=== PATIENT | male | born 1945 | race Caucasian/White ===

== ENCOUNTER → 2020-06-04 08:16 | Outpatient (BNVA) | payer MEDICARE, SELFPAY | PROVIDERS: PCP Internal Medicine; Visit Provider Internal Medicine | DX: I48.0 Paroxysmal atrial fibrillation (principal); Z51.81 Encounter for therapeutic drug level monitoring; Z79.01 Long term (current) use of anticoagulants | CPT/HCPCS: 85610; 99211 ==

== ENCOUNTER 2020-08-02 08:40 | Outpatient (REF) | payer MEDICARE, SELFPAY ==
[2020-08-02 10:17] LABS: MANUAL DIFF FLAG NO
[2020-08-02 10:35] LABS: Basophils Absolute Auto 0.1 X10*3/uL (0.0-0.2); Basophils Percent Auto 0.9 % (0-2); Eosinophils Absolute Auto 0.1 X10*3/uL (0.0-0.4); Eosinophils Percent Auto 1.4 % (0-4); Hematocrit 43.2 % (42-52); Hemoglobin 14.3 g/dl (14.0-18.0); Imm Gran Abs Auto 0.05 X10*3/uL (0.00-0.03); Imm Gran Pct Auto 0.5 % (0.0-0.4); Lymphocytes Absolute Auto 0.8 X10*3/uL (1.2-4.9); Lymphocytes Percent Auto 7.5 % (20-40); Mean Corpuscular HGB Conc 33.1 g/dl (31.0-36.0); Mean Corpuscular Hemoglobin 32.1 pg (27.0-33.0); Mean Corpuscular Volume 97.1 fL (80-98); Mean Platelet Volume 10.3 fL (9.4-12.4); Monocytes Absolute Auto 0.8 X10*3/uL (0.1-1.2); Monocytes Percent Auto 7.6 % (2-11); Neutrophils Absolute Auto 8.2 X10*3/uL (2.0-8.3); Neutrophils Percent Auto 82.1 % (45-73); Platelet Count 230 X10*3/uL (160-400); Red Blood Count 4.45 X10*6/uL (4.60-5.80); Red Cell Distribution Width 13.6 % (11.0-16.0)
[2020-08-02 10:36] LABS: Glucose Urine UA NEG (NEG); Leukocyte Esterase Urine NEG (NEG); Nitrite Urine NEG (NEG); Specific Gravity - Urine 1.025 (1.005-1.025); Urine Blood 1+ (NEG); Urine Ketones NEG (NEG); Urine Protein NEG (NEG-TRACE)
[2020-08-02 10:40] LABS: Appearance Urine CLEAR; Color Urine YELLOW
[2020-08-02 10:48] LABS: Hyaline Casts Urine 30-49 /LPF; RBC Urine 0-2 /HPF (0); Squamous Epithelial Cell Urine TRACE /LPF; WBC Urine 0 /HPF (0-4)
[2020-08-02 10:49] LABS: B Type Natriuretic Peptide 78 pg/mL (<100)
[2020-08-02 11:00] LABS: Alanine Aminotransferase 11 U/L (0-40); Albumin Level 4.2 g/dL (3.5-5.0); Alkaline Phosphatase 73 U/L (39-117); Anion Gap 10 (12-20); Aspartate Amino Transferase 10 U/L (5-37); Blood Urea Nitrogen 16 mg/dL (9-16); Carbon Dioxide 31 mmol/L (22-29); Chloride 102 mmol/L (96-108); Cholesterol 140 mg/dL; Estimated Glomerular Filt Rate > 60; Glucose Fasting 130 mg/dL (60-99); HDL Cholesterol 33 mg/dL; LDL Cholesterol Calculated 57 mg/dl; Potassium 4.1 mmol/l (3.3-5.1); Sodium 139 mmol/L (135-145); Total Protein 6.3 g/dL (6.5-8.0); Triglycerides 251 mg/dL
[2020-08-02 11:05] LABS: TSH reflex Free T4 4.25 mIU/mL (0.32-4.0); Vitamin D 25-OH Total 41.7 ng/mL (>30)
[2020-08-02 11:28] LABS: Digoxin < 0.3 ng/mL (0.8-2.0)
[2020-08-02 11:45] LABS: Free T4 (Free Thyroxine) 0.96 ng/dL (0.71-1.85)
== END 2020-08-02 08:41 | disposition home or self-care (01) ==
LOC: HO.LAB 08:40
PROVIDERS: Absent Provider Internal Medicine; PCP Internal Medicine; Visit Provider Internal Medicine
DX: I48.0 Paroxysmal atrial fibrillation (principal); E78.00 Pure hypercholesterolemia, unspecified; I25.10 Atherosclerotic heart disease of native coronary artery without angina pectoris; I11.0 Hypertensive heart disease with heart failure; I50.30 Unspecified diastolic (congestive) heart failure; C82.90 Follicular lymphoma, unspecified, unspecified site; E55.9 Vitamin D deficiency, unspecified; I48.20 Chronic atrial fibrillation, unspecified; E66.3 Overweight
CPT/HCPCS: 36415; 80053; 80061; 80162; 81001; 82306; 83880; 84439; 84443; 85025

== ENCOUNTER → 2020-09-03 08:48 | Outpatient (BNVA) | payer MEDICARE, SELFPAY | PROVIDERS: PCP Internal Medicine; Visit Provider Internal Medicine | DX: I50.32 Chronic diastolic (congestive) heart failure (principal); I25.10 Atherosclerotic heart disease of native coronary artery without angina pectoris; I48.0 Paroxysmal atrial fibrillation; J06.9 Acute upper respiratory infection, unspecified | CPT/HCPCS: 93005; 99212 ==

== ENCOUNTER 2020-09-03 09:49 | Outpatient (REF) | payer MEDICARE, SELFPAY | END 2020-09-03 09:50 | disposition home or self-care (01) | LOC: HO.LAB 09:49 | PROVIDERS: PCP Internal Medicine; Visit Provider Internal Medicine | DX: Z20.822 Contact with and (suspected) exposure to COVID-19 (principal) | CPT/HCPCS: 36415; C9803; U0003; U0005 ==

== ENCOUNTER 2020-10-30 09:14 | Outpatient (REF) | payer MEDICARE, SELFPAY ==
[2020-10-30 10:17] LABS: MANUAL DIFF FLAG NO
[2020-10-30 10:28] LABS: Basophils Absolute Auto 0.1 X10*3/uL (0.0-0.2); Eosinophils Absolute Auto 0.2 X10*3/uL (0.0-0.4); Eosinophils Percent Auto 2.1 % (0-4); Hematocrit 44.9 % (42-52); Hemoglobin 14.9 g/dl (14.0-18.0); Imm Gran Abs Auto 0.05 X10*3/uL (0.00-0.03); Imm Gran Pct Auto 0.5 % (0.0-0.4); Lymphocytes Percent Auto 10.6 % (20-40); Mean Corpuscular HGB Conc 33.2 g/dl (31.0-36.0); Mean Corpuscular Hemoglobin 32.2 pg (27.0-33.0); Mean Platelet Volume 10.1 fL (9.4-12.4); Monocytes Absolute Auto 0.8 X10*3/uL (0.1-1.2); Monocytes Percent Auto 8.4 % (2-11); Neutrophils Absolute Auto 7.4 X10*3/uL (2.0-8.3); Neutrophils Percent Auto 77.4 % (45-73); Platelet Count 232 X10*3/uL (160-400); Red Blood Count 4.63 X10*6/uL (4.60-5.80); Red Cell Distribution Width 13.9 % (11.0-16.0); White Blood Count 9.6 X10*3/uL (4.8-10.8)
[2020-10-30 10:50] LABS: Alanine Aminotransferase 13 U/L (0-40); Albumin Level 4.3 g/dL (3.5-5.0); Alkaline Phosphatase 78 U/L (39-117); Anion Gap 12 (12-20); Aspartate Amino Transferase 13 U/L (5-37); Bilirubin Total 1.1 mg/dL (0.0-1.0); Blood Urea Nitrogen 16 mg/dL (9-16); Carbon Dioxide 31 mmol/L (22-29); Chloride 100 mmol/L (96-108); Cholesterol 167 mg/dL; Estimated Glomerular Filt Rate > 60; Glucose Fasting 156 mg/dL (60-99); HDL Cholesterol 34 mg/dL; LDL Cholesterol Calculated 58 mg/dl; Potassium 4.7 mmol/L (3.3-5.1); Sodium 138 mmol/L (135-145); Total Protein 6.7 g/dL (6.5-8.0); Triglycerides 375 mg/dL
[2020-10-30 10:56] LABS: B Type Natriuretic Peptide 54 pg/mL (<100); Glucose Urine UA NEG (NEG); Leukocyte Esterase Urine NEG (NEG); Nitrite Urine NEG (NEG); PH 5.5 (5.0-8.0); Specific Gravity - Urine >= 1.030 (1.005-1.025); Urine Blood 1+ (NEG); Urine Ketones NEG (NEG); Urine Protein NEG (NEG-TRACE)
[2020-10-30 11:05] LABS: Appearance Urine CLEAR; Color Urine YELLOW
[2020-10-30 11:11] LABS: TSH reflex Free T4 3.74 uIU/mL (0.32-4.0); Vitamin D 25-OH Total 40.7 ng/mL (>30)
[2020-10-30 11:52] LABS: Mucus Urine 2+ /LPF; Squamous Epithelial Cell Urine 1+ /LPF; WBC Urine 0 /HPF (0-4)
== END 2020-10-30 09:15 | disposition home or self-care (01) ==
LOC: HO.LAB 09:14
PROVIDERS: PCP Internal Medicine; Visit Provider Internal Medicine
DX: I11.0 Hypertensive heart disease with heart failure (principal); I50.30 Unspecified diastolic (congestive) heart failure; E55.9 Vitamin D deficiency, unspecified; E78.00 Pure hypercholesterolemia, unspecified; E66.3 Overweight; I48.20 Chronic atrial fibrillation, unspecified; I73.9 Peripheral vascular disease, unspecified; I25.10 Atherosclerotic heart disease of native coronary artery without angina pectoris; F17.200 Nicotine dependence, unspecified, uncomplicated; C82.90 Follicular lymphoma, unspecified, unspecified site
CPT/HCPCS: 36415; 80053; 80061; 81001; 81003; 82306; 83880; 84443; 85025

== ENCOUNTER → 2020-11-06 09:17 | Outpatient (BNVA) | payer MEDICARE, SELFPAY | PROVIDERS: PCP Internal Medicine; Visit Provider Internal Medicine | DX: I48.0 Paroxysmal atrial fibrillation (principal); Z51.81 Encounter for therapeutic drug level monitoring; Z79.01 Long term (current) use of anticoagulants | CPT/HCPCS: 85610; 99211 ==

== ENCOUNTER 2020-11-24 22:44 | Emergency (ER) | payer MEDICARE, SELFPAY ==
[2020-11-24 22:46] VITALS: BP 165/55; PULSE 87; RESP 18; TEMP 36.6; O2SAT 95; BMI 25.2
--- NOTE | 2020-11-24 23:48 | ED_ITS ---
HPI - Wound/Laceration General Chief Complaint: Wound/Laceration Stated Complaint: dental bleeding Time Seen by Provider: 11/24/20 23:28 Source: patient Mode of arrival: ambulatory Limitations: no limitations History of Present Illness HPI narrative: Patient is a 75-year-old male with a past medical history of paroxysmal AFib on Coumadin, CHF, quadruple bypass in 2003, abdominal aortic aneurysm without rupture, DVTs of the lower extremities, COPD and CAD who presents with mouth laceration after eating chips, patient states the bleeding would not stop so he came to the emergency room. Denies pain or trouble sw allowing. Patient states he does not know what his last INR was but it was a couple of weeks ago Related Data Home Medications Medication Instructions Recorded Confirmed finasteride 1 tab PO DAILY 05/07/20 11/06/20 budesonide-formoterol [Symbicort] 2 puff PO BID 07/02/20 11/06/20 cholecalciferol (vitamin D3) 25 mcg PO DAILY 07/02/20 11/06/20 [Vitamin D3] clopidogrel 75 mg tablet 75 mg PO DAILY 09/03/20 11/06/20 digoxin 125 mcg (0.125 mg) tablet 125 mcg PO DAILY 09/03/20 11/06/20 lisinopril 2.5 mg tablet 2.5 mg PO DAILY 09/03/20 11/06/20 ondansetron HCl 8 mg tablet 8 mg PO Q8H PRN 09/03/20 11/06/20 Previous Rx's Medication Instructions Recorded warfarin 5 mg tablet See Rx Instructions PO DAILY 90 08/21/20 Days #150 tab allopurinol 100 mg PO DAILY #90 tab 09/27/20 furosemide 40 mg tablet 40 mg PO DAILY #90 cap 10/07/20 metoprolol tartrate 50 mg tablet 50 mg PO BID #180 cap 11/05/20 simvastatin 80 mg tablet 80 mg PO BEDTIME 90 Days #90 tab 11/06/20 Allergies Allergy/AdvReac Type Severity Reaction Status Date / Time No Known Allergies Allergy Verified 11/06/20 12:46 [No Known Allergies*] Review of Systems Review of Systems: Yes all other systems are reviewed and are negative PMFSH Past Medical History Medical History Abdominal aortic aneurysm without rupture Benign essential hypertension Chronic atrial fibrillation COPD (chronic obstructive pulmonary disease) Coronary artery disease Elevated PSA Heart failure with preserved ejection fraction High cholesterol History of blood clots History of deep vein thrombosis (DVT) of lower extremity Impaired fasting glucose Insomnia Overweight (BMI 25.0-29.9) PAF (paroxysmal atrial fibrillation) Peripheral arterial disease Pneumonia Pure hypercholesterolemia Smoker Vitamin D deficiency Surgical History History of quadruple bypass Family History Family History Father Cancer Mother Cardiovascular disease Social History Social History Alcohol intake: current Alcohol intake frequency: holidays/special occasions only Alcohol type: beer Smoking Status: Current every day smoker Tobacco Type: Cigarette Advance Directives: No Advance Directives Information Provided: No Physical Exam Vital Signs: Vital Signs: Last Vital Signs Temp 97.9 F 11/24/20 22:46 Pulse 87 11/24/20 22:46 Resp 18 11/24/20 22:46 BP 165/55 H 11/24/20 22:46 Pulse Ox 95 11/24/20 22:46 Body Mass Index 25.2 Const: General: cooperative, healthy appearing, comfortable and no acute distress Nutritional Appearance: obese Orientation/consciousness: patient oriented x3 HENMT: Head: Yes normal to inspection, Yes No palpable skull fracture present, Yes normocephalic and Yes atraumatic General nose exam: Normal external nose present Face and sinus: Yes normal facial exam Mouth: mouth trauma (laceration on upper palate and tongue, bleeding has stopped) Neuro: General: patient oriented x3 Extrem: Other: tick noted on right lower extremity, not imbedded Course Course Course Narrative: Patient is a 75-year-old male with a past medical history of paroxysmal AFib on Coumadin, CHF, quadruple bypass in 2003, abdominal aortic aneurysm without rupture, DVTs of the lower extremities, COPD and CAD who presents with mouth laceration after eating chips, patient states the bleeding would not stop so he came to the emergency room. VSS sans elevated BP 165/55, physical exam revealed bleeding has stopped. Will have patient sit for a little while to ensure does not restart. While doing exam, I noticed a tick on his right ankle, removed it, was not imbedded. yet. Patient states that he was in his yard a few hours ago and likely picked it up then. Will get PT INR as patient states it has been few weeks since he had a level drawn Reevaluation(s) Reevaluation #1: Patient's INR is 3.3, will discharge with follow up with PCP. Time: 00:49 MDM - Wound/Laceration Medical Records Attestation: I reviewed the patient's medical records. Lab Data Attestation: I reviewed the patient's lab results. Labs: Lab Results 11/25/20 Range/Units 00:16 PT 39.2 H (10.8-13.0) SEC INR 3.3 H (0.9-1.1) APTT 48.7 H (24.1-38.0) SEC Discharge Plan Discharge Clinical Impression: Bleeding on Coumadin Patient Disposition: Home, Self-Care Instructions: Warfarin (By mouth) Additional Instructions: Your bleeding has stopped, if it starts up again, please try to apply pressure to the area. If that does not work, please return to the emergency department Prescriptions: No Action warfarin 5 mg tablet See Rx Instructions mg PO DAILY 90 Days Qty: 150 RF: 1 furosemide 40 mg tablet 40 mg PO DAILY Qty: 90 RF: 3 metoprolol tartrate 50 mg tablet 50 mg PO BID Qty: 180 RF: 3 finasteride 5 mg tablet 1 tab PO DAILY RF: 0 budesonide-formoterol [Symbicort] 160-4.5 mcg/actuation HFA aerosol inhaler 2 puff PO BID RF: 0 cholecalciferol (vitamin D3) [Vitamin D3] 25 mcg (1,000 unit) Capsule 25 mcg PO DAILY RF: 0 clopidogrel 75 mg tablet 75 mg PO DAILY RF: 0 digoxin 125 mcg (0.125 mg) tablet 125 mcg PO DAILY RF: 0 lisinopril 2.5 mg tablet 2.5 mg PO DAILY RF: 0 allopurinol 100 mg tablet 100 mg PO DAILY Qty: 90 RF: 4 simvastatin 80 mg tablet 80 mg PO BEDTIME 90 Days Qty: 90 RF: 1 ondansetron HCl 8 mg tablet 8 mg PO Q8H PRN (Reason: nausea/vomiting) RF: 0
[2020-11-25 00:26] LABS: INTERNATIONAL NORM RATIO 3.3 (0.9-1.1); Prothrombin Time 39.2 SEC (10.8-13.0)
[2020-11-25 00:30] LABS: Partial Thromboplastin Time 48.7 SEC (24.1-38.0)
--- NOTE | 2020-11-25 00:47 | PC.NURSE ---
pt has not experienced any bleeding from his gums while present in the er. pt points to the upper left side when asked where the bleeding was. pt does not have teeth or dentures in place.
== END 2020-11-25 01:23 | disposition home or self-care (01) ==
PROVIDERS: Physician Assistant; Emergency Provider Internal Medicine; PCP Internal Medicine
DX: I48.91 Unspecified atrial fibrillation (principal); Z79.01 Long term (current) use of anticoagulants; Z79.899 Other long term (current) drug therapy; Z86.718 Personal history of other venous thrombosis and embolism
CPT/HCPCS: 36415; 85610; 85730; 99283

== ENCOUNTER 2021-01-14 08:19 | Outpatient (REF) | payer MEDICARE, SELFPAY ==
--- NOTE | ~2021-01-14 | CT_ITS ---
EXAMINATION: CT ABDOMEN AND PELVIS WITH CONTRAST CLINICAL INFORMATION: Followup lymphoma post-treatment. COMPARISON: Previous CT of the abdomen and pelvis most recent March 2020 TECHNIQUE: Multidetector volumetric images were obtained from the superior aspect of the liver through the pubic symphysis following administration 85 mL of Omnipaque 350 intravenous contrast. Sagittal and coronal reformatted images were obtained on the technologist's workstation. Oral contrast: Yes. This CT examination was performed using dose optimization techniques as appropriate, variously including the following: *Automated exposure control *Adjustment of mA and/or kV according to patient size (this includes techniques or standardized protocols for targeted exams where dose is matched to indication/reason for exam; i.e. extremities or head) *Use of iterative reconstruction technique DLP: 292 mGy-cm FINDINGS: LIVER, GALLBLADDER, AND BILIARY TREE: The liver is low in attenuation suggestive of fatty infiltration. The liver is otherwise unremarkable. The gallbladder is unremarkable. There is no biliary duct dilatation. PANCREAS: Unremarkable. SPLEEN: Unremarkable. ADRENAL GLANDS: Unremarkable. KIDNEYS AND URETERS: There are right renal cysts. The kidneys are otherwise unremarkable. BLADDER: Unremarkable. GASTROINTESTINAL TRACT: There is diverticulosis of the colon. The small and large bowel is otherwise unremarkable. The appendix is unremarkable. The stomach is unremarkable. ABDOMINAL WALL: No significant hernia is appreciated. LYMPH NODES: There is infiltration of the fat surrounding the abdominal aorta and common iliac vessels and in both inguinal regions. This is similar to previous exam. There is an enhancing structure in the right inguinal region. It is uncertain whether this represents an enhancing lymph node or is related to a vessel. This measures 1.3 x 1.8 cm axial image 77 series 3. This is similar to previous exam. No discrete adenopathy is seen. VASCULAR: There is evidence of atherosclerotic disease. There is dilatation of the lower abdominal aorta measuring 2 x 3 cm in AP and transverse dimension. There is mild dilatation of the right common iliac artery measuring 1.5 cm. This is unchanged. PELVIC VISCERA: The prostate gland is enlarged and protrudes into the base of the bladder. There may be a right hydrocele. OSSEOUS STRUCTURES: There are degenerative changes of the spine. There is a lucent lesion of the right superior pubic ramus that is stable and may represent a small cyst or lipoma. CT/CT abdomen pelvis w con IMPRESSION: Stable infiltration of the fat in the retroperitoneum of the abdomen and pelvis and bilateral inguinal regions. Enhancing 1 x 1.8 cm lesion in the right inguinal region. It is uncertain whether this represents a lymph node or a vascular structure. This is stable from the previous exam and could be better assessed with ultrasound if clinically indicated. No other evidence of adenopathy. Diverticulosis of the colon. Enlarged prostate gland. Right renal cysts. Stable mild dilatation of the abdominal aorta.
--- NOTE | ~2021-01-14 | CT_ITS ---
EXAMINATION: CT CHEST WITH CONTRAST CLINICAL INFORMATION: Followup lymphoma. COMPARISON: Previous chest CT most recent July 2019 TECHNIQUE: Multidetector volumetric CT imaging of the chest was obtained after the administration of 50 mL of Omnipaque 350 intravenous contrast without immediate adverse reactions. Axial MIP volume rendering provided. Sagittal and coronal reformatted images were obtained. This CT examination was performed using dose optimization techniques as appropriate, variously including the following: *Automated exposure control *Adjustment of mA and/or kV according to patient size (this includes techniques or standardized protocols for targeted exams where dose is matched to indication/reason for exam; i.e. extremities or head) *Use of iterative reconstruction technique DLP: 130 mGy-cm FINDINGS: LUNGS: There is evidence of emphysema. There are small pulmonary nodules that are stable. The largest measures 4 mm in the right middle lobe axial image 310 series 7 and left lower lobe axial image 359 series 7. There is peripheral chronic scarring or subsegmental atelectasis at the right lung base in the right middle and right lower lobes and bronchial wall thickening. This is similar to July 2019 exam. MEDIASTINUM: The ascending thoracic aorta is upper normal in size measuring 4 x 4.2 cm. There is a small aneurysm of the lateral aortic arch that is unchanged. The heart does not appear enlarged. There is coronary artery calcification and post-CABG changes. There are no enlarged hilar or mediastinal lymph nodes. There is no pericardial effusion. PLEURA: There is a trace right pleural effusion and pleural thickening that is unchanged. There is no left pleural effusion or pleural thickening. AXILLA: No lymphadenopathy. OSSEOUS STRUCTURES: There is a median sternotomy. There are degenerative changes of the thoracic spine. CT/CT chest w con IMPRESSION: Stable peripheral or subpleural atelectasis or scarring in the right middle and right lower lobes, bronchial wall thickening and adjacent pleural thickening/tiny right pleural effusion. Stable small pulmonary nodules, largest measuring 4 mm. Post-CABG changes. Stable small aneurysm of the aortic arch.
[2021-01-14] MEDS: Barium Sulfate Oral (Mocha) 450 ML ORAL.SUSP 900 ML PO (10:48)
[2021-01-14] MEDS: iohexoL 350 MG/ML 100 ML INFUS..BTL 85 ML IV (10:49)
== END 2021-01-14 08:20 | disposition home or self-care (01) ==
LOC: HO.CT 08:19
PROVIDERS: Visit Provider Internal Medicine Medical Oncology
DX: C82.90 Follicular lymphoma, unspecified, unspecified site (principal)
CPT/HCPCS: 71260; 74177; Q9967

== ENCOUNTER → 2021-01-30 10:45 | Outpatient (BNVA) | payer MEDICARE, SELFPAY | PROVIDERS: PCP Internal Medicine; Visit Provider Internal Medicine | DX: I48.0 Paroxysmal atrial fibrillation (principal); Z51.81 Encounter for therapeutic drug level monitoring; Z79.01 Long term (current) use of anticoagulants | CPT/HCPCS: 85610; 99211 ==

== ENCOUNTER 2021-02-26 09:27 | Outpatient (REF) | payer MEDICARE, SELFPAY ==
[2021-02-26 10:09] LABS: MANUAL DIFF FLAG NO
[2021-02-26 10:17] LABS: Glucose Urine UA NEG (NEG); Leukocyte Esterase Urine NEG (NEG); Nitrite Urine NEG (NEG); PH 5.5 (5.0-8.0); Specific Gravity - Urine 1.025 (1.005-1.025); UACC Culture Trigger NO; Urine Blood TRACE (NEG); Urine Ketones NEG (NEG); Urine Protein NEG (NEG-TRACE)
[2021-02-26 10:19] LABS: Basophils Absolute Auto 0.1 X10*3/uL (0.0-0.2); Basophils Percent Auto 0.9 % (0-2); Eosinophils Absolute Auto 0.2 X10*3/uL (0.0-0.4); Eosinophils Percent Auto 1.5 % (0-4); Hematocrit 46.1 % (42-52); Hemoglobin 15.2 g/dl (14.0-18.0); Imm Gran Abs Auto 0.07 X10*3/uL (0.00-0.03); Imm Gran Pct Auto 0.7 % (0.0-0.4); Lymphocytes Absolute Auto 1.1 X10*3/uL (1.2-4.9); Lymphocytes Percent Auto 10.4 % (20-40); Mean Corpuscular Hemoglobin 32.1 pg (27.0-33.0); Mean Corpuscular Volume 97.3 fL (80-98); Mean Platelet Volume 10.1 fL (9.4-12.4); Monocytes Absolute Auto 0.7 X10*3/uL (0.1-1.2); Monocytes Percent Auto 7.1 % (2-11); Neutrophils Absolute Auto 8.1 X10*3/uL (2.0-8.3); Neutrophils Percent Auto 79.4 % (45-73); Platelet Count 245 X10*3/uL (160-400); Red Blood Count 4.74 X10*6/uL (4.60-5.80); Red Cell Distribution Width 14.3 % (11.0-16.0); White Blood Count 10.2 X10*3/uL (4.8-10.8)
[2021-02-26 10:25] LABS: Appearance Urine CLEAR; Color Urine YELLOW
[2021-02-26 10:57] LABS: RBC Urine 0-2 /HPF (0); WBC Urine 0-2 /HPF (0-4)
[2021-02-26 11:09] LABS: Alanine Aminotransferase 21 U/L (0-40); Albumin Level 4.4 g/dL (3.5-5.0); Alkaline Phosphatase 76 U/L (39-117); Anion Gap 17 (12-20); Aspartate Amino Transferase 16 U/L (5-37); Bilirubin Total 1.1 mg/dL (0.0-1.0); Blood Urea Nitrogen 20 mg/dL (9-16); Calcium 9.6 mg/dL (8.4-10.2); Carbon Dioxide 27 mmol/L (22-29); Chloride 100 mmol/L (96-108); Cholesterol 184 mg/dL; Estimated Glomerular Filt Rate > 60; Glucose Fasting 171 mg/dL (60-99); HDL Cholesterol 33 mg/dL; Potassium 4.8 mmol/L (3.3-5.1); Sodium 139 mmol/L (135-145); Total Protein 6.9 g/dL (6.5-8.0); Triglycerides 438 mg/dL
[2021-02-26 11:18] LABS: Estimated Average Glucose 151 mg/dL; Hemoglobin A1c % 6.9 %
[2021-02-26 11:34] LABS: TSH reflex Free T4 4.39 uIU/mL (0.32-4.0); Vitamin D 25-OH Total 41.9 ng/mL (>30)
== END 2021-02-26 09:28 | disposition home or self-care (01) ==
LOC: HO.LAB 09:27
PROVIDERS: PCP Internal Medicine; Visit Provider Internal Medicine
DX: I10 Essential (primary) hypertension (principal); I25.10 Atherosclerotic heart disease of native coronary artery without angina pectoris; C82.90 Follicular lymphoma, unspecified, unspecified site; E78.00 Pure hypercholesterolemia, unspecified; R73.01 Impaired fasting glucose; E66.3 Overweight; E55.9 Vitamin D deficiency, unspecified; F17.200 Nicotine dependence, unspecified, uncomplicated; I48.0 Paroxysmal atrial fibrillation; Z51.81 Encounter for therapeutic drug level monitoring; Z79.01 Long term (current) use of anticoagulants
CPT/HCPCS: 36415; 80053; 80061; 81001; 82306; 83036; 84439; 84443; 85025; 85610; 99211

== ENCOUNTER → 2021-03-11 09:39 | Outpatient (BNVA) | payer MEDICARE, SELFPAY | PROVIDERS: PCP Internal Medicine; Visit Provider Internal Medicine | DX: I48.0 Paroxysmal atrial fibrillation (principal); Z51.81 Encounter for therapeutic drug level monitoring; Z79.01 Long term (current) use of anticoagulants | CPT/HCPCS: 85610; 99211 ==

== ENCOUNTER 2021-03-19 11:06 | Outpatient (REF) | payer MEDICARE, SELFPAY ==
--- NOTE | ~2021-03-19 | US_ITS ---
EXAMINATION: ULTRASOUND EXTREMITY NONVASCULAR LIMITED CLINICAL INFORMATION: RIGHT INGUINAL LYMPHADENOPATHY. HISTORY OF FOLLICULAR LYMPHOMA. QUESTION ENHANCING RIGHT INGUINAL LYMPH NODE VERSUS VASCULAR STRUCTURE COMPARISON: Previous CT of the abdomen and pelvis 01/14/2021 TECHNIQUE: Grayscale and color imaging of the soft tissues of the right inguinal region. FINDINGS: There are small right inguinal lymph nodes seen. These appear fatty replaced with a prominent fatty hilum and thin cortex. These have normal hilar flow. No enlarged lymph nodes are seen. US/US extremity nonvascular anglin IMPRESSION: Small right inguinal lymph nodes. No enlarged lymph nodes seen. Depending on level of clinical concern, noninvasive vascular ultrasound of the right groin could be considered for further evaluation of the CT finding.
== END 2021-03-19 11:07 | disposition home or self-care (01) ==
LOC: HO.US 11:06
PROVIDERS: Visit Provider Internal Medicine Medical Oncology
DX: R59.0 Localized enlarged lymph nodes (principal); C82.90 Follicular lymphoma, unspecified, unspecified site; I48.0 Paroxysmal atrial fibrillation; Z51.81 Encounter for therapeutic drug level monitoring; Z79.01 Long term (current) use of anticoagulants
CPT/HCPCS: 76882; 85610; 99211

== ENCOUNTER → 2021-04-23 10:14 | Outpatient (BNVA) | payer MEDICARE, SELFPAY | PROVIDERS: PCP Internal Medicine; Visit Provider Internal Medicine | DX: I48.0 Paroxysmal atrial fibrillation (principal); Z51.81 Encounter for therapeutic drug level monitoring; Z79.01 Long term (current) use of anticoagulants | CPT/HCPCS: 85610; 99211 ==

== ENCOUNTER → 2021-05-21 10:00 | Outpatient (BNVA) | payer MEDICARE, SELFPAY | PROVIDERS: PCP Internal Medicine; Visit Provider Internal Medicine | DX: I48.0 Paroxysmal atrial fibrillation (principal); Z51.81 Encounter for therapeutic drug level monitoring; Z79.01 Long term (current) use of anticoagulants | CPT/HCPCS: 85610; 99211 ==

== ENCOUNTER 2021-06-26 08:45 | Outpatient (REF) | payer MEDICARE, OTHER, SELFPAY ==
--- NOTE | ~2021-06-26 | US_ITS ---
EXAMINATION: Noninvasive assessment of the arteries of both lower extremities to include a PVR exam limited (1-2 levels) and RUPA, bilateral. ? Ollie Wolf M.D. CLINICAL INFORMATION: Claudication COMPARISON: 03/05/2020 TECHNIQUE: The ankle/brachial indices of the distal posterior tibial and the dorsalis pedis arteries were obtained of the lower extremity arterial system bilaterally; along with pressures measurements at the ankle and duplex Doppler techniques of the bilateral lower extremities. The study was performed at rest. ? FINDINGS AT REST:? RIGHT LE. THE RIGHT ANKLE-BRACHIAL INDEX IS: 1.72 (higher of the DP/PT) >0.97-1.25 = normal - no significant arterial disease 0.75-0.96 = mild peripheral arterial disease 0.50-0.74 = moderate peripheral arterial disease <0.50 = severe peripheral arterial disease <0.30 = critical arterial disease 2. SEGMENTAL PRESSURES: Ankle: PT not obtained DP 201 3. DIRECT DUPLEX: There are monophasic waveforms throughout the right lower extremity arterial system. Irregular irregular rhythm. Atherosclerotic plaque throughout the right lower extremity arterial system. Color Doppler and spectral Doppler waveforms are noted from the common femoral artery through the posterior tibial artery. Decreased velocities in the distal SFA, popliteal artery and posterior tibial artery. LEFT LE. THE LEFT ANKLE-BRACHIAL INDEX IS: 1.74 (higher of the DP/PT) >0.97-1.25 = normal - no significant arterial disease 0.75-0.96 = mild peripheral arterial disease 0.50-0.74 = moderate peripheral arterial disease <0.50 = severe peripheral arterial disease <0.30 = critical arterial disease 2. SEGMENTAL PRESSURES: Ankle: PT 110 DP 204 3. DIRECT DUPLEX: Biphasic and monophasic flow throughout the left lower extremity arterial system. Atherosclerotic plaque throughout the left lower extremity arterial system. ? US/US arterial duplex LE BI IMPRESSION: Ankle-brachial indices are elevated likely due to noncompressible vessels. There is fairly extensive atherosclerotic plaque throughout the bilateral lower extremities. Monophasic/biphasic flow suggesting inflow disease.
--- NOTE | ~2021-06-26 | US_ITS ---
EXAMINATION: US RETROPERITONEAL LIMITED (AORTA) CLINICAL INFORMATION: Claudication. COMPARISON: CT abdomen and pelvis 01/14/2021 TECHNIQUE: Little-scale, color Doppler and spectral Doppler evaluation of the abdominal aorta. Technically challenging exam due to overlying bowel gas FINDINGS: There is atherosclerotic plaque throughout the abdominal aorta. The measurements of the aorta in maximum AP and transverse dimensions respectively are as follows: Proximal: 2.8 Mid: 1.6 cm. Distal: 2.3 cm. PSV: 58 cm/s. Elevated velocities in the external iliac arteries bilaterally measuring 313 cm/s on the right and 658 cm/s on the left. US/US abdominal aortic aneurysm IMPRESSION: Technically challenging exam due to overlying bowel gas. No evidence for abdominal aortic aneurysm. There is fairly extensive atherosclerotic disease in the aorta and iliac vessels. Velocity measurements are elevated in the external iliac artery suggesting stenosis..
--- NOTE | ~2021-06-26 | US_ITS ---
EXAMINATION: Noninvasive assessment of the arteries of both lower extremities to include a PVR exam limited (1-2 levels) and RUPA, bilateral. ? Ollie Wolf M.D. CLINICAL INFORMATION: Claudication COMPARISON: 03/05/2020 TECHNIQUE: The ankle/brachial indices of the distal posterior tibial and the dorsalis pedis arteries were obtained of the lower extremity arterial system bilaterally; along with pressures measurements at the ankle and duplex Doppler techniques of the bilateral lower extremities. The study was performed at rest. ? FINDINGS AT REST:? RIGHT LE. THE RIGHT ANKLE-BRACHIAL INDEX IS: 1.72 (higher of the DP/PT) >0.97-1.25 = normal - no significant arterial disease 0.75-0.96 = mild peripheral arterial disease 0.50-0.74 = moderate peripheral arterial disease <0.50 = severe peripheral arterial disease <0.30 = critical arterial disease 2. SEGMENTAL PRESSURES: Ankle: PT not obtained DP 201 3. DIRECT DUPLEX: There are monophasic waveforms throughout the right lower extremity arterial system. Irregular irregular rhythm. Atherosclerotic plaque throughout the right lower extremity arterial system. Color Doppler and spectral Doppler waveforms are noted from the common femoral artery through the posterior tibial artery. Decreased velocities in the distal SFA, popliteal artery and posterior tibial artery. LEFT LE. THE LEFT ANKLE-BRACHIAL INDEX IS: 1.74 (higher of the DP/PT) >0.97-1.25 = normal - no significant arterial disease 0.75-0.96 = mild peripheral arterial disease 0.50-0.74 = moderate peripheral arterial disease <0.50 = severe peripheral arterial disease <0.30 = critical arterial disease 2. SEGMENTAL PRESSURES: Ankle: PT 110 DP 204 3. DIRECT DUPLEX: Biphasic and monophasic flow throughout the left lower extremity arterial system. Atherosclerotic plaque throughout the left lower extremity arterial system. ? US/US RUPA complete IMPRESSION: Ankle-brachial indices are elevated likely due to noncompressible vessels. There is fairly extensive atherosclerotic plaque throughout the bilateral lower extremities. Monophasic/biphasic flow suggesting inflow disease.
== END 2021-06-26 08:46 | disposition home or self-care (01) ==
LOC: HO.US 08:45
PROVIDERS: Visit Provider Surgery Vascular Surgery
DX: I70.213 Atherosclerosis of native arteries of extremities with intermittent claudication, bilateral legs (principal); I71.4 Abdominal aortic aneurysm, without rupture
CPT/HCPCS: 76706; 93923; 93925

== ENCOUNTER 2021-07-01 09:11 | Outpatient (REF) | payer MEDICARE, OTHER, SELFPAY ==
[2021-07-01 10:21] LABS: MANUAL DIFF FLAG NO
[2021-07-01 10:33] LABS: Basophils Absolute Auto 0.1 X10*3/uL (0.0-0.2); Basophils Percent Auto 0.7 % (0-2); Eosinophils Absolute Auto 0.2 X10*3/uL (0.0-0.4); Eosinophils Percent Auto 1.9 % (0-4); Imm Gran Abs Auto 0.04 X10*3/uL (0.00-0.03); Imm Gran Pct Auto 0.4 % (0.0-0.4); Lymphocytes Absolute Auto 0.9 X10*3/uL (1.2-4.9); Lymphocytes Percent Auto 9.9 % (20-40); Mean Corpuscular HGB Conc 32.6 g/dl (31.0-36.0); Mean Corpuscular Hemoglobin 31.8 pg (27.0-33.0); Mean Corpuscular Volume 97.7 fL (80.0-98.0); Mean Platelet Volume 9.8 fL (9.4-12.4); Monocytes Absolute Auto 0.7 X10*3/uL (0.1-1.2); Neutrophils Absolute Auto 7.6 x10*3/uL (2.0-8.3); Neutrophils Percent Auto 80.1 % (45-73); Platelet Count 236 X10*3/uL (160-400); Red Cell Distribution Width 13.9 % (11.0-16.0); White Blood Count 9.5 X10*3/uL (4.8-10.8)
[2021-07-01 10:58] LABS: Estimated Average Glucose 134 mg/dL; Hemoglobin A1c % 6.3 %
[2021-07-01 11:02] LABS: Alanine Aminotransferase 12 U/L (0-40); Albumin Level 4.3 g/dL (3.5-5.0); Alkaline Phosphatase 66 U/L (39-117); Anion Gap 15 (12-20); Aspartate Amino Transferase 11 U/L (5-37); Bilirubin Total 0.9 mg/dL (0.0-1.0); Blood Urea Nitrogen 14 mg/dL (9-16); Carbon Dioxide 32 mmol/L (22-29); Chloride 99 mmol/L (96-108); Cholesterol 138 mg/dL; Estimated Glomerular Filt Rate 58; Glucose Fasting 127 mg/dL (60-99); HDL Cholesterol 35 mg/dL; LDL Cholesterol Calculated 53 mg/dl; Potassium 4.5 mmol/L (3.3-5.1); Sodium 141 mmol/L (135-145); Total Protein 6.5 g/dL (6.5-8.0); Triglycerides 253 mg/dL
[2021-07-01 11:23] LABS: TSH reflex Free T4 4.28 uIU/mL (0.32-4.0); Vitamin D 25-OH Total 60.3 ng/mL (>30)
[2021-07-01 12:03] LABS: Appearance Urine CLEAR; Color Urine YELLOW; Glucose Urine UA NEG (NEG); Leukocyte Esterase Urine NEG (NEG); Nitrite Urine NEG (NEG); PH 5.5 (5.0-8.0); Specific Gravity - Urine 1.025 (1.005-1.025); Urine Blood NEG (NEG); Urine Ketones NEG (NEG); Urine Protein NEG (NEG-TRACE)
[2021-07-01 12:18] LABS: Creatinine Urine 83.44 mg/dL; Microalbum/Creatinine Ratio Ur 14.3 ug/mg cr
[2021-07-01 13:24] LABS: Free T4 (Free Thyroxine) 1.02 ng/dL (0.71-1.85)
== END 2021-07-01 09:12 | disposition home or self-care (01) ==
LOC: HO.LAB 09:11
PROVIDERS: Absent Provider Internal Medicine; PCP Internal Medicine; Visit Provider Surgery Vascular Surgery
DX: I48.0 Paroxysmal atrial fibrillation (principal); Z51.81 Encounter for therapeutic drug level monitoring; Z79.01 Long term (current) use of anticoagulants; I73.9 Peripheral vascular disease, unspecified; E78.00 Pure hypercholesterolemia, unspecified; I10 Essential (primary) hypertension; E11.9 Type 2 diabetes mellitus without complications; E55.9 Vitamin D deficiency, unspecified
CPT/HCPCS: 36415; 80053; 80061; 81003; 82043; 82306; 83036; 84439; 84443; 85025; 85610; 99211; 99212

== ENCOUNTER 2021-08-26 10:10 | Outpatient (RCR) | payer MEDICARE, SELFPAY ==
[2020-05-07 08:38] VITALS: BP 108/50; PULSE 72; RESP 20; TEMP 36.8; O2SAT 96
[2020-05-07 08:45] VITALS: BMI 24.6
[2020-05-07 08:56] LABS: Hematocrit 44.1 % (42-52); Hemoglobin 14.3 g/dl (14.0-18.0); Mean Corpuscular HGB Conc 32.4 g/dl (31.0-36.0); Mean Corpuscular Hemoglobin 31.7 pg (27.0-33.0); Mean Corpuscular Volume 97.8 fL (80-98); Mean Platelet Volume 9.8 fL (9.4-12.4); Platelet Count 238 X10*3/uL (160-400); Red Blood Count 4.51 X10*6/uL (4.60-5.80); Red Cell Distribution Width 14.1 % (11.0-16.0); White Blood Count 10.9 X10*3/uL (4.8-10.8)
[2020-05-07 09:24] LABS: Alanine Aminotransferase 13 U/L (0-40); Albumin Level 4.2 g/dL (3.5-5.0); Alkaline Phosphatase 69 U/L (39-117); Anion Gap 13 (12-20); Aspartate Amino Transferase 13 U/L (5-37); Bilirubin Total 0.7 mg/dL (0.0-1.0); Blood Urea Nitrogen 21 mg/dL (9-16); Calcium 8.9 mg/dL (8.4-10.2); Carbon Dioxide 29 mmol/L (22-29); Chloride 99 mmol/L (96-108); Creatinine Clr Calc Pharmacy 51.5; Estimated Glomerular Filt Rate > 60; Glucose Random 111 mg/dL (60-115); Lactate Dehydrogenase 146 U/L (118-273); Potassium 3.9 mmol/l (3.3-5.1); Sodium 137 mmol/L (135-145); Total Protein 6.4 g/dL (6.5-8.0)
[2020-05-07] MEDS: Acetaminophen 325 MG TABLET 650 MG PO (09:40)
[2020-05-07] MEDS: ondansetron HCL/NS 16 MG/50 ML PIGGYBACK 200 MG IV (09:41)
[2020-05-07] MEDS: diphenhydrAMINE HCL 50 MG/ML VIAL 25 MG IVPUSH (09:58)
--- NOTE | 2020-05-07 16:39 | PC.NURSE ---
Pt tolerated treatment well. Labs wnl. To return for treatment in 8 weeks
[2020-06-28 16:19] VITALS: BMI 24.6
[2020-07-02 08:06] VITALS: BP 158/70; PULSE 68; RESP 20; TEMP 36.4; O2SAT 95; BMI 24.7
[2020-07-02 08:09] LABS: MANUAL DIFF FLAG NO
[2020-07-02 08:17] LABS: Basophils Absolute Auto 0.1 X10*3/uL (0.0-0.2); Basophils Percent Auto 1.1 % (0-2); Eosinophils Absolute Auto 0.2 X10*3/uL (0.0-0.4); Eosinophils Percent Auto 2.1 % (0-4); Hematocrit 43.9 % (42-52); Hemoglobin 14.8 g/dl (14.0-18.0); Imm Gran Abs Auto 0.06 X10*3/uL (0.00-0.03); Imm Gran Pct Auto 0.6 % (0.0-0.4); Lymphocytes Absolute Auto 1.2 X10*3/uL (1.2-4.9); Lymphocytes Percent Auto 12.2 % (20-40); Mean Corpuscular HGB Conc 33.7 g/dl (31.0-36.0); Mean Corpuscular Hemoglobin 32.7 pg (27.0-33.0); Mean Corpuscular Volume 97.1 fL (80-98); Mean Platelet Volume 10.1 fL (9.4-12.4); Monocytes Absolute Auto 0.9 X10*3/uL (0.1-1.2); Monocytes Percent Auto 9.1 % (2-11); Neutrophils Absolute Auto 7.4 X10*3/uL (2.0-8.3); Neutrophils Percent Auto 74.9 % (45-73); Platelet Count 245 X10*3/uL (160-400); Red Blood Count 4.52 X10*6/uL (4.60-5.80); White Blood Count 9.9 X10*3/uL (4.8-10.8)
[2020-07-02 08:27] LABS: INTERNATIONAL NORM RATIO 2.5 (0.9-1.1); Prothrombin Time 29.7 SEC (10.8-13.0)
[2020-07-02 08:52] LABS: Alanine Aminotransferase 17 U/L (0-40); Albumin Level 4.3 g/dL (3.5-5.0); Alkaline Phosphatase 70 U/L (39-117); Anion Gap 13 (12-20); Aspartate Amino Transferase 16 U/L (5-37); Bilirubin Total 0.8 mg/dL (0.0-1.0); Blood Urea Nitrogen 16 mg/dL (9-16); Carbon Dioxide 33 mmol/L (22-29); Chloride 98 mmol/L (96-108); Creatinine Clr Calc Pharmacy 45.9; Estimated Glomerular Filt Rate 59; Glucose Random 144 mg/dL (60-115); Potassium 4.4 mmol/l (3.3-5.1); Sodium 140 mmol/L (135-145); Total Protein 6.7 g/dL (6.5-8.0)
[2020-07-02] MEDS: ondansetron HCL/NS 16 MG/50 ML PIGGYBACK 200 MG IV (09:00)
[2020-07-02] MEDS: Acetaminophen 325 MG TABLET 650 MG PO (09:01)
[2020-07-02] MEDS: diphenhydrAMINE HCL 50 MG/ML VIAL 25 MG IVPUSH (09:17)
--- NOTE | 2020-07-02 12:36 | MHC.HEMONC ---
Pt here for last Rituxin (maint). He is doing well and has no c/o. Jose infusion well. [facility] called with INR from this morning.
[2020-08-02 08:57] LABS: MANUAL DIFF FLAG NO
[2020-08-02 09:02] VITALS: BP 124/57; PULSE 63; RESP 14; TEMP 36.4; O2SAT 96; BMI 25.0
--- NOTE | 2020-08-02 09:10 | PM.HEMONCPN ---
Medical Summary - Medical Summary Date of Service: 08/02/20 Chief complaint: Follow-up for follicular lymphoma. Medical Summary: DIAGNOSIS: 1. Follicular Lymphoma of the axilla. 2. Lung mass. 3. Hypercalcemia. CURRENT THERAPY: STARTED Bendamustine & Rituximab 08/02/18. Second cycle 08/30. Completed cycle 6th, On December 20. Recieved maintenance rituximab, cycle 3 on June 06. To be given every 8 weeks for 2 up to years, as tolerated. Received his 10 th cycle, July 02. Interval History Interval history: This is a pleasant 75 year-old gentleman, here for a follow-up visit. He has been doing quite well. He tells me he had a beautiful holiday season. He just gets tired sometimes. The reason is that he cannot sleep well at night. I advised him to try melatonin. Sometimes he does take a nap during the day. He denies headache no dizziness. Denies chest pain or trouble breathing. He has no abdominal pain nausea vomiting heartburn indigestion. His bowels are working without any gross blood in it. He enjoys a good appetite. He has been eating fruit cup cakes cookies and canned fruit. He has gained weight. He is in good spirits. Rest of the review of systems is unremarkable. Review of Systems - Constitutional Reports system reviewed and no additional complaints, except as documented, Denies increased appetite - Eyes Reports system reviewed and no additional complaints, except as documented, Denies itchy eyes - ENT Reports system reviewed and no additional complaints, except as documented - Cardiovascular Reports system reviewed and no additional complaints, except as documented, Denies chest pain at rest - Respiratory Reports no additional respiratory complaints, Denies change in phlegm color - Gastrointestinal Reports system reviewed and no additional complaints, except as documented, Denies abdominal pain, Denies change in bowel habits, Denies vomiting blood - Genitourinary Genitourinary: Reports no additional male genitourinary complaints, Denies genital lesions - Musculoskeletal Reports system reviewed and no additional complaints, except as documented, Denies loss of height - Integumentary/Breasts Skin/Breast: Reports no additional skin complaints, Denies itching - Neurologic Reports system reviewed and no additional complaints, except as documented - Psychiatric Reports system reviewed and no additional complaints, except as documented - Endocrine Reports no additional endocrine complaints, Denies increased urination - Hematologic/Lymphatic Reports system reviewed and no additional complaints, except as documented, Denies easy bleeding - Allergic/Immunologic Reports system reviewed and no additional complaints, except as documented [facility] Medical History: Medical History (Last Updated 05/07/20 @ 09:52 by Samanta Jimenes RN) COPD (chronic obstructive pulmonary disease) High cholesterol History of blood clots Pneumonia Functional capacity: uses cane/walker Patient : No Surgical History: Surgical History (Last Updated 05/07/20 @ 09:49 by Samanta Jimenes RN) History of quadruple bypass Smoking status: Current every day smoker Home Medications and Allergies Home Medications Medication Instructions Recorded Confirmed Type allopurinol 1 tab PO DAILY 05/07/20 05/07/20 History clopidogrel 1 tab PO DAILY 05/07/20 05/07/20 History digoxin 1 tab PO DAILY 05/07/20 05/07/20 History finasteride 1 tab PO DAILY 05/07/20 05/07/20 History lisinopril 1 tab PO DAILY 05/07/20 05/07/20 History warfarin 5 mg PO DAILY 05/07/20 08/02/20 History budesonide-formoterol [Symbicort] 2 puff PO BID 07/02/20 07/02/20 History cholecalciferol (vitamin D3) 25 mcg PO DAILY 07/02/20 07/02/20 History [Vitamin D3] Allergies Allergy/AdvReac Type Severity Reaction Status Date / Time No Known Allergies Allergy Verified 08/02/20 09:37 [No Known Allergies*] Exam Vital signs: Vital Signs Temp 97.6 F 08/02/20 09:02 Pulse 63 08/02/20 09:02 Resp 14 08/02/20 09:02 BP 124/57 L 08/02/20 09:02 Pulse Ox 96 08/02/20 09:02 Intake & Output 08/01/20 08/02/20 08/02/20 18:59 06:59 18:59 Other: Weight 68.1 kg Weight 68.1 kg Body Mass Index 25.0 - Constitutional Present: no acute distress - Routine HEENT Exam Head: Present: normal inspection Eye: Present: normal appearance ENT: Present: mucous membranes moist - Routine Neck Exam Present: full ROM - Routine Respiratory Exam Present: CTAB - Routine Cardiovascular Exam Cardiovascular: Present: RRR, S1, S2 - Routine Abdominal Exam Present: soft, nontender - Routine Extremities Exam Present: nontender - Routine Back/Spine/Pelvis Exam Back/Spine: Present: full ROM - Routine Skin Exam Present: intact - Routine Neurological Exam Present: alert, oriented X3 - Routine Psychiatric Exam Present: normal affect Data - Labs CBC & Chem 7: 08/02/20 08:56 08/02/20 08:56 Labs: 05/07/20 00:00 Acetaminophen [Tylenol] 650 mg PO ONCE Heparin Sodium,Porcine Flush 500 unit IVFLUSH ONCE diphenhydrAMINE HCL [Benadryl] 25 mg IVPUSH ONCE ondansetron HCL/NS [Zofran] 16 mg in 50 ml IV ONCE riTUXimab [Rituxan] 500 mg riTUXimab [Rituxan] 160 mg 0.9 % Sodium Chloride [Ns] 250 ml IV ONCE 05/07/20 08:38 Complete Blood Count no Diff Routine Comprehensive Met. Panel Routine LDH [Lactate Dehydrogenase] Routine 07/02/20 00:00 Acetaminophen [Tylenol] 650 mg PO ONCE Heparin Sodium,Porcine Flush 500 unit IVFLUSH ONCE diphenhydrAMINE HCL [Benadryl] 25 mg IVPUSH ONCE ondansetron HCL/NS [Zofran] 16 mg in 50 ml IV ONCE riTUXimab [Rituxan] 500 mg riTUXimab [Rituxan] 160 mg 0.9 % Sodium Chloride [Ns] 250 ml IV ONCE 07/02/20 08:07 Complete Blood Count Auto Diff Routine Comprehensive Met. Panel Routine 07/02/20 08:11 Prothrombin Time INR Routine Laboratory Last Values WBC 9.9 X10*3/uL (4.8-10.8) 07/02/20 08:07 RBC 4.52 X10*6/uL (4.60-5.80) L 07/02/20 08:07 Hgb 14.8 g/dl (14.0-18.0) 07/02/20 08:07 Hct 43.9 % (42-52) 07/02/20 08:07 MCV 97.1 fL (80-98) 07/02/20 08:07 MCH 32.7 pg (27.0-33.0) 07/02/20 08:07 MCHC 33.7 g/dl (31.0-36.0) 07/02/20 08:07 RDW 14.0 % (11.0-16.0) 07/02/20 08:07 Plt Count 245 X10*3/uL (160-400) 07/02/20 08:07 MPV 10.1 fL (9.4-12.4) 07/02/20 08:07 Immature Gran % (Auto) 0.6 % (0.0-0.4) H 07/02/20 08:07 Neut % (Auto) 74.9 % (45-73) H 07/02/20 08:07 Lymph % (Auto) 12.2 % (20-40) L 07/02/20 08:07 Bartholomew % (Auto) 9.1 % (2-11) 07/02/20 08:07 Eos % (Auto) 2.1 % (0-4) 07/02/20 08:07 Baso % (Auto) 1.1 % (0-2) 07/02/20 08:07 Lymph # (Auto) 1.2 X10*3/uL (1.2-4.9) 07/02/20 08:07 Bartholomew # (Auto) 0.9 X10*3/uL (0.1-1.2) 07/02/20 08:07 Eos # (Auto) 0.2 X10*3/uL (0.0-0.4) 07/02/20 08:07 Baso # (Auto) 0.1 X10*3/uL (0.0-0.2) 07/02/20 08:07 Abs Immat Gran (auto) 0.06 X10*3/uL (0.00-0.03) H 07/02/20 08:07 Absolute Neuts (auto) 7.4 X10*3/uL (2.0-8.3) 07/02/20 08:07 Absolute Nucleated RBC 0.000 X10*3/uL (0.0-0.012) 07/02/20 08:07 Nucleated RBC % (auto) 0.0 /100WBC (0.0-0.2) 07/02/20 08:07 PT 29.7 SEC (10.8-13.0) H 07/02/20 08:11 INR 2.5 (0.9-1.1) H 07/02/20 08:11 Sodium 140 mmol/L (135-145) 07/02/20 08:07 Potassium 4.4 mmol/l (3.3-5.1) 07/02/20 08:07 Chloride 98 mmol/L (96-108) 07/02/20 08:07 Carbon Dioxide 33 mmol/L (22-29) H 07/02/20 08:07 Anion Gap 13 (-20) 07/02/20 08:07 BUN 16 mg/dL (9-16) 07/02/20 08:07 Creatinine 1.19 mg/dL (0.5-1.4) 07/02/20 08:07 Estim Creat Clear Calc 45.9 07/02/20 08:07 Estimated GFR 59 07/02/20 08:07 Random Glucose 144 mg/dL (60-115) H 07/02/20 08:07 Calcium 10.0 mg/dL (8.4-10.2) D 07/02/20 08:07 Total Bilirubin 0.8 mg/dL (0.0-1.0) 07/02/20 08:07 AST 16 U/L (5-37) 07/02/20 08:07 ALT 17 U/L (0-40) 07/02/20 08:07 Alkaline Phosphatase 70 U/L (39-117) 07/02/20 08:07 Lactate Dehydrogenase 146 U/L (118-273) 05/07/20 08:38 Total Protein 6.7 g/dL (6.5-8.0) 07/02/20 08:07 Albumin 4.3 g/dL (3.5-5.0) 07/02/20 08:07 Progress Note: A/P (1) Follicular lymphoma Status: Acute Assessment and plan: 74-year-old man with a prior history of multiple issues: Including pleural effusion, acute congestive heart failure, acute respiratory failure and a lung mass. He was noted to have right axillary adenopathy. He had overall general malaise, poor appetite and weight loss. He had a right-sided Pleural effusion. Therapeutic and diagnostic thoracentesis was non-revealing. Biopsy of the axillary lymph node is positive for Follicular Lymphoma. He was seen by thoracic surgery, while in house and underwent a bronchoscopy. This was nonrevealing. On April 21 he had FNA of the right midlobe of the lung, which revealed: Lung, right middle lobe mass, fine needle aspiration: Adequate for interpretation. Negative for malignancy, numerous reactive respiratory epithelial cells are seen. He had a PET scan April 07 which revealed: 1. Right middle lobe peribronchovascular mass with mildly increased FDG uptake suspicious for abnormal lymphoid tissue or lymphoma given the presence of lymphadenopathy elsewhere within the chest, abdomen and pelvis. Differential possibility includes infectious etiology or pneumonia or primary lung carcinoma, notably adenocarcinoma . Multiple smaller subcentimeter nodules too small to be accurately characterize. 2. Significant lymphadenopathy noted in the mediastinum, axilla, retroperitoneum, iliac and inguinal changes as detailed. Lymphadenopathy appears matted and conglomerate notably within the pelvic region. These findings are most suspicious for lymphoma. 3. Poor visualization of the renal sinus fat may also be secondary to excessive lymphoid tissue. Assessment is limited without contrast. 4. Mildly increased FDG uptake right glenoid. Osseous metastases cannot be excluded. He had a bone marrow exam on April 20, 2018, which revealed: NORMOCELLULAR BONE MARROW (FOR AGE) WITH ACTIVE TRILINEAGE HEMATOPOIESIS, AND NUMEROUS PARATRABECULAR AND RARE INTERSTITIAL LYMPHOID AGGREGATES SEEN ON BONE MARROW BIOPSY. THE LYMPHOID AGGREGATES ARE COMPOSED OF SMALL LYMPHOCYTES WITH CONDENSED NUCLEAR CHROMATIN AND SMOOTH TO IRREGULAR NUCLEAR CONTOURS. THE FINDINGS ARE CONSISTENT WITH BONE MARROW INVOLVEMENT BY FOLLICULAR LYMPHOMA. CONCURRENT FLOW CYTOMETRY REPORT CONFIRMED IT. He was quite symptomatic, with a chylous pleural effusion and B. symptoms, his energy level was low. In April he was noted to have hypercalcemia. Likely to be a peraneoplastic presentation. He was given Zometa, on May 05. Since then, his calcium has been normal. I offered systemic therapy, with Bendamustine and Rituximab x6 cycles. He started the treatment on July. He has tolerated the 6 cycles very well. His breathing has been comfortable. He has not required a thoracentesis, after August 26 2017. That is a good sign. His calcium level is normal. CT chest from December 07 revealed: 1. Right pleural effusion decreased from prior exam 10/21/2018. Small right pulmonary nodules, largest under 5 mm stable. No left pulmonary nodules. 2. No hilar or mediastinal adenopathy. 3. Small saccular aneurysm inferolateral aortic arch under 1.[address] scan of the abdomen from December 07 revealed: 1. There is relatively stable retroperitoneal lymphadenopathy extending into the bilateral iliac regions, right greater the left. No new lymphadenopathy is seen. This is encouraging. I reviewed the CT scan with the radiologist. CT abdomen shows residual abnormality. This could be residual fibrosis. We discussed the option of proceeding with a PET scan however the SUVs was low around 3.5, on his previous PET scan. He has completed 6 cycles, of Rituxan/Bendamustine, in December. CT abdomen from July 25 revealed: Chest: Interval decrease in right pleural effusion. Interval increase in atelectasis/consolidation in the adjacent right middle and right lower lobes and increased bronchial wall thickening particularly in the right lower lobe. Differential would include infectious and neoplastic process. Areas of consolidation also appear peripheral and round atelectasis secondary to chronic pleural disease should also be considered. Emphysema. Stable small pulmonary nodules. Post-CABG changes. Stable small aneurysm or area ectasia of the lateral aortic arch and tortuous thoracic aorta. New asymmetric increasing left breast tissue. Correlation with clinical findings and mammogram or ultrasound recommended. No axillary lymphadenopathy. Abdomen and pelvis: Stable extensive low-attenuation retroperitoneal soft tissue in the abdomen and pelvis extending into both inguinal regions. Mild fullness of both renal collecting systems, left greater than right, unchanged. Right renal cysts. Diverticulosis. Small low-attenuation probably cystic area in the head/neck of the pancreas that in retrospect is stable from previous exams. Enlarged prostate gland. He is clinically stable. He has had 7 course of maintenance rituximab. l proceeded with a chest x-ray, November 20 which revealed: Changes of emphysema. Somewhat increased hazy opacification in the right mid and lower lung zone compared to last chest x-ray; possibility of acute inflammatory or infectious process superimposed on underlying chronic changes here cannot be excluded. Small right pleural effusion, probably slightly increased compared to last study. Question trace left pleural effusion. He is currently undergoing a cardiac workup by Dr. Piper. He is being hooked up to the Holter monitor today. Echocardiogram is on at 14:00. I proceeded with CT scan of chest and abdomen for restaging purposes, on 04/02/2020: Soft tissue in the retroperitoneum likely matted lymphadenopathy in the mid and distal segments, difficult to measure. Diffuse sigmoid and scattered rest of the colon diverticulosis without diverticulitis. Significant atherosclerotic changes and calcification of abdominal aorta. There is mid abdominal aortic aneurysm as described above. PLAN: He received his 10th course of rituximab, on 07/02. Will continue maintenance Rituximab treatment every 8 weeks times 12 doses. He has 2 more doses to go. I will monitor his labs including the calcium level. It is 10 today. If that goes up again he will receive Zometa. He will try melatonin for sleep. All his questions were answered to his satisfaction. Thank you, CC: Dr. Darrell Ellison. - Time Spent With Patient Total time spent is greater than 50% in coordination of care (as documented) at patient's floor/unit and/or counseling patient: 25 - 35 minutes
[2020-08-02 09:33] LABS: Basophils Absolute Auto 0.1 X10*3/uL (0.0-0.2); Basophils Percent Auto 0.9 % (0-2); Eosinophils Absolute Auto 0.2 X10*3/uL (0.0-0.4); Eosinophils Percent Auto 1.6 % (0-4); Hemoglobin 14.4 g/dl (14.0-18.0); Imm Gran Abs Auto 0.04 X10*3/uL (0.00-0.03); Imm Gran Pct Auto 0.4 % (0.0-0.4); Lymphocytes Absolute Auto 0.8 X10*3/uL (1.2-4.9); Lymphocytes Percent Auto 7.7 % (20-40); Mean Corpuscular HGB Conc 33.5 g/dl (31.0-36.0); Mean Corpuscular Hemoglobin 32.4 pg (27.0-33.0); Mean Corpuscular Volume 96.8 fL (80-98); Mean Platelet Volume 10.4 fL (9.4-12.4); Monocytes Absolute Auto 0.8 X10*3/uL (0.1-1.2); Monocytes Percent Auto 8.5 % (2-11); Neutrophils Absolute Auto 7.8 X10*3/uL (2.0-8.3); Neutrophils Percent Auto 80.9 % (45-73); Platelet Count 233 X10*3/uL (160-400); Red Blood Count 4.44 X10*6/uL (4.60-5.80); Red Cell Distribution Width 13.7 % (11.0-16.0); White Blood Count 9.7 X10*3/uL (4.8-10.8)
[2020-08-02 09:53] LABS: Alanine Aminotransferase 10 U/L (0-40); Albumin Level 4.1 g/dL (3.5-5.0); Alkaline Phosphatase 73 U/L (39-117); Anion Gap 13 (12-20); Aspartate Amino Transferase 11 U/L (5-37); Bilirubin Total 0.9 mg/dL (0.0-1.0); Blood Urea Nitrogen 16 mg/dL (9-16); Calcium 9.5 mg/dL (8.4-10.2); Carbon Dioxide 30 mmol/L (22-29); Chloride 101 mmol/L (96-108); Estimated Glomerular Filt Rate > 60; Glucose Random 141 mg/dL (60-115); Lactate Dehydrogenase 157 U/L (118-273); Potassium 4.2 mmol/l (3.3-5.1); Sodium 140 mmol/L (135-145); Total Protein 6.3 g/dL (6.5-8.0)
--- NOTE | 2020-08-02 10:31 | MHC.HEMONCMA ---
Patient came in for a follow up, states he is doing well besides not being able to sleep. Medications and allergies were reviewed and updated. His next treatment cycle is Aug 28, and then he will be scheduled for his last treatment. Appt given to patient.
--- NOTE | 2020-08-02 11:00 | MHC.HEMONCSW ---
PATIENT SEEN IN FOLLOW UP. ACCOMPANIED BY . REPORTS COPING FAIRLY WELL WITH EXCEPTION OF DIFFICULTY SLEEPING. MD AWARE OF THIS. PLAN IS TO CONTINUE CHEMOTHERAPY. DENIES STRESS OR COMPLAINTS AT THIS TIME. HE IS AWARE OF MY AVAILABILITY.
[2020-08-28 08:07] VITALS: BP 117/58; PULSE 73; RESP 20; TEMP 36.6; O2SAT 96; BMI 25.4
[2020-08-28 08:08] LABS: MANUAL DIFF FLAG NO
[2020-08-28 08:19] LABS: Basophils Absolute Auto 0.1 X10*3/uL (0.0-0.2); Basophils Percent Auto 0.9 % (0-2); Eosinophils Absolute Auto 0.2 X10*3/uL (0.0-0.4); Eosinophils Percent Auto 1.7 % (0-4); Hematocrit 42.9 % (42-52); Imm Gran Abs Auto 0.06 X10*3/uL (0.00-0.03); Imm Gran Pct Auto 0.5 % (0.0-0.4); Lymphocytes Absolute Auto 0.9 X10*3/uL (1.2-4.9); Lymphocytes Percent Auto 8.1 % (20-40); Mean Corpuscular HGB Conc 32.6 g/dl (31.0-36.0); Mean Corpuscular Volume 97.9 fL (80-98); Mean Platelet Volume 9.7 fL (9.4-12.4); Monocytes Absolute Auto 0.8 X10*3/uL (0.1-1.2); Monocytes Percent Auto 6.9 % (2-11); Neutrophils Percent Auto 81.9 % (45-73); Platelet Count 231 X10*3/uL (160-400); Red Blood Count 4.38 X10*6/uL (4.60-5.80); Red Cell Distribution Width 13.7 % (11.0-16.0); White Blood Count 10.9 X10*3/uL (4.8-10.8)
[2020-08-28 08:23] LABS: Prothrombin Time 48.6 SEC (10.8-13.0)
[2020-08-28 08:58] LABS: Alanine Aminotransferase 12 U/L (0-40); Albumin Level 4.3 g/dL (3.5-5.0); Alkaline Phosphatase 78 U/L (39-117); Anion Gap 15 (12-20); Aspartate Amino Transferase 12 U/L (5-37); Bilirubin Total 0.7 mg/dL (0.0-1.0); Blood Urea Nitrogen 18 mg/dL (9-16); Calcium 8.7 mg/dL (8.4-10.2); Carbon Dioxide 29 mmol/L (22-29); Chloride 102 mmol/L (96-108); Estimated Glomerular Filt Rate 55; Glucose Random 147 mg/dL (60-115); Lactate Dehydrogenase 177 U/L (118-273); Sodium 142 mmol/L (135-145); Total Protein 6.7 g/dL (6.5-8.0)
[2020-08-28] MEDS: diphenhydrAMINE HCL 50 MG/ML VIAL 25 MG IVPUSH (09:16)
[2020-08-28] MEDS: dexAMETHasone sod phosphate/NS 12 MG/50 ML PIGGYBACK 200 MG IV (10:37)
--- NOTE | 2020-08-28 11:23 | MHC.HEMONCSW ---
PATIENT IS HERE FOR TREATMENT DENIES STRESS OR COMPLAINTS AT THIS TIME.
--- NOTE | 2020-08-28 13:57 | MHC.HEMONC ---
CYCLE 11 RITUXAMAB well tolerated, no complaints at this time. VSS, no reaction noted.
[2020-10-23 07:54] VITALS: BP 149/63; PULSE 70; RESP 20; TEMP 36.4; O2SAT 96; BMI 25.8
[2020-10-23 07:56] LABS: MANUAL DIFF FLAG NO
[2020-10-23 08:02] LABS: Basophils Absolute Auto 0.1 X10*3/uL (0.0-0.2); Basophils Percent Auto 1.1 % (0-2); Eosinophils Absolute Auto 0.3 X10*3/uL (0.0-0.4); Eosinophils Percent Auto 2.7 % (0-4); Hematocrit 43.5 % (42-52); Imm Gran Abs Auto 0.06 X10*3/uL (0.00-0.03); Imm Gran Pct Auto 0.6 % (0.0-0.4); Lymphocytes Absolute Auto 1.1 X10*3/uL (1.2-4.9); Lymphocytes Percent Auto 11.4 % (20-40); Mean Corpuscular HGB Conc 32.2 g/dl (31.0-36.0); Mean Corpuscular Hemoglobin 31.5 pg (27.0-33.0); Mean Corpuscular Volume 97.8 fL (80-98); Mean Platelet Volume 9.7 fL (9.4-12.4); Monocytes Absolute Auto 0.8 X10*3/uL (0.1-1.2); Monocytes Percent Auto 7.9 % (2-11); Neutrophils Absolute Auto 7.2 X10*3/uL (2.0-8.3); Neutrophils Percent Auto 76.3 % (45-73); Platelet Count 203 X10*3/uL (160-400); Red Blood Count 4.45 X10*6/uL (4.60-5.80); Red Cell Distribution Width 13.9 % (11.0-16.0); White Blood Count 9.5 X10*3/uL (4.8-10.8)
[2020-10-23 08:31] LABS: Alanine Aminotransferase 13 U/L (0-40); Albumin Level 4.1 g/dL (3.5-5.0); Alkaline Phosphatase 70 U/L (39-117); Anion Gap 12 (12-20); Aspartate Amino Transferase 12 U/L (5-37); Bilirubin Total 0.7 mg/dL (0.0-1.0); Blood Urea Nitrogen 13 mg/dL (9-16); Calcium 9.2 mg/dL (8.4-10.2); Carbon Dioxide 32 mmol/L (22-29); Chloride 102 mmol/L (96-108); Creatinine Clr Calc Pharmacy 55.2; Estimated Glomerular Filt Rate > 60; Glucose Random 158 mg/dL (60-115); Potassium 3.9 mmol/L (3.3-5.1); Sodium 142 mmol/L (135-145); Total Protein 6.3 g/dL (6.5-8.0)
[2020-10-23] MEDS: Acetaminophen 325 MG TABLET 650 MG PO (08:55)
[2020-10-23] MEDS: Famotidine/PF 20 MG/2 ML VIAL IVPUSH (08:56)
[2020-10-23] MEDS: diphenhydrAMINE HCL 50 MG/ML VIAL 25 MG IVPUSH (09:03)
--- NOTE | 2020-10-23 13:00 | MHC.HEMONC ---
Pt doing well. No new c/o or medications. He does not know his medications so I asked him to bring a list at next encounter. Labs reviewed and WNL. This treatment completes 2 years maintenance Rituxin. He has f/u with Dr Blanchard early November.
--- NOTE | 2020-10-23 13:03 | MHC.HEMONC ---
Pt here for last infusion of Maint Rituxin. Labs reviewed and WNL. He has no new medications or c/o. I asked that he being in med list at next encounter as he does not know what he is taking. He will have f/u with Dr Blanchard in early November.
--- NOTE | 2020-10-23 13:46 | MHC.HEMONCSW ---
PATIENT IS ACCOMPANIED BY FOR HIS LAST TREATMENT. REPORTS COPING WELL, NO DISTRESS. EDUCATION AND SUPPORT PROVIDED. HE IS AWARE OF MY AVAILABILITY.
[2020-12-16 11:04] VITALS: BP 130/62; PULSE 98; RESP 18; TEMP 36.8; O2SAT 94; BMI 25.8
--- NOTE | 2020-12-16 11:27 | PM.HEMONCPN ---
Medical Summary - Medical Summary Date of Service: 12/16/20 Chief complaint: F/U for Lymphoma. Medical Summary: DIAGNOSIS: 1. Follicular Lymphoma of the axilla. 2. Lung mass. 3. Hypercalcemia. CURRENT THERAPY: STARTED Bendamustine & Rituximab 08/02/18. Second cycle 08/30. Completed cycle 6th, On December 20. Recieved maintenance rituximab, cycle 3 on June 06. To be given every 8 weeks for 2 up to years, as tolerated. Received his 10 th cycle, July 02. Interval History Interval history: This is a pleasant 75 year-old gentleman, here for a follow-up visit. He has been doing quite well. Lately, he has noticed bruising of his arms and legs. The other day he was cutting potatoes to make Khmer fries when he cut his finger. It bled so much she ended up in the emergency room. He is on Plavix and warfarin. He has not had his INR checked since October. He just gets tired sometimes. The reason is that he cannot sleep well at night. I advised him to try melatonin. Sometimes he does take a nap during the day. He denies headache no dizziness. Denies chest pain or trouble breathing. He has no abdominal pain nausea vomiting heartburn indigestion. His bowels are working without any gross blood in it. He enjoys a good appetite. He has been eating fruit cup cakes cookies and canned fruit. He has gained weight. He is in good spirits. Rest of the review of systems is unremarkable. Review of Systems - Constitutional Reports no additional constitutional complaints - Eyes Reports no additional eye complaints - ENT Reports no additional ear, nose, mouth, and throat complaints - Cardiovascular Reports no additional cardiovascular complaints - Respiratory Reports no additional respiratory complaints - Gastrointestinal Reports no additional gastrointestinal complaints - Genitourinary Genitourinary: Reports no additional male genitourinary complaints - Musculoskeletal Reports no additional musculoskeletal complaints - Integumentary/Breasts Skin/Breast: Reports no additional skin complaints - Neurologic Reports no additional neurologic complaints - Psychiatric Reports no additional psychiatric complaints - Endocrine Reports no additional endocrine complaints - Hematologic/Lymphatic Reports no additional hematologic/lymphatic complaints - Allergic/Immunologic Reports no additional allergic/immunologic complaints [facility] Medical History: Medical History (Last Reviewed 11/24/20 @ 23:49 by Latisha Pablo PA-C) Abdominal aortic aneurysm without rupture Benign essential hypertension Chronic atrial fibrillation COPD (chronic obstructive pulmonary disease) Coronary artery disease Elevated PSA Heart failure with preserved ejection fraction High cholesterol History of blood clots History of deep vein thrombosis (DVT) of lower extremity Impaired fasting glucose Insomnia Overweight (BMI 25.0-29.9) PAF (paroxysmal atrial fibrillation) Peripheral arterial disease Pneumonia Pure hypercholesterolemia Smoker Vitamin D deficiency Functional capacity: uses cane/walker Patient : No Family History: Family History (Last Reviewed 11/24/20 @ 23:49 by Latisha Pablo PA-C) Father Cancer Mother Cardiovascular disease Surgical History: Surgical History (Last Reviewed 11/24/20 @ 23:49 by Latisha Pablo PA-C) History of quadruple bypass Social History: Social History (Last Updated 12/16/20 @ 11:07 by Katerin Pryor RN) Alcohol History: Alcohol intake: current Alcohol History Details: Alcohol intake frequency: holiday/special occasion Alcohol type: beer Tobacco History: Patient Tobacco Use Status: Current everyday Tobacco Tobacco use type: Cigarette Cigarette Packs Per Day: 1.5 Years Smoked: 67 Oncology Screenings - ECOG Performance Status ECOG Performance Status: 0 Home Medications and Allergies Home Medications Medication Instructions Recorded Confirmed Type finasteride 1 tab PO DAILY 05/07/20 11/06/20 History budesonide-formoterol [Symbicort] 2 puff PO BID 07/02/20 11/06/20 History cholecalciferol (vitamin D3) 25 mcg PO DAILY 07/02/20 11/06/20 History [Vitamin D3] clopidogrel 75 mg tablet 75 mg PO DAILY 09/03/20 11/06/20 History lisinopril 2.5 mg tablet 2.5 mg PO DAILY 09/03/20 11/06/20 History Allergies Allergy/AdvReac Type Severity Reaction Status Date / Time No Known Allergies Allergy Verified 11/06/20 12:46 [No Known Allergies*] Exam Vital signs: Vital Signs Temp 98.3 F 12/16/20 11:04 Pulse 98 12/16/20 11:04 Resp 18 12/16/20 11:04 BP 130/62 12/16/20 11:04 Pulse Ox 94 12/16/20 11:04 Intake & Output 12/15/20 12/16/20 12/16/20 18:59 06:59 18:59 Other: Weight 70.4 kg Weight in Grams 63530 Weight 70.4 kg Body Mass Index 25.8 - Constitutional Present: no acute distress - Routine HEENT Exam Head: Present: normal inspection Eye: Present: normal appearance ENT: Present: mucous membranes moist - Routine Neck Exam Present: full ROM - Routine Respiratory Exam Present: CTAB - Routine Cardiovascular Exam Cardiovascular: Present: RRR, S1, S2 - Routine Abdominal Exam Present: soft, nontender - Routine Extremities Exam Present: nontender - Routine Back/Spine/Pelvis Exam Back/Spine: Present: full ROM - Routine Skin Exam Present: intact - Routine Neurological Exam Present: alert, oriented X3 - Routine Psychiatric Exam Present: normal affect Data - Labs CBC & Chem 7: 10/23/20 07:54 12/16/20 11:26 Labs: 05/07/20 00:00 Acetaminophen [Tylenol] 650 mg PO ONCE Heparin Sodium,Porcine Flush 500 unit IVFLUSH ONCE diphenhydrAMINE HCL [Benadryl] 25 mg IVPUSH ONCE ondansetron HCL/NS [Zofran] 16 mg in 50 ml IV ONCE riTUXimab [Rituxan] 500 mg riTUXimab [Rituxan] 160 mg 0.9 % Sodium Chloride [Ns] 250 ml IV ONCE 05/07/20 08:38 Complete Blood Count no Diff Routine Comprehensive Met. Panel Routine LDH [Lactate Dehydrogenase] Routine 07/02/20 00:00 Acetaminophen [Tylenol] 650 mg PO ONCE Heparin Sodium,Porcine Flush 500 unit IVFLUSH ONCE diphenhydrAMINE HCL [Benadryl] 25 mg IVPUSH ONCE ondansetron HCL/NS [Zofran] 16 mg in 50 ml IV ONCE riTUXimab [Rituxan] 500 mg riTUXimab [Rituxan] 160 mg 0.9 % Sodium Chloride [Ns] 250 ml IV ONCE 07/02/20 08:07 Complete Blood Count Auto Diff Routine Comprehensive Met. Panel Routine 07/02/20 08:11 Prothrombin Time INR Routine Laboratory Last Values WBC 9.9 X10*3/uL (4.8-10.8) 07/02/20 08:07 RBC 4.52 X10*6/uL (4.60-5.80) L 07/02/20 08:07 Hgb 14.8 g/dl (14.0-18.0) 07/02/20 08:07 Hct 43.9 % (42-52) 07/02/20 08:07 MCV 97.1 fL (80-98) 07/02/20 08:07 MCH 32.7 pg (27.0-33.0) 07/02/20 08:07 MCHC 33.7 g/dl (31.0-36.0) 07/02/20 08:07 RDW 14.0 % (11.0-16.0) 07/02/20 08:07 Plt Count 245 X10*3/uL (160-400) 07/02/20 08:07 MPV 10.1 fL (9.4-12.4) 07/02/20 08:07 Immature Gran % (Auto) 0.6 % (0.0-0.4) H 07/02/20 08:07 Neut % (Auto) 74.9 % (45-73) H 07/02/20 08:07 Lymph % (Auto) 12.2 % (20-40) L 07/02/20 08:07 [place] % (Auto) 9.1 % (2-11) 07/02/20 08:07 Eos % (Auto) 2.1 % (0-4) 07/02/20 08:07 Baso % (Auto) 1.1 % (0-2) 07/02/20 08:07 Lymph # (Auto) 1.2 X10*3/uL (1.2-4.9) 07/02/20 08:07 [place] # (Auto) 0.9 X10*3/uL (0.1-1.2) 07/02/20 08:07 Eos # (Auto) 0.2 X10*3/uL (0.0-0.4) 07/02/20 08:07 Baso # (Auto) 0.1 X10*3/uL (0.0-0.2) 07/02/20 08:07 Abs Immat Gran (auto) 0.06 X10*3/uL (0.00-0.03) H 07/02/20 08:07 Absolute Neuts (auto) 7.4 X10*3/uL (2.0-8.3) 07/02/20 08:07 Absolute Nucleated RBC 0.000 X10*3/uL (0.0-0.012) 07/02/20 08:07 Nucleated RBC % (auto) 0.0 /100WBC (0.0-0.2) 07/02/20 08:07 PT 29.7 SEC (10.8-13.0) H 07/02/20 08:11 INR 2.5 (0.9-1.1) H 07/02/20 08:11 Sodium 140 mmol/L (135-145) 07/02/20 08:07 Potassium 4.4 mmol/l (3.3-5.1) 07/02/20 08:07 Chloride 98 mmol/L (96-108) 07/02/20 08:07 Carbon Dioxide 33 mmol/L (22-29) H 07/02/20 08:07 Anion Gap 13 (-) 07/02/20 08:07 BUN 16 mg/dL (9-16) 07/02/20 08:07 Creatinine 1.19 mg/dL (0.5-1.4) 07/02/20 08:07 Estim Creat Clear Calc 45.9 07/02/20 08:07 Estimated GFR 59 07/02/20 08:07 Random Glucose 144 mg/dL (60-115) H 07/02/20 08:07 Calcium 10.0 mg/dL (8.4-10.2) D 07/02/20 08:07 Total Bilirubin 0.8 mg/dL (0.0-1.0) 07/02/20 08:07 AST 16 U/L (5-37) 07/02/20 08:07 ALT 17 U/L (0-40) 07/02/20 08:07 Alkaline Phosphatase 70 U/L (39-117) 07/02/20 08:07 Lactate Dehydrogenase 146 U/L (118-273) 05/07/20 08:38 Total Protein 6.7 g/dL (6.5-8.0) 07/02/20 08:07 Albumin 4.3 g/dL (3.5-5.0) 07/02/20 08:07 Progress Note: A/P (1) Follicular lymphoma Status: Acute Assessment and plan: 74-year-old man with a prior history of multiple issues: Including pleural effusion, acute congestive heart failure, acute respiratory failure and a lung mass. He was noted to have right axillary adenopathy. He had overall general malaise, poor appetite and weight loss. He had a right-sided Pleural effusion. Therapeutic and diagnostic thoracentesis was non-revealing. Biopsy of the axillary lymph node is positive for Follicular Lymphoma. He was seen by thoracic surgery, while in house and underwent a bronchoscopy. This was nonrevealing. On April 21 he had FNA of the right midlobe of the lung, which revealed: Lung, right middle lobe mass, fine needle aspiration: Adequate for interpretation. Negative for malignancy, numerous reactive respiratory epithelial cells are seen. He had a PET scan April 07 which revealed: 1. Right middle lobe peribronchovascular mass with mildly increased FDG uptake suspicious for abnormal lymphoid tissue or lymphoma given the presence of lymphadenopathy elsewhere within the chest, abdomen and pelvis. Differential possibility includes infectious etiology or pneumonia or primary lung carcinoma, notably adenocarcinoma . Multiple smaller subcentimeter nodules too small to be accurately characterize. 2. Significant lymphadenopathy noted in the mediastinum, axilla, retroperitoneum, iliac and inguinal changes as detailed. Lymphadenopathy appears matted and conglomerate notably within the pelvic region. These findings are most suspicious for lymphoma. 3. Poor visualization of the renal sinus fat may also be secondary to excessive lymphoid tissue. Assessment is limited without contrast. 4. Mildly increased FDG uptake right glenoid. Osseous metastases cannot be excluded. He had a bone marrow exam on April 20, 2018, which revealed: NORMOCELLULAR BONE MARROW (FOR AGE) WITH ACTIVE TRILINEAGE HEMATOPOIESIS, AND NUMEROUS PARATRABECULAR AND RARE INTERSTITIAL LYMPHOID AGGREGATES SEEN ON BONE MARROW BIOPSY. THE LYMPHOID AGGREGATES ARE COMPOSED OF SMALL LYMPHOCYTES WITH CONDENSED NUCLEAR CHROMATIN AND SMOOTH TO IRREGULAR NUCLEAR CONTOURS. THE FINDINGS ARE CONSISTENT WITH BONE MARROW INVOLVEMENT BY FOLLICULAR LYMPHOMA. CONCURRENT FLOW CYTOMETRY REPORT CONFIRMED IT. He was quite symptomatic, with a chylous pleural effusion and B. symptoms, his energy level was low. In April he was noted to have hypercalcemia. Likely to be a peraneoplastic presentation. He was given Zometa, on May 05. Since then, his calcium has been normal. I offered systemic therapy, with Bendamustine and Rituximab x6 cycles. He started the treatment on July. He has tolerated the 6 cycles very well. His breathing has been comfortable. He has not required a thoracentesis, after August 26 2017. That is a good sign. His calcium level is normal. CT chest from December 07 revealed: 1. Right pleural effusion decreased from prior exam 10/21/2018. Small right pulmonary nodules, largest under 5 mm stable. No left pulmonary nodules. 2. No hilar or mediastinal adenopathy. 3. Small saccular aneurysm inferolateral aortic arch under 1.[address] scan of the abdomen from December 07 revealed: 1. There is relatively stable retroperitoneal lymphadenopathy extending into the bilateral iliac regions, right greater the left. No new lymphadenopathy is seen. This is encouraging. I reviewed the CT scan with the radiologist. CT abdomen shows residual abnormality. This could be residual fibrosis. We discussed the option of proceeding with a PET scan however the SUVs was low around 3.5, on his previous PET scan. He has completed 6 cycles, of Rituxan/Bendamustine, in December. CT abdomen from July 25 revealed: Chest: Interval decrease in right pleural effusion. Interval increase in atelectasis/consolidation in the adjacent right middle and right lower lobes and increased bronchial wall thickening particularly in the right lower lobe. Differential would include infectious and neoplastic process. Areas of consolidation also appear peripheral and round atelectasis secondary to chronic pleural disease should also be considered. Emphysema. Stable small pulmonary nodules. Post-CABG changes. Stable small aneurysm or area ectasia of the lateral aortic arch and tortuous thoracic aorta. New asymmetric increasing left breast tissue. Correlation with clinical findings and mammogram or ultrasound recommended. No axillary lymphadenopathy. Abdomen and pelvis: Stable extensive low-attenuation retroperitoneal soft tissue in the abdomen and pelvis extending into both inguinal regions. Mild fullness of both renal collecting systems, left greater than right, unchanged. Right renal cysts. Diverticulosis. Small low-attenuation probably cystic area in the head/neck of the pancreas that in retrospect is stable from previous exams. Enlarged prostate gland. He is clinically stable. l proceeded with a chest x-ray, November 20 which revealed: Changes of emphysema. Somewhat increased hazy opacification in the right mid and lower lung zone compared to last chest x-ray; possibility of acute inflammatory or infectious process superimposed on underlying chronic changes here cannot be excluded. Small right pleural effusion, probably slightly increased compared to last study. Question trace left pleural effusion. He underwent a cardiac workup by Dr. Piper. He add a Holter monitor and Echocardiogram, for AFib. I proceeded with CT scan of chest and abdomen for restaging purposes, on 04/02/2020: Soft tissue in the retroperitoneum likely matted lymphadenopathy in the mid and distal segments, difficult to measure. Diffuse sigmoid and scattered rest of the colon diverticulosis without diverticulitis. Significant atherosclerotic changes and calcification of abdominal aorta. There is mid abdominal aortic aneurysm as described above. He completed his 12th course of rituximab, on 10/23/20. Database: Trey 9.5, ALb 4.2. LFTs: . LDH: 159. Recently he has had easy bruising and some bleeding. He is on Plavix and warfarin. He has not had his INR checked in a while. PLAN: I touched base with Dr. Piper. He said it is okay to discontinue the Plavix. He was [facility] for a quick INR check, to make sure it is not supratherapeutic. I will monitor his labs including the calcium level. Lately it has been normal at 8.7/9.8 range. If that goes up again he will receive Zometa. I will proceed with restaging, now that he is done with his treatment. Will arrange for a CT chest and abdomen. He will return in 3 months for a follow-up visit. All his questions were answered to his satisfaction. Thank you, CC: Dr. Darrell Ellison. Dr. Piper. - Time Spent With Patient Total time spent is greater than 50% in coordination of care (as documented) at patient's floor/unit and/or counseling patient: 25 - 35 minutes
[2020-12-16 11:37] LABS: MANUAL DIFF FLAG NO
[2020-12-16 11:48] LABS: Basophils Absolute Auto 0.1 X10*3/uL (0.0-0.2); Basophils Percent Auto 0.7 % (0-2); Eosinophils Absolute Auto 0.2 X10*3/uL (0.0-0.4); Eosinophils Percent Auto 1.6 % (0-4); Hematocrit 41.7 % (42-52); Imm Gran Abs Auto 0.07 X10*3/uL (0.00-0.03); Imm Gran Pct Auto 0.6 % (0.0-0.4); Lymphocytes Absolute Auto 0.8 X10*3/uL (1.2-4.9); Lymphocytes Percent Auto 7.2 % (20-40); Mean Corpuscular HGB Conc 33.6 g/dl (31.0-36.0); Mean Corpuscular Hemoglobin 32.2 pg (27.0-33.0); Mean Corpuscular Volume 95.9 fL (80-98); Mean Platelet Volume 10.3 fL (9.4-12.4); Monocytes Absolute Auto 0.7 X10*3/uL (0.1-1.2); Monocytes Percent Auto 6.1 % (2-11); Neutrophils Absolute Auto 9.5 X10*3/uL (2.0-8.3); Neutrophils Percent Auto 83.8 % (45-73); Platelet Count 218 X10*3/uL (160-400); Red Blood Count 4.35 X10*6/uL (4.60-5.80); Red Cell Distribution Width 14.1 % (11.0-16.0); White Blood Count 11.3 X10*3/uL (4.8-10.8)
--- NOTE | 2020-12-16 12:00 | MHC.HEMONC ---
pt here for f/u with Dr Blanchard. Labs drawn and will be reviewed. He will be booked for CTs. Orders given to Selena TIMMONS for entrance into [facility]. Dr Blanchard corresponded with Dr Colón and pt no longer needs to take Plavix. I will call him. He is to continue on Warfarin.
[2020-12-16 12:10] LABS: Alanine Aminotransferase 14 U/L (0-40); Albumin Level 4.2 g/dL (3.5-5.0); Alkaline Phosphatase 71 U/L (39-117); Anion Gap 13 (12-20); Aspartate Amino Transferase 13 U/L (5-37); Blood Urea Nitrogen 14 mg/dL (9-16); Calcium 9.5 mg/dL (8.4-10.2); Carbon Dioxide 28 mmol/L (22-29); Chloride 103 mmol/L (96-108); Creatinine Clr Calc Pharmacy 47.5; Estimated Glomerular Filt Rate > 60; Glucose Random 218 mg/dL (60-115); Lactate Dehydrogenase 159 U/L (118-273); Potassium 4.1 mmol/L (3.3-5.1); Sodium 140 mmol/L (135-145); Total Protein 6.6 g/dL (6.5-8.0)
--- NOTE | 2020-12-30 11:02 | HE.ONCSEC ---
Pt's called - CT scan appt.for 12/31/20 will be rescheduled, because pt. not feeling well.
[2021-02-14 11:56] VITALS: BP 125/57; PULSE 88; RESP 14; TEMP 36.2; O2SAT 95; BMI 25.7
--- NOTE | 2021-02-14 12:05 | P.PNHO_ITS ---
Medical Summary - Medical Summary Date of Service: 02/14/21 Chief complaint: Follow-up for: Follicular Lymphoma. Medical Summary: DIAGNOSIS: 1. Follicular Lymphoma of the axilla. 2. Lung mass. 3. Hypercalcemia. CURRENT THERAPY: STARTED Bendamustine & Rituximab 08/02/18. Second cycle 08/30. Completed cycle 6th, On December 20. Recieved maintenance rituximab, cycle 3 on June 06. To be given every 8 weeks for 2 up to years, as tolerated. Received his 10 th cycle, July 02. Interval History Interval history: This is a pleasant 75 year-old gentleman, here for a follow-up visit. He has been doing quite well. He is off the Plavix. Only on warfarin. He just gets tired at times. He cannot sleep well at night. Sometimes he does take a nap during the day. I advised him to try melatonin. He denies headache no dizziness. Denies chest pain or trouble breathing. He has no abdominal pain nausea vomiting heartburn indigestion. His bowels are working without any gross blood in it. He enjoys a good appetite. He has been eating desserts: fruit cup cakes, cookies and canned fruit. He has gained weight. He is in good spirits. Rest of the review of systems is unremarkable. Previous history: Lately, he has noticed bruising of his arms and legs. A few months ago, he was cutting potatoes to make [place] fries when he cut his finger. It bled so much she ended up in the emergency room. Subsequently the Plavix was stopped. Review of Systems - Constitutional Reports no additional constitutional complaints - Eyes Reports no additional eye complaints - ENT Reports no additional ear, nose, mouth, and throat complaints - Cardiovascular Reports no additional cardiovascular complaints - Respiratory Reports no additional respiratory complaints - Gastrointestinal Reports no additional gastrointestinal complaints - Genitourinary Genitourinary: Reports no additional male genitourinary complaints - Musculoskeletal Reports no additional musculoskeletal complaints - Integumentary/Breasts Skin/Breast: Reports no additional skin complaints - Neurologic Reports no additional neurologic complaints - Psychiatric Reports no additional psychiatric complaints - Endocrine Reports no additional endocrine complaints - Hematologic/Lymphatic Reports no additional hematologic/lymphatic complaints - Allergic/Immunologic Reports no additional allergic/immunologic complaints [facility] Medical History: Medical History (Last Reviewed 02/14/21 @ 12:00 by Selena Garcia) Abdominal aortic aneurysm without rupture Benign essential hypertension Chronic atrial fibrillation COPD (chronic obstructive pulmonary disease) Coronary artery disease Elevated PSA Heart failure with preserved ejection fraction High cholesterol History of blood clots History of deep vein thrombosis (DVT) of lower extremity Impaired fasting glucose Insomnia Overweight (BMI 25.0-29.9) PAF (paroxysmal atrial fibrillation) Peripheral arterial disease Pneumonia Pure hypercholesterolemia Smoker Vitamin D deficiency Functional capacity: uses cane/walker Patient : No Family History: Family History (Last Reviewed 02/14/21 @ 12:00 by Selena Garcia) Father Cancer Mother Cardiovascular disease Surgical History: Surgical History (Last Reviewed 02/14/21 @ 12:00 by Selena Garcia) History of quadruple bypass Social History: Social History (Last Reviewed 02/14/21 @ 12:00 by Selena Garcia) Alcohol History: Alcohol intake: current Alcohol History Details: Alcohol intake frequency: holiday/special occasion Alcohol type: beer Tobacco History: Patient Tobacco Use Status: Current everyday Tobacco Tobacco use type: Cigarette Cigarette Packs Per Day: 1.5 Years Smoked: 67 Substance Use History: Use of substances other than those prescribed or required for medical reasons : No Nutrition Assessment: Patient : No Oncology Screenings - ECOG Performance Status ECOG Performance Status: 1 Home Medications and Allergies Home Medications Medication Instructions Recorded Confirmed Type finasteride 5 mg tablet 1 tab PO DAILY 05/07/20 02/14/21 History budesonide-formoterol HFA 160 2 puff PO BID 07/02/20 02/14/21 History mcg-4.5 mcg/actuation aerosol inhaler (Symbicort) cholecalciferol (vitamin D3) 25 25 mcg PO DAILY 07/02/20 02/14/21 History mcg (1,000 unit) capsule (Vitamin D3) lisinopril 2.5 mg tablet 2.5 mg PO DAILY 09/03/20 02/14/21 History Allergies Allergy/AdvReac Type Severity Reaction Status Date / Time No Known Allergies Allergy Verified 11/06/20 12:46 [No Known Allergies*] Exam Vital signs: Vital Signs Temp 97.2 F 02/14/21 11:56 Pulse 88 02/14/21 11:56 Resp 14 02/14/21 11:56 BP 125/57 L 02/14/21 11:56 Pulse Ox 95 02/14/21 11:56 Intake & Output 02/13/21 02/14/21 02/14/21 18:59 06:59 18:59 Other: Weight 70.1 kg Weight in Grams 49477 Weight 70.1 kg Body Mass Index 25.7 - Constitutional Present: no acute distress - Routine HEENT Exam Head: Present: normal inspection Eye: Present: normal appearance ENT: Present: mucous membranes moist - Routine Neck Exam Present: full ROM - Routine Respiratory Exam Present: CTAB - Routine Cardiovascular Exam Cardiovascular: Present: RRR, S1, S2 - Routine Abdominal Exam Present: soft, nontender - Routine Extremities Exam Present: nontender - Routine Back/Spine/Pelvis Exam Back/Spine: Present: full ROM - Routine Skin Exam Present: intact - Routine Neurological Exam Present: alert, oriented X3 - Routine Psychiatric Exam Present: normal affect Data - Labs CBC & Chem 7: 02/14/21 12:35 02/14/21 12:35 Labs: 05/07/20 00:00 Acetaminophen [Tylenol] 650 mg PO ONCE Heparin Sodium,Porcine Flush 500 unit IVFLUSH ONCE diphenhydrAMINE HCL [Benadryl] 25 mg IVPUSH ONCE ondansetron HCL/NS [Zofran] 16 mg in 50 ml IV ONCE riTUXimab [Rituxan] 500 mg riTUXimab [Rituxan] 160 mg 0.9 % Sodium Chloride [Ns] 250 ml IV ONCE 05/07/20 08:38 Complete Blood Count no Diff Routine Comprehensive Met. Panel Routine LDH [Lactate Dehydrogenase] Routine 07/02/20 00:00 Acetaminophen [Tylenol] 650 mg PO ONCE Heparin Sodium,Porcine Flush 500 unit IVFLUSH ONCE diphenhydrAMINE HCL [Benadryl] 25 mg IVPUSH ONCE ondansetron HCL/NS [Zofran] 16 mg in 50 ml IV ONCE riTUXimab [Rituxan] 500 mg riTUXimab [Rituxan] 160 mg 0.9 % Sodium Chloride [Ns] 250 ml IV ONCE 07/02/20 08:07 Complete Blood Count Auto Diff Routine Comprehensive Met. Panel Routine 07/02/20 08:11 Prothrombin Time INR Routine Laboratory Last Values WBC 9.9 X10*3/uL (4.8-10.8) 07/02/20 08:07 RBC 4.52 X10*6/uL (4.60-5.80) L 07/02/20 08:07 Hgb 14.8 g/dl (14.0-18.0) 07/02/20 08:07 Hct 43.9 % (42-52) 07/02/20 08:07 MCV 97.1 fL (80-98) 07/02/20 08:07 MCH 32.7 pg (27.0-33.0) 07/02/20 08:07 MCHC 33.7 g/dl (31.0-36.0) 07/02/20 08:07 RDW 14.0 % (11.0-16.0) 07/02/20 08:07 Plt Count 245 X10*3/uL (160-400) 07/02/20 08:07 MPV 10.1 fL (9.4-12.4) 07/02/20 08:07 Immature Gran % (Auto) 0.6 % (0.0-0.4) H 07/02/20 08:07 Neut % (Auto) 74.9 % (45-73) H 07/02/20 08:07 Lymph % (Auto) 12.2 % (20-40) L 07/02/20 08:07 [place] % (Auto) 9.1 % (2-11) 07/02/20 08:07 Eos % (Auto) 2.1 % (0-4) 07/02/20 08:07 Baso % (Auto) 1.1 % (0-2) 07/02/20 08:07 Lymph # (Auto) 1.2 X10*3/uL (1.2-4.9) 07/02/20 08:07 [place] # (Auto) 0.9 X10*3/uL (0.1-1.2) 07/02/20 08:07 Eos # (Auto) 0.2 X10*3/uL (0.0-0.4) 07/02/20 08:07 Baso # (Auto) 0.1 X10*3/uL (0.0-0.2) 07/02/20 08:07 Abs Immat Gran (auto) 0.06 X10*3/uL (0.00-0.03) H 07/02/20 08:07 Absolute Neuts (auto) 7.4 X10*3/uL (2.0-8.3) 07/02/20 08:07 Absolute Nucleated RBC 0.000 X10*3/uL (0.0-0.012) 07/02/20 08:07 Nucleated RBC % (auto) 0.0 /100WBC (0.0-0.2) 07/02/20 08:07 PT 29.7 SEC (10.8-13.0) H 07/02/20 08:11 INR 2.5 (0.9-1.1) H 07/02/20 08:11 Sodium 140 mmol/L (135-145) 07/02/20 08:07 Potassium 4.4 mmol/l (3.3-5.1) 07/02/20 08:07 Chloride 98 mmol/L (96-108) 07/02/20 08:07 Carbon Dioxide 33 mmol/L (22-29) H 07/02/20 08:07 Anion Gap 13 (-20) 07/02/20 08:07 BUN 16 mg/dL (9-16) 07/02/20 08:07 Creatinine 1.19 mg/dL (0.5-1.4) 07/02/20 08:07 Estim Creat Clear Calc 45.9 07/02/20 08:07 Estimated GFR 59 07/02/20 08:07 Random Glucose 144 mg/dL (60-115) H 07/02/20 08:07 Calcium 10.0 mg/dL (8.4-10.2) D 07/02/20 08:07 Total Bilirubin 0.8 mg/dL (0.0-1.0) 07/02/20 08:07 AST 16 U/L (5-37) 07/02/20 08:07 ALT 17 U/L (0-40) 07/02/20 08:07 Alkaline Phosphatase 70 U/L (39-117) 07/02/20 08:07 Lactate Dehydrogenase 146 U/L (118-273) 05/07/20 08:38 Total Protein 6.7 g/dL (6.5-8.0) 07/02/20 08:07 Albumin 4.3 g/dL (3.5-5.0) 07/02/20 08:07 Progress Note: A/P (1) Follicular lymphoma Status: Acute Assessment and plan: 74-year-old man with a prior history of multiple issues: Including pleural effusion, acute congestive heart failure, acute respiratory failure and a lung mass. He was noted to have right axillary adenopathy. He had overall general malaise, poor appetite and weight loss. He had a right-sided Pleural effusion. Therapeutic and diagnostic thoracentesis was non-revealing. Biopsy of the axillary lymph node is positive for Follicular Lymphoma. He was seen by thoracic surgery, while in house and underwent a bronchoscopy. This was nonrevealing. On April 21 he had FNA of the right midlobe of the lung, which revealed: Lung, right middle lobe mass, fine needle aspiration: Adequate for interpretation. Negative for malignancy, numerous reactive respiratory epithelial cells are seen. He had a PET scan April 07 which revealed: 1. Right middle lobe peribronchovascular mass with mildly increased FDG uptake suspicious for abnormal lymphoid tissue or lymphoma given the presence of lymphadenopathy elsewhere within the chest, abdomen and pelvis. Differential possibility includes infectious etiology or pneumonia or primary lung carcinoma, notably adenocarcinoma . Multiple smaller subcentimeter nodules too small to be accurately characterize. 2. Significant lymphadenopathy noted in the mediastinum, axilla, retroperitoneum, iliac and inguinal changes as detailed. Lymphadenopathy appears matted and conglomerate notably within the pelvic region. These findings are most suspicious for lymphoma. 3. Poor visualization of the renal sinus fat may also be secondary to excessive lymphoid tissue. Assessment is limited without contrast. 4. Mildly increased FDG uptake right glenoid. Osseous metastases cannot be excluded. He had a bone marrow exam on April 20, 2018, which revealed: NORMOCELLULAR BONE MARROW (FOR AGE) WITH ACTIVE TRILINEAGE HEMATOPOIESIS, AND NUMEROUS PARATRABECULAR AND RARE INTERSTITIAL LYMPHOID AGGREGATES SEEN ON BONE MARROW BIOPSY. THE LYMPHOID AGGREGATES ARE COMPOSED OF SMALL LYMPHOCYTES WITH CONDENSED NUCLEAR CHROMATIN AND SMOOTH TO IRREGULAR NUCLEAR CONTOURS. THE FINDINGS ARE CONSISTENT WITH BONE MARROW INVOLVEMENT BY FOLLICULAR LYMPHOMA. CONCURRENT FLOW CYTOMETRY REPORT CONFIRMED IT. He was quite symptomatic, with a chylous pleural effusion and B. symptoms, his energy level was low. In April he was noted to have hypercalcemia. Likely to be a peraneoplastic presentation. He was given Zometa, on May 05. Since then, his calcium has been normal. I offered systemic therapy, with Bendamustine and Rituximab x6 cycles. He started the treatment on July. He has tolerated the 6 cycles very well. His breathing has been comfortable. He has not required a thoracentesis, after August 26 2017. That is a good sign. His calcium level is normal. CT chest from December 07 revealed: 1. Right pleural effusion decreased from prior exam 10/21/2018. Small right pulmonary nodules, largest under 5 mm stable. No left pulmonary nodules. 2. No hilar or mediastinal adenopathy. 3. Small saccular aneurysm inferolateral aortic arch under 1.[address] scan of the abdomen from December 07 revealed: 1. There is relatively stable retroperitoneal lymphadenopathy extending into the bilateral iliac regions, right greater the left. No new lymphadenopathy is seen. This is encouraging. I reviewed the CT scan with the radiologist. CT abdomen shows residual abnormality. This could be residual fibrosis. We discussed the option of proceeding with a PET scan however the SUVs was low around 3.5, on his previous PET scan. He has completed 6 cycles, of Rituxan/Bendamustine, in December. CT abdomen from July 25 revealed: Chest: Interval decrease in right pleural effusion. Interval increase in atelectasis/consolidation in the adjacent right middle and right lower lobes and increased bronchial wall thickening particularly in the right lower lobe. Differential would include infectious and neoplastic process. Areas of consolidation also appear peripheral and round atelectasis secondary to chronic pleural disease should also be considered. Emphysema. Stable small pulmonary nodules. Post-CABG changes. Stable small aneurysm or area ectasia of the lateral aortic arch and tortuous thoracic aorta. New asymmetric increasing left breast tissue. Correlation with clinical findings and mammogram or ultrasound recommended. No axillary lymphadenopathy. Abdomen and pelvis: Stable extensive low-attenuation retroperitoneal soft tissue in the abdomen and pelvis extending into both inguinal regions. Mild fullness of both renal collecting systems, left greater than right, unchanged. Right renal cysts. Diverticulosis. Small low-attenuation probably cystic area in the head/neck of the pancreas that in retrospect is stable from previous exams. Enlarged prostate gland. He is clinically stable. l proceeded with a chest x-ray, November 20 which revealed: Changes of emphysema. Somewhat increased hazy opacification in the right mid and lower lung zone compared to last chest x-ray; possibility of acute inflammatory or infectious process superimposed on underlying chronic changes here cannot be excluded. Small right pleural effusion, probably slightly increased compared to last study. Question trace left pleural effusion. He underwent a cardiac workup by Dr. Piper. He add a Holter monitor and Echocardiogram, for AFib. I proceeded with CT scan of chest and abdomen for restaging purposes, on 04/02/2020: Soft tissue in the retroperitoneum likely matted lymphadenopathy in the mid and distal segments, difficult to measure. Diffuse sigmoid and scattered rest of the colon diverticulosis without diverticulitis. Significant atherosclerotic changes and calcification of abdominal aorta. There is mid abdominal aortic aneurysm as described above. He completed his 12th course of rituximab, on 10/23/20. Database: Trey 9.5, ALb 4.2. LFTs: . LDH: 159. He is on warfarin. He is clinically doing well. LDH from today's 159. CT scan of the chest from 01/14: Stable peripheral or subpleural atelectasis or scarring in the right middle and right lower lobes, bronchial wall thickening and adjacent pleural thickening/tiny right pleural effusion. Stable small pulmonary nodules, largest measuring 4 mm. Post-CABG changes. Stable small aneurysm of the aortic arch. PLAN: He does smoke a pack a day. Will refer him for lung cancer screening. CT scan of the chest did reveal 4 mm nodule. I will monitor his labs including the calcium level. Lately it has been normal at 9.5/10.1, range. If that goes up again he will receive Zometa. I will proceed with restaging, will arrange for a CT chest and abdomen, in 6 months time. He will return in 6 months for a follow-up visit. All his questions were answered to his satisfaction. Thank you, CC: Dr. Darrell Ellison. Dr. Piper. Dr. Myers. - Time Spent With Patient Time Spent with Patient (in minutes): 25
[2021-02-14 12:37] LABS: MANUAL DIFF FLAG NO
[2021-02-14 12:47] LABS: Basophils Absolute Auto 0.1 X10*3/uL (0.0-0.2); Basophils Percent Auto 0.5 % (0-2); Eosinophils Absolute Auto 0.1 X10*3/uL (0.0-0.4); Hematocrit 41.9 % (42-52); Imm Gran Abs Auto 0.06 X10*3/uL (0.00-0.03); Imm Gran Pct Auto 0.5 % (0.0-0.4); Lymphocytes Percent Auto 7.4 % (20-40); Mean Corpuscular HGB Conc 33.4 g/dl (31.0-36.0); Mean Corpuscular Hemoglobin 32.2 pg (27.0-33.0); Mean Corpuscular Volume 96.3 fL (80-98); Monocytes Absolute Auto 0.9 X10*3/uL (0.1-1.2); Monocytes Percent Auto 7.3 % (2-11); Neutrophils Absolute Auto 10.8 X10*3/uL (2.0-8.3); Neutrophils Percent Auto 83.3 % (45-73); Platelet Count 232 X10*3/uL (160-400); Red Blood Count 4.35 X10*6/uL (4.60-5.80); Red Cell Distribution Width 14.2 % (11.0-16.0); White Blood Count 12.9 X10*3/uL (4.8-10.8)
[2021-02-14 13:18] LABS: Alanine Aminotransferase 18 U/L (0-40); Albumin Level 4.2 g/dL (3.5-5.0); Alkaline Phosphatase 69 U/L (39-117); Anion Gap 14 (12-20); Aspartate Amino Transferase 16 U/L (5-37); Bilirubin Total 0.6 mg/dL (0.0-1.0); Blood Urea Nitrogen 21 mg/dL (9-16); Calcium 10.1 mg/dL (8.4-10.2); Carbon Dioxide 31 mmol/L (22-29); Chloride 98 mmol/L (96-108); Creatinine Clr Calc Pharmacy 51.5; Estimated Glomerular Filt Rate > 60; Glucose Random 122 mg/dL (60-115); Lactate Dehydrogenase 159 U/L (118-273); Potassium 4.4 mmol/L (3.3-5.1); Sodium 139 mmol/L (135-145); Total Protein 6.6 g/dL (6.5-8.0)
--- NOTE | 2021-02-14 16:09 | MHC.HEMONCMA ---
Patient came in for a follow up today, states he is doing well. Clinical summary was reviewed and updated. Patient had labs and will return in 2 months for a follow up.
[2021-05-16 10:54] VITALS: BP 103/51; PULSE 64; RESP 16; TEMP 36.3; O2SAT 97; BMI 25.8
--- NOTE | 2021-05-16 11:15 | P.PNHO_ITS ---
Medical Summary - Medical Summary Date of Service: 05/16/21 Chief complaint: Follow-up for: Lymphoma. Medical Summary: DIAGNOSIS: 1. Follicular Lymphoma of the axilla. 2. Lung mass. 3. Hypercalcemia. CURRENT THERAPY: STARTED Bendamustine & Rituximab 08/02/18. Second cycle 08/30. Completed cycle 6th, On December 20. Recieved maintenance rituximab, cycle 3 on June 06. To be given every 8 weeks for 2 up to years, as tolerated. Received his 10 th cycle, July 02. Interval History Interval history: This is a pleasant 76 year-old gentleman, here for a follow-up visit. He tells me his legs ache. He knows that he has back circulation. He would like to see vascular expert. Other than that, he has been doing quite well. His energy level is good. He denies headache no dizziness. Denies chest pain or trouble breathing. He has no abdominal pain nausea vomiting heartburn indigestion. His bowels are working without any gross blood in it. He enjoys a good appetite. He has been eating desserts: fruit cup cakes, cookies and canned fruit. He has gained weight. He is in good spirits. Rest of the review of systems is unremarkable. Previous history: Lately, he has noticed bruising of his arms and legs. Aout a year ago, he was cutting potatoes to make Armenian fries when he cut his finger. It bled so much she ended up in the emergency room. Subsequently the Plavix was stopped. Review of Systems - Constitutional Reports system reviewed and no additional complaints, except as documented - Eyes Reports system reviewed and no additional complaints, except as documented - ENT Reports system reviewed and no additional complaints, except as documented - Cardiovascular Reports system reviewed and no additional complaints, except as documented - Respiratory Reports no additional respiratory complaints - Gastrointestinal Reports system reviewed and no additional complaints, except as documented - Genitourinary Genitourinary: Reports no additional male genitourinary complaints - Musculoskeletal Reports system reviewed and no additional complaints, except as documented - Integumentary/Breasts Skin/Breast: Reports no additional skin complaints - Neurologic Reports system reviewed and no additional complaints, except as documented - Psychiatric Reports system reviewed and no additional complaints, except as documented - Endocrine Reports no additional endocrine complaints - Hematologic/Lymphatic Reports system reviewed and no additional complaints, except as documented - Allergic/Immunologic Reports system reviewed and no additional complaints, except as documented [facility] Medical History: Medical History (Last Reviewed 05/16/21 @ 10:57 by Joseph Schulz) Abdominal aortic aneurysm without rupture Benign essential hypertension Chronic atrial fibrillation COPD (chronic obstructive pulmonary disease) Coronary artery disease Diabetes mellitus Elevated PSA Heart failure with preserved ejection fraction High cholesterol History of blood clots History of deep vein thrombosis (DVT) of lower extremity Insomnia Overweight (BMI 25.0-29.9) PAF (paroxysmal atrial fibrillation) Peripheral arterial disease Pneumonia Pure hypercholesterolemia Smoker Vitamin D deficiency Functional capacity: uses cane/walker Patient : No Family History: Family History (Last Reviewed 05/16/21 @ 10:57 by Joseph Schulz) Father Cancer Mother Cardiovascular disease Surgical History: Surgical History (Last Reviewed 05/16/21 @ 10:57 by Joseph Schulz) History of quadruple bypass Social History: Social History (Last Reviewed 05/16/21 @ 10:57 by Joseph Schulz) Living Situation History: Housing: Apartment Alcohol History: Alcohol intake: current Alcohol History Details: Alcohol intake frequency: holiday/special occasion Alcohol type: beer Tobacco History: Patient Tobacco Use Status: Current everyday Tobacco Tobacco use type: Cigarette Cigarette Packs Per Day: 1.5 Years Smoked: 67 Substance Use History: Use of substances other than those prescribed or required for medical reasons : No Nutrition Assessment: Patient : No Occupation Assessmet: service: No Current occupational status: retired Oncology Screenings - ECOG Performance Status ECOG Performance Status: 1 Home Medications and Allergies Home Medications Medication Instructions Recorded Confirmed Type budesonide-formoterol HFA 160 2 puff PO BID 07/02/20 05/16/21 History mcg-4.5 mcg/actuation aerosol inhaler (Symbicort) cholecalciferol (vitamin D3) 25 25 mcg PO DAILY 07/02/20 05/16/21 History mcg (1,000 unit) capsule (Vitamin D3) lisinopril 2.5 mg tablet 2.5 mg PO DAILY 09/03/20 05/16/21 History Allergies Allergy/AdvReac Type Severity Reaction Status Date / Time No Known Allergies Allergy Verified 04/23/21 10:15 [No Known Allergies*] Exam Vital signs: Vital Signs Temp 97.4 F 05/16/21 10:54 Pulse 64 05/16/21 10:54 Resp 16 05/16/21 10:54 BP 103/51 L 05/16/21 10:54 Pulse Ox 97 05/16/21 10:54 Intake & Output 05/15/21 05/16/21 05/16/21 18:59 06:59 18:59 Other: Weight 70.4 kg [place] Weight in Grams [id number] Weight 70.4 kg Body Mass Index 25.8 - Constitutional Present: no acute distress - Routine HEENT Exam Head: Present: normal inspection Eye: Present: normal appearance ENT: Present: mucous membranes moist - Routine Neck Exam Present: full ROM - Routine Respiratory Exam Present: CTAB - Routine Cardiovascular Exam Cardiovascular: Present: RRR, S1, S2 - Routine Abdominal Exam Present: soft, nontender - Routine Extremities Exam Present: nontender - Routine Back/Spine/Pelvis Exam Back/Spine: Present: full ROM - Routine Skin Exam Present: intact - Routine Neurological Exam Present: alert, oriented X3 - Routine Psychiatric Exam Present: normal affect Data - Labs CBC & Chem 7: 05/16/21 11:35 05/16/21 11:35 Labs: 05/07/20 00:00 Acetaminophen [Tylenol] 650 mg PO ONCE Heparin Sodium,Porcine Flush 500 unit IVFLUSH ONCE diphenhydrAMINE HCL [Benadryl] 25 mg IVPUSH ONCE ondansetron HCL/NS [Zofran] 16 mg in 50 ml IV ONCE riTUXimab [Rituxan] 500 mg riTUXimab [Rituxan] 160 mg 0.9 % Sodium Chloride [Ns] 250 ml IV ONCE 05/07/20 08:38 Complete Blood Count no Diff Routine Comprehensive Met. Panel Routine LDH [Lactate Dehydrogenase] Routine 07/02/20 00:00 Acetaminophen [Tylenol] 650 mg PO ONCE Heparin Sodium,Porcine Flush 500 unit IVFLUSH ONCE diphenhydrAMINE HCL [Benadryl] 25 mg IVPUSH ONCE ondansetron HCL/NS [Zofran] 16 mg in 50 ml IV ONCE riTUXimab [Rituxan] 500 mg riTUXimab [Rituxan] 160 mg 0.9 % Sodium Chloride [Ns] 250 ml IV ONCE 07/02/20 08:07 Complete Blood Count Auto Diff Routine Comprehensive Met. Panel Routine 07/02/20 08:11 Prothrombin Time INR Routine Laboratory Last Values WBC 9.9 X10*3/uL (4.8-10.8) 07/02/20 08:07 RBC 4.52 X10*6/uL (4.60-5.80) L 07/02/20 08:07 Hgb 14.8 g/dl (14.0-18.0) 07/02/20 08:07 Hct 43.9 % (42-52) 07/02/20 08:07 MCV 97.1 fL (80-98) 07/02/20 08:07 MCH 32.7 pg (27.0-33.0) 07/02/20 08:07 MCHC 33.7 g/dl (31.0-36.0) 07/02/20 08:07 RDW 14.0 % (11.0-16.0) 07/02/20 08:07 Plt Count 245 X10*3/uL (160-400) 07/02/20 08:07 MPV 10.1 fL (9.4-12.4) 07/02/20 08:07 Immature Gran % (Auto) 0.6 % (0.0-0.4) H 07/02/20 08:07 Neut % (Auto) 74.9 % (45-73) H 07/02/20 08:07 Lymph % (Auto) 12.2 % (20-40) L 07/02/20 08:07 [place] % (Auto) 9.1 % (2-11) 07/02/20 08:07 Eos % (Auto) 2.1 % (0-4) 07/02/20 08:07 Baso % (Auto) 1.1 % (0-2) 07/02/20 08:07 Lymph # (Auto) 1.2 X10*3/uL (1.2-4.9) 07/02/20 08:07 [place] # (Auto) 0.9 X10*3/uL (0.1-1.2) 07/02/20 08:07 Eos # (Auto) 0.2 X10*3/uL (0.0-0.4) 07/02/20 08:07 Baso # (Auto) 0.1 X10*3/uL (0.0-0.2) 07/02/20 08:07 Abs Immat Gran (auto) 0.06 X10*3/uL (0.00-0.03) H 07/02/20 08:07 Absolute Neuts (auto) 7.4 X10*3/uL (2.0-8.3) 07/02/20 08:07 Absolute Nucleated RBC 0.000 X10*3/uL (0.0-0.012) 07/02/20 08:07 Nucleated RBC % (auto) 0.0 /100WBC (0.0-0.2) 07/02/20 08:07 PT 29.7 SEC (10.8-13.0) H 07/02/20 08:11 INR 2.5 (0.9-1.1) H 07/02/20 08:11 Sodium 140 mmol/L (135-145) 07/02/20 08:07 Potassium 4.4 mmol/l (3.3-5.1) 07/02/20 08:07 Chloride 98 mmol/L (96-108) 07/02/20 08:07 Carbon Dioxide 33 mmol/L (22-29) H 07/02/20 08:07 Anion Gap 13 (-20) 07/02/20 08:07 BUN 16 mg/dL (9-16) 07/02/20 08:07 Creatinine 1.19 mg/dL (0.5-1.4) 07/02/20 08:07 Estim Creat Clear Calc 45.9 07/02/20 08:07 Estimated GFR 59 07/02/20 08:07 Random Glucose 144 mg/dL (60-115) H 07/02/20 08:07 Calcium 10.0 mg/dL (8.4-10.2) D 07/02/20 08:07 Total Bilirubin 0.8 mg/dL (0.0-1.0) 07/02/20 08:07 AST 16 U/L (5-37) 07/02/20 08:07 ALT 17 U/L (0-40) 07/02/20 08:07 Alkaline Phosphatase 70 U/L (39-117) 07/02/20 08:07 Lactate Dehydrogenase 146 U/L (118-273) 05/07/20 08:38 Total Protein 6.7 g/dL (6.5-8.0) 07/02/20 08:07 Albumin 4.3 g/dL (3.5-5.0) 07/02/20 08:07 Assessment and Plan Patient Active problem list reviewed?: Yes (1) Follicular lymphoma Status: Acute Assessment and plan: 74-year-old man with a prior history of multiple issues: Including pleural effusion, acute congestive heart failure, acute respiratory failure and a lung mass. He was noted to have right axillary adenopathy. He had overall general malaise, poor appetite and weight loss. He had a right-sided Pleural effusion. Therapeutic and diagnostic thoracentesis was non-revealing. Biopsy of the axillary lymph node is positive for Follicular Lymphoma. He was seen by thoracic surgery, while in house and underwent a bronchoscopy. This was nonrevealing. On April 21 he had FNA of the right midlobe of the lung, which revealed: Lung, right middle lobe mass, fine needle aspiration: Adequate for interpretation. Negative for malignancy, numerous reactive respiratory epithelial cells are seen. He had a PET scan April 07 which revealed: 1. Right middle lobe peribronchovascular mass with mildly increased FDG uptake suspicious for abnormal lymphoid tissue or lymphoma given the presence of lymphadenopathy elsewhere within the chest, abdomen and pelvis. Differential possibility includes infectious etiology or pneumonia or primary lung carcinoma, notably adenocarcinoma . Multiple smaller subcentimeter nodules too small to be accurately characterize. 2. Significant lymphadenopathy noted in the mediastinum, axilla, retroperitoneum, iliac and inguinal changes as detailed. Lymphadenopathy appears matted and conglomerate notably within the pelvic region. These findings are most suspicious for lymphoma. 3. Poor visualization of the renal sinus fat may also be secondary to excessive lymphoid tissue. Assessment is limited without contrast. 4. Mildly increased FDG uptake right glenoid. Osseous metastases cannot be excluded. He had a bone marrow exam on April 20, 2018, which revealed: NORMOCELLULAR BONE MARROW (FOR AGE) WITH ACTIVE TRILINEAGE HEMATOPOIESIS, AND NUMEROUS PARATRABECULAR AND RARE INTERSTITIAL LYMPHOID AGGREGATES SEEN ON BONE MARROW BIOPSY. THE LYMPHOID AGGREGATES ARE COMPOSED OF SMALL LYMPHOCYTES WITH CONDENSED NUCLEAR CHROMATIN AND SMOOTH TO IRREGULAR NUCLEAR CONTOURS. THE FINDINGS ARE CONSISTENT WITH BONE MARROW INVOLVEMENT BY FOLLICULAR LYMPHOMA. CONCURRENT FLOW CYTOMETRY REPORT CONFIRMED IT. He was quite symptomatic, with a chylous pleural effusion and B. symptoms, his energy level was low. In April he was noted to have hypercalcemia. Likely to be a peraneoplastic presentation. He was given Zometa, on May 05. Since then, his calcium has been normal. I offered systemic therapy, with Bendamustine and Rituximab x6 cycles. He started the treatment on July. He has tolerated the 6 cycles very well. His breathing has been comfortable. He has not required a thoracentesis, after August 26 2017. That is a good sign. His calcium level is normal. CT chest from December 07 revealed: 1. Right pleural effusion decreased from prior exam 10/21/2018. Small right pulmonary nodules, largest under 5 mm stable. No left pulmonary nodules. 2. No hilar or mediastinal adenopathy. 3. Small saccular aneurysm inferolateral aortic arch under 1.[address] scan of the abdomen from December 07 revealed: 1. There is relatively stable retroperitoneal lymphadenopathy extending into the bilateral iliac regions, right greater the left. No new lymphadenopathy is seen. This is encouraging. I reviewed the CT scan with the radiologist. CT abdomen shows residual abnormality. This could be residual fibrosis. We discussed the option of proceeding with a PET scan however the SUVs was low around 3.5, on his previous PET scan. He has completed 6 cycles, of Rituxan/Bendamustine, in December. CT abdomen from July 25 revealed: Chest: Interval decrease in right pleural effusion. Interval increase in atelectasis/consolidation in the adjacent right middle and right lower lobes and increased bronchial wall thickening particularly in the right lower lobe. Differential would include infectious and neoplastic process. Areas of consolidation also appear peripheral and round atelectasis secondary to chronic pleural disease should also be considered. Emphysema. Stable small pulmonary nodules. Post-CABG changes. Stable small aneurysm or area ectasia of the lateral aortic arch and tortuous thoracic aorta. New asymmetric increasing left breast tissue. Correlation with clinical findings and mammogram or ultrasound recommended. No axillary lymphadenopathy. Abdomen and pelvis: Stable extensive low-attenuation retroperitoneal soft tissue in the abdomen and pelvis extending into both inguinal regions. Mild fullness of both renal collecting systems, left greater than right, unchanged. Right renal cysts. Diverticulosis. Small low-attenuation probably cystic area in the head/neck of the pancreas that in retrospect is stable from previous exams. En larged prostate gland. He is clinically stable. l proceeded with a chest x-ray, November 20 which revealed: Changes of emphysema. Somewhat increased hazy opacification in the right mid and lower lung zone compared to last chest x-ray; possibility of acute inflammatory or infectious process superimposed on underlying chronic changes here cannot be excluded. Small right pleural effusion, probably slightly increased compared to last study. Question trace left pleural effusion. He underwent a cardiac workup by Dr. Piper. He add a Holter monitor and Echocardiogram, for AFib. I proceeded with CT scan of chest and abdomen for restaging purposes, on 04/02/2020: Soft tissue in the retroperitoneum likely matted lymphadenopathy in the mid and distal segments, difficult to measure. Diffuse sigmoid and scattered rest of the colon diverticulosis without diverticulitis. Significant atherosclerotic changes and calcification of abdominal aorta. There is mid abdominal aortic aneurysm as described above. He completed his 12th course of rituximab, on 10/23/20. Database: From 6 months ago: Trey 9.5, ALb 4.2. LFTs: . LDH: 159. CT scan of the chest from 01/14: Stable peripheral or subpleural atelectasis or scarring in the right middle and right lower lobes, bronchial wall thickening and adjacent pleural thickening/tiny right pleural effusion. Stable small pulmonary nodules, largest measuring 4 mm. Post-CABG changes. Stable small aneurysm of the aortic arch. He is clinically doing well. LDH from today is 135. Calcium: 10.3. PLAN: He is doing very well. I will monitor his labs including the calcium level. It is borderline elevated. If that goes up again he will receive Zometa. I will proceed with restaging, will arrange for a CT chest and abdomen, in 6 months time. He will return in 6 months for a follow-up visit. All his questions were answered to his satisfaction. Thank you, CC: Dr. Darrell Ellison. Dr. Piper. Dr. Myers. (2) Screening for lung cancer Status: Acute Assessment and plan: 76-year-old gentleman, with history of follicular lymphoma, status post treat ment. He does smoke a pack a day. He has leg pain. Symptoms suggestive of intermittent claudication. PLAN: CT scan of the chest did reveal 4 mm nodule. Will refer him for lung cancer screening. He will follow-up with Dr. Johnson for his vascular issues. Thank you, - Time Spent With Patient Time Spent with Patient (in minutes): 30
[2021-05-16 11:37] LABS: MANUAL DIFF FLAG NO
[2021-05-16 11:50] LABS: Basophils Absolute Auto 0.1 X10*3/uL (0.0-0.2); Basophils Percent Auto 1.1 % (0-2); Eosinophils Absolute Auto 0.2 X10*3/uL (0.0-0.4); Eosinophils Percent Auto 1.9 % (0-4); Hematocrit 41.8 % (42.0-52.0); Imm Gran Abs Auto 0.05 X10*3/uL (0.00-0.03); Imm Gran Pct Auto 0.5 % (0.0-0.4); Lymphocytes Percent Auto 10.5 % (20-40); Mean Corpuscular HGB Conc 33.5 g/dl (31.0-36.0); Mean Corpuscular Hemoglobin 32.6 pg (27.0-33.0); Mean Corpuscular Volume 97.2 fL (80.0-98.0); Mean Platelet Volume 9.9 fL (9.4-12.4); Monocytes Absolute Auto 0.8 X10*3/uL (0.1-1.2); Monocytes Percent Auto 8.2 % (2-11); Neutrophils Absolute Auto 7.4 x10*3/uL (2.0-8.3); Neutrophils Percent Auto 77.8 % (45-73); Platelet Count 216 X10*3/uL (160-400); Red Cell Distribution Width 13.6 % (11.0-16.0); White Blood Count 9.5 X10*3/uL (4.8-10.8)
--- NOTE | 2021-05-16 11:51 | MHC.HEMONCMA ---
Pt came in for onc follow up and states he is doing well. clinical summary was updated and labs were drawn. pt will be seen 11/10/21 for f/u visit
[2021-05-16 12:12] LABS: Alanine Aminotransferase 11 U/L (0-40); Albumin Level 4.4 g/dL (3.5-5.0); Alkaline Phosphatase 69 U/L (39-117); Anion Gap 9 (12-20); Aspartate Amino Transferase 12 U/L (5-37); Bilirubin Total 1.3 mg/dL (0.0-1.0); Blood Urea Nitrogen 16 mg/dL (9-16); Calcium 10.3 mg/dL (8.4-10.2); Carbon Dioxide 36 mmol/L (22-29); Chloride 100 mmol/L (96-108); Creatinine Clr Calc Pharmacy 44.8; Estimated Glomerular Filt Rate 59; Glucose Random 129 mg/dL (60-115); Potassium 4.4 mmol/L (3.3-5.1); Sodium 141 mmol/L (135-145); Total Protein 6.6 g/dL (6.5-8.0)
[2021-05-16 12:22] LABS: Lactate Dehydrogenase 135 U/L (118-273)
--- NOTE | 2021-08-14 09:29 | HE.ONCSEC ---
SPOKE W/ PATIENTS ON THE PHONE ,SHE INFORMED ME THAT HER WASN'T EATING ( HE DOES NOT HAVE ANY APPETITE AND SHE IS CONCERNED THAT HE IS IN REMISSION BECAUSE HE DID HAVE CANCER ) . INFORMED ABOUT PATIENTS WIFR CONCERN AND SHE TOLD ME TO BOOK HIM A FOLLOW UP SO PATIENT IS SCHEDULED FOR A FOLLOW UP 08/26/21 . PATIENT AND DOCTOR ARE AWARE.
[2021-08-26 10:16] LABS: MANUAL DIFF FLAG NO
[2021-08-26 10:23] VITALS: BP 102/79; PULSE 66; RESP 16; TEMP 36.5; O2SAT 95; BMI 24.3
[2021-08-26 10:23] LABS: Basophils Absolute Auto 0.1 X10*3/uL (0.0-0.2); Basophils Percent Auto 0.7 % (0-2); Eosinophils Absolute Auto 0.2 X10*3/uL (0.0-0.4); Eosinophils Percent Auto 1.9 % (0-4); Hemoglobin 12.8 g/dl (14.0-18.0); Imm Gran Abs Auto 0.07 X10*3/uL (0.00-0.03); Imm Gran Pct Auto 0.7 % (0.0-0.4); Lymphocytes Percent Auto 10.3 % (20-40); Mean Corpuscular Hemoglobin 30.8 pg (27.0-33.0); Mean Corpuscular Volume 96.4 fL (80.0-98.0); Mean Platelet Volume 9.8 fL (9.4-12.4); Monocytes Absolute Auto 0.9 X10*3/uL (0.1-1.2); Neutrophils Absolute Auto 7.8 x10*3/uL (2.0-8.3); Neutrophils Percent Auto 77.4 % (45-73); Platelet Count 275 X10*3/uL (160-400); Red Blood Count 4.15 X10*6/uL (4.60-5.80); Red Cell Distribution Width 14.7 % (11.0-16.0)
--- NOTE | 2021-08-26 10:28 | PM.HEMONCPN ---
Medical Summary - Medical Summary Date of Service: 08/26/21 Chief complaint: FOLLOW-UP FOR: FOLLICULAR LYMPHOMA. Medical Summary: DIAGNOSIS: 1. Follicular Lymphoma of the axilla. 2. Lung mass. 3. Hypercalcemia. CURRENT THERAPY: STARTED Bendamustine & Rituximab 08/02/18. Second cycle 08/30. Completed cycle 6th, On December 20. Recieved maintenance rituximab, cycle 3 on June 06. To be given every 8 weeks for 2 up to years, as tolerated. Received his 10 th cycle, July 02. Interval History Interval history: This is a pleasant 76 year-old gentleman, here for a follow-up visit. His tells me that lately he had been very tired. He stayed in bed. He was not eating for a while. He did not notice a fever. Two of his granddaughter's 21 & 25-year-old had COVID. They live with them. The patient himself tested negative. It appears that he is on the mend. He is back to eating again and his energy level has gone back. He is more active now. Other than that, he has been doing quite well. His energy level is good. He denies headache no dizziness. Denies chest pain or trouble breathing. He has no abdominal pain nausea vomiting heartburn indigestion. His bowels are working without any gross blood in it. He enjoys a good appetite. He has been eating desserts: fruit cup cakes, cookies and canned fruit. He has gained weight. He is in good spirits. Rest of the review of systems is unremarkable. Previous history: Lately, he has noticed bruising of his arms and legs. Aout a year ago, he was cutting potatoes to make [place] fries when he cut his finger. It bled so much she ended up in the emergency room. Subsequently the Plavix was stopped. He tells me his legs ache. He knows that he has back circulation. He is under the care of vascular expert. Review of Systems - Constitutional Reports no additional constitutional complaints - Eyes Reports no additional eye complaints - ENT Reports no additional ear, nose, mouth, and throat complaints - Cardiovascular Reports no additional cardiovascular complaints - Respiratory Reports no additional respiratory complaints - Gastrointestinal Reports no additional gastrointestinal complaints - Genitourinary Genitourinary: Reports no additional male genitourinary complaints - Musculoskeletal Reports no additional musculoskeletal complaints - Integumentary/Breasts Skin/Breast: Reports no additional skin complaints - Neurologic Reports no additional neurologic complaints - Psychiatric Reports no additional psychiatric complaints - Endocrine Reports no additional endocrine complaints - Hematologic/Lymphatic Reports no additional hematologic/lymphatic complaints - Allergic/Immunologic Reports no additional allergic/immunologic complaints ON LICENSE OF [facility] Medical History: Medical History (Last Reviewed 08/26/21 @ 10:25 by Lisa Schulz CMA) Abdominal aortic aneurysm without rupture Benign essential hypertension Chronic atrial fibrillation COPD (chronic obstructive pulmonary disease) Coronary artery disease Diabetes mellitus Elevated PSA Heart failure with preserved ejection fraction High cholesterol History of blood clots History of deep vein thrombosis (DVT) of lower extremity Insomnia Overweight (BMI 25.0-29.9) PAF (paroxysmal atrial fibrillation) Peripheral arterial disease Pneumonia Pure hypercholesterolemia Smoker Vitamin D deficiency Functional capacity: uses cane/walker Patient : No Family History: Family History (Last Reviewed 08/26/21 @ 10:25 by Lisa Schulz CMA) Father Cancer Mother Cardiovascular disease Surgical History: Surgical History (Last Reviewed 08/26/21 @ 10:25 by Lisa Schulz CMA) History of quadruple bypass Social History: Social History (Last Updated 08/26/21 @ 10:26 by Lisa Schulz CMA) Living Situation History: Household Members: Spouse Housing: Apartment Are you a primary spiritual care coordinator to a significant other at home: No Do you presently have visiting nurse or other home services: No Alcohol History Details: 1. How often do you have a drink containing alcohol?: a. Never Tobacco History: Patient Tobacco Use Status: Current everyday Tobacco Tobacco use type: Cigarette Cigarette Packs Per Day: 1.5 Years Smoked: 67 Substance Use History: Use of substances other than those prescribed or required for medical reasons: No Nutrition Assessment: Patient : No Occupation Assessmet: service: No Current occupational status: retired Oncology Screenings - ECOG Performance Status ECOG Performance Status: 1 Home Medications and Allergies Home Medications Medication Instructions Recorded Confirmed Type budesonide-formoterol HFA 160 2 puff PO BID 07/02/20 08/26/21 History mcg-4.5 mcg/actuation aerosol inhaler (Symbicort) cholecalciferol (vitamin D3) 25 25 mcg PO DAILY 07/02/20 08/26/21 History mcg (1,000 unit) capsule (Vitamin D3) metoprolol tartrate 50 mg tablet 50 mg PO BID 08/26/21 08/26/21 History (Lopressor) Allergies Allergy/AdvReac Type Severity Reaction Status Date / Time No Known Allergies Allergy Verified 08/26/21 10:26 [No Known Allergies*] Exam Vital signs: Vital Signs Temp 97.7 F 08/26/21 10:23 Pulse 66 08/26/21 10:23 Resp 16 08/26/21 10:23 BP 102/79 08/26/21 10:23 Pulse Ox 95 08/26/21 10:23 Intake & Output 08/25/21 08/26/21 08/26/21 18:59 06:59 18:59 Other: Weight 66.2 kg [place] Weight in Grams 44807 Weight 66.2 kg BMI result Body Mass Index 24.3 - Constitutional Present: no acute distress - Routine HEENT Exam Head: Present: normal inspection Eye: Present: normal appearance ENT: Present: mucous membranes moist - Routine Neck Exam Present: full ROM - Routine Respiratory Exam Present: CTAB - Routine Cardiovascular Exam Cardiovascular: Present: RRR, S1, S2 - Routine Abdominal Exam Present: soft, nontender - Routine Extremities Exam Present: nontender - Routine Back/Spine/Pelvis Exam Back/Spine: Present: full ROM - Routine Skin Exam Present: intact - Routine Neurological Exam Present: alert, oriented X3 - Routine Psychiatric Exam Present: normal affect Data - Labs CBC & Chem 7: 08/26/21 10:00 08/26/21 10:00 Assessment and Plan Patient Active problem list reviewed?: Yes (1) Follicular lymphoma Status: Acute Assessment and plan: 74-year-old man with a prior history of multiple issues: Including pleural effusion, acute congestive heart failure, acute respiratory failure and a lung mass. He was noted to have right axillary adenopathy. He had overall general malaise, poor appetite and weight loss. He had a right-sided Pleural effusion. Therapeutic and diagnostic thoracentesis was non-revealing. Biopsy of the axillary lymph node is positive for Follicular Lymphoma. He was seen by thoracic surgery, while in house and underwent a bronchoscopy. This was nonrevealing. On April 21 he had FNA of the right midlobe of the lung, which revealed: Lung, right middle lobe mass, fine needle aspiration: Adequate for interpretation. Negative for malignancy, numerous reactive respiratory epithelial cells are seen. He had a PET scan April 07 which revealed: 1. Right middle lobe peribronchovascular mass with mildly increased FDG uptake suspicious for abnormal lymphoid tissue or lymphoma given the presence of lymphadenopathy elsewhere within the chest, abdomen and pelvis. Differential possibility includes infectious etiology or pneumonia or primary lung carcinoma, notably adenocarcinoma . Multiple smaller subcentimeter nodules too small to be accurately characterize. 2. Significant lymphadenopathy noted in the mediastinum, axilla, retroperitoneum, iliac and inguinal changes as detailed. Lymphadenopathy appears matted and conglomerate notably within the pelvic region. These findings are most suspicious for lymphoma. 3. Poor visualization of the renal sinus fat may also be secondary to excessive lymphoid tissue. Assessment is limited without contrast. 4. Mildly increased FDG uptake right glenoid. Osseous metastases cannot be excluded. He had a bone marrow exam on April 20, 2018, which revealed: NORMOCELLULAR BONE MARROW (FOR AGE) WITH ACTIVE TRILINEAGE HEMATOPOIESIS, AND NUMEROUS PARATRABECULAR AND RARE INTERSTITIAL LYMPHOID AGGREGATES SEEN ON BONE MARROW BIOPSY. THE LYMPHOID AGGREGATES ARE COMPOSED OF SMALL LYMPHOCYTES WITH CONDENSED NUCLEAR CHROMATIN AND SMOOTH TO IRREGULAR NUCLEAR CONTOURS. THE FINDINGS ARE CONSISTENT WITH BONE MARROW INVOLVEMENT BY FOLLICULAR LYMPHOMA. CONCURRENT FLOW CYTOMETRY REPORT CONFIRMED IT. He was quite symptomatic, with a chylous pleural effusion and B. symptoms, his energy level was low. In April he was noted to have hypercalcemia. Likely to be a peraneoplastic presentation. He was given Zometa, on May 05. Since then, his calcium has been normal. I offered systemic therapy, with Bendamustine and Rituximab x6 cycles. He started the treatment on July. He has tolerated the 6 cycles very well. His breathing has been comfortable. He has not required a thoracentesis, after August 26 2017. That is a good sign. His calcium level is normal. CT chest from December 07 revealed: 1. Right pleural effusion decreased from prior exam 10/21/2018. Small right pulmonary nodules, largest under 5 mm stable. No left pulmonary nodules. 2. No hilar or mediastinal adenopathy. 3. Small saccular aneurysm inferolateral aortic arch under 1.[address] scan of the abdomen from December 07 revealed: 1. There is relatively stable retroperitoneal lymphadenopathy extending into the bilateral iliac regions, right greater the left. No new lymphadenopathy is seen. This is encouraging. I reviewed the CT scan with the radiologist. CT abdomen shows residual abnormality. This could be residual fibrosis. We discussed the option of proceeding with a PET scan however the SUVs was low around 3.5, on his previous PET scan. He has completed 6 cycles, of Rituxan/Bendamustine, in December. CT abdomen from July 25 revealed: Chest: Interval decrease in right pleural effusion. Interval increase in atelectasis/consolidation in the adjacent right middle and right lower lobes and increased bronchial wall thickening particularly in the right lower lobe. Differential would include infectious and neoplastic process. Areas of consolidation also appear peripheral and round atelectasis secondary to chronic pleural disease should also be considered. Emphysema. Stable small pulmonary nodules. Post-CABG changes. Stable small aneurysm or area ectasia of the lateral aortic arch and tortuous thoracic aorta. New asymmetric increasing left breast tissue. Correlation with clinical findings and mammogram or ultrasound recommended. No axillary lymphadenopathy. Abdomen and pelvis: Stable extensive low-attenuation retroperitoneal soft tissue in the abdomen and pelvis extending into both inguinal regions. Mild fullness of both renal collecting systems, left greater than right, unchanged. Right renal cysts. Diverticulosis. Small low-attenuation probably cystic area in the head/neck of the pancreas that in retrospect is stable from previous exams. Enlarged prostate gland. He is clinically stable. l proceeded with a chest x-ray, November 20 which revealed: Changes of emphysema. Somewhat increased hazy opacification in the right mid and lower lung zone compared to last chest x-ray; possibility of acute inflammatory or infectious process superimposed on underlying chronic changes here cannot be excluded. Small right pleural effusion, probably slightly increased compared to last study. Question trace left pleural effusion. He underwent a cardiac workup by Dr. Piper. He add a Holter monitor and Echocardiogram, for AFib. I proceeded with CT scan of chest and abdomen for restaging purposes, on 04/02/2020: Soft tissue in the retroperitoneum likely matted lymphadenopathy in the mid and distal segments, difficult to measure. Diffuse sigmoid and scattered rest of the colon diverticulosis without diverticulitis. Significant atherosclerotic changes and calcification of abdominal aorta. There is mid abdominal aortic aneurysm as described above. He completed his 12th course of rituximab, on 10/23/20. Database: From 10 months ago: Trey 9.5, ALb 4.2. LFTs: . LDH: 159. CT scan of the chest from 01/14/21: Stable peripheral or subpleural atelectasis or scarring in the right middle and right lower lobes, bronchial wall thickening and adjacent pleural thickening/tiny right pleural effusion. Stable small pulmonary nodules, largest measuring 4 mm. Post-CABG changes. Stable small aneurysm of the aortic arch. He had an episode where he lost his appetite and was fatigue but now he has recovered. He is clinically doing well. LDH from today is 196. Calcium: 9.5. PLAN: He is doing well. I will recheck his imaging. Last was over 6 months ago. I will monitor his labs including the calcium level. It is actually normal. If that goes up again he will receive Zometa. He will return in 6 months for a follow-up visit. All his questions were answered to his satisfaction. Thank you, CC: Dr. Darrell Ellison. Dr. Piper. Dr. Myers. (2) Screening for lung cancer Status: Acute Assessment and plan: 76-year-old gentleman, with history of follicular lymphoma, status post treatment. He does smoke a pack a day. He has leg pain. Symptoms suggestive of intermittent claudication. PLAN: CT scan of the chest did reveal 4 mm nodule. Will refer him for lung cancer screening. He will follow-up with Dr. Johnson for his vascular issues. Thank you, - Time Spent With Patient Time Spent with Patient (in minutes): 30
[2021-08-26 10:55] LABS: Alanine Aminotransferase 22 U/L (0-40); Alkaline Phosphatase 75 U/L (39-117); Anion Gap 16 (12-20); Aspartate Amino Transferase 17 U/L (5-37); Bilirubin Total 1.2 mg/dL (0.0-1.0); Blood Urea Nitrogen 16 mg/dL (9-16); Calcium 9.5 mg/dL (8.4-10.2); Carbon Dioxide 28 mmol/L (22-29); Chloride 102 mmol/L (96-108); Creatinine Clr Calc Pharmacy 55.4; Estimated Glomerular Filt Rate > 60; Glucose Random 116 mg/dL (60-115); Potassium 4.7 mmol/L (3.3-5.1); Sodium 141 mmol/L (135-145); Total Protein 6.5 g/dL (6.5-8.0)
[2021-08-26 11:05] LABS: Lactate Dehydrogenase 196 U/L (118-273)
--- NOTE | 2021-08-26 15:48 | MHC.HEMONCMA ---
Patient was in for follow up. Clinical summary reviewed and updated,VSS. Labs were drawn,hgb 12.8. Patient will follow up in few months.
== END 2022-06-24 | disposition home or self-care (01) ==
LOC: HO.ONC 10:10
PROVIDERS: PCP Internal Medicine; Visit Provider Internal Medicine Medical Oncology
DX: C82.94 Follicular lymphoma, unspecified, lymph nodes of axilla and upper limb (principal); R91.8 Other nonspecific abnormal finding of lung field; E83.52 Hypercalcemia; I48.20 Chronic atrial fibrillation, unspecified; F17.210 Nicotine dependence, cigarettes, uncomplicated; Z79.01 Long term (current) use of anticoagulants; Z92.21 Personal history of antineoplastic chemotherapy
CPT/HCPCS: 36415; 80053; 83615; 85025; 85027; 85610; 96375; 96413; 96415; 99211; 99214; J1100; J1200; J2405; J9312

== ENCOUNTER → 2021-09-15 08:40 | Outpatient (BNVA) | payer MEDICARE, OTHER, SELFPAY | PROVIDERS: PCP Internal Medicine; Visit Provider Internal Medicine | DX: I48.0 Paroxysmal atrial fibrillation (principal); Z51.81 Encounter for therapeutic drug level monitoring; Z79.01 Long term (current) use of anticoagulants | CPT/HCPCS: 85610; 99211 ==

== ENCOUNTER → 2021-10-13 08:37 | Outpatient (BNVA) | payer MEDICARE, OTHER, SELFPAY | PROVIDERS: PCP Internal Medicine; Visit Provider Internal Medicine | DX: I48.0 Paroxysmal atrial fibrillation (principal); Z51.81 Encounter for therapeutic drug level monitoring; Z79.01 Long term (current) use of anticoagulants | CPT/HCPCS: 85610; 99211 ==

== ENCOUNTER → 2021-11-12 08:19 | Outpatient (BNVA) | payer MEDICARE, OTHER, SELFPAY | PROVIDERS: PCP Internal Medicine; Referring Provider Internal Medicine; Visit Provider Internal Medicine | DX: I25.10 Atherosclerotic heart disease of native coronary artery without angina pectoris (principal); I50.32 Chronic diastolic (congestive) heart failure; I48.0 Paroxysmal atrial fibrillation; R07.2 Precordial pain; Z79.01 Long term (current) use of anticoagulants; Z79.899 Other long term (current) drug therapy | CPT/HCPCS: 93005; 99212 ==

== ENCOUNTER → 2021-11-13 11:01 | Outpatient (REF) | payer MEDICARE, OTHER, SELFPAY ==
--- NOTE | 2021-11-13 11:04 | CA_ITS ---
Transthoracic Echocardiogram Patient (Last, First, Middle): Christian Paula R Gender: Male Date of : 1945 Age: 76 Procedure Date: 11/13/2021 Procedure Type: Transthoracic Echocardiogram Location: OP Height: 165.1 cm Weight: 66.23 kg BSA: 1.73 m2 Heart Rate: bpm BP: 100 / 40 mmHg Certified Forklift Operator: KALEY Fine MD: Pancho Piper MD Fruit Or Nut Picker: Dilan Michael MD Symptoms: I25.10 - Atherosclerotic heart disease of [place] de[place]-ni' coronary... Study Quality: Technically Difficult ECG Rhythm: Undetermined Conclusions: - 1. Low normal LV systolic function with LVEF of 50-55% 2. Mild aortic regurgitation 3. Normal RV systolic pressure 4. No gross pericardial effusion Findings Left Ventricle Normal left ventricular cavity size. There is normal left ventricular wall thickness. The left ventricular systolic function is low normal. The visually estimated ejection fraction is between 50-55%. Regional wall motion abnormalities can not be excluded due to suboptimal endocardial definition. Diastolic function is indeterminate on the basis of available data. Right Ventricle Normal right ventricular cavity size. Atria The left atrium is normal in size. Interatrial shunt cannot be excluded. The right atrium was not well visualized. Aortic Valve The aortic valve was not well visualized. There is no aortic valve stenosis. There is mild aortic valve regurgitation. Mitral Valve There is mild anterior mitral leaflet thickening. There is trace mitral valve regurgitation. There is no mitral valve stenosis. Pulmonic Valve The pulmonic valve was not well visualized. Tricuspid Valve The tricuspid valve was not well visualized. There is trace tricuspid valve regurgitation. The right ventricular systolic pressure is normal. The right ventricular systolic pressure is 19 mmHg. Normal right atrial pressure. There is no evidence of pulmonary hypertension. Great Vessels All visible segments of the aorta are normal in size. The pulmonary artery was not well visualized. Venous The inferior vena cava is normal in size and collapses greater than 50% with inspiration. Pericardium/Pleural There is no evidence of pericardial effusion. Prior Study Comparison Changes noted compared to prior study dated: 03/14/2020. LV systolic function is reduced although in the low normal range Measurements 2D Linear Measurements IVSd: 0.95 0.6-0.9/0.6-1.0 cm LVIDd: 4.60 3.9-5.3/4.2-5.9 cm LVIDd Index: 2.66 2.4-3.2/2.2-3.1 cm/m2 LVIDs: 3.69 2.0-3.6 cm LVPWd: 1.03 0.7-1.1 cm LA Diam: 3.00 2.7-3.8/3.0-4.0 cm LAIDs Index: 1.73 1.5-2.3 cm/m2 LV Mass: 195.33 67-162/88-224 g LV Mass Index: 112.91 43-95/49-115 g/m2 LVOT Diam: 2.00 3.0+(-)1.3 cm 2D Systolic Function EF 4C: 56.50 >55% EF 2C: 48.00 >55% EF BiP: 54.70 >55% Aortic Valve AoV Pk Molina: 1.78 AoV Mn Molina: 0.97 AoV VTI: 0.24 AoV Pk Grad: 13.00 Aov Mn Grad: 5.00 CLARENCE Cont.VTI: 1.97 LVOT LVOT Pk Molina: 1.06 LVOT Mn Molina: 0.71 LVOT VTI: 0.15 LVOT Pk Grad: 4.00 LVOT Mn Grad: 2.00 LVOT Diam: 2.00 LVOT Area: 3.14 Right Ventricle TAPSE (mm): 18.20 TVS' Molina: 13.50 Tricuspid Valve TR Pk Molina: 2.00 TR Pk Grad: 16.00 RA Press: 3.00 RVSP: 19.00 Great Vessels Aorta Sinus of Valsalva: 3.40 2.0-3.[address] Ridge: 2.60 1.7-3.4 cm Ao Asc: 3.10 2.1-3.4 cm Updated in Other Vendor System with Status of Final Dilan Michael MD electronically signed on 11/14/2021 1:38:53 PM with status of Final
== END ==
LOC: HO.CARD 11:01
PROVIDERS: Visit Provider Internal Medicine
DX: R07.2 Precordial pain (principal); I25.10 Atherosclerotic heart disease of native coronary artery without angina pectoris; N40.1 Benign prostatic hyperplasia with lower urinary tract symptoms; R31.29 Other microscopic hematuria; F17.200 Nicotine dependence, unspecified, uncomplicated; Z71.6 Tobacco abuse counseling
CPT/HCPCS: 93306; 99212

== ENCOUNTER → 2021-11-24 08:29 | Outpatient (REF) | payer MEDICARE, OTHER, SELFPAY ==
--- NOTE | ~2021-11-24 | NM_ITS ---
Myocardial perfusion study Indication: Precordial chest pain to evaluate for myocardial ischemia Technique: The patient was brought in for a Lexiscan perfusion study on 12/05/2021. Patient performed low-level exercise and was injected 0.4 mg of Lexiscan intravenously. Within a minute of injection, 25 mCi of sestamibi was given intravenously. Images were obtained using the SPECT gamma camera interlaced with the gating device. Images were obtained in supine position. Resting perfusion study was performed on 11/24/2021. Patient was administered 25 mCi of sestamibi intravenously at rest. Images were then obtained in supine position. Images obtained with and without CT attenuation. Total DLP 78 mGy-cm. Images were processed with the software and compared side to side in short axis, horizontal long axis and vertical long axis views. Findings: The stress perfusion study showed non attenuated images show severely reduced to absent uptake in the apex, mildly reduced uptake in the septum, mildly reduced uptake in the anterior wall as well as mildly to moderately reduced uptake in the inferior wall of the LV myocardium. Remainder of the LV myocardium is normally perfused. Attenuation corrected images. The mildly to moderately reduced uptake in the inferior wall, absent uptake in the apex as well as mildly reduced uptake in the distal anterior wall of the LV myocardium. Remainder of the LV myocardium is normally perfused The gated study shows reduced LV systolic function with calculated LVEF of 44%. LV cavity is mildly dilated size. The gated study shows distal septal and apical reduced wall thickening and contraction of segments. Resting study shows improved uptake in the inferior wall, distal anterior septal wall suggestive of ischemia. No improved uptake in the apex suggesting myocardium infarction.. Gating at rest reveals apical wall motion abnormality with ejection fraction at 53%. The findings are consistent with inferior, septal and distal anterior ischemia with evidence of apical infarct. NM/NM cardiolite stress test Impression: 1. Myocardial perfusion imaging study shows multiple territory ischemia in the RCA and LAD territory 2. Gated LVEF is 44% with stress and 53% with rest 3. Transient ischemic dilatation is present EKG is nondiagnostic for ischemia
--- NOTE | 2021-11-24 08:36 | HM_ITS ---
* Total monitoring time 2 days and 21 hours. * Underlying rhythm is sinus 60% the time; atrial fibrillation 40% the time. * While in sinus, average rate 77/Min. * While in atrial fibrillation, fastest rate into the 120s to 130s. Some strips with rates in the 140s but could be atrial tachycardia versus flutter * Frequent premature supraventricular ectopy with a burden of 14% * Frequent ventricular ectopy; burden of 3%; 2 morphologies and 300 couplets; 14 episodes, longest 11 beats. * No patient events. MTDD
--- NOTE | 2021-11-24 08:36 | CA_ITS ---
Acquisition Time: 2021-12-05 10:51:18 Total Exercise Time: 00:02:00 Test Indications: CP Medications: SEE CHART Protocol: LEXISCAN Max HR: 108 BPM 75% of Pred: 143 BPM Max BP: 122/050 mmHG Max Work Load: 1.0 METS Pharmacological stress test with Lexiscan injection, while sitting and kicking his legs, with mild shortness of breath, no chest discomfort, with frequent PACs, short atrial tach runs, isolated PVCs, with normotensive response to injection, with nondiagnostic EKG for ischemia. Nuclear images pending. Test reviewed with Dr Denney. Referred By: Lavonne Blanchard Overread By: LUIS COMER
[2021-11-24 10:12] LABS: Digoxin < 0.3 ng/mL (0.8-2.0)
== END ==
LOC: HO.CARD 08:29
PROVIDERS: Referring Provider Internal Medicine Medical Oncology; Visit Provider Internal Medicine
DX: I48.0 Paroxysmal atrial fibrillation (principal); R07.2 Precordial pain
CPT/HCPCS: 36415; 78452; 80162; 93017; 93242; A9500; J0280; J2785

== ENCOUNTER → 2021-12-11 09:25 | Outpatient (BNVA) | payer MEDICARE, OTHER, SELFPAY | PROVIDERS: PCP Internal Medicine; Visit Provider Internal Medicine | DX: Z79.01 Long term (current) use of anticoagulants (principal); Z51.81 Encounter for therapeutic drug level monitoring; I25.10 Atherosclerotic heart disease of native coronary artery without angina pectoris; I50.32 Chronic diastolic (congestive) heart failure | CPT/HCPCS: 85610; 93005; 99211; 99212 ==

== ENCOUNTER 2021-12-15 09:34 | Outpatient (REF) | payer MEDICARE, OTHER, SELFPAY ==
[2021-12-15 10:17] LABS: Hematocrit 44.5 % (42.0-52.0); Mean Corpuscular HGB Conc 31.5 g/dl (31.0-36.0); Mean Corpuscular Hemoglobin 30.2 pg (27.0-33.0); Mean Corpuscular Volume 95.9 fL (80.0-98.0); Mean Platelet Volume 9.9 fL (9.4-12.4); Platelet Count 248 X10*3/uL (160-400); Red Blood Count 4.64 X10*6/uL (4.60-5.80); Red Cell Distribution Width 15.4 % (11.0-16.0); White Blood Count 9.7 X10*3/uL (4.8-10.8)
[2021-12-15 10:29] LABS: INTERNATIONAL NORM RATIO 4.4 (0.9-1.1); Prothrombin Time 51.8 SEC (9.9-13.0)
== END 2021-12-15 09:35 | disposition home or self-care (01) ==
LOC: HO.LAB 09:34
PROVIDERS: PCP Internal Medicine; Visit Provider Internal Medicine
DX: I48.0 Paroxysmal atrial fibrillation (principal); I25.10 Atherosclerotic heart disease of native coronary artery without angina pectoris; Z51.81 Encounter for therapeutic drug level monitoring; Z79.01 Long term (current) use of anticoagulants
CPT/HCPCS: 36415; 80048; 85027; 85610; 99212

== ENCOUNTER 2021-12-17 07:48 | Outpatient (REF) | payer MEDICARE, OTHER, SELFPAY ==
[2021-12-17 08:58] LABS: Anion Gap 12 (12-20); Blood Urea Nitrogen 14 mg/dL (9-16); Calcium 9.6 mg/dL (8.4-10.2); Carbon Dioxide 32 mmol/L (22-29); Chloride 102 mmol/L (96-108); Estimated Glomerular Filt Rate 57; Glucose Random 145 mg/dL (60-115); Potassium 4.8 mmol/L (3.3-5.1); Sodium 141 mmol/L (135-145)
== END 2021-12-17 07:49 | disposition home or self-care (01) ==
LOC: HO.LAB 07:48
PROVIDERS: PCP Internal Medicine; Visit Provider Internal Medicine
DX: I25.10 Atherosclerotic heart disease of native coronary artery without angina pectoris (principal)
CPT/HCPCS: 36415; 80048

== ENCOUNTER → 2021-12-23 13:07 | Outpatient (BNVA) | payer MEDICARE, OTHER, SELFPAY | PROVIDERS: PCP Internal Medicine; Visit Provider Internal Medicine | DX: I48.0 Paroxysmal atrial fibrillation (principal); Z51.81 Encounter for therapeutic drug level monitoring; Z79.01 Long term (current) use of anticoagulants | CPT/HCPCS: 85610; 99212 ==

== ENCOUNTER → 2021-12-25 10:43 | Outpatient (BNVA) | payer MEDICARE, OTHER, SELFPAY | PROVIDERS: PCP Internal Medicine; Referring Provider Internal Medicine; Visit Provider Internal Medicine | DX: I25.10 Atherosclerotic heart disease of native coronary artery without angina pectoris (principal); I50.32 Chronic diastolic (congestive) heart failure; I48.0 Paroxysmal atrial fibrillation; I95.9 Hypotension, unspecified | CPT/HCPCS: 99212 ==

== ENCOUNTER 2022-01-05 08:08 | Outpatient (REF) | payer MEDICARE, OTHER, SELFPAY ==
[2022-01-05 09:17] LABS: Prothrombin Time 138.8 SEC (9.9-13.0)
[2022-01-05 09:19] LABS: INTERNATIONAL NORM RATIO 11.6 (0.9-1.1)
== END 2022-01-05 08:09 | disposition home or self-care (01) ==
LOC: HO.LAB 08:08
PROVIDERS: Internal Medicine; PCP Internal Medicine; Visit Provider Internal Medicine
DX: I48.0 Paroxysmal atrial fibrillation (principal); Z51.81 Encounter for therapeutic drug level monitoring; Z79.01 Long term (current) use of anticoagulants
CPT/HCPCS: 36415; 85610; 99212

== ENCOUNTER 2022-01-05 14:49 | Inpatient (IN) | payer MEDICARE, OTHER, SELFPAY ==
--- NOTE | ~2022-01-05 | XR_ITS ---
EXAMINATION: XR CHEST CLINICAL INFORMATION: Shortness of breath and wheezing COMPARISON: CT chest 01/14/2021 and chest radiograph 11/21/2019 TECHNIQUE: Frontal view of the chest was obtained. FINDINGS: Again seen are hyperinflated emphysematous lungs. Scarring and pleural thickening present at the right lung base. No acute finding is seen. No acute infiltrates or lung masses are seen. Again noted are changes of median sternotomy. Heart size is normal. No evidence of CHF. XR/XR chest 1V IMPRESSION: No acute intrathoracic disease. Marked COPD with areas of scarring and pleural thickening at the right base, unchanged.
[2022-01-05 15:57] VITALS: BP 128/48; PULSE 114; RESP 18; TEMP 36.6; O2SAT 94; BMI 24.3
--- NOTE | 2022-01-05 17:38 | ECG_ITS ---
Test Reason : ABD LABS Blood Pressure : / mmHG Vent. Rate : 105 BPM Atrial Rate : 000 BPM P-R Int : 000 ms QRS Dur : 094 ms QT Int : 376 ms P-R-T Axes : 000 003 107 degrees QTc Int : 496 ms Sinus tachycardia with PACs Anterior infarct (cited on or before 27-APR-2004) Abnormal ECG When compared with ECG of 31-JAN-2019 23:03, T wave inversion now evident in Anterior leads Referred By: Brittany Poole Electronically Signed By:KELSY URBINA
--- NOTE | 2022-01-05 17:38 | ED_ITS ---
HPI - Recheck/Abnormal Lab/Rx General Chief Complaint: Recheck/Abnormal Lab/Rx Stated Complaint: high coumadin Source: patient Mode of arrival: ambulatory Limitations: no limitations History of Present Illness HPI narrative: 76-year-old male presents for elevated INR of 11.6. It was drawn this morning at [facility] and his primary care physician called him and asked him to report to the emergency department for evaluation. The at the time of presentation, patient is short of breath, has audible wheezing, and cough. States he has felt like this for several weeks. He did have a stent placement approximately 2 weeks ago at [facility]. he states to feel fatigued, and weak. He does not report chest pain or pressure, pain on inspiration, abdominal pain, abdominal distention, or fevers and chills. He does have a skin tear to the right arm that is not healing very well and has been bleeding for the past 2 days. MD complaint: abnormal lab Initial visit (ago): day(s) Returns today for: called because of abnormal lab/test Symptoms since prior visit: no new symptoms Context: called for abnormal lab result Associated symptoms: shortness of breath Related Data Home Medications Medication Instructions Recorded Confirmed cholecalciferol (vitamin D3) 25 25 mcg PO DAILY 07/02/20 01/05/22 mcg (1,000 unit) capsule (Vitamin D3) clopidogrel 75 mg tablet (Plavix) 75 mg PO DAILY 12/23/21 01/05/22 amiodarone 200 mg tablet 200 mg PO DAILY 12/25/21 01/05/22 allopurinol 100 mg tablet 100 mg PO BEDTIME 01/05/22 01/05/22 metformin 500 mg tablet,extended 500 mg PO BEDTIME 01/05/22 01/05/22 release 24 hr warfarin 5 mg tablet (Jantoven) 5 mg PO DAILY@1800 01/05/22 01/05/22 Previous Rx's Medication Instructions Recorded warfarin 5 mg tablet See Rx Instructions PO DAILY 90 05/28/21 days #150 tabs furosemide 40 mg tablet 40 mg PO DAILY #90 caps 10/06/21 finasteride 5 mg tablet 5 mg PO DAILY 90 days #90 tabs 10/28/21 budesonide-formoterol HFA 160 2 puff PO BID #10.2 grams 10/29/21 mcg-4.5 mcg/actuation aerosol inhaler (Symbicort) rosuvastatin 40 mg tablet (Crestor) 40 mg PO DAILY #90 tabs 11/12/21 Allergies Allergy/AdvReac Type Severity Reaction Status Date / Time No Known Allergies Allergy Verified 01/05/22 16:02 [No Known Allergies*] Review of Systems Review of Systems: Constitutional: No Fever, No Chills ENT/Mouth: No Ear Pain, No Hoarseness, No sore throat Eyes: No Eye Pain, No Swelling, No Redness, No Foreign Body Cardiovascular: No Chest Pain, positive SOB Respiratory: Positive Cough, No Dyspnea Gastrointestinal: No Nausea, No Vomiting, No Diarrhea, No abdominal Pain Genitourinary: No Dysuria, No Hematuria Musculoskeletal: No joint pain, No Myalgias, No Joint Swelling Skin: Positive right forearm skin tear, No Skin lacerations, No rash Neuro: No Weakness, No Numbness, No Paresthesias, No Loss of Consciousness, No Dizziness, No Headache Psych: No Anxiety/Panic, No Depression Heme/Lymph: no easy bruising, no Lymphadenopathy Endocrine: No Polyuria, No Polydipsia Yes all other systems are reviewed and are negative [facility] Past Medical History Attestation statement: The following information was validated with the patient. Source: old records reviewed Medical History High cholesterol History of blood clots Pneumonia Surgical History History of quadruple bypass Family History Family History Father Cancer Mother Cardiovascular disease Social History Social History Household Members: Spouse Housing: Apartment Are you a primary primary care coordinator to a significant other at home: No Do you presently have visiting nurse or other home services: No Alcohol intake: current Alcohol intake frequency: holidays/special occasions only Alcohol type: beer Patient Tobacco Use Status: Current everyday Tobacco user Tobacco use type: Cigarette Cigarette Packs Per Day: 1.5 Years Smoked: 67 Advance Directives: No Advance Directives Information Provided: No service: No Current occupational status: retired Physical Exam Vital Signs: Vital Signs: Last Vital Signs Temp 98 F 01/05/22 15:57 Pulse 108 H 01/05/22 19:58 Resp 18 01/05/22 19:58 BP 128/48 L 01/05/22 15:57 Pulse Ox 94 01/05/22 15:57 O2 Del Method 01/05/22 15:57 BMI result Body Mass Index 24.3 Appearance: Alert. Oriented X3. No acute distress. Eyes: Pupils equal, round and reactive to light. Bilateral conjunctivae h ematoma. EOMI. Sclera nonicteric. ENT: Pharynx normal. Moist mucous membranes. Neck: Normal inspection. Neck supple. No JVD. CVS: Tachycardic heart rate and rhythm. Apical pulse good pulses to extremities. Respiratory: Tachypneic. Expiratory lung wheezing, coarse lung sounds to the bases. Abdomen: Soft and nontender. Skin: No purpura, no purple toe syndrome. No bruising to the abdomen. Skin tear to the right forearm scant bleeding noted. Skin warm and dry. Normal skin color. Normal skin turgor. Extremities: No lower extremity edema. Gait well balanced well coordinated. Neuro: No motor deficit. No sensory deficit. Cranial nerves 2-12 intact. Course Course Course Narrative: 76-year-old male presents with supratherapeutic INR, 11.9. Was called in by his primary care physician to report to the emergency department for evaluation. He does take Coumadin 5 mg daily for AFib and is on Plavix for recent stent placement. He does report some abnormal bleeding to the right skin tear his forearm has been seeping small amounts of serosanguineous fluid for the past few days, which is abnormal for him. Does not report any hemoptysis, gross hematuria, purpura, bright red blood per rectum, bleeding when brushing his teeth, no bruising noted to his abdomen, does notice some broken blood vessels in bilateral eyes. Physical exam HEENT tympanic membranes are within normal limits, bilateral conjunctivae hematomas noted, moist mucous membranes, no ulcerations or bleeding gums, lungs coarse lung sounds throughout, tachypnea, O2 sat 94% on room air, abdomen is soft nontender, skin tear to the right forearm has scant amount of serosanguineous drainage. No petechiae, purple toe syndrome, bruising to the abdomen or pelvis. 18:49 chest x-ray is indicative of COPD with scarring and pleural thickening at the right base unchanged from prior exams on 11/21/2019. Labs are pending at this time. 19:[address] Murcia, plan is for Xopenex, ceftriaxone for suspected COPD exacerbation. X-ray does indicate COPD without suggestion of CHF exacerbation. At this time we will not be resuscitating fluids until we receive his BNP. EKG is AFib with RVR. At 100 beats per minute. 19:25 lactic 2.2, while patient is heart rate is 105, I am still waiting for BNP as he does have CHF with preserved ejection fraction. BNP 108. Troponin is 57.7 we will repeat at 21:00. Lactic 2.2, INR 12.3. Will give vitamin K 2.5 IV. 500 mL of normal saline at 200 mL/hr. Lactic acid most likely elevated secondary to respiration rate, albuterol, and metformin use. I do not feel that this patient is septic, 20:00 trace hematuria, platelets 379, low likelihood of internal bleeding. H&H is 12.6/38.0 similar to lab values in August of 2021. Discussion with hospitalist regarding plan to admit for COPD exacerbation, AFib RVR, supratherapeutic INR. Consultations Consultation #1: Ara Time: 20:45 MDM - Recheck/Abnormal Lab/Rx Differential Diagnosis Differential diagnosis: Likely warfarin-induced coagulopathy Medical Records Attestation: I reviewed the patient's medical records. Medical records narrative: Review of record from [facility] for procedure on 12/20/2021 Admitted for cardiac catheterization. Coronary anatomy 100% occluded proximal LAD, 100% occluded proximal RCA, 90% diffuse disease in the left circumflex artery, patent vein graft to OM small territory, patent FERNANDEZ to LAD, vessel is diffusely diseased distal to the touchdown. Patient vein graft to PDA with severe 90% stenosis in the distal body. Successful drug-eluting stenting of the distal body of the SVG to RCA with a 3.5 x 20 stent as described above. Patient was started on Plavix and aspirin, in conjunction with his home medications Coumadin 5 mg, lisinopril, Lasix, metoprolol, amiodarone, metformin. Lab Data Attestation: I reviewed the patient's lab results. Result diagrams: 01/05/22 18:44 01/05/22 18:44 Labs: Lab Results 01/05/22 01/05/22 01/05/22 Range/Units 18:44 18:44 18:44 WBC 9.6 (4.8-10.8) X10*3/uL RBC 4.12 L (4.60-5.80) X10*6/uL Hgb 12.6 L (14.0-18.0) g/dl Hct 38.0 L (42.0-52.0) % MCV 92.2 (80.0-98.0) fL MCH 30.6 (27.0-33.0) pg MCHC 33.2 (31.0-36.0) g/dl RDW 15.4 (11.0-16.0) % Plt Count 379 D (160-400) X10*3/uL MPV 9.2 L (9.4-12.4) fL Immature Gran % (Auto) 0.5 H (0.0-0.4) % Neut % (Auto) 81.5 H (45-73) % Lymph % (Auto) 8.2 L (20-40) % [place] % (Auto) 7.9 (2-11) % Eos % (Auto) 1.2 (0-4) % Baso % (Auto) 0.7 (0-2) % Lymph # (Auto) 0.8 L (1.2-4.9) X10*3/uL [place] # (Auto) 0.8 (0.1-1.2) X10*3/uL Eos # (Auto) 0.1 (0.0-0.4) X10*3/uL Baso # (Auto) 0.1 (0.0-0.2) X10*3/uL Abs Immat Gran (auto) 0.05 H (0.00-0.03) X10*3/uL Absolute Neuts (auto) 7.8 (2.0-8.3) x10*3/uL Absolute Nucleated RBC 0.000 (0.0-0.012) X10*3/uL Nucleated RBC % (auto) 0.0 (0.0-0.2) /100WBC PT 147.3 H (9.9-13.0) SEC INR 12.3 H* (0.9-1.1) APTT 78.4 H* (24.1-38.0) SEC Sodium 142 (135-145) mmol/L Potassium 3.8 D (3.3-5.1) mmol/L Chloride 100 (96-108) mmol/L Carbon Dioxide 29 (22-29) mmol/L Anion Gap 17 (12-20) BUN 17 H (9-16) mg/dL Creatinine 1.19 (0.5-1.4) mg/dL Estim Creat Clear Calc 45.2 Estimated GFR 59 Random Glucose 173 H (60-115) mg/dL Lactic Acid (0.5-2.0) mmol/L Lactic Acid F/U @ 2Hr (0.5-2.0) mmol/L Calcium 9.1 (8.4-10.2) mg/dL Magnesium 1.7 (1.6-2.6) mg/dL Total Bilirubin 0.5 (0.0-1.0) mg/dL Direct Bilirubin 0.2 (0.0-0.5) mg/dL AST 30 D (5-37) U/L ALT 31 (0-40) U/L Alkaline Phosphatase 83 (39-117) U/L Troponin I High Sens (<3.5-35.0) ng/L B-Natriuretic Peptide (<100) pg/mL Total Protein 5.9 L (6.5-8.0) g/dL Albumin 3.9 (3.5-5.0) g/dL Lipase 20 (8-78) U/L Urine Color Urine Appearance Urine pH (5.0-8.0) Ur Specific [place] (1.005-1.025) Urine Protein (NEG-TRACE) MG/DL Urine Glucose (UA) (NEG) MG/DL Urine Ketones (NEG) MG/DL Urine Blood (NEG) Urine Nitrite (NEG) Ur Leukocyte Esterase (NEG) Urine RBC (0) /HPF Urine WBC (0-4) /HPF Ur Squamous Epith Cells /LPF Urine Bacteria /LPF COVID-19 (HARRY) (Negative) COVID-19 Clin Com Influenza Type A (MISHA) (Negative) Influenza Type B (MISHA) (Negative) Influenza A & B Note 01/05/22 01/05/22 01/05/22 Range/Units 18:44 18:44 18:44 WBC (4.8-10.8) X10*3/uL RBC (4.60-5.80) X10*6/uL Hgb (14.0-18.0) g/dl Hct (42.0-52.0) % MCV (80.0-98.0) fL MCH (27.0-33.0) pg MCHC (31.0-36.0) g/dl RDW (11.0-16.0) % Plt Count (160-400) X10*3/uL MPV (9.4-12.4) fL Immature Gran % (Auto) (0.0-0.4) % Neut % (Auto) (45-73) % Lymph % (Auto) (20-40) % [place] % (Auto) (2-11) % Eos % (Auto) (0-4) % Baso % (Auto) (0-2) % Lymph # (Auto) (1.2-4.9) X10*3/uL [place] # (Auto) (0.1-1.2) X10*3/uL Eos # (Auto) (0.0-0.4) X10*3/uL Baso # (Auto) (0.0-0.2) X10*3/uL Abs Immat Gran (auto) (0.00-0.03) X10*3/uL Absolute Neuts (auto) (2.0-8.3) x10*3/uL Absolute Nucleated RBC (0.0-0.012) X10*3/uL Nucleated RBC % (auto) (0.0-0.2) /100WBC PT (9.9-13.0) SEC INR (0.9-1.1) APTT (24.1-38.0) SEC Sodium (135-145) mmol/L Potassium (3.3-5.1) mmol/L Chloride (96-108) mmol/L Carbon Dioxide (22-29) mmol/L Anion Gap (12-20) BUN (9-16) mg/dL Creatinine (0.5-1.4) mg/dL Estim Creat Clear Calc Estimated GFR Random Glucose (60-115) mg/dL Lactic Acid (0.5-2.0) mmol/L Lactic Acid F/U @ 2Hr (0.5-2.0) mmol/L Calcium (8.4-10.2) mg/dL Magnesium (1.6-2.6) mg/dL Total Bilirubin (0.0-1.0) mg/dL Direct Bilirubin (0.0-0.5) mg/dL AST (5-37) U/L ALT (0-40) U/L Alkaline Phosphatase (39-117) U/L Troponin I High Sens 57.7 H (<3.5-35.0) ng/L B-Natriuretic Peptide (<100) pg/mL Total Protein (6.5-8.0) g/dL Albumin (3.5-5.0) g/dL Lipase (8-78) U/L Urine Color Urine Appearance Urine pH (5.0-8.0) Ur Specific [place] (1.005-1.025) Urine Protein (NEG-TRACE) MG/DL Urine Glucose (UA) (NEG) MG/DL Urine Ketones (NEG) MG/DL Urine Blood (NEG) Urine Nitrite (NEG) Ur Leukocyte Esterase (NEG) Urine RBC (0) /HPF Urine WBC (0-4) /HPF Ur Squamous Epith Cells /LPF Urine Bacteria /LPF COVID-19 (HARRY) Negative (Negative) COVID-19 Clin Com See Note Influenza Type A (MISHA) Negative (Negative) Influenza Type B (MISHA) Negative (Negative) Influenza A & B Note See Note 01/05/22 01/05/22 01/05/22 Range/Units 18:44 18:44 19:08 WBC (4.8-10.8) X10*3/uL RBC (4.60-5.80) X10*6/uL Hgb (14.0-18.0) g/dl Hct (42.0-52.0) % MCV (80.0-98.0) fL MCH (27.0-33.0) pg MCHC (31.0-36.0) g/dl RDW (11.0-16.0) % Plt Count (160-400) X10*3/uL MPV (9.4-12.4) fL Immature Gran % (Auto) (0.0-0.4) % Neut % (Auto) (45-73) % Lymph % (Auto) (20-40) % [place] % (Auto) (2-11) % Eos % (Auto) (0-4) % Baso % (Auto) (0-2) % Lymph # (Auto) (1.2-4.9) X10*3/uL [place] # (Auto) (0.1-1.2) X10*3/uL Eos # (Auto) (0.0-0.4) X10*3/uL Baso # (Auto) (0.0-0.2) X10*3/uL Abs Immat Gran (auto) (0.00-0.03) X10*3/uL Absolute Neuts (auto) (2.0-8.3) x10*3/uL Absolute Nucleated RBC (0.0-0.012) X10*3/uL Nucleated RBC % (auto) (0.0-0.2) /100WBC PT (9.9-13.0) SEC INR (0.9-1.1) APTT (24.1-38.0) SEC Sodium (135-145) mmol/L Potassium (3.3-5.1) mmol/L Chloride (96-108) mmol/L Carbon Dioxide (22-29) mmol/L Anion Gap (12-20) BUN (9-16) mg/dL Creatinine (0.5-1.4) mg/dL Estim Creat Clear Calc Estimated GFR Random Glucose (60-115) mg/dL Lactic Acid 2.2 H* (0.5-2.0) mmol/L Lactic Acid F/U @ 2Hr (0.5-2.0) mmol/L Calcium (8.4-10.2) mg/dL Magnesium (1.6-2.6) mg/dL Total Bilirubin (0.0-1.0) mg/dL Direct Bilirubin (0.0-0.5) mg/dL AST (5-37) U/L ALT (0-40) U/L Alkaline Phosphatase (39-117) U/L Troponin I High Sens (<3.5-35.0) ng/L B-Natriuretic Peptide 180 H (<100) pg/mL Total Protein (6.5-8.0) g/dL Albumin (3.5-5.0) g/dL Lipase (8-78) U/L Urine Color YELLOW Urine Appearance CLEAR Urine pH 5.5 (5.0-8.0) Ur Specific [place] 1.025 (1.005-1.025) Urine Protein 1+ H (NEG-TRACE) MG/DL Urine Glucose (UA) NEG (NEG) MG/DL Urine Ketones 5 (NEG) MG/DL Urine Blood TRACE (NEG) Urine Nitrite NEG (NEG) Ur Leukocyte Esterase NEG (NEG) Urine RBC 0-2 (0) /HPF Urine WBC 1-4 (0-4) /HPF Ur Squamous Epith Cells TRACE /LPF Urine Bacteria NONE /LPF COVID-19 (HARRY) (Negative) COVID-19 Clin Com Influenza Type A (MISHA) (Negative) Influenza Type B (MISHA) (Negative) Influenza A & B Note 01/05/22 01/05/22 Range/Units 21:53 21:53 WBC (4.8-10.8) X10*3/uL RBC (4.60-5.80) X10*6/uL Hgb (14.0-18.0) g/dl Hct (42.0-52.0) % MCV (80.0-98.0) fL MCH (27.0-33.0) pg MCHC (31.0-36.0) g/dl RDW (11.0-16.0) % Plt Count (160-400) X10*3/uL MPV (9.4-12.4) fL Immature Gran % (Auto) (0.0-0.4) % Neut % (Auto) (45-73) % Lymph % (Auto) (20-40) % [place] % (Auto) (2-11) % Eos % (Auto) (0-4) % Baso % (Auto) (0-2) % Lymph # (Auto) (1.2-4.9) X10*3/uL [place] # (Auto) (0.1-1.2) X10*3/uL Eos # (Auto) (0.0-0.4) X10*3/uL Baso # (Auto) (0.0-0.2) X10*3/uL Abs Immat Gran (auto) (0.00-0.03) X10*3/uL Absolute Neuts (auto) (2.0-8.3) x10*3/uL Absolute Nucleated RBC (0.0-0.012) X10*3/uL Nucleated RBC % (auto) (0.0-0.2) /100WBC PT (9.9-13.0) SEC INR (0.9-1.1) APTT (24.1-38.0) SEC Sodium (135-145) mmol/L Potassium (3.3-5.1) mmol/L Chloride (96-108) mmol/L Carbon Dioxide (22-29) mmol/L Anion Gap (12-20) BUN (9-16) mg/dL Creatinine (0.5-1.4) mg/dL Estim Creat Clear Calc Estimated GFR Random Glucose (60-115) mg/dL Lactic Acid (0.5-2.0) mmol/L Lactic Acid F/U @ 2Hr 1.1 (0.5-2.0) mmol/L Calcium (8.4-10.2) mg/dL Magnesium (1.6-2.6) mg/dL Total Bilirubin (0.0-1.0) mg/dL Direct Bilirubin (0.0-0.5) mg/dL AST (5-37) U/L ALT (0-40) U/L Alkaline Phosphatase (39-117) U/L Troponin I High Sens 56.3 H (<3.5-35.0) ng/L B-Natriuretic Peptide (<100) pg/mL Total Protein (6.5-8.0) g/dL Albumin (3.5-5.0) g/dL Lipase (8-78) U/L Urine Color Urine Appearance Urine pH (5.0-8.0) Ur Specific [place] (1.005-1.025) Urine Protein (NEG-TRACE) MG/DL Urine Glucose (UA) (NEG) MG/DL Urine Ketones (NEG) MG/DL Urine Blood (NEG) Urine Nitrite (NEG) Ur Leukocyte Esterase (NEG) Urine RBC (0) /HPF Urine WBC (0-4) /HPF Ur Squamous Epith Cells /LPF Urine Bacteria /LPF COVID-19 (HARRY) (Negative) COVID-19 Clin Com Influenza Type A (MISHA) (Negative) Influenza Type B (MISHA) (Negative) Influenza A & B Note Imaging Data Chest x-ray: Attestation: I personally reviewed and interpreted this imaging study as follows: Radiologist's impression: EXAMINATION: XR CHEST CLINICAL INFORMATION: Shortness of breath and wheezing COMPARISON: CT chest 01/14/2021 and chest radiograph 11/21/2019 TECHNIQUE: Frontal view of the chest was obtained. FINDINGS: Again seen are hyperinflated emphysematous lungs. Scarring and pleural thickening present at the right lung base. No acute finding is seen. No acute infiltrates or lung masses are seen. Again noted are changes of median sternotomy. Heart size is normal. No evidence of CHF. XR/XR chest 1V IMPRESSION: No acute intrathoracic disease. Marked COPD with areas of scarring and pleural thickening at the right base, unchanged. ? ECG Data Attestation: I personally reviewed and interpreted this ECG as follows: ECG interpretation date: 01/05/22 ECG interpretation time: 18:42 Interpretation: Vent. rate 105 BPM AR interval * ms QRS duration 94 ms QT/QTc 376/496 ms P-R-T axes * 3 107 Atrial fibrillation with rapid ventricular response with premature ventricular or aberrantly conducted complexes Anterior infarct (cited on or before 27-APR-2004) Abnormal ECG When compared with ECG of 31-JAN-2019 23:03, Atrial fibrillation has replaced Sinus rhythm Questionable change in initial forces of Anteroseptal leads Nonspecific T wave abnormality no longer e vident in Inferior leads T wave inversion now evident in Anterior leads QT has lengthened Scores Heart Score History: -1- moderately suspicious ECG: -1- non specific repolarization disturbance Age: -2- > or = 65 Risk factory: -1- 1 or 2 risk factors Troponin: -1- >1 - <3x normal limit Score: 6 Risk: 16.6% Critical Care Time Critical Care Time Critical Care Time: Yes Total Critical Care Time: 45 Attestation: I have personally provided critical care time exclusive of time spent on separately billable procedures. Time includes review of laboratory data, radiology results, discussion with consultants, and monitoring for potential decompensation. Interventions were performed as documented. Discharge Plan Discharge Clinical Impression: Atrial fibrillation with RVR, Supratherapeutic INR, Acute exacerbation of chronic obstructive pulmonary disease Patient Disposition: Admitted As Inpatient
[2022-01-05 18:53] LABS: MANUAL DIFF FLAG NO
[2022-01-05 18:57] LABS: Basophils Absolute Auto 0.1 X10*3/uL (0.0-0.2); Basophils Percent Auto 0.7 % (0-2); Eosinophils Absolute Auto 0.1 X10*3/uL (0.0-0.4); Eosinophils Percent Auto 1.2 % (0-4); Hemoglobin 12.6 g/dl (14.0-18.0); Imm Gran Abs Auto 0.05 X10*3/uL (0.00-0.03); Imm Gran Pct Auto 0.5 % (0.0-0.4); Lymphocytes Absolute Auto 0.8 X10*3/uL (1.2-4.9); Lymphocytes Percent Auto 8.2 % (20-40); Mean Corpuscular HGB Conc 33.2 g/dl (31.0-36.0); Mean Corpuscular Hemoglobin 30.6 pg (27.0-33.0); Mean Corpuscular Volume 92.2 fL (80.0-98.0); Mean Platelet Volume 9.2 fL (9.4-12.4); Monocytes Absolute Auto 0.8 X10*3/uL (0.1-1.2); Monocytes Percent Auto 7.9 % (2-11); Neutrophils Absolute Auto 7.8 x10*3/uL (2.0-8.3); Neutrophils Percent Auto 81.5 % (45-73); Platelet Count 379 X10*3/uL (160-400); Red Blood Count 4.12 X10*6/uL (4.60-5.80); Red Cell Distribution Width 15.4 % (11.0-16.0); White Blood Count 9.6 X10*3/uL (4.8-10.8)
[2022-01-05 19:10] LABS: Prothrombin Time 147.3 SEC (9.9-13.0)
[2022-01-05 19:20] LABS: B Type Natriuretic Peptide 180 pg/mL (<100); Troponin-I High Sensitivity 57.7 ng/L (<3.5-35.0)
[2022-01-05 19:23] LABS: Appearance Urine CLEAR; Color Urine YELLOW; Glucose Urine UA NEG (NEG); Leukocyte Esterase Urine NEG (NEG); Nitrite Urine NEG (NEG); PH 5.5 (5.0-8.0); Specific Gravity - Urine 1.025 (1.005-1.025); UACC Culture Trigger NO; Urine Blood TRACE (NEG); Urine Ketones 5 MG/DL (NEG); Urine Protein 1+ MG/DL (NEG-TRACE)
[2022-01-05 19:26] LABS: Lactic Acid 2.2 mmol/L (0.5-2.0)
[2022-01-05 19:27] LABS: INTERNATIONAL NORM RATIO 12.3 (0.9-1.1); Partial Thromboplastin Time 78.4 SEC (24.1-38.0)
[2022-01-05 19:35] LABS: COVID-19 Test Negative (Negative); IDNOW Serial# 16C4AD1C; Influenza A Negative (Negative); Influenza B2 Negative (Negative)
--- NOTE | 2022-01-05 19:40 | PHA.MEDREC ---
Pharmacy Consult ? Medication Reconciliation Pharmacy has completed the medication reconciliation. Patients old warfarin dose is 5mg qd, last taken wednesday. after todays visit, new order is 5mg suwethfrsa. Thanks Darrel
[2022-01-05] MEDS: cefTRIAXone sodium 1 GM in 0.9 % Sodium Chloride 50 ML IV (19:49)
[2022-01-05] MEDS: 0.9 % Sodium Chloride 500 ML 200 ML IVCONT (19:51)
[2022-01-05 19:57] LABS: RBC Urine 0-2 /HPF (0); Squamous Epithelial Cell Urine TRACE /LPF
[2022-01-05 19:58] VITALS: PULSE 108; RESP 18; O2SAT 95
[2022-01-05 20:04] LABS: Alanine Aminotransferase 31 U/L (0-40); Albumin Level 3.9 g/dL (3.5-5.0); Alkaline Phosphatase 83 U/L (39-117); Anion Gap 17 (12-20); Aspartate Amino Transferase 30 U/L (5-37); Bilirubin Direct 0.2 mg/dL (0.0-0.5); Bilirubin Total 0.5 mg/dL (0.0-1.0); Blood Urea Nitrogen 17 mg/dL (9-16); Calcium 9.1 mg/dL (8.4-10.2); Carbon Dioxide 29 mmol/L (22-29); Chloride 100 mmol/L (96-108); Creatinine Clr Calc Pharmacy 45.2; Estimated Glomerular Filt Rate 59; Glucose Random 173 mg/dL (60-115); Lipase 20 U/L (8-78); Magnesium 1.7 mg/dL (1.6-2.6); Potassium 3.8 mmol/L (3.3-5.1); Sodium 142 mmol/L (135-145); Total Protein 5.9 g/dL (6.5-8.0)
[2022-01-05] MEDS: Phytonadione (Vit K1) 2.5 MG in 0.9 % Sodium Chloride 50 ML 50.25 MG IV (20:10)
[2022-01-05 20:49] LABS: Reflex Lactate? Lactic Acid Added
[2022-01-05 22:13] LABS: ~Lactic Acid-LAB USE ONLY 1.1 mmol/L (0.5-2.0)
[2022-01-05 22:21] LABS: Troponin-I High Sensitivity 56.3 ng/L (<3.5-35.0)
--- NOTE | 2022-01-05 22:29 | P.HPHOSP_ITS ---
History of Present Illness Date of Service: 01/05/22 Chief Complaint: elevated inr 76-year-old male with past medical history of AFib and Coumadin, CAD status post CABG in 2004 as well as stenting 2 weeks ago, COPD, lymphoma, history of DVT, P 80, HLD, HTN, history of heart failure with preserved ejection fraction, who presents to the hospital with complaints of abnormal labs found to have elevated INR. His PCP called him and sent him to the ED for further management after lab work showed an INR of 11.9. Patient denies any hematuria, no hematochezia, hemoptysis, or hematemesis. Reports that he takes 5 mg of warfarin every night. Patient is also complaining of dyspnea, increase cough and sputum production for the past 2 weeks, wheezing. He reports no lower extremity edema, no orthopnea or PND. He reports no palpitations, no chest pain, no abdominal pain nausea or vomiting, no diarrhea constipation, no urinary symptoms. No headache or change in vision. No numbness tingling. On arrival to the ED patient's vitals are significant for temp of 98 degrees, heart rate of 114 found to be in AFib with RVR, respiratory rate of 18, blood pressure of 128/48, satting 95% on room air Labs are significant for WBC count of 9.6, hemoglobin of 12.6, hematocrit of 38, INR of 12.3, BUN of 17, creatinine of 1.19 which is around his baseline, lactic acid of 2.2, troponin of 57 repeat of 56.3, BNP of 180, UA negative, Chest x-ray showed no acute intrathoracic disease, COPD with areas of scarring and pleural thickening at the right base unchanged, EKG reviewed showed AFib with RVR, QT of 496, Patient given 2.5 of oral NKA and will be admitted for further management Review of Systems Review of Systems: Yes all other systems are reviewed and are negative [facility] Medical History (Updated 01/06/22 @ 05:55 by Yein Bullock MD) Atherosclerotic cardiovascular disease Benign essential hypertension BPH loc w urin obs/LUTS COPD (chronic obstructive pulmonary disease) Coronary artery disease Current use of anticoagulant therapy Diabetes mellitus Follicular lymphoma Heart failure with preserved ejection fraction High cholesterol History of blood clots History of deep vein thrombosis (DVT) of lower extremity Insomnia PAF (paroxysmal atrial fibrillation) Peripheral arterial disease Pneumonia Pure hypercholesterolemia Vitamin D deficiency Family History Father Cancer Mother Cardiovascular disease Surgical History History of quadruple bypass Social History Household Members: Spouse Housing: Apartment Are you a primary hospice care consultant to a significant other at home: No Do you presently have visiting nurse or other home services: No Alcohol intake: current Alcohol intake frequency: holidays/special occasions only Alcohol type: beer Patient Tobacco Use Status: Current everyday Tobacco user Tobacco use type: Cigarette Cigarette Packs Per Day: 1.5 Years Smoked: 67 Advance Directives: No Advance Directives Information Provided: No service: No Current occupational status: retired [employer] Allergies Allergy/AdvReac Type Severity Reaction Status Date / Time No Known Allergies Allergy Verified 01/05/22 16:02 [No Known Allergies*] Active Medications: Current Medications Acetaminophen (Acetaminophen 325 Mg Tablet) 650 mg PO Q6H PRN PRN Reason: Pain, Mild (Pain Scale 1-3) Albuterol/Ipratropium (Albuterol/Iprat 2.5/0.5mg 3 Ml Ampul.Neb) 3 ml INHALE RQ4H PRN PRN Reason: Shortness of Breath/Wheezing Albuterol/Ipratropium (Albuterol/Iprat 2.5/0.5mg 3 Ml Ampul.Neb) 3 ml INHALE RQ4H WHILE AWAKE TAMMY Allopurinol (Allopurinol 100 Mg Tablet) 100 mg PO BEDTIME TAMMY Amiodarone HCl (Amiodarone Hcl 200 Mg Tablet) 200 mg PO DAILY [facility] Clopidogrel Bisulfate (Clopidogrel Bisulfate 75 Mg Tablet) 75 mg PO DAILY [facility] Dextrose (Dextrose 50 % 25 Gm/50 Ml Syringe) 25 gm IVPUSH Q15M PRN; Protocol PRN Reason: per Hypoglycemia Standing Ord. Finasteride (Finasteride 5 Mg Tablet) 5 mg PO DAILY TAMMY Furosemide (Furosemide 40 Mg Tablet) 40 mg PO DAILY TAMMY; Protocol Glucose (Glucose Gel 15 Gm Gel..Gram.) 15 gm PO Q15M PRN; Protocol PRN Reason: per Hypoglycemia Standing Ord. Insulin Human Lispro (Insulin Lispro 100 Unit/Ml 3 Ml Vial) 0 unit SUBCUT QIDACHS TAMMY; Protocol Methylprednisolone Sodium Succinate (Methylprednisolone Sod Succ 40 Mg/Ml Vial) 40 mg IVPUSH Q12H [facility] Non-Formulary Medication (Rosuvastatin [Crestor]) 40 mg PO DAILY [facility] Ondansetron HCl (Ondansetron Hcl 4 Mg/2 Ml Vial) 4 mg IVPUSH Q8H PRN PRN Reason: Nausea and Vomiting Vitamin D (Cholecalciferol (Vitamin D3) 25 Mcg Tablet) 25 mcg PO DAILY [facility] Home Medications Medication Instructions Recorded Confirmed Last Taken Type cholecalciferol (vitamin D3) 25 25 mcg PO DAILY 07/02/20 01/05/22 01/05/22 History mcg (1,000 unit) capsule (Vitamin D3) clopidogrel 75 mg tablet (Plavix) 75 mg PO DAILY 12/23/21 01/05/22 01/05/22 History amiodarone 200 mg tablet 200 mg PO DAILY 12/25/21 01/05/22 01/05/22 History allopurinol 100 mg tablet 100 mg PO BEDTIME 01/05/22 01/05/22 01/04/22 History metformin 500 mg tablet,extended 500 mg PO BEDTIME 01/05/22 01/05/22 01/04/22 History release 24 hr warfarin 5 mg tablet (Jantoven) 5 mg PO DAILY@1800 01/05/22 01/05/22 01/04/22 History Physical Exam Vital Signs and Narrative: Vital Signs: Last Vital Signs Temp 98 F 01/05/22 15:57 Pulse 108 H 01/05/22 19:58 Resp 18 01/05/22 19:58 BP 128/48 L 01/05/22 15:57 Pulse Ox 94 01/05/22 15:57 O2 Del Method 01/05/22 15:57 BMI result Body Mass Index 24.3 Const: Other: Patient alert oriented, conversing appropriately General: cooperative and no acute distress Orientation/consciousness: patient oriented x3 Eyes: General: appearance normal, both eyes and all related structures Resp: Effort & Inspection: normal respiratory effort Auscultation: clear to auscultation bilaterally Cardio: Rate: regular rate Rhythm: regular rhythm GI: Palpation (GI): Soft to palpation Auscultation: normal bowel sounds Skin: General skin exam: no rashes or lesions noted Neuro: General: patient oriented x3 Cognition (Neuro): normal cognition Extrem: General: Yes normal to inspection and Yes no pedal edema Results Labs CBC and Chem 7: 01/05/22 18:44 01/05/22 18:44 Labs: Laboratory Results - last 24 hr 01/05/22 01/05/22 01/05/22 18:44 18:44 18:44 MCV 92.2 MCH 30.6 MCHC 33.2 RDW 15.4 Plt Count 379 D MPV 9.2 L Immature Gran % (Auto) 0.5 H Neut % (Auto) 81.5 H Lymph % (Auto) 8.2 L [place]all % (Auto) 7.9 Eos % (Auto) 1.2 Baso % (Auto) 0.7 Lymph # (Auto) 0.8 L [place] # (Auto) 0.8 Eos # (Auto) 0.1 Baso # (Auto) 0.1 Abs Immat Gran (auto) 0.05 H Absolute Neuts (auto) 7.8 Absolute Nucleated RBC 0.000 Nucleated RBC % (auto) 0.0 PT 147.3 H INR 12.3 H* APTT 78.4 H* Anion Gap 17 Estim Creat Clear Calc 45.2 Estimated GFR 59 Random Glucose 173 H Lactic Acid Lactic Acid F/U @ 2Hr Calcium 9.1 Magnesium 1.7 Total Bilirubin 0.5 Direct Bilirubin 0.2 AST 30 D ALT 31 Alkaline Phosphatase 83 Troponin I High Sens B-Natriuretic Peptide Total Protein 5.9 L Albumin 3.9 Lipase 20 Urine Color Urine Appearance Urine pH Ur Specific [place] Urine Protein Urine Glucose (UA) Urine Ketones Urine Blood Urine Nitrite Ur Leukocyte Esterase Urine RBC Urine WBC Ur Squamous Epith Cells Urine Bacteria COVID-19 (HARRY) COVID-19 Clin Com Influenza Type A (MISHA) Influenza Type B (MISHA) Influenza A & B Note 01/05/22 01/05/22 01/05/22 18:44 18:44 18:44 MCV MCH MCHC RDW Plt Count MPV Immature Gran % (Auto) Neut % (Auto) Lymph % (Auto) [place] % (Auto) Eos % (Auto) Baso % (Auto) Lymph # (Auto) Kend[place] # (Auto) Eos # (Auto) Baso # (Auto) Abs Immat Gran (auto) Absolute Neuts (auto) Absolute Nucleated RBC Nucleated RBC % (auto) PT INR APTT Anion Gap Estim Creat Clear Calc Estimated GFR Random Glucose Lactic Acid Lactic Acid F/U @ 2Hr Calcium Magnesium Total Bilirubin Direct Bilirubin AST ALT Alkaline Phosphatase Troponin I High Sens 57.7 H B-Natriuretic Peptide Total Protein Albumin Lipase Urine Color Urine Appearance Urine pH Ur Specific [place] Urine Protein Urine Glucose (UA) Urine Ketones Urine Blood Urine Nitrite Ur Leukocyte Esterase Urine RBC Urine WBC Ur Squamous Epith Cells Urine Bacteria COVID-19 (HARRY) Negative COVID-19 Clin Com See Note Influenza Type A (MISHA) Negative Influenza Type B (MISHA) Negative Influenza A & B Note See Note 01/05/22 01/05/22 01/05/22 18:44 18:44 19:08 MCV MCH MCHC RDW Plt Count MPV Immature Gran % (Auto) Neut % (Auto) Lymph % (Auto) [place] % (Auto) Eos % (Auto) Baso % (Auto) Lymph # (Auto) [place] # (Auto) Eos # (Auto) Baso # (Auto) Abs Immat Gran (auto) Absolute Neuts (auto) Absolute Nucleated RBC Nucleated RBC % (auto) PT INR APTT Anion Gap Estim Creat Clear Calc Estimated GFR Random Glucose Lactic Acid 2.2 H* Lactic Acid F/U @ 2Hr Calcium Magnesium Total Bilirubin Direct Bilirubin AST ALT Alkaline Phosphatase Troponin I High Sens B-Natriuretic Peptide 180 H Total Protein Albumin Lipase Urine Color YELLOW Urine Appearance CLEAR Urine pH 5.5 Ur Specific [place] 1.025 Urine Protein 1+ H Urine Glucose (UA) NEG Urine Ketones 5 Urine Blood TRACE Urine Nitrite NEG Ur Leukocyte Esterase NEG Urine RBC 0-2 Urine WBC 1-4 Ur Squamous Epith Cells TRACE Urine Bacteria NONE COVID-19 (HARRY) COVID-19 Clin Com Influenza Type A (MISHA) Influenza Type B (MISHA) Influenza A & B Note 01/05/22 01/05/22 21:53 21:53 MCV MCH MCHC RDW Plt Count MPV Immature Gran % (Auto) Neut % (Auto) Lymph % (Auto) [place] % (Auto) Eos % (Auto) Baso % (Auto) Lymph # (Auto) [place] # (Auto) Eos # (Auto) Baso # (Auto) Abs Immat Gran (auto) Absolute Neuts (auto) Absolute Nucleated RBC Nucleated RBC % (auto) PT INR APTT Anion Gap Estim Creat Clear Calc Estimated GFR Random Glucose Lactic Acid Lactic Acid F/U @ 2Hr 1.1 Calcium Magnesium Total Bilirubin Direct Bilirubin AST ALT Alkaline Phosphatase Troponin I High Sens 56.3 H B-Natriuretic Peptide Total Protein Albumin Lipase Urine Color Urine Appearance Urine pH Ur Specific [place] Urine Protein Urine Glucose (UA) Urine Ketones Urine Blood Urine Nitrite Ur Leukocyte Esterase Urine RBC Urine WBC Ur Squamous Epith Cells Urine Bacteria COVID-19 (HARRY) COVID-19 Clin Com Influenza Type A (MISHA) Influenza Type B (MISHA) Influenza A & B Note Imaging Radiologist's Impressions: Impressions Chest X-Ray 01/05/22 17:50 IMPRESSION: No acute intrathoracic disease. Marked COPD with areas of scarring and pleural thickening at the right base, unchanged. Assessment and Plan (1) Supratherapeutic INR: Status: Acute (2) Atrial fibrillation with RVR: Status: Acute (3) Acute exacerbation of chronic obstructive pulmonary disease: Status: Acute Plan 86-year-old male with past medical history of CAD status post CABG as well as recent stent placement about 2 weeks ago, history of DVT, history of AFib on Coumadin presents to the hospital with evidence of supratherapeutic INR as well as COPD exacerbation # supratherapeutic INR - no active bleed - received 2.5 of oral vitamin K with appropriate response - will hold warfarin - follow PT INR - resume once INR therapeutic - follow CBC and monitor for acute bleed # acute COPD exacerbation -has increased dyspnea, cough, sputum production - no evidence of pneumonia on chest x-ray - will treat with Solu-Medrol, DuoNeb scheduled and p.r.n. # AFib with RVR - likely secondary to COPD exacerbation - no evidence of acute infection - heart rate improved spontaneously - continue monitor - supratherapeutic INR on warfarin - continue amiodarone # history of CAD - status post CABG as well as a recent stent placement 2 weeks ago - no chest pain - continue Plavix # diabetes - low-dose sliding scale insulin - hold metformin - diabetic diet # hyperlipidemia - continue statin # BPH - continue finasteride # history of lymphoma - reports completed chemotherapy about 2 weeks ago - in remission DVT prophylaxis: Patient on warfarin and has supratherapeutic INR Given the acute COPD exacerbation and requirement for IV Solu-Medrol, DuoNeb as well as his supratherapeutic INR patient will require a minimum 2 night hospital stay for further monitoring Quality Stroke Does the patient have a stroke diagnosis?: No VTE Prior VTE?: No VTE Risk Level:: Medical - moderate - high VTE Device Contraindication: Treatment Not Indicated VTE Drug Contraindication: Treatment Not Indicated
[2022-01-05 22:51] LABS: Prothrombin Time 89.4 SEC (9.9-13.0)
[2022-01-05 23:01] VITALS: BP 129/56; PULSE 95; RESP 18; TEMP 36.6; O2SAT 94
[2022-01-05 23:07] LABS: INTERNATIONAL NORM RATIO 7.5 (0.9-1.1)
[2022-01-06] VITALS (12 sets, daily range): BP systolic 122–140; BP diastolic 47–81; PULSE 82–120; RESP 14–26; TEMP 36.1–37.1; O2SAT 93–95
[2022-01-06] MEDS: methylPREDNISolone Sod Succ 40 MG/ML VIAL IVPUSH ×3 (00:48→23:45)
--- NOTE | 2022-01-06 05:44 | PC.NURSE ---
I assumed nursing care of Christian at 1900. Christian is admitted for critically high INR and COPD exacerbation. Christian is alert, oriented x 3. he phillips been calm and cooperative, makes eye contact with Rn, and is able to vocalize his needs adequately with staff. he has ambulated to and from the bathroom independently and with steady gait (he has had one normal bowel movement on this shift). Respirations are non-labored at rest, =slightly increased effort with ambulating to the bathroom. RR has remained 20-26. room air sat's have remained WNL throughout this shift (94% or better). There has been no cyanosis, he speaks in full sentences. he has no complaints of chest pain, skin is pink/warm/dry. There has been no nausea, no vomiting. He has been voiding into bedside urinal without difficulty. He has taken PO food and fluids without difficulty. Christian is aware that he is TBADM and verbalizes an understanding of this.
[2022-01-06 06:26] LABS: Basophils Percent Auto 0.3 % (0-2); Eosinophils Percent Auto 0.1 % (0-4); Hematocrit 36.1 % (42.0-52.0); Hemoglobin 11.9 g/dl (14.0-18.0); Imm Gran Abs Auto 0.04 X10*3/uL (0.00-0.03); Imm Gran Pct Auto 0.4 % (0.0-0.4); Lymphocytes Absolute Auto 0.3 X10*3/uL (1.2-4.9); Lymphocytes Percent Auto 3.4 % (20-40); MANUAL DIFF FLAG SCAN; Mean Corpuscular Hemoglobin 30.3 pg (27.0-33.0); Mean Corpuscular Volume 91.9 fL (80.0-98.0); Mean Platelet Volume 8.7 fL (9.4-12.4); Monocytes Absolute Auto 0.1 X10*3/uL (0.1-1.2); Monocytes Percent Auto 0.9 % (2-11); Neutrophils Absolute Auto 8.8 x10*3/uL (2.0-8.3); Neutrophils Percent Auto 94.9 % (45-73); Platelet Count 310 X10*3/uL (160-400); Red Blood Count 3.93 X10*6/uL (4.60-5.80); Red Cell Distribution Width 15.3 % (11.0-16.0); SCAN SMEAR FLAG 1; White Blood Count 9.3 X10*3/uL (4.8-10.8)
[2022-01-06 06:51] LABS: Anion Gap 13 (12-20); Blood Urea Nitrogen 16 mg/dL (9-16); Calcium 8.6 mg/dL (8.4-10.2); Carbon Dioxide 29 mmol/L (22-29); Chloride 103 mmol/L (96-108); Creatinine Clr Calc Pharmacy 62.5; Estimated Glomerular Filt Rate > 60; Glucose Random 160 mg/dL (60-115); Potassium 3.8 mmol/L (3.3-5.1); Sodium 141 mmol/L (135-145)
[2022-01-06 06:52] LABS: Magnesium 1.8 mg/dL (1.6-2.6)
[2022-01-06 07:11] LABS: Glucose, Whole Blood 151 mg/dL (60-115)
[2022-01-06 07:16] LABS: SLIDE REVIEW VERIFIED
[2022-01-06] MEDS: Albuterol/Iprat 2.5/0.5MG 3 ML AMPUL.NEB INHALE ×4 (07:54→19:27)
--- NOTE | 2022-01-06 08:05 | MHC.MBSS ---
pt's grand-daughter (ruth vega, ) [place] [facility] [place]. Unspecified atrial fibrillation (01/05/22) Chronic obstructive pulmonary disease with (acute) exacerbation (01/05/22) Abnormal coagulation profile (01/05/22)
[2022-01-06] MEDS: Atorvastatin Calcium 80 MG TABLET PO (08:23)
[2022-01-06] MEDS: Clopidogrel Bisulfate 75 MG TABLET PO (08:23)
[2022-01-06] MEDS: Cholecalciferol (Vitamin D3) 25 MCG TABLET PO (08:23)
[2022-01-06] MEDS: Furosemide 40 MG TABLET PO (08:23)
[2022-01-06] MEDS: Amiodarone HCL 200 MG TABLET PO (08:25)
--- NOTE | 2022-01-06 08:28 | PC.NURSE ---
Patient A/OX4 . pearrla . capillary burst corner of left eye . bruising noted on right elbow and left forearm . also on right wrist and hand . skin warm and dry . moist dry non productive cough . lungs diminished with audible wheeze . positive bowel sounds , no report of bleeding from bowel movement this AM .patient aware of plan of care .
[2022-01-06] MEDS: Insulin Lispro 100 UNIT/ML 3 ML VIAL SUBCUT ×4 (09:35→21:37)
--- NOTE | 2022-01-06 10:15 | MHC.CM.PN ---
PT REPORT SHE LIVES WITH HIS , DAUGHTER AND GRAND DAUGHTER PT REPORTS BEING INDEPENDENT WITH SELF CARE AND HAVING NO SERVICES PT HAS A CANE HE USES PRN PT REPORTS HE IS COVID VACCINATED AND BOOSTED HCP ON FILE PCP: [facility]MM DELIVERED, COPY SENT TO [facility] CURRENT DC PLAN IS HOME VS HOME WITH [facility] FAMILY TO TRANSPORT
[2022-01-06] MEDS: Finasteride 5 MG TABLET PO (10:45)
[2022-01-06 11:47] LABS: Glucose, Whole Blood 178 mg/dL (60-115)
--- NOTE | 2022-01-06 13:52 | ECG_ITS ---
Test Reason : tachycardia Blood Pressure : / mmHG Vent. Rate : 122 BPM Atrial Rate : 131 BPM P-R Int : 192 ms QRS Dur : 090 ms QT Int : 368 ms P-R-T Axes : 103 028 249 degrees QTc Int : 524 ms Sinus tachycardia with PACs Septal infarct (cited on or before 27-APR-2004) ST & T wave abnormality, consider anterior ischemia Abnormal ECG When compared with ECG of 05-JAN-2022 18:42, No significant changes seen Referred By: Queenie Hernandez Electronically Signed By:KELSY URBINA
--- NOTE | 2022-01-06 15:30 | P.PNIM_ITS ---
Subjective Subjective Date of Service: 01/06/22 Interval History: afib , copd excerbation Review of Systems Patient still short of breath, Denies any chest pain or abdominal pain or nausea or vomiting or fever or chills Physical Exam Vital Signs: Vital Signs: Last Vital Signs Temp 97.7 F 01/06/22 14:33 Pulse 87 01/06/22 14:45 Resp 18 01/06/22 14:45 BP 129/48 L 01/06/22 14:33 Pulse Ox 93 01/06/22 14:33 O2 Del Method 01/06/22 14:33 O2 Flow Rate 3 01/05/22 23:01 BMI result Body Mass Index 24.3 Appearance: Alert.? Oriented X3.? not in distress.? cvs: irregular rythem, [id number] res: clear to auscultation ,no rhonchii or wheezing abd: no rebound or guarding ,nt, bs present. ext pulses present , no cyanosis ,Gait well balanced well coordinated. neuro: axo3 , nonfocal. Objective Data Active Medications Acetaminophen (Acetaminophen 325 Mg Tablet) 650 mg PO Q6H PRN PRN Reason: Pain, Mild (Pain Scale 1-3) Albuterol/Ipratropium (Albuterol/Iprat 2.5/0.5mg 3 Ml Ampul.Neb) 3 ml INHALE RQ4H PRN PRN Reason: Shortness of Breath/Wheezing Albuterol/Ipratropium (Albuterol/Iprat 2.5/0.5mg 3 Ml Ampul.Neb) 3 ml INHALE RQ4H WHILE AWAKE [facility] Last Admin: 01/06/22 14:45 Dose: 3 ml Documented By: TIMI Allopurinol (Allopurinol 100 Mg Tablet) 100 mg PO BEDTIME [facility] Amiodarone HCl (Amiodarone Hcl 200 Mg Tablet) 200 mg PO DAILY [facility] Last Admin: 01/06/22 08:25 Dose: 200 mg Documented By: LILLIE Atorvastatin Calcium (Atorvastatin Calcium 80 Mg Tablet) 80 mg PO DAILY [facility] Last Admin: 01/06/22 08:23 Dose: 80 mg Documented By: LILLIE Clopidogrel Bisulfate (Clopidogrel Bisulfate 75 Mg Tablet) 75 mg PO DAILY [facility] Last Admin: 01/06/22 08:23 Dose: 75 mg Documented By: LILLIE Dextrose (Dextrose 50 % 25 Gm/50 Ml Syringe) 25 gm IVPUSH Q15M PRN; Protocol PRN Reason: per Hypoglycemia Standing Ord. Finasteride (Finasteride 5 Mg Tablet) 5 mg PO DAILY [facility] Last Admin: 01/06/22 10:45 Dose: 5 mg Documented By: LILLIE Furosemide (Furosemide 40 Mg Tablet) 40 mg PO DAILY [facility]; Protocol Last Admin: 01/06/22 08:23 Dose: 40 mg Documented By: LILLIE Glucose (Glucose Gel 15 Gm Gel..Gram.) 15 gm PO Q15M PRN; Protocol PRN Reason: per Hypoglycemia Standing Ord. Insulin Human Lispro (Insulin Lispro 100 Unit/Ml 3 Ml Vial) 0 unit SUBCUT QIDACHS [facility]; Protocol Last Admin: 01/06/22 13:47 Dose: 2 unit Documented By: CHETNA Methylprednisolone Sodium Succinate (Methylprednisolone Sod Succ 40 Mg/Ml Vial) 40 mg IVPUSH Q12H [facility] Last Admin: 01/06/22 13:33 Dose: 40 mg Documented By: CHETNA Vitamin D (Cholecalciferol (Vitamin D3) 25 Mcg Tablet) 25 mcg PO DAILY [facility] Last Admin: 01/06/22 08:23 Dose: 25 mcg Documented By: LILLIE Labs CBC & Chem 7: 01/06/22 06:19 01/06/22 06:19 Labs: Laboratory Results - last 24 hr 01/05/22 01/05/22 01/05/22 18:44 18:44 18:44 MCV 92.2 MCH 30.6 MCHC 33.2 RDW 15.4 Plt Count 379 D MPV 9.2 L Immature Gran % (Auto) 0.5 H Neut % (Auto) 81.5 H Lymph % (Auto) 8.2 L [place] % (Auto) 7.9 Eos % (Auto) 1.2 Baso % (Auto) 0.7 Lymph # (Auto) 0.8 L [place] # (Auto) 0.8 Eos # (Auto) 0.1 Baso # (Auto) 0.1 Abs Immat Gran (auto) 0.05 H Absolute Neuts (auto) 7.8 Absolute Nucleated RBC 0.000 Nucleated RBC % (auto) 0.0 Smear Tech's Comments PT 147.3 H INR 12.3 H* APTT 78.4 H* Anion Gap 17 Estim Creat Clear Calc 45.2 Estimated GFR 59 POC Glucose Random Glucose 173 H Lactic Acid Lactic Acid F/U @ 2Hr Calcium 9.1 Magnesium 1.7 Total Bilirubin 0.5 Direct Bilirubin 0.2 AST 30 D ALT 31 Alkaline Phosphatase 83 Troponin I High Sens B-Natriuretic Peptide Total Protein 5.9 L Albumin 3.9 Lipase 20 Urine Color Urine Appearance Urine pH Ur Specific [place] Urine Protein Urine Glucose (UA) Urine Ketones Urine Blood Urine Nitrite Ur Leukocyte Esterase Urine RBC Urine WBC Ur Squamous Epith Cells Urine Bacteria COVID-19 ([facility]ARRY) COVID-19 Clin Com Influenza Type A (MISHA) Influenza Type B (MISHA) Influenza A & B Note 01/05/22 01/05/22 01/05/22 18:44 18:44 18:44 MCV MCH MCHC RDW Plt Count MPV Immature Gran % (Auto) Neut % (Auto) Lymph % (Auto) Cache % (Auto) Eos % (Auto) Baso % (Auto) Lymph # (Auto) [place] # (Auto) Eos # (Auto) Baso # (Auto) Abs Immat Gran (auto) Absolute Neuts (auto) Absolute Nucleated RBC Nucleated RBC % (auto) Smear Tech's Comments PT INR APTT Anion Gap Estim Creat Clear Calc Estimated GFR POC Glucose Random Glucose Lactic Acid Lactic Acid F/U @ 2Hr Calcium Magnesium Total Bilirubin Direct Bilirubin AST ALT Alkaline Phosphatase Troponin I High Sens 57.7 H B-Natriuretic Peptide Total Protein Albumin Lipase Urine Color Urine Appearance Urine pH Ur Specific [place] Urine Protein Urine Glucose (UA) Urine Ketones Urine Blood Urine Nitrite Ur Leukocyte Esterase Urine RBC Urine WBC Ur Squamous Epith Cells Urine Bacteria COVID-19 (HARRY) Negative COVID-19 Clin Com See Note Influenza Type A (MISHA) Negative Influenza Type B (MISHA) Negative Influenza A & B Note See Note 01/05/22 01/05/22 01/05/22 18:44 18:44 19:08 MCV MCH MCHC RDW Plt Count MPV Immature Gran % (Auto) Neut % (Auto) Lymph % (Auto) [place] % (Auto) Eos % (Auto) Baso % (Auto) Lymph # (Auto) [place] # (Auto) Eos # (Auto) Baso # (Auto) Abs Immat Gran (auto) Absolute Neuts (auto) Absolute Nucleated RBC Nucleated RBC % (auto) Smear Tech's Comments PT INR APTT Anion Gap Estim Creat Clear Calc Estimated GFR POC Glucose Random Glucose Lactic Acid 2.2 H* Lactic Acid F/U @ 2Hr Calcium Magnesium Total Bilirubin Direct Bilirubin AST ALT Alkaline Phosphatase Troponin I High Sens B-Natriuretic Peptide 180 H Total Protein Albumin Lipase Urine Color YELLOW Urine Appearance CLEAR Urine pH 5.5 Ur Specific [place] 1.025 Urine Protein 1+ H Urine Glucose (UA) NEG Urine Ketones 5 Urine Blood TRACE Urine Nitrite NEG Ur Leukocyte Esterase NEG Urine RBC 0-2 Urine WBC 1-4 Ur Squamous Epith Cells TRACE Urine Bacteria NONE COVID-19 ([facility]ARRY) COVID-19 Clin Com Influenza Type A (MISHA) Influenza Type B (MISHA) Influenza A & B Note 01/05/22 01/05/22 01/05/22 21:53 21:53 22:24 MCV MCH MCHC RDW Plt Count MPV Immature Gran % (Auto) Neut % (Auto) Lymph % (Auto) Cache % (Auto) Eos % (Auto) Baso % (Auto) Lymph # (Auto) [place] # (Auto) Eos # (Auto) Baso # (Auto) Abs Immat Gran (auto) Absolute Neuts (auto) Absolute Nucleated RBC Nucleated RBC % (auto) Smear Tech's Comments PT 89.4 H INR 7.5 H* D APTT Anion Gap Estim Creat Clear Calc Estimated GFR POC Glucose Random Glucose Lactic Acid Lactic Acid F/U @ 2Hr 1.1 Calcium Magnesium Total Bilirubin Direct Bilirubin AST ALT Alkaline Phosphatase Troponin I High Sens 56.3 H B-Natriuretic Peptide Total Protein Albumin Lipase Urine Color Urine Appearance Urine pH Ur Specific [place] Urine Protein Urine Glucose (UA) Urine Ketones Urine Blood Urine Nitrite Ur Leukocyte Esterase Urine RBC Urine WBC Ur Squamous Epith Cells Urine Bacteria COVID-19 (HARRY) COVID-19 Clin Com Influenza Type A (MISHA) Influenza Type B (MISHA) Influenza A & B Note 01/06/22 01/06/22 01/06/22 06:19 06:19 06:19 MCV 91.9 MCH 30.3 MCHC 33.0 RDW 15.3 Plt Count 310 MPV 8.7 L Immature Gran % (Auto) 0.4 Neut % (Auto) 94.9 H Lymph % (Auto) 3.4 L [place] % (Auto) 0.9 L Eos % (Auto) 0.1 Baso % (Auto) 0.3 Lymph # (Auto) 0.3 L [place] # (Auto) 0.1 Eos # (Auto) 0.0 Baso # (Auto) 0.0 Abs Immat Gran (auto) 0.04 H Absolute Neuts (auto) 8.8 H Absolute Nucleated RBC 0.000 Nucleated RBC % (auto) 0.0 Smear Tech's Comments VERIFIED PT INR APTT Anion Gap 13 Estim Creat Clear Calc 62.5 Estimated GFR > 60 POC Glucose Random Glucose 160 H Lactic Acid Lactic Acid F/U @ 2Hr Calcium 8.6 Magnesium 1.8 Total Bilirubin Direct Bilirubin AST ALT Alkaline Phosphatase Troponin I High Sens B-Natriuretic Peptide Total Protein Albumin Lipase Urine Color Urine Appearance Urine pH Ur Specific [place] Urine Protein Urine Glucose (UA) Urine Ketones Urine Blood Urine Nitrite Ur Leukocyte Esterase Urine RBC Urine WBC Ur Squamous Epith Cells Urine Bacteria COVID-19 (HARRY) COVID-19 Clin Com Influenza Type A (MISHA) Influenza Type B (MISHA) Influenza A & B Note 01/06/22 01/06/22 07:06 11:40 MCV MCH MCHC RDW Plt Count MPV Immature Gran % (Auto) Neut % (Auto) Lymph % (Auto) [place] % (Auto) Eos % (Auto) Baso % (Auto) Lymph # (Auto) [place] # (Auto) Eos # (Auto) Baso # (Auto) Abs Immat Gran (auto) Absolute Neuts (auto) Absolute Nucleated RBC Nucleated RBC % (auto) Smear Tech's Comments PT INR APTT Anion Gap Estim Creat Clear Calc Estimated GFR POC Glucose 151 H 178 H Random Glucose Lactic Acid Lactic Acid F/U @ 2Hr Calcium Magnesium Total Bilirubin Direct Bilirubin AST ALT Alkaline Phosphatase Troponin I High Sens B-Natriuretic Peptide Total Protein Albumin Lipase Urine Color Urine Appearance Urine pH Ur Specific [place] Urine Protein Urine Glucose (UA) Urine Ketones Urine Blood Urine Nitrite Ur Leukocyte Esterase Urine RBC Urine WBC Ur Squamous Epith Cells Urine Bacteria COVID-19 ([facility]ARRY) COVID-19 Clin Com Influenza Type A (MISHA) Influenza Type B (MISHA) Influenza A & B Note Assessment and Plan (1) Atrial fibrillation with RVR: Status: Acute (2) Supratherapeutic INR: Status: Acute (3) Acute exacerbation of chronic obstructive pulmonary disease: Status: Acute Plan 86-year-old male with past medical history of CAD status post CABG as well as recent stent placement about 2 weeks ago, history of DVT, history of AFib on Coumadin presents to the hospital with evidence of supratherapeutic INR as well as COPD exacerbation # supratherapeutic INR no bleed grossly - no active bleed - received 2.5 of oral vitamin K with appropriate response - will hold warfarin - follow PT INR added today. - resume once INR therapeutic - follow CBC and monitor for acute bleed # acute COPD exacerbation -has increased dyspnea, cough, sputum production - no evidence of pneumonia on chest x-ray continue Solu-Medrol, DuoNeb scheduled and p.r.n. # AFib with RVR - likely secondary to COPD exacerbation - no evidence of acute infection - heart rate improved spontaneously - continue monitor - supratherapeutic INR on warfarin - continue amiodarone # history of CAD - status post CABG as well as a recent stent placement 2 weeks ago - no chest pain - continue Plavix # diabetes - low-dose sliding scale insulin - hold metformin - diabetic diet # hyperlipidemia - continue statin # BPH - continue finasteride # history of lymphoma - reports completed chemotherapy about 2 weeks ago - in remission DVT prophylaxis:? Patient on warfarin and has supratherapeutic INR inpatient need: acute COPD exacerbation and requirement for IV Solu-Medrol, DuoNeb as well as his supratherapeutic INR. Quality Stroke Does the patient have a stroke diagnosis?: No VTE Prior VTE?: No VTE Risk Level:: Medical - moderate - high VTE Device Contraindication: Treatment Not Indicated VTE Drug Contraindication: Treatment Not Indicated
[2022-01-06 15:52] LABS: INTERNATIONAL NORM RATIO 1.6 (0.9-1.1); Prothrombin Time 18.8 SEC (10.0-13.1)
[2022-01-06 18:18] LABS: Glucose, Whole Blood 234 mg/dL (60-115)
[2022-01-06 21:15] LABS: Glucose, Whole Blood 248 mg/dL (60-115)
[2022-01-06] MEDS: allopurinoL 100 MG TABLET PO (21:37)
--- NOTE | 2022-01-06 21:40 | PC.NURSE ---
pt a&ox3, vss - pt remains tachycardic on monitor (95-115), denies pain at this time, medicated per provider order. 20G IV left AC flushed and patent.
--- NOTE | 2022-01-06 23:47 | PC.NURSE ---
pt a&ox3, vss, medicated per provider order. denies any pain/sob. pt requesting the lights turned off so he can sleep.
[2022-01-07] VITALS (13 sets, daily range): BP systolic 111–152; BP diastolic 52–74; PULSE 74–111; RESP 13–26; TEMP 36–37.1; O2SAT 93–104; BMI 23.1
[2022-01-07 07:19] LABS: Hematocrit 37.9 % (42.0-52.0); Hemoglobin 12.5 g/dl (14.0-18.0)
[2022-01-07 07:25] LABS: INTERNATIONAL NORM RATIO 1.5 (0.9-1.1); Prothrombin Time 16.9 SEC (10.0-13.1)
[2022-01-07 07:29] LABS: Glucose, Whole Blood 164 mg/dL (60-115)
[2022-01-07] MEDS: Amiodarone HCL 200 MG TABLET PO (08:12)
[2022-01-07] MEDS: Atorvastatin Calcium 80 MG TABLET PO (08:12)
[2022-01-07] MEDS: Furosemide 40 MG TABLET PO (08:13)
[2022-01-07] MEDS: Cholecalciferol (Vitamin D3) 25 MCG TABLET PO (08:13)
[2022-01-07] MEDS: Clopidogrel Bisulfate 75 MG TABLET PO (08:13)
[2022-01-07] MEDS: Insulin Lispro 100 UNIT/ML 3 ML VIAL SUBCUT ×4 (08:16→20:39)
[2022-01-07] MEDS: Finasteride 5 MG TABLET PO (08:30)
[2022-01-07] MEDS: Albuterol/Iprat 2.5/0.5MG 3 ML AMPUL.NEB INHALE ×4 (09:14→19:39)
--- NOTE | 2022-01-07 11:07 | PM.CNCAR ---
History of Present Illness History of Present Illness Date of Service: 01/07/22 Chief complaint: COPD exacerbation,supratheraputic INR, Afbif w/rvr Narrative: This is a cardiology consultation regarding atrial fibrillation and other cardiac concerns. He has extensive cardiac history. Has a history of coronary artery bypass surgery. Recently underwent intervention to vein graft to PDA. He also has chronic heart failure with preserved ejection fraction. Additionally, paroxysmal atrial fibrillation. Current admission mainly because of supratherapeutic INR at more than 10. In this context, he is also thought to have COPD exacerbation. Today when I questioned him, he states that he feels fine. His breathing is at his baseline. He is also stating that there was no chest pain or palpitations or in fact anything else. His daughter is also at bedside. Review of Systems Review of Systems: Yes all other systems are reviewed and are negative Constitutional: Constitutional: Reports as per HPI Eyes: Eyes: Reports as per HPI ENT: Reports as per HPI Cardiovascular: Cardiovascular: Reports as per HPI, Denies acrocyanosis, Denies cool extremities, Denies chest pain, Denies leg edema, Denies lightheadedness, Denies palpitations and Denies dyspnea Respiratory: Respiratory: Reports as per HPI, Reports no additional respiratory complaints and Denies dyspnea Gastrointestinal: Gastrointestinal: Reports as per HPI and Reports no additional gastrointestinal complaints Genitourinary: Genitourinary: Reports no additional male genitourinary complaints and Reports as per HPI Musculoskeletal: Musculoskeletal: Reports no additional musculoskeletal complaints and Reports as per HPI Integumentary/Breasts: Skin/Breast: Reports system reviewed and no additional complaints, except as docu Neurologic: Reports system reviewed and no additional complaints, except as documented and Reports as per HPI Psychiatric: Psychiatric: Reports no additional psychiatric complaints and Reports as per HPI Endocrine: Endocrine: Reports no additional endocrine complaints, Reports as per HPI and Denies palpitations Hematologic/Lymphatic: Hematologic/Lymphatic: Reports no additional hematologic/lymphatic complaints and Reports as per HPI Allergic/Immunologic: Allergic/Immunologic: Reports no additional allergic/immunologic complaints and Reports as per HPI [facility] Past Medical History Medical History (Updated 01/07/22 @ 11:14 by Pancho Piper MD) Benign essential hypertension BPH loc w urin obs/LUTS COPD (chronic obstructive pulmonary disease) Coronary artery disease Current use of anticoagulant therapy Diabetes mellitus Follicular lymphoma Heart failure with preserved ejection fraction High cholesterol History of blood clots History of deep vein thrombosis (DVT) of lower extremity Insomnia PAF (paroxysmal atrial fibrillation) Peripheral arterial disease Pneumonia Pure hypercholesterolemia Vitamin D deficiency Family History Family History Father Cancer Mother Cardiovascular disease Surgical History Surgical History History of quadruple bypass Social History Social History Household Members: Spouse Housing: Apartment Are you a primary landcare facilitator to a significant other at home: No Do you presently have visiting nurse or other home services: No Alcohol intake: former Patient Tobacco Use Status: Current everyday Tobacco user Tobacco use type: Cigarette Cigarette Packs Per Day: 1.5 Years Smoked: 67 Smoked in Last 30 Days: Yes Use of substances other than those prescribed or required for medical reasons: No Advance Directives: Yes Advance Directives on File: Yes Advance Directives Date on File: 01/06/22 service: No Current occupational status: retired [employer] Allergies Allergy/AdvReac Type Severity Reaction Status Date / Time No Known Allergies Allergy Verified 01/05/22 16:02 [No Known Allergies*] Active Medications: Current Medications Acetaminophen (Acetaminophen 325 Mg Tablet) 650 mg PO Q6H PRN PRN Reason: Pain, Mild (Pain Scale 1-3) Albuterol/Ipratropium (Albuterol/Iprat 2.5/0.5mg 3 Ml Ampul.Neb) 3 ml INHALE RQ4H PRN PRN Reason: Shortness of Breath/Wheezing Albuterol/Ipratropium (Albuterol/Iprat 2.5/0.5mg 3 Ml Ampul.Neb) 3 ml INHALE RQ4H WHILE AWAKE [facility] Last Admin: 01/07/22 09:14 Dose: 3 ml Allopurinol (Allopurinol 100 Mg Tablet) 100 mg PO BEDTIME [facility] Last Admin: 01/06/22 21:37 Dose: 100 mg Amiodarone HCl (Amiodarone Hcl 200 Mg Tablet) 200 mg PO DAILY [facility] Last Admin: 01/07/22 08:12 Dose: 200 mg Atorvastatin Calcium (Atorvastatin Calcium 80 Mg Tablet) 80 mg PO DAILY [facility] Last Admin: 01/07/22 08:12 Dose: 80 mg Clopidogrel Bisulfate (Clopidogrel Bisulfate 75 Mg Tablet) 75 mg PO DAILY [facility] Last Admin: 01/07/22 08:13 Dose: 75 mg Dextrose (Dextrose 50 % 25 Gm/50 Ml Syringe) 25 gm IVPUSH Q15M PRN; Protocol PRN Reason: per Hypoglycemia Standing Ord. Finasteride (Finasteride 5 Mg Tablet) 5 mg PO DAILY [facility] Last Admin: 01/07/22 08:30 Dose: 5 mg Furosemide (Furosemide 40 Mg Tablet) 40 mg PO DAILY [facility]; Protocol Last Admin: 01/07/22 08:13 Dose: 40 mg Glucose (Glucose Gel 15 Gm Gel..Gram.) 15 gm PO Q15M PRN; Protocol PRN Reason: per Hypoglycemia Standing Ord. Insulin Human Lispro (Insulin Lispro 100 Unit/Ml 3 Ml Vial) 0 unit SUBCUT QIDACHS [facility]; Protocol Last Admin: 01/07/22 08:16 Dose: 2 unit Methylprednisolone Sodium Succinate (Methylprednisolone Sod Succ 40 Mg/Ml Vial) 40 mg IVPUSH Q12H [facility] Last Admin: 01/06/22 23:45 Dose: 40 mg Vitamin D (Cholecalciferol (Vitamin D3) 25 Mcg Tablet) 25 mcg PO DAILY [facility] Last Admin: 01/07/22 08:13 Dose: 25 mcg Warfarin Sodium (Warfarin Sodium 5 Mg Tablet) 5 mg PO DAILY@1800 [facility] Home Medications Medication Instructions Recorded Confirmed Last Taken Type cholecalciferol (vitamin D3) 25 25 mcg PO DAILY 07/02/20 01/05/22 01/05/22 History mcg (1,000 unit) capsule (Vitamin D3) clopidogrel 75 mg tablet (Plavix) 75 mg PO DAILY 12/23/21 01/05/22 01/05/22 History amiodarone 200 mg tablet 200 mg PO DAILY 12/25/21 01/05/22 01/05/22 History allopurinol 100 mg tablet 100 mg PO BEDTIME 01/05/22 01/05/22 01/04/22 History metformin 500 mg tablet,extended 500 mg PO BEDTIME 01/05/22 01/05/22 01/04/22 History release 24 hr warfarin 5 mg tablet (Jantoven) 5 mg PO DAILY@1800 01/05/22 01/05/22 01/04/22 History Physical Exam Vital Signs: Vital Signs: Last Vital Signs Temp 97.5 F 01/07/22 10:40 Pulse 99 01/07/22 10:40 Resp 15 01/07/22 10:40 BP 132/66 01/07/22 10:40 Pulse Ox 95 01/07/22 10:40 O2 Del Method 01/07/22 10:40 O2 Flow Rate 3 01/05/22 23:01 BMI result Body Mass Index 23.1 Const: General: comfortable and no acute distress Orientation/consciousness: patient oriented x3 HEENT: Other: Unremarkable Head: Yes normal to inspection Neck: Neck: Yes normal visual inspection Chest: Chest palpation & inspection: normal inspection of the chest Resp: Auscultation: wheezes and diminished lung sounds Cardio: Palpation: normal PMI Heart sounds: S1 normal heart sound present, S2 normal heart sound present, no gallops, no murmurs and no rubs GI: Palpation (GI): Soft to palpation Back/Spine/Pelvis: Other: unremarkable Skin: General skin exam: no rashes or lesions noted Neuro: General: patient oriented x3 Extrem: General: Yes normal to inspection Psych: Mental Status: mental status grossly normal Objective Labs and Meds Result diagrams: 01/07/22 06:59 01/06/22 06:19 Lab results: Laboratory Results - last 24 hr 01/06/22 01/06/22 01/06/22 06:19 11:40 15:26 Hgb Hct PT 18.8 H INR 1.6 H D POC Glucose 178 H TSH 3.00 01/06/22 01/06/22 01/07/22 18:06 21:05 06:59 Hgb 12.5 L Hct 37.9 L PT INR POC Glucose 234 H 248 H TSH 01/07/22 01/07/22 06:59 07:09 Hgb Hct PT 16.9 H INR 1.5 H POC Glucose 164 H TSH ECG Interpretation: EKG shows sinus tachycardia with frequent PACs. Nonspecific ST-T changes. Cannot exclude old anterior septal infarct. On telemetry, there is again sinus tachycardia with PACs. Some areas could be multifocal atrial tachycardia. Do not see any clear-cut atrial fibrillation. Assessment and Plan (1) Atrial fibrillation with RVR: Status: Acute (2) Atrial tachycardia: Status: Acute (3) Acute exacerbation of chronic obstructive pulmonary disease: Status: Acute (4) Supratherapeutic INR: Status: Acute (5) Atherosclerotic cardiovascular disease: Status: Acute Plan On review of telemetry, there is sinus tachycardia with PACs and probably some atrial tachycardia. However do not see any clear atrial fibrillation. He does have a history of paroxysmal atrial fibrillation however and hence already on amiodarone with anticoagulation. He was also on beta-blockers but that was stopped because of low blood pressure. Hence at this time, need not change anything and continue amiodarone. Anticoagulation to be resumed as the INR is back to baseline. With regard to his wheezing, most likely from COPD as he continues to smoke. That can be treated accordingly. He does have coronary disease and recent stenting to vein graft to PDA. Hence may remain on Plavix. Again from that standpoint he seems stable. Borderline troponin elevation but nothing specifically to be done for that. Discussed with Dr. Hernandez. Discussed with daughter. Procedures Date of Service Date of Service: 01/07/22
[2022-01-07 12:34] LABS: Glucose, Whole Blood 187 mg/dL (60-115)
[2022-01-07] MEDS: methylPREDNISolone Sod Succ 40 MG/ML VIAL IVPUSH ×2 (12:53→23:27)
--- NOTE | 2022-01-07 16:39 | P.PNIM_ITS ---
Subjective Subjective Date of Service: 01/07/22 Interval History: COPD exacerbation, AFib with RVR Review of Systems Shortness of breath seems similar to yesterday, gets short of breath with minimal exertion Has dry cough. Physical Exam Vital Signs: Vital Signs: Last Vital Signs Temp 97.5 F 01/07/22 10:40 Pulse 98 01/07/22 15:38 Resp 18 01/07/22 15:38 BP 152/67 H 01/07/22 15:38 Pulse Ox 98 01/07/22 15:38 O2 Del Method 01/07/22 15:38 O2 Flow Rate 3 01/05/22 23:01 BMI result Body Mass Index 23.1 ?Appearance: Alert.? Oriented X3.? not in distress.? cvs: irregular rythem, [id number] res: clear to auscultation ,no rhonchii or wheezing abd: no rebound or guarding ,nt, bs present. ext pulses present , no cyanosis . neuro: axo3 , nonfocal. Objective Data Active Medications Acetaminophen (Acetaminophen 325 Mg Tablet) 650 mg PO Q6H PRN PRN Reason: Pain, Mild (Pain Scale 1-3) Albuterol/Ipratropium (Albuterol/Iprat 2.5/0.5mg 3 Ml Ampul.Neb) 3 ml INHALE RQ4H PRN PRN Reason: Shortness of Breath/Wheezing Albuterol/Ipratropium (Albuterol/Iprat 2.5/0.5mg 3 Ml Ampul.Neb) 3 ml INHALE RQ4H WHILE AWAKE [facility] Last Admin: 01/07/22 15:07 Dose: 3 ml Documented By: EULALIA Allopurinol (Allopurinol 100 Mg Tablet) 100 mg PO BEDTIME [facility] Last Admin: 01/06/22 21:37 Dose: 100 mg Documented By: YESENIA Amiodarone HCl (Amiodarone Hcl 200 Mg Tablet) 200 mg PO DAILY [facility] Last Admin: 01/07/22 08:12 Dose: 200 mg Documented By: BOOKER Atorvastatin Calcium (Atorvastatin Calcium 80 Mg Tablet) 80 mg PO DAILY [facility] Last Admin: 01/07/22 08:12 Dose: 80 mg Documented By: BOOKER Clopidogrel Bisulfate (Clopidogrel Bisulfate 75 Mg Tablet) 75 mg PO DAILY [facility] Last Admin: 01/07/22 08:13 Dose: 75 mg Documented By: BOOKER Dextrose (Dextrose 50 % 25 Gm/50 Ml Syringe) 25 gm IVPUSH Q15M PRN; Protocol PRN Reason: per Hypoglycemia Standing Ord. Finasteride (Finasteride 5 Mg Tablet) 5 mg PO DAILY [facility] Last Admin: 01/07/22 08:30 Dose: 5 mg Documented By: BOOKER Furosemide (Furosemide 40 Mg Tablet) 40 mg PO DAILY [facility]; Protocol Last Admin: 01/07/22 08:13 Dose: 40 mg Documented By: BOOKER Glucose (Glucose Gel 15 Gm Gel..Gram.) 15 gm PO Q15M PRN; Protocol PRN Reason: per Hypoglycemia Standing Ord. Insulin Human Lispro (Insulin Lispro 100 Unit/Ml 3 Ml Vial) 0 unit SUBCUT QIDACHS [facility]; Protocol Last Admin: 01/07/22 12:53 Dose: 2 unit Documented By: DANAY Methylprednisolone Sodium Succinate (Methylprednisolone Sod Succ 40 Mg/Ml Vial) 40 mg IVPUSH Q12H [facility] Last Admin: 01/07/22 12:53 Dose: 40 mg Documented By: DANAY Vitamin D (Cholecalciferol (Vitamin D3) 25 Mcg Tablet) 25 mcg PO DAILY [facility] Last Admin: 01/07/22 08:13 Dose: 25 mcg Documented By: BOOKER Warfarin Sodium (Warfarin Sodium 5 Mg Tablet) 5 mg PO DAILY@1800 [facility] Labs CBC & Chem 7: 01/07/22 06:59 01/06/22 06:19 Labs: Laboratory Results - last 24 hr 01/06/22 01/06/22 01/07/22 18:06 21:05 06:59 PT 16.9 H INR 1.5 H POC Glucose 234 H 248 H 01/07/22 01/07/22 07:09 12:23 PT INR POC Glucose 164 H 187 H Microbiology Microbiology Results: Microbiology 01/05/22 18:44 Blood Culture - Preliminary Blood - Venous No growth after 24 hours. 01/05/22 18:34 Blood Culture - Preliminary Blood - Venous No growth after 24 hours. Assessment and Plan (1) Atrial tachycardia: Status: Acute (2) Atrial fibrillation with RVR: Status: Acute (3) Acute exacerbation of chronic obstructive pulmonary disease: Status: Acute Plan 86-year-old male with past medical history of CAD status post CABG as well as recent stent placement about 2 weeks ago, history of DVT, history of AFib on Coumadin presents to the hospital with evidence of supratherapeutic INR as well as COPD exacerbation # subtherapeutic INR no bleed grossly - no active bleed - received 2.5 of oral vitamin K initially when the INR was elevated. Restarted warfarin - follow PT INR added today. - resume once INR therapeutic - follow CBC and monitor for acute bleed # acute COPD exacerbation: Minimum improvement -has increased dyspnea, cough, sputum production - no evidence of pneumonia on chest x-ray continue? Solu-Medrol, DuoNeb scheduled and p.r.n. # AFib with RVR: Intermittent - likely secondary to COPD exacerbation - no evidence of acute infection - heart rate improved spontaneously Discussed with Cardiology patient was taken off metoprolol earlier due to hypotension, currently recommended to continue amiodarone. - continue amiodarone # history of CAD - status post CABG as well as a recent stent placement 2 weeks ago - no chest pain - continue Plavix # diabetes - low-dose sliding scale insulin - hold metformin - diabetic diet # hyperlipidemia - continue statin # BPH - continue finasteride # history of lymphoma - reports completed chemotherapy about 2 weeks ago - in remission DVT prophylaxis:? On warfarin inpatient need: acute COPD exacerbation and requirement for IV Solu-Medrol, AFib with RVR. Quality Stroke Does the patient have a stroke diagnosis?: No VTE Prior VTE?: No VTE Risk Level:: Medical - moderate - high VTE Device Contraindication: Treatment Not Indicated VTE Drug Contraindication: Treatment Not Indicated
[2022-01-07] MEDS: Warfarin Sodium 5 MG TABLET PO (18:01)
[2022-01-07 18:23] LABS: Glucose, Whole Blood 174 mg/dL (60-115)
[2022-01-07] MEDS: allopurinoL 100 MG TABLET PO (20:31)
[2022-01-07 20:35] LABS: Glucose, Whole Blood 175 mg/dL (60-115)
[2022-01-08] VITALS (8 sets, daily range): BP systolic 115–134; BP diastolic 59–86; PULSE 88–123; RESP 19–20; TEMP 36.4–36.8; O2SAT 94–100; BMI 23.9
[2022-01-08] MEDS: Acetaminophen 325 MG TABLET 650 MG PO (00:17)
[2022-01-08 07:20] LABS: Glucose, Whole Blood 166 mg/dL (60-115)
[2022-01-08] MEDS: Insulin Lispro 100 UNIT/ML 3 ML VIAL SUBCUT (07:34)
[2022-01-08] MEDS: Amiodarone HCL 200 MG TABLET PO (07:34)
[2022-01-08] MEDS: Cholecalciferol (Vitamin D3) 25 MCG TABLET PO (07:34)
[2022-01-08] MEDS: Finasteride 5 MG TABLET PO (07:35)
[2022-01-08] MEDS: Clopidogrel Bisulfate 75 MG TABLET PO (07:35)
[2022-01-08] MEDS: Atorvastatin Calcium 80 MG TABLET PO (07:35)
--- NOTE | 2022-01-08 07:44 | PC.NURSE ---
Pt resting in hospital bed, no c/o pain. A/O. lungs sound diminished with expiratory wheezes. POCT 166. 2 units of humalog given per parameters. Pt ambulatory to the bathroom independently. Pt ate 100% of his breakfast. Call lott and belongings within reach.
[2022-01-08] MEDS: Albuterol/Iprat 2.5/0.5MG 3 ML AMPUL.NEB INHALE ×2 (08:03→11:29)
[2022-01-08 09:06] LABS: INTERNATIONAL NORM RATIO 1.8 (0.9-1.1); Prothrombin Time 21.3 SEC (10.0-13.1)
[2022-01-08] MEDS: dilTIAZem HCL CD 120 MG CAP.ER.DEG PO (09:21)
--- NOTE | 2022-01-08 10:20 | PM.PNCARD ---
Subjective Subjective Date of Service: 01/08/22 Interval history: He states he feels fine. Denies any chest pain or shortness of breath or palpitations or in fact anything else. He absolutely wants to go home today. Review of Systems Review of Systems Yes all other systems are reviewed and are negative Constitutional: Reports as per HPI Eyes: Reports as per HPI Reports as per HPI Cardiovascular: Reports as per HPI, Denies acrocyanosis, Denies cool extremities, Denies chest pain, Denies leg edema, Denies lightheadedness, Denies palpitations and Denies dyspnea Respiratory: Reports as per HPI, Reports no additional respiratory complaints and Denies dyspnea Gastrointestinal: Reports as per HPI and Reports no additional gastrointestinal complaints Genitourinary: Reports no additional male genitourinary complaints and Reports as per HPI Musculoskeletal: Reports no additional musculoskeletal complaints and Reports as per HPI Skin/Breast: Reports system reviewed and no additional complaints, except as docu Reports system reviewed and no additional complaints, except as documented and Reports as per HPI Psychiatric: Reports no additional psychiatric complaints and Reports as per HPI Endocrine: Reports no additional endocrine complaints, Reports as per HPI and Denies palpitations Hematologic/Lymphatic: Reports no additional hematologic/lymphatic complaints and Reports as per HPI Allergic/Immunologic: Reports no additional allergic/immunologic complaints and Reports as per HPI Physical Exam Vital Signs: Last Vital Signs Temp 98.3 F 01/08/22 04:14 Pulse 123 H 01/08/22 09:04 Resp 20 01/08/22 08:08 BP 134/86 01/08/22 09:04 Pulse Ox 95 01/08/22 07:33 O2 Del Method 01/08/22 07:33 O2 Flow Rate 3 01/05/22 23:01 BMI result Body Mass Index 23.9 Const General: comfortable and no acute distress Orientation/consciousness: patient oriented x3 HEENT Other: Unremarkable Head: Yes normal to inspection Neck Neck: Yes normal visual inspection Chest Chest palpation & inspection: normal inspection of the chest Resp Auscultation: wheezes and diminished lung sounds Cardio Palpation: normal PMI Heart sounds: S1 normal heart sound present, S2 normal heart sound present, no gallops, no murmurs and no rubs GI Palpation (GI): Soft to palpation Back/Spine/Pelvis Other: unremarkable Skin General skin exam: no rashes or lesions noted Neuro General: patient oriented x3 Extrem General: Yes normal to inspection Psych Mental Status: mental status grossly normal Objective Labs and Meds Result diagrams: 01/07/22 06:59 01/06/22 06:19 Lab results: Laboratory Results - last 24 hr 01/07/22 01/07/22 01/07/22 12:23 18:14 20:32 PT INR POC Glucose 187 H 174 H 175 H 01/08/22 01/08/22 07:10 08:26 PT 21.3 H INR 1.8 H POC Glucose 166 H Progress Note: A&P Assessment and plan (1) Atrial fibrillation with RVR: Status: Acute (2) Atrial tachycardia: Status: Acute (3) Acute exacerbation of chronic obstructive pulmonary disease: Status: Acute (4) Supratherapeutic INR: Status: Acute (5) Atherosclerotic cardiovascular disease: Status: Acute Plan On review of telemetry, there is sinus tachycardia with PACs and probably some atrial tachycardia. However do not see any clear atrial fibrillation. He does have a history of paroxysmal atrial fibrillation however and hence already on amiodarone with anticoagulation. He used to be on beta-blockers but he had low blood pressure and hence that was stopped. At this time, we can keep him on amiodarone. As he is quite wheezy, we can rather try diltiazem. Continue with anticoagulation. With regard to wheezing, likely all from his COPD. Unfortunately, he continues to smoke. Can treat this per COPD protocol. With regard to coronary disease, no recent symptoms. He did undergo PCI to vein graft to PDA. Hence he can continue Plavix. Continue Crestor. With regard to discharge planning, he states that he actually wants to go home today. Hence highly doubt he will stay any longer. Will discharge and keep outpatient followups. Discussed with Dr. Hernandez. Time Spent With Patient Time: Total time spent is greater than 50% in coordination of care (as documented) at patient's floor/unit and/or counseling patient: 35min. Progress Note: Quality Stroke Does the patient have a stroke diagnosis?: No Procedures Date of Service Date of Service: 01/08/22
--- NOTE | 2022-01-08 10:56 | P.DS_ITS ---
DS: Providers Provider Date of Service: 01/08/22 Date of admission: 01/05/22 22:04 Primary care physician: Gregory Ellison MD Consults: 01/07/22 08:55 Consult to Cardiology Routine Consulting Provider: Pancho Piper Reason for consultation: afib with rvr Has provider been notified: No DS: Diagnosis Discharge Diagnosis (1) Atrial fibrillation with RVR: Status: Acute (2) Atrial tachycardia: Status: Acute (3) Acute exacerbation of chronic obstructive pulmonary disease: Status: Acute (4) Supratherapeutic INR: Status: Acute (5) Atherosclerotic cardiovascular disease: Status: Acute DS: Summary Hospital Course Hospital Course: 76-year-old male with past medical history of AFib and Coumadin, CAD status post CABG in 2004 as well as stenting 2 weeks ago, COPD, lymphoma, history of DVT, P 80, HLD, HTN, history of heart failure with preserved ejection fraction, who presents to the hospital with complaints of abnormal labs found to have elevated INR.? His PCP called him and sent him to the ED for further management after lab work showed an INR of 11.9.? Patient denies any hematuria, no hematochezia, hemoptysis, or hematemesis.? Reports that he takes 5 mg of warfarin every night.? Patient is also complaining of dyspnea, increase cough and sputum production for the past 2 weeks, wheezing.? He reports no lower extremity edema, no orthopnea or PND.? He reports no palpitations, no chest pain, no abdominal p ain nausea or vomiting, no diarrhea constipation, no urinary symptoms.? No headache or change in vision.? No numbness tingling. On arrival to the ED patient's vitals are significant for temp of 98 degrees, heart rate of 114 found to be in AFib with RVR, respiratory rate of 18, blood pressure of 128/48, satting 95% on room air Labs are significant for WBC count of 9.6, hemoglobin of 12.6, hematocrit of 38, INR of 12.3, BUN of 17, creatinine of 1.19 which is around his baseline, lactic acid of 2.2, troponin of 57 repeat of 56.3, BNP of 180, UA negative, Chest x-ray showed no acute intrathoracic disease, COPD with areas of scarring and pleural thickening at the right base unchanged, EKG reviewed showed AFib with RVR, QT of 496, Patient given 2.5 of oral NKA and will be admitted for further management. hospital course: Patient was admitted to the hospital because of COPD exacerbation-started on nebs, steroids, oxygen support seems to be improved: Going home with p.o. steroids, also albuterol added. AFib with RVR: Heart rate seems to be improving with adding Cardizem in addition to amiodarone. Further management outpatient as per Cardiology. Supratherapeutic INR: Seems to be improved after getting with a mean K small dose, afterwards INR becomes subtherapeutic so warfarin started-adjusted warfarin dose to 4 mg daily-monitor INR closely outpatient. Further management as per PCP outpatient. plan:Complete the course of steroids for COPD-if breathing get worse or new symptoms including fever-get evaluated in nearest emergency room. Monitor INR closely out patiently Follow-up with Cardiology for AFib. Above management discussed with the patient in detail length he understand and in agreement with the above plan, time spent 50 minutes and 50% time spent on counseling. Significant findings: As above. Procedures performed: None. Treatment and response: As above. Complications: None. Time Spent with Patient Time attestation: Total time spent providing and/or coordinating discharge services: Discharge coordination time: Greater than 30 minutes Quality: Safe Use of Opioids Does Pt have an Active Cancer Diagnosis on the Problem List?: No Quality: Stroke Does the patient have a stroke diagnosis?: No Physical Exam Vital Signs: Vital Signs: Last Vital Signs Temp 98.3 F 01/08/22 04:14 Pulse 123 H 01/08/22 09:04 Resp 20 01/08/22 08:08 BP 134/86 01/08/22 09:04 Pulse Ox 95 01/08/22 07:33 O2 Del Method 01/08/22 07:33 O2 Flow Rate 3 01/05/22 23:01 BMI result Body Mass Index 23.9 ?Appearance: Alert.? Oriented X3.? not in distress.? cvs: irregular rythem, [id number] res: clear to auscultation ,no rhonchii or wheezing abd: no rebound or guarding ,nt, bs present. ext pulses present , no cyanosis . neuro: axo3 , nonfocal. DS: Data Data Completed and Pending Labs on day of discharge: Laboratory Results - last 24 hr 01/07/22 01/07/22 01/07/22 12:23 18:14 20:32 PT INR POC Glucose 187 H 174 H 175 H 01/08/22 01/08/22 07:10 08:26 PT 21.3 H INR 1.8 H POC Glucose 166 H Preliminary micro results at discharge 01/05/22 18:44 Blood Culture - Preliminary Blood - Venous No growth after 48 hours. 01/05/22 18:34 Blood Culture - Preliminary Blood - Venous No growth after 48 hours. ?XR/XR chest 1V IMPRESSION: No acute intrathoracic disease. Marked COPD with areas of scarring and pleural thickening at the right base, unchanged. Discharge Plan Discharge Patient Disposition: Home Health Service Discharge Diagnosis: COPD exacerbation, AFib with RVR. Referrals: Gregory Ellison MD [Primary Care Provider] - 1 Week Discharge Medications: New warfarin 4 mg tablet 4 mg PO DAILY Qty: 30 0RF Proair Digihaler 90 mcg/actuation aero powdr breath act w/sensor 1 inh inhalation Q4-6H PRN (Reason: shortness of breath) Qty: 1 0RF diltiazem HCl [Cardizem CD] 120 mg capsule,extended release 24hr 120 mg PO DAILY Qty: 30 0RF prednisone 20 mg tablet 40 mg PO DAILY Qty: 6 0RF Continued furosemide 40 mg tablet 40 mg PO DAILY Qty: 90 3RF finasteride 5 mg tablet 5 mg PO DAILY 90 Days Qty: 90 1RF budesonide-formoterol [Symbicort] 160-4.5 mcg/actuation HFA aerosol inhaler 2 puff PO BID Qty: 10.2 3RF cholecalciferol (vitamin D3) [Vitamin D3] 25 mcg (1,000 unit) Capsule 25 mcg PO DAILY allopurinol 100 mg tablet 100 mg PO BEDTIME metformin 500 mg tablet extended release 24 hr 500 mg PO BEDTIME rosuvastatin [Crestor] 40 mg tablet 40 mg PO DAILY Qty: 90 3RF clopidogrel [Plavix] 75 mg tablet 75 mg PO DAILY amiodarone 200 mg tablet 200 mg PO DAILY Discontinued warfarin 5 mg tablet See Rx Instructions PO DAILY 90 Days Qty: 150 1RF Protocol: Dose Management Condition: Wednesday Dose/Route: 5 mg Instruction: 1 x 5 mg tablet Condition: Wednesday Dose/Route: 0 mg Instruction: 0 tablets Condition: Wednesday Dose/Route: 0 mg Instruction: 0 tablets Condition: Wednesday Dose/Route: 5 mg Instruction: 1 x 5 mg tablet Condition: Dose/Route: 5 mg Instruction: 1 x 5 mg tablet Condition: Wednesday Dose/Route: 5 mg Instruction: 1 x 5 mg tablet Condition: Wednesday Dose/Route: 5 mg Instruction: 1 x 5 mg tablet Protocol Text: Adjustment Start Date: Wednesday01/05/22 INR Value: 11.6 INR Date: 01/05/22 Recheck Date: 01/06/22 Additional Instructions: AVOID ALL REDS / EAT GREENS TODAY / GO TO THE ER FOR ANY UNUSUAL BRUISING, BLEEDING , FALL APPLY ICE AND COMPRESS IMMEDIATELY AFTER ANY INJURY OR FALL OR GO TO THE ER Rx Instructions: 1-2 tablets daily PO daily; Dose as directed by anticoagulation clinic warfarin [Jantoven] 5 mg tablet 5 mg PO DAILY@1800 Discharge Orders: Discharge Order (Routine); Ordered 01/08/22 Ordered By: Queenie Hernandez Stand Alone Forms: Patient Portal Discharge page Care Plan Goals: Patient was admitted to the hospital because of COPD exacerbation-started on nebs, steroids, oxygen support seems to be improved: Going home with p.o. steroids, also albuterol added. AFib with RVR: Heart rate seems to be improving with adding Cardizem in addition to amiodarone. Further management outpatient as per Cardiology. Supratherapeutic INR: Seems to be improved after getting with a mean K small dose, afterwards INR becomes subtherapeutic so warfarin started-adjusted warfarin dose to 4 mg daily-monitor INR closely outpatient. Further management as per PCP outpatient. Health Concerns: Complete the course of steroids for COPD-if breathing get worse or new symptoms including fever-get evaluated in nearest emergency room. Monitor INR closely out patiently Follow-up with Cardiology for AFib. Plan of Treatment: As above. Assessment: As above.
[2022-01-08] MEDS: methylPREDNISolone Sod Succ 40 MG/ML VIAL IVPUSH (11:16)
--- NOTE | 2022-01-08 11:49 | MHC.CM.PN ---
PT WILL DC HOME TODAY WITH [facility].
== END 2022-01-08 12:17 | disposition home health service (06) | DRG 191 ==
LOC: HO.ED 21:03 → HO.EDOVER 22:15
PROVIDERS: Nurse Practitioner Family; Admitting Provider Internal Medicine; Emergency Provider Emergency Medicine; PCP Internal Medicine; Visit Provider Internal Medicine
DX: J44.1 Chronic obstructive pulmonary disease with (acute) exacerbation (principal); C85.90 Non-Hodgkin lymphoma, unspecified, unspecified site; I50.32 Chronic diastolic (congestive) heart failure; I47.1 Supraventricular tachycardia; I11.0 Hypertensive heart disease with heart failure; I48.0 Paroxysmal atrial fibrillation; E11.9 Type 2 diabetes mellitus without complications; I25.10 Atherosclerotic heart disease of native coronary artery without angina pectoris; Z20.822 Contact with and (suspected) exposure to COVID-19; R79.1 Abnormal coagulation profile; Z95.1 Presence of aortocoronary bypass graft; E78.5 Hyperlipidemia, unspecified; N40.0 Benign prostatic hyperplasia without lower urinary tract symptoms; F17.210 Nicotine dependence, cigarettes, uncomplicated; Z95.5 Presence of coronary angioplasty implant and graft; Z86.718 Personal history of other venous thrombosis and embolism; Z92.21 Personal history of antineoplastic chemotherapy; Z71.6 Tobacco abuse counseling; Z79.01 Long term (current) use of anticoagulants; Z79.02 Long term (current) use of antithrombotics/antiplatelets; Z79.52 Long term (current) use of systemic steroids; Z79.84 Long term (current) use of oral hypoglycemic drugs; Z79.899 Other long term (current) drug therapy
CPT/HCPCS: 36415; 71045; 80048; 80076; 81001; 82947; 83605; 83690; 83735; 83880; 84443; 84484; 85014; 85018; 85025; 85610; 85730; 87040; 87502; 87635; 93005; 94640; 99219; 99285; J0696; J2920; J3430

== ENCOUNTER → 2022-01-13 14:34 | Outpatient (BNVA) | payer MEDICARE, OTHER, SELFPAY | PROVIDERS: PCP Internal Medicine; Visit Provider Internal Medicine | DX: I48.0 Paroxysmal atrial fibrillation (principal); Z79.01 Long term (current) use of anticoagulants; Z51.81 Encounter for therapeutic drug level monitoring | CPT/HCPCS: Q3014 ==

== ENCOUNTER → 2022-01-15 12:31 | Outpatient (BNVA) | payer MEDICARE, OTHER, SELFPAY | PROVIDERS: PCP Internal Medicine; Referring Provider Internal Medicine; Visit Provider Internal Medicine | DX: I25.10 Atherosclerotic heart disease of native coronary artery without angina pectoris (principal); I50.32 Chronic diastolic (congestive) heart failure; I48.0 Paroxysmal atrial fibrillation; I95.9 Hypotension, unspecified; Z79.02 Long term (current) use of antithrombotics/antiplatelets; Z79.899 Other long term (current) drug therapy | CPT/HCPCS: 93005; 99212 ==

== ENCOUNTER → 2022-01-16 15:26 | Outpatient (BNVA) | payer MEDICARE, OTHER, SELFPAY | PROVIDERS: PCP Internal Medicine; Visit Provider Internal Medicine | DX: I48.0 Paroxysmal atrial fibrillation (principal); Z51.81 Encounter for therapeutic drug level monitoring; Z79.01 Long term (current) use of anticoagulants | CPT/HCPCS: Q3014 ==

== ENCOUNTER → 2022-01-20 12:08 | Outpatient (BNVA) | payer MEDICARE, OTHER, SELFPAY | PROVIDERS: PCP Internal Medicine; Visit Provider Internal Medicine | DX: I48.0 Paroxysmal atrial fibrillation (principal); Z51.81 Encounter for therapeutic drug level monitoring; Z79.01 Long term (current) use of anticoagulants | CPT/HCPCS: Q3014 ==

== ENCOUNTER → 2022-02-04 09:24 | Outpatient (BNVA) | payer MEDICARE, OTHER, SELFPAY | PROVIDERS: PCP Internal Medicine; Visit Provider Internal Medicine | DX: J44.1 Chronic obstructive pulmonary disease with (acute) exacerbation (principal); F17.210 Nicotine dependence, cigarettes, uncomplicated | CPT/HCPCS: 99202 ==

== ENCOUNTER → 2022-02-12 14:34 | Outpatient (BNVA) | payer MEDICARE, OTHER, SELFPAY | PROVIDERS: PCP Internal Medicine; Visit Provider Internal Medicine | DX: I48.0 Paroxysmal atrial fibrillation (principal); Z79.01 Long term (current) use of anticoagulants; Z51.81 Encounter for therapeutic drug level monitoring | CPT/HCPCS: Q3014 ==

== ENCOUNTER → 2022-02-19 11:58 | Outpatient (BNVA) | payer MEDICARE, OTHER, SELFPAY | PROVIDERS: PCP Internal Medicine; Visit Provider Internal Medicine | DX: I48.0 Paroxysmal atrial fibrillation (principal); Z79.01 Long term (current) use of anticoagulants; Z51.81 Encounter for therapeutic drug level monitoring | CPT/HCPCS: Q3014 ==

== ENCOUNTER 2022-03-05 17:30 | Inpatient (IN) | payer MEDICARE, OTHER, SELFPAY ==
--- NOTE | ~2022-03-05 | XR_ITS ---
EXAMINATION: XR CHEST CLINICAL INFORMATION: Shortness of breath. COMPARISON: Chest radiographs dated 01/05/2022; CT chest dated 01/14/2021. TECHNIQUE: Frontal view of the chest was obtained. FINDINGS: The heart, great vessels, pulmonary vasculature and mediastinum are stable. There has been a prior CABG procedure. There is persistent linear scar/subsegmental atelectasis at the right base. There is mild groundglass opacity overlapping the mid left lung. There are very small bilateral pleural effusions. No pneumothorax is seen. There is no acute osseous abnormality. XR/XR chest 1V IMPRESSION: 1. Mild re is mild groundglass change is seen within the mid left lung, possibly infectious or inflammatory in etiology. Recommend short-term follow-up chest radiographs to ensure clearance. 2. There is stable linear scar/subsegmental atelectasis within the mid and lower right lung. 3. There has been a prior CABG procedure. No overt pulmonary edema is noted. 4. There are small bilateral pleural effusions.
[2022-03-05 17:33] VITALS: BP 153/52; PULSE 83; RESP 24; TEMP 36.5; O2SAT 88; BMI 24.0
--- NOTE | 2022-03-05 19:42 | ECG_ITS ---
Test Reason : SOB Blood Pressure : / mmHG Vent. Rate : 069 BPM Atrial Rate : 069 BPM P-R Int : 166 ms QRS Dur : 082 ms QT Int : 434 ms P-R-T Axes : 093 009 041 degrees QTc Int : 465 ms Sinus rhythm with Premature atrial complexes Septal infarct (cited on or before 27-APR-2004) Abnormal ECG When compared with ECG of 06-JAN-2022 13:41, Vent. rate has decreased BY 53 BPM Questionable change in initial forces of Septal leads ST less depressed in Anterior leads Nonspecific T wave abnormality no longer evident in Inferior leads T wave inversion no longer evident in Anterior leads Referred By: Adeola Ely Electronically Signed By:LISA HILL
--- NOTE | 2022-03-05 19:45 | ED.SOB ---
HPI - SOB/Dyspnea General Chief Complaint: Dyspnea Stated Complaint: SOB hx copd Time Seen by Provider: 03/05/22 19:42 Source: patient and family (spouse) Mode of arrival: ambulatory Limitations: no limitations History of Present Illness HPI Narrative: 76 yo male active smoker with history of COPD, recently was evaluated by Dr. Booth for pulmonary evaluation and pt. is scheduled to have more pulmonary testing this week, came in today complaining for SOB and wheezing, no fever or chills, no recent sick contact exposure, no recent travel or recent prolonged immobilization, don't use supplemental O2 at home. Pt. found to have low O2 in the ED. complaining of chest tightness, patient with the above symptoms for about 10 days. had prior COPD related hospitalization at [facility]. Related Data Home Medications Medication Instructions Recorded Confirmed cholecalciferol (vitamin D3) 25 25 mcg PO DAILY 07/02/20 03/05/22 mcg (1,000 unit) capsule (Vitamin D3) clopidogrel 75 mg tablet (Plavix) 75 mg PO DAILY 12/23/21 03/05/22 amiodarone 200 mg tablet 200 mg PO DAILY 12/25/21 03/05/22 allopurinol 100 mg tablet 100 mg PO BEDTIME 01/05/22 03/05/22 metformin 500 mg tablet,extended 500 mg PO BEDTIME 01/05/22 03/05/22 release 24 hr metoprolol tartrate 50 mg tablet 50 mg PO BID 02/12/22 03/05/22 diltiazem HCl 120 mg 120 mg PO DAILY 03/05/22 03/05/22 capsule,extended release 24 hr Previous Rx's Medication Instructions Recorded furosemide 40 mg tablet 40 mg PO DAILY #90 caps 10/06/21 finasteride 5 mg tablet 5 mg PO DAILY 90 days #90 tabs 10/28/21 budesonide-formoterol HFA 160 2 puff PO BID #10.2 grams 10/29/21 mcg-4.5 mcg/actuation aerosol inhaler (Symbicort) rosuvastatin 40 mg tablet (Crestor) 40 mg PO DAILY #90 tabs 11/12/21 warfarin 4 mg tablet 4 mg PO DAILY #30 tabs 02/15/22 albuterol sulfate 90 mcg/actuation 2 puff inhalation Q4-6H PRN 02/20/22 aerosol inhaler dyspnea #1 ea Allergies Allergy/AdvReac Type Severity Reaction Status Date / Time No Known Allergies Allergy Verified 03/03/22 10:19 [No Known Allergies*] Review of Systems Review of Systems: all other systems are reviewed and are negative Constitutional: Reports as per HPI and Reports no additional constitutional complaints Eyes: Reports as per HPI and Reports no additional eye complaints Reports system reviewed and no additional complaints, except as documented Cardiovascular: Reports as per HPI and Reports no additional cardiovascular complaints Respiratory: Reports as per HPI and Reports no additional respiratory complaints Gastrointestinal: Reports as per HPI and Reports no additional gastrointestinal complaints Genitourinary: Reports no additional female genitourinary complaints Musculoskeletal: Reports no additional musculoskeletal complaints Skin/Breast: Reports system reviewed and no additional complaints, except as docu Psychiatric: Reports no additional psychiatric complaints Endocrine: Reports no additional endocrine complaints Hematologic/Lymphatic: Reports no additional hematologic/lymphatic complaints Allergic/Immunologic: Reports no additional allergic/immunologic complaints Reports system reviewed and no additional complaints, except as documented and Reports Abnormal speech present PMFSH Past Medical History Medical History Abdominal aortic aneurysm without rupture Benign essential hypertension BPH loc w urin obs/LUTS Chronic atrial fibrillation COPD (chronic obstructive pulmonary disease) Coronary artery disease Current use of anticoagulant therapy Diabetes mellitus Elevated PSA Follicular lymphoma Heart failure with preserved ejection fraction High cholesterol History of blood clots History of deep vein thrombosis (DVT) of lower extremity Insomnia Overweight (BMI 25.0-29.9) PAF (paroxysmal atrial fibrillation) Peripheral arterial disease Pneumonia Pure hypercholesterolemia Smoker Smoker Vitamin D deficiency Surgical History History of quadruple bypass Family History Family History Father Cancer Mother Cardiovascular disease Social History Social History Household Members: Spouse Housing: Apartment Are you a primary progressive care manager to a significant other at home: No Do you presently have visiting nurse or other home services: No Alcohol intake: former Patient Tobacco Use Status: Current everyday Tobacco user Tobacco use type: Cigarette Cigarette Packs Per Day: 1.5 Years Smoked: 67 Advance Directives: Yes Advance Directives on File: Yes Advance Directives Date on File: 01/06/22 service: No Current occupational status: retired Cognitive needs: No Hearing needs: No Vision needs: No Physical Exam Vital Signs: Vital Signs: Last Vital Signs Temp 97.7 F 03/05/22 17:33 Pulse 86 03/05/22 20:33 Resp 36 H 03/05/22 20:33 BP 172/72 H 03/05/22 20:33 Pulse Ox 93 03/05/22 20:33 O2 Del Method 03/05/22 20:33 O2 Flow Rate 2.5 03/05/22 20:33 BMI result Body Mass Index 24.0 vital signs have been reviewed as appeared to be correct. Blood pressure normal. Heart rate normal. Respiration rate normal. Temperature normal. Oxygen saturation low. Appearance: Alert. Oriented X3. No acute distress. Head: Normal external exam. Normocephalic. Atraumatic. No Mendez signs noted. No raccoon eyes noted Eyes: PERRLA. EOMI. Conjunctiva and sclera normal. Eyelids normal. ENT: TM's Normal. Pharynx normal. Uvula midline. Moist mucous membranes. No trismus noted. No drooling noted. No muffled voice noted. Neck: Normal inspection. Neck supple. FROM. No adenopathy. Thyroid Normal. No meningeal signs. No neck mass noted. CVS: Normal heart rate and rhythm. Heart sound normal. No murmurs noted. Pulses normal throughout. Respiratory: No respiratory distress. Painless inspiration. prolonged expiration, diffuse mild expiratory wheezing. Chest nontender. No accessory muscle usage noted or decreased air movement noted. Abdomen: Soft and nontender. Bowel sounds normal in all 4 quadrants. No distention noted. No organomegaly noted. No visible injury noted. Back: No CVA tenderness. Full range of motion noted. Skin: Skin warm and dry. Normal skin color. Normal skin turgor. No rashes/lesions/lacerations noted. Extremities: No lower extremity edema. Extremities exhibit normal range of motion. Extremities nontender. Neuro: Oriented X 3. Cranial nerve exam: II-XII are grossly intact No motor deficit. No sensory deficit. Reflexes normal. Course Course Course Narrative: 76-year-old male actively smoker with history of COPD came in with SOB and hypoxia, patient was given Levaquin/ Solu-Medrol/ magnesium/ bronchodilator feels slightly better. Patient do not meet criteria for sepsis Will admit the patient for further bronchodilator therapy. slight elevation of BNP but physical exam and chest x-ray is not showing acute congestive heart failure. MDM - SOB/Dyspnea Medical Records Attestation: I reviewed the patient's medical records. Lab Data Attestation: I reviewed the patient's lab results. Result diagrams: 03/05/22 19:55 03/05/22 19:55 Labs: Lab Results 03/05/22 03/05/22 03/05/22 Range/Units 19:55 19:55 19:55 WBC 12.0 H (4.8-10.8) X10*3/uL RBC 4.41 L (4.60-5.80) X10*6/uL Hgb 13.8 L (14.0-18.0) g/dl Hct 42.4 (42.0-52.0) % MCV 96.1 (80.0-98.0) fL MCH 31.3 (27.0-33.0) pg MCHC 32.5 (31.0-36.0) g/dl RDW 16.9 H (11.0-16.0) % Plt Count 261 (160-400) X10*3/uL MPV 9.8 (9.4-12.4) fL Immature Gran % (Auto) 0.4 (0.0-0.4) % Neut % (Auto) 84.6 H (45-73) % Lymph % (Auto) 6.5 L (20-40) % [place] % (Auto) 6.6 (2-11) % Eos % (Auto) 1.2 (0-4) % Baso % (Auto) 0.7 (0-2) % Lymph # (Auto) 0.8 L (1.2-4.9) X10*3/uL [place] # (Auto) 0.8 (0.1-1.2) X10*3/uL Eos # (Auto) 0.1 (0.0-0.4) X10*3/uL Baso # (Auto) 0.1 (0.0-0.2) X10*3/uL Abs Immat Gran (auto) 0.05 H (0.00-0.03) X10*3/uL Absolute Neuts (auto) 10.1 H (2.0-8.3) x10*3/uL Absolute Nucleated RBC 0.000 (0.0-0.012) X10*3/uL Nucleated RBC % (auto) 0.0 (0.0-0.2) /100WBC Sodium 144 (135-145) mmol/L Potassium 4.6 D (3.3-5.1) mmol/L Chloride 102 (96-108) mmol/L Carbon Dioxide 30 H (22-29) mmol/L Anion Gap 17 (12-20) BUN 29 H D (9-16) mg/dL Creatinine 1.31 (0.5-1.4) mg/dL Estim Creat Clear Calc 42.6 Estimated GFR 53 Random Glucose 139 H (60-115) mg/dL Lactic Acid (0.5-2.0) mmol/L Calcium 9.4 D (8.4-10.2) mg/dL Total Bilirubin 1.0 (0.0-1.0) mg/dL Direct Bilirubin 0.4 (0.0-0.5) mg/dL AST 21 (5-37) U/L ALT 38 (0-40) U/L Alkaline Phosphatase 106 D (39-117) U/L Troponin I High Sens 34.4 (<3.5-35.0) ng/L B-Natriuretic Peptide (<100) pg/mL Total Protein 6.7 (6.5-8.0) g/dL Albumin 4.3 (3.5-5.0) g/dL Lipase 24 (8-78) U/L Urine Color Urine Appearance Urine pH (5.0-8.0) Ur Specific [place] (1.005-1.025) Urine Protein (Neg-Trace) mg/dL Urine Glucose (UA) (Negative) mg/dL Urine Ketones (Negative) mg/dL Urine Blood (Negative) Urine Nitrite (Negative) Ur Leukocyte Esterase (Negative) Urine RBC (0-2) /HPF Urine WBC (0-5) /HPF Ur Squamous Epith Cells (0-2) /HPF Urine Bacteria (None Seen) Hyaline Casts (0-2) /LPF COVID-19 ([facility]) (Negative) COVID-19 Clin Com 03/05/22 03/05/22 03/05/22 Range/Units 19:55 19:55 19:55 WBC (4.8-10.8) X10*3/uL RBC (4.60-5.80) X10*6/uL Hgb (14.0-18.0) g/dl Hct (42.0-52.0) % MCV (80.0-98.0) fL MCH (27.0-33.0) pg MCHC (31.0-36.0) g/dl RDW (11.0-16.0) % Plt Count (160-400) X10*3/uL MPV (9.4-12.4) fL Immature Gran % (Auto) (0.0-0.4) % Neut % (Auto) (45-73) % Lymph % (Auto) (20-40) % [place] % (Auto) (2-11) % Eos % (Auto) (0-4) % Baso % (Auto) (0-2) % Lymph # (Auto) (1.2-4.9) X10*3/uL [place] # (Auto) (0.1-1.2) X10*3/uL Eos # (Auto) (0.0-0.4) X10*3/uL Baso # (Auto) (0.0-0.2) X10*3/uL Abs Immat Gran (auto) (0.00-0.03) X10*3/uL Absolute Neuts (auto) (2.0-8.3) x10*3/uL Absolute Nucleated RBC (0.0-0.012) X10*3/uL Nucleated RBC % (auto) (0.0-0.2) /100WBC Sodium (135-145) mmol/L Potassium (3.3-5.1) mmol/L Chloride (96-108) mmol/L Carbon Dioxide (22-29) mmol/L Anion Gap (12-20) BUN (9-16) mg/dL Creatinine (0.5-1.4) mg/dL Estim Creat Clear Calc Estimated GFR Random Glucose (60-115) mg/dL Lactic Acid 1.3 (0.5-2.0) mmol/L Calcium (8.4-10.2) mg/dL Total Bilirubin (0.0-1.0) mg/dL Direct Bilirubin (0.0-0.5) mg/dL AST (5-37) U/L ALT (0-40) U/L Alkaline Phosphatase (39-117) U/L Troponin I High Sens (<3.5-35.0) ng/L B-Natriuretic Peptide 865 H (<100) pg/mL Total Protein (6.5-8.0) g/dL Albumin (3.5-5.0) g/dL Lipase (8-78) U/L Urine Color Urine Appearance Urine pH (5.0-8.0) Ur Specific [place] (1.005-1.025) Urine Protein (Neg-Trace) mg/dL Urine Glucose (UA) (Negative) mg/dL Urine Ketones (Negative) mg/dL Urine Blood (Negative) Urine Nitrite (Negative) Ur Leukocyte Esterase (Negative) Urine RBC (0-2) /HPF Urine WBC (0-5) /HPF Ur Squamous Epith Cells (0-2) /HPF Urine Bacteria (None Seen) Hyaline Casts (0-2) /LPF COVID-19 ([facility]) Negative (Negative) COVID-19 Clin Com See Note 03/05/22 Range/Units 21:50 WBC (4.8-10.8) X10*3/uL RBC (4.60-5.80) X10*6/uL Hgb (14.0-18.0) g/dl Hct (42.0-52.0) % MCV (80.0-98.0) fL MCH (27.0-33.0) pg MCHC (31.0-36.0) g/dl RDW (11.0-16.0) % Plt Count (160-400) X10*3/uL MPV (9.4-12.4) fL Immature Gran % (Auto) (0.0-0.4) % Neut % (Auto) (45-73) % Lymph % (Auto) (20-40) % [place] % (Auto) (2-11) % Eos % (Auto) (0-4) % Baso % (Auto) (0-2) % Lymph # (Auto) (1.2-4.9) X10*3/uL [place] # (Auto) (0.1-1.2) X10*3/uL Eos # (Auto) (0.0-0.4) X10*3/uL Baso # (Auto) (0.0-0.2) X10*3/uL Abs Immat Gran (auto) (0.00-0.03) X10*3/uL Absolute Neuts (auto) (2.0-8.3) x10*3/uL Absolute Nucleated RBC (0.0-0.012) X10*3/uL Nucleated RBC % (auto) (0.0-0.2) /100WBC Sodium (135-145) mmol/L Potassium (3.3-5.1) mmol/L Chloride (96-108) mmol/L Carbon Dioxide (22-29) mmol/L Anion Gap (12-20) BUN (9-16) mg/dL Creatinine (0.5-1.4) mg/dL Estim Creat Clear Calc Estimated GFR Random Glucose (60-115) mg/dL Lactic Acid (0.5-2.0) mmol/L Calcium (8.4-10.2) mg/dL Total Bilirubin (0.0-1.0) mg/dL Direct Bilirubin (0.0-0.5) mg/dL AST (5-37) U/L ALT (0-40) U/L Alkaline Phosphatase (39-117) U/L Troponin I High Sens (<3.5-35.0) ng/L B-Natriuretic Peptide (<100) pg/mL Total Protein (6.5-8.0) g/dL Albumin (3.5-5.0) g/dL Lipase (8-78) U/L Urine Color Yellow Urine Appearance Clear Urine pH 5.5 (5.0-8.0) Ur Specific [place] 1.020 (1.005-1.025) Urine Protein 100 (2+) H (Neg-Trace) mg/dL Urine Glucose (UA) Negative (Negative) mg/dL Urine Ketones Trace (Negative) mg/dL Urine Blood Trace H (Negative) Urine Nitrite Negative (Negative) Ur Leukocyte Esterase Trace H (Negative) Urine RBC 0-2 (0-2) /HPF Urine WBC 0-5 (0-5) /HPF Ur Squamous Epith Cells 0-2 (0-2) /HPF Urine Bacteria None Seen (None Seen) Hyaline Casts 3-5 (0-2) /LPF COVID-19 ([facility]) (Negative) COVID-19 Clin Com Imaging Data Chest x-ray: Attestation: I personally reviewed and interpreted this imaging study as follows: Radiologist's impression: 1. Mild re is mild groundglass change is seen within the mid left lung, possibly infectious or inflammatory in etiology. Recommend short-term follow-up chest radiographs to ensure clearance. ? 2. There is stable linear scar/subsegmental atelectasis within the mid and lower right lung. ? 3. There has been a prior CABG procedure. No overt pulmonary edema is noted. ? 4. There are small bilateral pleural effusions. Discharge Plan Discharge Clinical Impression: Acute exacerbation of chronic obstructive pulmonary disease Patient Disposition: Admitted As Inpatient Prescriptions: No Action furosemide 40 mg tablet 40 mg PO DAILY Qty: 90 3RF finasteride 5 mg tablet 5 mg PO DAILY 90 Days Qty: 90 1RF budesonide-formoterol [Symbicort] 160-4.5 mcg/actuation HFA aerosol inhaler 2 puff PO BID Qty: 10.2 3RF warfarin 4 mg tablet 4 mg PO DAILY Qty: 30 0RF Protocol: Dose Management Condition: Wednesday (Week One) Dose/Route: 4 mg Instruction: 1 x 4 mg tablet Condition: Wednesday Dose/Route: 4 mg Instruction: 1 x 4 mg tablet Condition: Wednesday Dose/Route: 4 mg Instruction: 1 x 4 mg tablet Condition: Wednesday Dose/Route: 4 mg Instruction: 1 x 4 mg tablet Condition: Dose/Route: 4 mg Instruction: 1 x 4 mg tablet Condition: Wednesday Dose/Route: 4 mg Instruction: 1 x 4 mg tablet Condition: Wednesday Dose/Route: 4 mg Instruction: 1 x 4 mg tablet Condition: Wednesday (Week Two) Dose/Route: 4 mg Instruction: 1 x 4 mg tablet Condition: Wednesday Dose/Route: 4 mg Instruction: 1 x 4 mg tablet Condition: Wednesday Dose/Route: 4 mg Instruction: 1 x 4 mg tablet Condition: Wednesday Dose/Route: 4 mg Instruction: 1 x 4 mg tablet Condition: Dose/Route: 4 mg Instruction: 1 x 4 mg tablet Condition: Wednesday Dose/Route: 4 mg Instruction: 1 x 4 mg tablet Condition: Wednesday Dose/Route: 4 mg Instruction: 1 x 4 mg tablet Protocol Text: Adjustment Start Date: Wednesday03/03/22 INR Value: 3.0 INR Date: 03/03/22 Recheck Date: 03/10/22 Additional Instructions: cont reg dosing eat a green today albuterol sulfate 90 mcg/actuation HFA aerosol inhaler 2 puff inhalation Q4-6H PRN (Reason: dyspnea) Qty: 1 0RF cholecalciferol (vitamin D3) [Vitamin D3] 25 mcg (1,000 unit) Capsule 25 mcg PO DAILY allopurinol 100 mg tablet 100 mg PO BEDTIME metformin 500 mg tablet extended release 24 hr 500 mg PO BEDTIME diltiazem HCl 120 mg Capsule,Extended Release 24hr 120 mg PO DAILY rosuvastatin [Crestor] 40 mg tablet 40 mg PO DAILY Qty: 90 3RF clopidogrel [Plavix] 75 mg tablet 75 mg PO DAILY amiodarone 200 mg tablet 200 mg PO DAILY metoprolol tartrate 50 mg tablet 50 mg PO BID
[2022-03-05 20:04] LABS: MANUAL DIFF FLAG NO
[2022-03-05 20:08] LABS: Basophils Absolute Auto 0.1 X10*3/uL (0.0-0.2); Basophils Percent Auto 0.7 % (0-2); Eosinophils Absolute Auto 0.1 X10*3/uL (0.0-0.4); Eosinophils Percent Auto 1.2 % (0-4); Hematocrit 42.4 % (42.0-52.0); Hemoglobin 13.8 g/dl (14.0-18.0); Imm Gran Abs Auto 0.05 X10*3/uL (0.00-0.03); Imm Gran Pct Auto 0.4 % (0.0-0.4); Lymphocytes Absolute Auto 0.8 X10*3/uL (1.2-4.9); Lymphocytes Percent Auto 6.5 % (20-40); Mean Corpuscular HGB Conc 32.5 g/dl (31.0-36.0); Mean Corpuscular Hemoglobin 31.3 pg (27.0-33.0); Mean Corpuscular Volume 96.1 fL (80.0-98.0); Mean Platelet Volume 9.8 fL (9.4-12.4); Monocytes Absolute Auto 0.8 X10*3/uL (0.1-1.2); Monocytes Percent Auto 6.6 % (2-11); Neutrophils Absolute Auto 10.1 x10*3/uL (2.0-8.3); Neutrophils Percent Auto 84.6 % (45-73); Platelet Count 261 X10*3/uL (160-400); Red Blood Count 4.41 X10*6/uL (4.60-5.80); Red Cell Distribution Width 16.9 % (11.0-16.0)
--- NOTE | 2022-03-05 20:14 | PHA.MEDREC ---
Pharmacy Consult ? Medication Reconciliation Pharmacy has completed the medication reconciliation. Patients daughter had a list. Of note: patient is one of our Coumadin patients.
[2022-03-05] MEDS: Magnesium Sulfate/H2O 2 GM/50 ML PIGGYBACK IV (20:19)
[2022-03-05] MEDS: methylPREDNISolone Sod Succ 125 MG/2 ML VIAL IVPUSH (20:20)
[2022-03-05 20:23] LABS: Lactic Acid 1.3 mmol/L (0.5-2.0)
[2022-03-05 20:24] VITALS: PULSE 72; RESP 21; O2SAT 92
[2022-03-05] MEDS: Albuterol Sulfate (0.083%) 2.5 MG/3 ML VIAL.NEB 7.5 MG INHALE (20:24)
[2022-03-05] MEDS: Albuterol/Iprat 2.5/0.5MG 3 ML AMPUL.NEB INHALE (20:24)
[2022-03-05 20:27] LABS: Alanine Aminotransferase 38 U/L (0-40); Albumin Level 4.3 g/dL (3.5-5.0); Alkaline Phosphatase 106 U/L (39-117); Anion Gap 17 (12-20); Aspartate Amino Transferase 21 U/L (5-37); Bilirubin Direct 0.4 mg/dL (0.0-0.5); Blood Urea Nitrogen 29 mg/dL (9-16); Calcium 9.4 mg/dL (8.4-10.2); Carbon Dioxide 30 mmol/L (22-29); Chloride 102 mmol/L (96-108); Creatinine Clr Calc Pharmacy 42.6; Estimated Glomerular Filt Rate 53; Glucose Random 139 mg/dL (60-115); Lipase 24 U/L (8-78); Potassium 4.6 mmol/L (3.3-5.1); Sodium 144 mmol/L (135-145); Total Protein 6.7 g/dL (6.5-8.0)
[2022-03-05 20:31] LABS: B Type Natriuretic Peptide 865 pg/mL (<100); Troponin-I High Sensitivity 34.4 ng/L (<3.5-35.0)
[2022-03-05 20:32] LABS: COVID-19 Test Negative (Negative); IDNOW Serial# 16C4AD1C
[2022-03-05 20:33] VITALS: BP 172/72; PULSE 86; RESP 36; O2SAT 93
[2022-03-05 22:01] LABS: Appearance Urine Clear; Color Urine Yellow; Glucose Urine UA Negative (Negative); Leukocyte Esterase Urine Trace (Negative); Nitrite Urine Negative (Negative); PH 5.5 (5.0-8.0); Urine Blood Trace (Negative); Urine Ketones Trace mg/dL (Negative); Urine Protein 100 (2+) mg/dL (Neg-Trace)
[2022-03-05 22:04] LABS: Bacteria Urine None Seen (None Seen); RBC Urine 0-2 /HPF (0-2); Squamous Epithelial Cell Urine 0-2 /HPF (0-2); WBC Urine 0-5 /HPF (0-5)
[2022-03-05 22:28] VITALS: BP 139/53; PULSE 71; RESP 22; O2SAT 97
[2022-03-05] MEDS: levoFLOXacin/D5W 750 MG/150 ML PIGGYBACK 100 MG IV (22:34)
--- NOTE | 2022-03-05 23:22 | P.HPHOSP_ITS ---
History of Present Illness Date of Service: 03/05/22 Chief Complaint: shortness of breath 76-year-old male with past medical history of AFib, COPD, AAA, CABG, diabetes, PAD,presents to the hospital with complaints of shortness of breath, cough and sputum production this been going on for a week. he also reports orthopnea and PND, No swelling in the legs.Patient denies any fever or chills, no chest pain, no palpitations, no abdominal pain nausea or vomiting, no diarrhea constipation. He denies any increased salt intake, And reports compliance with his furosemide. On arrival to the ED patient hemodynamically stable with tachypnea in the 20s, blood pressure stable, satting 88% on room air Labs are significant for WBC count of 12, hemoglobin of 13.8, hematocrit 42.4, BUN of 29, creatinine of 1.31 with a baseline of 0.86, BNP of 865 180 previously this year, UA that is positive for blood, trace leukocyte Estrace. Patient denies any urinary symptoms. Chest x-ray shows mild ground-glass change in the mid left lung possibly infectious or inflammatory linear scar, subsegmental atelectasis, and evidence of CABG on CT patient will be admitted for further management [facility], [facility] Medical History Abdominal aortic aneurysm without rupture Benign essential hypertension BPH loc w urin obs/LUTS Chronic atrial fibrillation COPD (chronic obstructive pulmonary disease) Coronary artery disease Current use of anticoagulant therapy Diabetes mellitus Elevated PSA Follicular lymphoma Heart failure with preserved ejection fraction High cholesterol History of blood clots History of deep vein thrombosis (DVT) of lower extremity Insomnia Overweight (BMI 25.0-29.9) PAF (paroxysmal atrial fibrillation) Peripheral arterial disease Pneumonia Pure hypercholesterolemia Smoker Smoker Vitamin D deficiency Family History Father Cancer Mother Cardiovascular disease Surgical History History of quadruple bypass Social History Household Members: Spouse Housing: Apartment Are you a primary care information associate to a significant other at home: No Do you presently have visiting nurse or other home services: No Alcohol intake: former Patient Tobacco Use Status: Current everyday Tobacco user Tobacco use type: Cigarette Cigarette Packs Per Day: 1.5 Years Smoked: 67 Use of substances other than those prescribed or required for medical reasons: No Advance Directives: Yes Advance Directives on File: Yes Advance Directives Date on File: 01/06/22 service: No Current occupational status: retired Cognitive needs: No Hearing needs: No Vision needs: No Meds Allergies Allergy/AdvReac Type Severity Reaction Status Date / Time No Known Allergies Allergy Verified 03/03/22 10:19 [No Known Allergies*] Active Medications: Current Medications Levofloxacin (Levaquin) 750 mg in 150 mls @ 100 mls/hr IV ONCE ONE Stop: 03/05/22 23:38 Last Admin: 03/05/22 22:34 Dose: 100 mls/hr Pharmacy Consult (Consult Rx Perform Med Rec) 1 each MISCELLANE ONCE PRN PRN Reason: Consult order Home Medications Medication Instructions Recorded Confirmed Last Taken Type cholecalciferol (vitamin D3) 25 25 mcg PO DAILY 07/02/20 03/05/22 03/05/22 History mcg (1,000 unit) capsule (Vitamin D3) clopidogrel 75 mg tablet (Plavix) 75 mg PO DAILY 12/23/21 03/05/22 03/05/22 History amiodarone 200 mg tablet 200 mg PO DAILY 12/25/21 03/05/22 03/05/22 History allopurinol 100 mg tablet 100 mg PO BEDTIME 01/05/22 03/05/22 03/04/22 History metformin 500 mg tablet,extended 500 mg PO BEDTIME 01/05/22 03/05/22 03/04/22 History release 24 hr metoprolol tartrate 50 mg tablet 50 mg PO BID 02/12/22 03/05/22 03/05/22 History diltiazem HCl 120 mg 120 mg PO DAILY 03/05/22 03/05/22 Unknown History capsule,extended release 24 hr Physical Exam Vital Signs and Narrative: Vital Signs: Last Vital Signs Temp 97.7 F 03/05/22 17:33 Pulse 71 03/05/22 22:28 Resp 22 H 03/05/22 22:28 BP 139/53 L 03/05/22 22:28 Pulse Ox 97 03/05/22 22:28 O2 Del Method 03/05/22 22:28 O2 Flow Rate 2 03/05/22 22:28 BMI result Body Mass Index 24.0 Const: General: cooperative, no acute distress and poor hygiene Orientation/consciousness: patient oriented x3 Eyes: General: appearance normal, both eyes and all related structures Resp: Effort & Inspection: normal respiratory effort Cardio: Rate: regular rate Rhythm: regular rhythm GI: Palpation (GI): Soft to palpation Auscultation: normal bowel sounds Skin: General skin exam: no rashes or lesions noted Neuro: General: patient oriented x3 Cognition (Neuro): normal cognition Extrem: Other: was not able to appreciate any pedal edema General: Yes normal to inspection and Yes no pedal edema Results Labs CBC and Chem 7: 03/05/22 19:55 03/05/22 19:55 Labs: Laboratory Results - last 24 hr 03/05/22 03/05/22 03/05/22 19:55 19:55 19:55 MCV 96.1 MCH 31.3 MCHC 32.5 RDW 16.9 H Plt Count 261 MPV 9.8 Immature Gran % (Auto) 0.4 Neut % (Auto) 84.6 H Lymph % (Auto) 6.5 L [place] % (Auto) 6.6 Eos % (Auto) 1.2 Baso % (Auto) 0.7 Lymph # (Auto) 0.8 L [place] # (Auto) 0.8 Eos # (Auto) 0.1 Baso # (Auto) 0.1 Abs Immat Gran (auto) 0.05 H Absolute Neuts (auto) 10.1 H Absolute Nucleated RBC 0.000 Nucleated RBC % (auto) 0.0 Anion Gap 17 Estim Creat Clear Calc 42.6 Estimated GFR 53 Random Glucose 139 H Lactic Acid 1.3 Calcium 9.4 D Total Bilirubin 1.0 Direct Bilirubin 0.4 AST 21 ALT 38 Alkaline Phosphatase 106 D B-Natriuretic Peptide Total Protein 6.7 Albumin 4.3 Lipase 24 Urine Color Urine Appearance Urine pH Ur Specific [place] Urine Protein Urine Glucose (UA) Urine Ketones Urine Blood Urine Nitrite Ur Leukocyte Esterase Urine RBC Urine WBC Ur Squamous Epith Cells Urine Bacteria Hyaline Casts COVID-19 ([facility]Y) COVID-19 Clin Com 03/05/22 03/05/22 03/05/22 19:55 19:55 21:50 MCV MCH MCHC RDW Plt Count MPV Immature Gran % (Auto) Neut % (Auto) Lymph % (Auto) [place] % (Auto) Eos % (Auto) Baso % (Auto) Lymph # (Auto) [place] # (Auto) Eos # (Auto) Baso # (Auto) Abs Immat Gran (auto) Absolute Neuts (auto) Absolute Nucleated RBC Nucleated RBC % (auto) Anion Gap Estim Creat Clear Calc Estimated GFR Random Glucose Lactic Acid Calcium Total Bilirubin Direct Bilirubin AST ALT Alkaline Phosphatase B-Natriuretic Peptide 865 H Total Protein Albumin Lipase Urine Color Yellow Urine Appearance Clear Urine pH 5.5 Ur Specific [place] 1.020 Urine Protein 100 (2+) H Urine Glucose (UA) Negative Urine Ketones Trace Urine Blood Trace H Urine Nitrite Negative Ur Leukocyte Esterase Trace H Urine RBC 0-2 Urine WBC 0-5 Ur Squamous Epith Cells 0-2 Urine Bacteria None Seen Hyaline Casts 3-5 COVID-19 ([facility]ARRY) Negative COVID-19 Clin Com See Note Imaging Radiologist's Impressions: Impressions Chest X-Ray 03/05/22 20:10 IMPRESSION: 1. Mild re is mild groundglass change is seen within the mid left lung, possibly infectious or inflammatory in etiology. Recommend short-term follow-up chest radiographs to ensure clearance. 2. There is stable linear scar/subsegmental atelectasis within the mid and lower right lung. 3. There has been a prior CABG procedure. No overt pulmonary edema is noted. 4. There are small bilateral pleural effusions. Assessment and Plan (1) Acute respiratory failure with hypoxia: Status: Acute (2) COPD with acute exacerbation: Status: Acute (3) Acute exacerbation of CHF (congestive heart failure): Status: Acute (4) Community acquired pneumonia: Status: Acute Plan 76-year-old male past medical history of COPD, AFib, CHF who presents to the hospital with complaints of orthopnea, PND, dyspnea, cough and sputum production found to be acutely hypoxic # acute hypoxic respiratory failure - likely secondary to CHF, COPD, as well as pneumonia - treated with oxygen, monitor O2, as well as not too high oxygenation given his history of COPD - will treat underlying CHF as well as COPD # acute CHF exacerbation - in the setting of COPD as well as acute pneumonia - has elevated BNP, orthopnea, PND - will treat with IV Lasix, low-salt diet, strict I&O, and daily weight - echo from this year shows ejection fraction of 60-65%, cardiology consult, will leave rpt echo per Cardiology # community-acquired pneumonia - evidence of consolidation on chest x-ray, has leukocytosis, afebrile, has dyspnea, cough and sputum production - will treat with IV antibiotics - follow cultures - COVID negative # COPD exacerbation - secondary to above - IV Solu-Medrol, DuoNeb p.r.n. as well as scheduled # AFib - continue diltiazem, amiodarone, as well as warfarin - PT INR daily # diabetes - low-dose sliding scale insul in- hold metformin - diabetic diet DVT prophylaxis: Warfarin given patient's a comment for IV antibiotics, hypoxic respiratory failure, acute CHF exacerbation he will require minimum 2 night hospital stay for further management and monitoring Quality Stroke Does the patient have a stroke diagnosis?: No VTE Prior VTE?: No VTE Risk Level:: Medical - moderate - high VTE Device Contraindication: Treatment Not Indicated VTE Drug Contraindication: N/A - Med Ordered
[2022-03-06] VITALS (9 sets, daily range): BP systolic 118–139; BP diastolic 47–58; PULSE 61–98; RESP 12–18; TEMP 36.6–37.2; O2SAT 94–100
[2022-03-06] MEDS: Furosemide 40 MG/4 ML VIAL IVPUSH ×2 (00:07→08:11)
[2022-03-06] MEDS: 0.9 % Sodium Chloride Flush 3 ML SYRINGE IVFLUSH (00:07)
[2022-03-06 00:29] LABS: Troponin-I High Sensitivity 32.2 ng/L (<3.5-35.0)
[2022-03-06 06:58] LABS: Basophils Percent Auto 0.1 % (0-2); Hematocrit 38.6 % (42.0-52.0); Hemoglobin 12.5 g/dl (14.0-18.0); Imm Gran Abs Auto 0.03 X10*3/uL (0.00-0.03); Imm Gran Pct Auto 0.4 % (0.0-0.4); Lymphocytes Absolute Auto 0.2 X10*3/uL (1.2-4.9); Lymphocytes Percent Auto 2.2 % (20-40); MANUAL DIFF FLAG SCAN; Mean Corpuscular HGB Conc 32.4 g/dl (31.0-36.0); Mean Corpuscular Hemoglobin 30.5 pg (27.0-33.0); Mean Corpuscular Volume 94.1 fL (80.0-98.0); Mean Platelet Volume 9.8 fL (9.4-12.4); Monocytes Percent Auto 0.5 % (2-11); Neutrophils Absolute Auto 7.6 x10*3/uL (2.0-8.3); Neutrophils Percent Auto 96.8 % (45-73); Platelet Count 195 X10*3/uL (160-400); Red Cell Distribution Width 16.8 % (11.0-16.0); SCAN SMEAR FLAG 1; White Blood Count 7.8 X10*3/uL (4.8-10.8)
[2022-03-06 07:17] LABS: Glucose, Whole Blood 176 mg/dL (60-115)
[2022-03-06 07:25] LABS: Anion Gap 17 (12-20); Blood Urea Nitrogen 25 mg/dL (9-16); Calcium 8.6 mg/dL (8.4-10.2); Carbon Dioxide 28 mmol/L (22-29); Chloride 101 mmol/L (96-108); Creatinine Clr Calc Pharmacy 51.6; Estimated Glomerular Filt Rate > 60; Glucose Random 195 mg/dL (60-115); Sodium 142 mmol/L (135-145)
[2022-03-06 07:33] LABS: SLIDE REVIEW VERIFIED
--- NOTE | 2022-03-06 07:49 | PC.NURSE ---
Pt is sitting at the bed, eating breakfast. Reports no pain at this time. Will continue to monitor.
[2022-03-06 08:06] LABS: INTERNATIONAL NORM RATIO 3.3 (0.9-1.1); Prothrombin Time 39.5 SEC (10.0-13.1)
[2022-03-06] MEDS: cefTRIAXone sodium 1 GM in 0.9 % Sodium Chloride 50 ML IV (08:10)
[2022-03-06] MEDS: methylPREDNISolone Sod Succ 40 MG/ML VIAL IVPUSH ×2 (08:11→20:06)
[2022-03-06] MEDS: Insulin Lispro 100 UNIT/ML 3 ML VIAL SUBCUT ×4 (08:11→21:15)
[2022-03-06] MEDS: Clopidogrel Bisulfate 75 MG TABLET PO (08:12)
[2022-03-06] MEDS: dilTIAZem HCL CD 120 MG CAP.ER.DEG PO (08:12)
[2022-03-06] MEDS: Cholecalciferol (Vitamin D3) 25 MCG TABLET PO (08:12)
[2022-03-06] MEDS: Amiodarone HCL 200 MG TABLET PO (08:12)
[2022-03-06] MEDS: Metoprolol Tartrate 50 MG TABLET PO ×2 (08:12→20:06)
[2022-03-06] MEDS: Albuterol/Iprat 2.5/0.5MG 3 ML AMPUL.NEB INHALE ×4 (08:45→20:04)
[2022-03-06] MEDS: Azithromycin 500 MG in 0.9 % Sodium Chloride 250 ML 125 MG IV (09:03)
[2022-03-06] MEDS: Finasteride 5 MG TABLET PO (09:03)
--- NOTE | 2022-03-06 09:57 | P.PNIM_ITS ---
Subjective Subjective Date of Service: 03/06/22 Interval History: Seen and examined this morning Admitted overnight for acute COPD exacerbation, CHF. Feels breathing is starting to improve since arrival in ED Patient reports intermittent cough productive of yellow phlegm and associated sh ortness of breath. He denies any chest pain or palpitations. He does not use oxygen at baseline. He continues to smoke 1 and half packs of cigarettes daily Review of Systems Review of Systems: Yes all other systems are reviewed and are negative Constitutional Constitutional: Denies chills and Denies fever(s) Cardiovascular Cardiovascular: Denies chest pain, Denies palpitations, Reports dyspnea and Reports dyspnea on exertion Respiratory Respiratory: Reports cough, Reports dyspnea and Reports dyspnea on exertion Gastrointestinal Gastrointestinal: Denies abdominal pain, Denies nausea and Denies vomiting Endocrine Endocrine: Denies palpitations Physical Exam Vital Signs: Vital Signs: Last Vital Signs Temp 97.8 F 03/06/22 07:03 Pulse 72 03/06/22 08:46 Resp 17 03/06/22 08:46 BP 125/53 L 03/06/22 07:03 Pulse Ox 100 03/06/22 07:03 O2 Del Method 03/06/22 07:03 O2 Flow Rate 2 03/06/22 07:03 BMI result Body Mass Index 24.0 Const: General: cooperative, alert and awake Nutritional Appearance: average body habitus Orientation/consciousness: patient oriented x3 Resp: Other: Expiratory wheezing Effort & Inspection: no use of accessory muscles Auscultation: diminished lung sounds Cardio: Rate: regular rate GI: Inspection: No distended Palpation (GI): Soft to palpation and nonten portia Neuro: General: patient oriented x3 and CN's II-XI intact bilaterally Extrem: General: Yes no pedal edema Objective Data Active Medications Acetaminophen (Acetaminophen 325 Mg Tablet) 650 mg PO Q6H PRN PRN Reason: Pain, Mild (Pain Scale 1-3) Albuterol/Ipratropium (Albuterol/Iprat 2.5/0.5mg 3 Ml Ampul.Neb) 3 ml INHALE RQ4H PRN PRN Reason: Shortness of Breath/Wheezing Albuterol/Ipratropium (Albuterol/Iprat 2.5/0.5mg 3 Ml Ampul.Neb) 3 ml INHALE RQ4H WHILE AWAKE TAMMY Last Admin: 03/06/22 08:45 Dose: 3 ml Documented By: MODESTO Allopurinol (Allopurinol 100 Mg Tablet) 100 mg PO BEDTIME [facility] Amiodarone HCl (Amiodarone Hcl 200 Mg Tablet) 200 mg PO DAILY [facility] Last Admin: 03/06/22 08:12 Dose: 200 mg Documented By: ESTEFANY Atorvastatin Calcium (Atorvastatin Calcium 80 Mg Tablet) 80 mg PO BEDTIME TAMMY Clopidogrel Bisulfate (Clopidogrel Bisulfate 75 Mg Tablet) 75 mg PO DAILY [facility] Last Admin: 03/06/22 08:12 Dose: 75 mg Documented By: ESTEFANY Dextrose (Dextrose 50 % 25 Gm/50 Ml Syringe) 25 gm IVPUSH Q15M PRN; Protocol PRN Reason: per Hypoglycemia Standing Ord. Diltiazem HCl (Diltiazem Hcl Cd 120 Mg Cap.Er.Deg) 120 mg PO DAILY [facility]; Protocol Last Admin: 03/06/22 08:12 Dose: 120 mg Documented By: ESTEFANY Docusate Sodium (Docusate Sodium 100 Mg Capsule) 100 mg PO DAILY PRN PRN Reason: Constipation Finasteride (Finasteride 5 Mg Tablet) 5 mg PO DAILY [facility] Last Admin: 03/06/22 09:03 Dose: 5 mg Documented By: ESTEFANY Furosemide (Furosemide 40 Mg/4 Ml Vial) 40 mg IVPUSH DAILY [facility]; Protocol Last Admin: 03/06/22 08:11 Dose: 40 mg Documented By: ESTEFANY Glucose (Glucose Gel 15 Gm Gel..Gram.) 15 gm PO Q15M PRN; Protocol PRN Reason: per Hypoglycemia Standing Ord. Ceftriaxone Sodium 1 gm/ (Sodium Chloride) 50 mls @ 100 mls/hr IV Q24H [facility] Last Admin: 03/06/22 08:10 Dose: 100 mls/hr Documented By: ESTEFANY Azithromycin 500 mg/ Sodium (Chloride) 250 mls @ 125 mls/hr IV Q24H [facility] Last Admin: 03/06/22 09:03 Dose: 125 mls/hr Documented By: ESTEFANY Insulin Human Lispro (Insulin Lispro 100 Unit/Ml 3 Ml Vial) 0 unit SUBCUT QIDACHS [facility]; Protocol Last Admin: 03/06/22 08:11 Dose: 2 unit Documented By: ESTEFANY Methylprednisolone Sodium Succinate (Methylprednisolone Sod Succ 40 Mg/Ml Vial) 40 mg IVPUSH Q12H [facility] Last Admin: 03/06/22 08:11 Dose: 40 mg Documented By: ESTEFANY Metoprolol Tartrate (Metoprolol Tartrate 50 Mg Tablet) 50 mg PO BID [facility]; Protocol Last Admin: 03/06/22 08:12 Dose: 50 mg Documented By: ESTEFANY Ondansetron HCl (Ondansetron Hcl 4 Mg/2 Ml Vial) 4 mg IVPUSH Q8H PRN PRN Reason: Nausea and Vomiting Pharmacy Consult (Consult Rx Perform Med Rec) 1 each MISCELLANE ONCE PRN PRN Reason: Consult order Sodium Chloride (0.9 % Sodium Chloride Flush 3 Ml Syringe) 3 ml IVFLUSH QSHIFT [facility] Last Admin: 03/06/22 09:09 Dose: Not Given Documented By: ESTEFANY Non-Admin Reason: IV Running Vitamin D (Cholecalciferol (Vitamin D3) 25 Mcg Tablet) 25 mcg PO DAILY [facility] Last Admin: 03/06/22 08:12 Dose: 25 mcg Documented By: ESTEFANY Warfarin Sodium (Warfarin Sodium 4 Mg Tablet) 4 mg PO DAILY@1800 [facility] Labs CBC & Chem 7: 03/06/22 06:28 03/06/22 06:28 Labs: Laboratory Results - last 24 hr 03/05/22 03/05/22 03/05/22 19:55 19:55 19:55 MCV 96.1 MCH 31.3 MCHC 32.5 RDW 16.9 H Plt Count 261 MPV 9.8 Immature Gran % (Auto) 0.4 Neut % (Auto) 84.6 H Lymph % (Auto) 6.5 L [place] % (Auto) 6.6 Eos % (Auto) 1.2 Baso % (Auto) 0.7 Lymph # (Auto) 0.8 L [place] # (Auto) 0.8 Eos # (Auto) 0.1 Baso # (Auto) 0.1 Abs Immat Gran (auto) 0.05 H Absolute Neuts (auto) 10.1 H Absolute Nucleated RBC 0.000 Nucleated RBC % (auto) 0.0 Smear Tech's Comments PT INR Anion Gap 17 Estim Creat Clear Calc 42.6 Estimated GFR 53 POC Glucose Random Glucose 139 H Lactic Acid 1.3 Calcium 9.4 D Total Bilirubin 1.0 Direct Bilirubin 0.4 AST 21 ALT 38 Alkaline Phosphatase 106 D B-Natriuretic Peptide Total Protein 6.7 Albumin 4.3 Lipase 24 Urine Color Urine Appearance Urine pH Ur Specific [place] Urine Protein Urine Glucose (UA) Urine Ketones Urine Blood Urine Nitrite Ur Leukocyte Esterase Urine RBC Urine WBC Ur Squamous Epith Cells Urine Bacteria Hyaline Casts COVID-19 ([facility]) COVID-19 Clin Com 03/05/22 03/05/22 03/05/22 19:55 19:55 21:50 MCV MCH MCHC RDW Plt Count MPV Immature Gran % (Auto) Neut % (Auto) Lymph % (Auto) [place] % (Auto) Eos % (Auto) Baso % (Auto) Lymph # (Auto) [place] # (Auto) Eos # (Auto) Baso # (Auto) Abs Immat Gran (auto) Absolute Neuts (auto) Absolute Nucleated RBC Nucleated RBC % (auto) Smear Tech's Comments PT INR Anion Gap Estim Creat Clear Calc Estimated GFR POC Glucose Random Glucose Lactic Acid Calcium Total Bilirubin Direct Bilirubin AST ALT Alkaline Phosphatase B-Natriuretic Peptide 865 H Total Protein Albumin Lipase Urine Color Yellow Urine Appearance Clear Urine pH 5.5 Ur Specific [place] 1.020 Urine Protein 100 (2+) H Urine Glucose (UA) Negative Urine Ketones Trace Urine Blood Trace H Urine Nitrite Negative Ur Leukocyte Esterase Trace H Urine RBC 0-2 Urine WBC 0-5 Ur Squamous Epith Cells 0-2 Urine Bacteria None Seen Hyaline Casts 3-5 COVID-19 ([facility]ARRY) Negative COVID-19 Clin Com See Note 03/06/22 03/06/22 03/06/22 06:28 06:28 07:06 MCV 94.1 MCH 30.5 MCHC 32.4 RDW 16.8 H Plt Count 195 D MPV 9.8 Immature Gran % (Auto) 0.4 Neut % (Auto) 96.8 H Lymph % (Auto) 2.2 L [place] % (Auto) 0.5 L Eos % (Auto) 0.0 Baso % (Auto) 0.1 Lymph # (Auto) 0.2 L [place] # (Auto) 0.0 L Eos # (Auto) 0.0 Baso # (Auto) 0.0 Abs Immat Gran (auto) 0.03 Absolute Neuts (auto) 7.6 Absolute Nucleated RBC 0.000 Nucleated RBC % (auto) 0.0 Smear Tech's Comments VERIFIED PT INR Anion Gap 17 Estim Creat Clear Calc 51.6 Estimated GFR > 60 POC Glucose 176 H Random Glucose 195 H D Lactic Acid Calcium 8.6 D Total Bilirubin Direct Bilirubin AST ALT Alkaline Phosphatase B-Natriuretic Peptide Total Protein Albumin Lipase Urine Color Urine Appearance Urine pH Ur Specific [place] Urine Protein Urine Glucose (UA) Urine Ketones Urine Blood Urine Nitrite Ur Leukocyte Esterase Urine RBC Urine WBC Ur Squamous Epith Cells Urine Bacteria Hyaline Casts COVID-19 ([facility]Y) COVID-19 Clin Com 03/06/22 07:55 MCV MCH MCHC RDW Plt Count MPV Immature Gran % (Auto) Neut % (Auto) Lymph % (Auto) [place] % (Auto) Eos % (Auto) Baso % (Auto) Lymph # (Auto) [place] # (Auto) Eos # (Auto) Baso # (Auto) Abs Immat Gran (auto) Absolute Neuts (auto) Absolute Nucleated RBC Nucleated RBC % (auto) Smear Tech's Comments PT 39.5 H INR 3.3 H Anion Gap Estim Creat Clear Calc Estimated GFR POC Glucose Random Glucose Lactic Acid Calcium Total Bilirubin Direct Bilirubin AST ALT Alkaline Phosphatase B-Natriuretic Peptide Total Protein Albumin Lipase Urine Color Urine Appearance Urine pH Ur Specific [place] Urine Protein Urine Glucose (UA) Urine Ketones Urine Blood Urine Nitrite Ur Leukocyte Esterase Urine RBC Urine WBC Ur Squamous Epith Cells Urine Bacteria Hyaline Casts COVID-19 ([facility]) COVID-19 Clin Com Assessment and Plan (1) Acute respiratory failure with hypoxia: Status: Acute (2) COPD with acute exacerbation: Status: Acute Plan 76-year-old male past medical history of COPD, AFib, CHF who presents to the hospital with complaints of orthopnea, PND, dyspnea, cough and sputum production found to be acutely hypoxic acute hypoxic respiratory failure likely secondary to CHF, COPD, as well as pneumonia - continue supplemental oxygen, wean as tolerated - will treat underlying CHF and COPD acute on chronic HFpEF has elevated BNP, orthopnea, PND echo from this year shows ejection fraction of 60-65% -continue IV Lasix, low-salt diet, strict I&O, and daily weight -cardiology consult pending community-acquired pneumonia evidence of consolidation on chest x-ray, has leukocytosis, afebrile, has dyspnea, cough and sputum production No evidence of sepsis COVID negative - continue IV ceftriaxone/azithromycin - follow cultures Acute COPD exacerbation - Continue IV Solu-Medrol, DuoNeb p.r.n. as well as scheduled Paroxysmal atrial fibrillation - continue diltiazem, Lopressor, amiodarone - Continue anticoagulation with warfarin, INR 3.3 - PT INR daily diabetes - hold metformin - continue SSI, diabetic diet, POCs CAD s/p CABG continue BB, plavix, statin Tobacco dependence Patient continues to smoke 1 1/2 packs of cigarettes daily The importance of smoking cessation was discussed -nicotine replacement therapy DVT prophylaxis: Warfarin attending-Dr. Gutierrez Patient requires ongoing inpatient hospitalization for acute COPD exacerbation, IV antibiotics, cardiology evaluation and close monitoring Quality Stroke Does the patient have a stroke diagnosis?: No VTE Prior VTE?: No VTE Risk Level:: Medical - moderate - high VTE Device Contraindication: Treatment Not Indicated VTE Drug Contraindication: N/A - Med Ordered
--- NOTE | 2022-03-06 11:04 | PM.CNCAR ---
History of Present Illness History of Present Illness Date of Service: 03/06/22 Chief complaint: COPD Exacerbation, CHF Narrative: This is a cardiology consultation regarding shortness of breath. Patient has had increasing shortness of breath, cough and sputum production recently and this led to the hospitalization. No anginal-type chest pains. No clear swelling in his feet. We have been asked to see him regarding possible congestive heart failure exacerbation. Most recently, seen in the clinic last month. Various cardiac issues include coronary disease, history of bypass surgery, recent stent in the vein graft to PDA, chronic diastolic heart failure, paroxysmal atrial fibrillation. Review of Systems Review of Systems: Yes all other systems are reviewed and are negative Constitutional: Constitutional: Reports as per HPI Eyes: Eyes: Reports as per HPI ENT: Reports as per HPI Cardiovascular: Cardiovascular: Reports as per HPI, Denies acrocyanosis, Denies cool extremities, Denies chest pain, Denies leg edema, Denies lightheadedness, Denies palpitations and Reports dyspnea Respiratory: Respiratory: Reports as per HPI, Reports no additional respiratory complaints and Reports dyspnea Gastrointestinal: Gastrointestinal: Reports as per HPI and Reports no additional gastrointestinal complaints Genitourinary: Genitourinary: Reports no additional male genitourinary complaints and Reports as per HPI Musculoskeletal: Musculoskeletal: Reports no additional musculoskeletal complaints and Reports as per HPI Integumentary/Breasts: Skin/Breast: Reports system reviewed and no additional complaints, except as docu Neurologic: Reports system reviewed and no additional complaints, except as documented and Reports as per HPI Psychiatric: Psychiatric: Reports no additional psychiatric complaints and Reports as per HPI Endocrine: Endocrine: Reports no additional endocrine complaints, Reports as per HPI and Denies palpitations Hematologic/Lymphatic: Hematologic/Lymphatic: Reports no additional hematologic/lymphatic complaints and Reports as per HPI Allergic/Immunologic: Allergic/Immunologic: Reports no additional allergic/immunologic complaints and Reports as per HPI PMF Past Medical History Medical History (Updated 03/06/22 @ 11:10 by Pancho Piper MD) Abdominal aortic aneurysm without rupture Benign essential hypertension BPH loc w urin obs/LUTS Chronic atrial fibrillation COPD (chronic obstructive pulmonary disease) Coronary artery disease Current use of anticoagulant therapy Diabetes mellitus Elevated PSA Follicular lymphoma Heart failure with preserved ejection fraction High cholesterol History of blood clots History of deep vein thrombosis (DVT) of lower extremity Insomnia Overweight (BMI 25.0-29.9) PAF (paroxysmal atrial fibrillation) Peripheral arterial disease Pneumonia Pure hypercholesterolemia Smoker Smoker Vitamin D deficiency Family History Family History Father Cancer Mother Cardiovascular disease Surgical History Surgical History History of quadruple bypass Social History Social History Household Members: Spouse Housing: Apartment Are you a primary primary care coordinator to a significant other at home: No Do you presently have visiting nurse or other home services: No Alcohol intake: former Patient Tobacco Use Status: Current everyday Tobacco user Tobacco use type: Cigarette Cigarette Packs Per Day: 1.5 Years Smoked: 67 Use of substances other than those prescribed or required for medical reasons: No Advance Directives: Yes Advance Directives on File: Yes Advance Directives Date on File: 01/06/22 service: No Current occupational status: retired Cognitive needs: No Hearing needs: No Vision needs: No Meds Allergies Allergy/AdvReac Type Severity Reaction Status Date / Time No Known Allergies Allergy Verified 03/03/22 10:19 [No Known Allergies*] Active Medications: Current Medications Acetaminophen (Acetaminophen 325 Mg Tablet) 650 mg PO Q6H PRN PRN Reason: Pain, Mild (Pain Scale 1-3) Albuterol/Ipratropium (Albuterol/Iprat 2.5/0.5mg 3 Ml Ampul.Neb) 3 ml INHALE RQ4H PRN PRN Reason: Shortness of Breath/Wheezing Albuterol/Ipratropium (Albuterol/Iprat 2.5/0.5mg 3 Ml Ampul.Neb) 3 ml INHALE RQ4H WHILE AWAKE [facility] Last Admin: 03/06/22 08:45 Dose: 3 ml Allopurinol (Allopurinol 100 Mg Tablet) 100 mg PO BEDTIME [facility] Amiodarone HCl (Amiodarone Hcl 200 Mg Tablet) 200 mg PO DAILY [facility] Last Admin: 03/06/22 08:12 Dose: 200 mg Atorvastatin Calcium (Atorvastatin Calcium 80 Mg Tablet) 80 mg PO BEDTIME [facility] Benzonatate (Benzonatate 100 Mg Capsule) 200 mg PO TID PRN PRN Reason: Cough Clopidogrel Bisulfate (Clopidogrel Bisulfate 75 Mg Tablet) 75 mg PO DAILY [facility] Last Admin: 03/06/22 08:12 Dose: 75 mg Dextrose (Dextrose 50 % 25 Gm/50 Ml Syringe) 25 gm IVPUSH Q15M PRN; Protocol PRN Reason: per Hypoglycemia Standing Ord. Diltiazem HCl (Diltiazem Hcl Cd 120 Mg Cap.Er.Deg) 120 mg PO DAILY [facility]; Protocol Last Admin: 03/06/22 08:12 Dose: 120 mg Docusate Sodium (Docusate Sodium 100 Mg Capsule) 100 mg PO DAILY PRN PRN Reason: Constipation Finasteride (Finasteride 5 Mg Tablet) 5 mg PO DAILY [facility] Last Admin: 03/06/22 09:03 Dose: 5 mg Furosemide (Furosemide 40 Mg/4 Ml Vial) 40 mg IVPUSH DAILY [facility]; Protocol Last Admin: 03/06/22 08:11 Dose: 40 mg Glucose (Glucose Gel 15 Gm Gel..Gram.) 15 gm PO Q15M PRN; Protocol PRN Reason: per Hypoglycemia Standing Ord. Ceftriaxone Sodium 1 gm/ (Sodium Chloride) 50 mls @ 100 mls/hr IV Q24H [facility] Last Admin: 03/06/22 08:10 Dose: 100 mls/hr Azithromycin 500 mg/ Sodium (Chloride) 250 mls @ 125 mls/hr IV Q24H [facility] Last Admin: 03/06/22 09:03 Dose: 125 mls/hr Insulin Human Lispro (Insulin Lispro 100 Unit/Ml 3 Ml Vial) 0 unit SUBCUT QIDACHS [facility]; Protocol Last Admin: 03/06/22 08:11 Dose: 2 unit Methylprednisolone Sodium Succinate (Methylprednisolone Sod Succ 40 Mg/Ml Vial) 40 mg IVPUSH Q12H [facility] Last Admin: 03/06/22 08:11 Dose: 40 mg Metoprolol Tartrate (Metoprolol Tartrate 50 Mg Tablet) 50 mg PO BID [facility]; Protocol Last Admin: 03/06/22 08:12 Dose: 50 mg Nicotine (Nicotine 21 Mg Patch.Td24) 21 mg TRANSDERMA DAILY [facility] Ondansetron HCl (Ondansetron Hcl 4 Mg/2 Ml Vial) 4 mg IVPUSH Q8H PRN PRN Reason: Nausea and Vomiting Pharmacy Consult (Consult Rx Perform Med Rec) 1 each MISCELLANE ONCE PRN PRN Reason: Consult order Sodium Chloride (0.9 % Sodium Chloride Flush 3 Ml Syringe) 3 ml IVFLUSH QSHIFT [facility] Last Admin: 03/06/22 09:09 Dose: Not Given Vitamin D (Cholecalciferol (Vitamin D3) 25 Mcg Tablet) 25 mcg PO DAILY [facility] Last Admin: 03/06/22 08:12 Dose: 25 mcg Warfarin Sodium (Warfarin Sodium 4 Mg Tablet) 4 mg PO DAILY@1800 [facility] Home Medications Medication Instructions Recorded Confirmed Last Taken Type cholecalciferol (vitamin D3) 25 25 mcg PO DAILY 07/02/20 03/05/22 03/05/22 History mcg (1,000 unit) capsule (Vitamin D3) clopidogrel 75 mg tablet (Plavix) 75 mg PO DAILY 12/23/21 03/05/22 03/05/22 History amiodarone 200 mg tablet 200 mg PO DAILY 12/25/21 03/05/22 03/05/22 History allopurinol 100 mg tablet 100 mg PO BEDTIME 01/05/22 03/05/22 03/04/22 History metformin 500 mg tablet,extended 500 mg PO BEDTIME 01/05/22 03/05/22 03/04/22 History release 24 hr metoprolol tartrate 50 mg tablet 50 mg PO BID 02/12/22 03/05/22 03/05/22 History diltiazem HCl 120 mg 120 mg PO DAILY 03/05/22 03/05/22 Unknown History capsule,extended release 24 hr Physical Exam Vital Signs: Vital Signs: Last Vital Signs Temp 97.8 F 03/06/22 07:03 Pulse 72 03/06/22 08:46 Resp 17 03/06/22 08:46 BP 125/53 L 03/06/22 07:03 Pulse Ox 100 03/06/22 07:03 O2 Del Method 03/06/22 07:03 O2 Flow Rate 2 03/06/22 07:03 BMI result Body Mass Index 24.0 Const: General: comfortable and no acute distress Orientation/consciousness: patient oriented x3 HEENT: Other: Unremarkable Head: Yes normal to inspection Neck: Neck: Yes normal visual inspection Chest: Chest palpation & inspection: normal inspection of the chest Resp: Auscultation: rhonchi, wheezes and diminished lung sounds Cardio: Palpation: normal PMI Heart sounds: S1 normal heart sound present, S2 normal heart sound present, no gallops, no murmurs and no rubs GI: Palpation (GI): Soft to palpation Back/Spine/Pelvis: Other: unremarkable Skin: General skin exam: no rashes or lesions noted Neuro: General: patient oriented x3 Extrem: General: Yes normal to inspection Psych: Mental Status: mental status grossly normal Objective Labs and Meds Result diagrams: 03/06/22 06:28 03/06/22 06:28 Lab results: Laboratory Results - last 24 hr 03/05/22 03/05/22 03/05/22 19:55 19:55 19:55 WBC 12.0 H RBC 4.41 L Hgb 13.8 L Hct 42.4 MCV 96.1 MCH 31.3 MCHC 32.5 RDW 16.9 H Plt Count 261 MPV 9.8 Immature Gran % (Auto) 0.4 Neut % (Auto) 84.6 H Lymph % (Auto) 6.5 L [place] % (Auto) 6.6 Eos % (Auto) 1.2 Baso % (Auto) 0.7 Lymph # (Auto) 0.8 L [place] # (Auto) 0.8 Eos # (Auto) 0.1 Baso # (Auto) 0.1 Abs Immat Gran (auto) 0.05 H Absolute Neuts (auto) 10.1 H Absolute Nucleated RBC 0.000 Nucleated RBC % (auto) 0.0 Smear Tech's Comments PT INR Sodium 144 Potassium 4.6 D Chloride 102 Carbon Dioxide 30 H Anion Gap 17 BUN 29 H D Creatinine 1.31 Estim Creat Clear Calc 42.6 Estimated GFR 53 POC Glucose Random Glucose 139 H Lactic Acid Calcium 9.4 D Total Bilirubin 1.0 Direct Bilirubin 0.4 AST 21 ALT 38 Alkaline Phosphatase 106 D Troponin I High Sens 34.4 B-Natriuretic Peptide Total Protein 6.7 Albumin 4.3 Lipase 24 Urine Color Urine Appearance Urine pH Ur Specific [place] Urine Protein Urine Glucose (UA) Urine Ketones Urine Blood Urine Nitrite Ur Leukocyte Esterase Urine RBC Urine WBC Ur Squamous Epith Cells Urine Bacteria Hyaline Casts COVID-19 ([facility]) COVID-19 Clin Com 03/05/22 03/05/22 03/05/22 19:55 19:55 19:55 WBC RBC Hgb Hct MCV MCH MCHC RDW Plt Count MPV Immature Gran % (Auto) Neut % (Auto) Lymph % (Auto) [place] % (Auto) Eos % (Auto) Baso % (Auto) Lymph # (Auto) [place] # (Auto) Eos # (Auto) Baso # (Auto) Abs Immat Gran (auto) Absolute Neuts (auto) Absolute Nucleated RBC Nucleated RBC % (auto) Smear Tech's Comments PT INR Sodium Potassium Chloride Carbon Dioxide Anion Gap BUN Creatinine Estim Creat Clear Calc Estimated GFR POC Glucose Random Glucose Lactic Acid 1.3 Calcium Total Bilirubin Direct Bilirubin AST ALT Alkaline Phosphatase Troponin I High Sens B-Natriuretic Peptide 865 H Total Protein Albumin Lipase Urine Color Urine Appearance Urine pH Ur Specific [place] Urine Protein Urine Glucose (UA) Urine Ketones Urine Blood Urine Nitrite Ur Leukocyte Esterase Urine RBC Urine WBC Ur Squamous Epith Cells Urine Bacteria Hyaline Casts COVID-19 ([facility]) Negative COVID-19 [facility] Com See Note 03/05/22 03/05/22 03/06/22 21:50 23:45 06:28 WBC 7.8 RBC 4.10 L Hgb 12.5 L Hct 38.6 L MCV 94.1 MCH 30.5 MCHC 32.4 RDW 16.8 H Plt Count 195 D MPV 9.8 Immature Gran % (Auto) 0.4 Neut % (Auto) 96.8 H Lymph % (Auto) 2.2 L [place] % (Auto) 0.5 L Eos % (Auto) 0.0 Baso % (Auto) 0.1 Lymph # (Auto) 0.2 L [place] # (Auto) 0.0 L Eos # (Auto) 0.0 Baso # (Auto) 0.0 Abs Immat Gran (auto) 0.03 Absolute Neuts (auto) 7.6 Absolute Nucleated RBC 0.000 Nucleated RBC % (auto) 0.0 Smear Tech's Comments VERIFIED PT INR Sodium Potassium Chloride Carbon Dioxide Anion Gap BUN Creatinine Estim Creat Clear Calc Estimated GFR POC Glucose Random Glucose Lactic Acid Calcium Total Bilirubin Direct Bilirubin AST ALT Alkaline Phosphatase Troponin I High Sens 32.2 B-Natriuretic Peptide Total Protein Albumin Lipase Urine Color Yellow Urine Appearance Clear Urine pH 5.5 Ur Specific [place] 1.020 Urine Protein 100 (2+) H Urine Glucose (UA) Negative Urine Ketones Trace Urine Blood Trace H Urine Nitrite Negative Ur Leukocyte Esterase Trace H Urine RBC 0-2 Urine WBC 0-5 Ur Squamous Epith Cells 0-2 Urine Bacteria None Seen Hyaline Casts 3-5 COVID-19 ([facility]) COVID-19 Clin Com 03/06/22 03/06/22 03/06/22 06:28 07:06 07:55 WBC RBC Hgb Hct MCV MCH MCHC RDW Plt Count MPV Immature Gran % (Auto) Neut % (Auto) Lymph % (Auto) [place] % (Auto) Eos % (Auto) Baso % (Auto) Lymph # (Auto) [place] # (Auto) Eos # (Auto) Baso # (Auto) Abs Immat Gran (auto) Absolute Neuts (auto) Absolute Nucleated RBC Nucleated RBC % (auto) Smear Tech's Comments PT 39.5 H INR 3.3 H Sodium 142 Potassium 4.0 Chloride 101 Carbon Dioxide 28 Anion Gap 17 BUN 25 H Creatinine 1.08 Estim Creat Clear Calc 51.6 Estimated GFR > 60 POC Glucose 176 H Random Glucose 195 H D Lactic Acid Calcium 8.6 D Total Bilirubin Direct Bilirubin AST ALT Alkaline Phosphatase Troponin I High Sens B-Natriuretic Peptide Total Protein Albumin Lipase Urine Color Urine Appearance Urine pH Ur Specific [place] Urine Protein Urine Glucose (UA) Urine Ketones Urine Blood Urine Nitrite Ur Leukocyte Esterase Urine RBC Urine WBC Ur Squamous Epith Cells Urine Bacteria Hyaline Casts COVID-19 ([facility]) COVID-19 Clin Com ECG Interpretation: EKG with sinus rhythm at 69/Min; premature atrial complexes; cannot exclude old septal infarct. Imaging Radiologist's impression: Impressions Chest X-Ray 03/05/22 20:10 IMPRESSION: 1. Mild re is mild groundglass change is seen within the mid left lung, possibly infectious or inflammatory in etiology. Recommend short-term follow-up chest radiographs to ensure clearance. 2. There is stable linear scar/subsegmental atelectasis within the mid and lower right lung. 3. There has been a prior CABG procedure. No overt pulmonary edema is noted. 4. There are small bilateral pleural effusions. Assessment and Plan (1) Acute on chronic diastolic CHF (congestive heart failure), NYHA class 3: Status: Acute (2) Acute respiratory failure with hypoxia: Status: Acute (3) Atherosclerotic cardiovascular disease: Status: Acute (4) PAF (paroxysmal atrial fibrillation): Status: Acute Plan Pertinent data reviewed. High sensitivity troponins are 34 and 32. Cardiac BNP elevated to 865. Previously 180. Chest x-ray reported to have mild ground-glass change in the mid left lung-infectious versus inflammatory. Small bilateral pleural effusions. Overall, suspect COPD to be the main issue here. Less likely congestive heart failure but cannot exclude completely on account of elevated BNP. In that regard, okay for empiric IV diuretics. Other medications for his coronary disease as well as atrial fibrillation can be continued unchanged. Discussed with . Procedures Date of Service Date of Service: 03/06/22
[2022-03-06 12:18] LABS: Glucose, Whole Blood 290 mg/dL (60-115)
--- NOTE | 2022-03-06 13:55 | MHC.CM.PN ---
pt lives with and dgter pt was indepedent is loriid vax x 4 does not expect to need servceis when dcd has own ride home
[2022-03-06 17:55] LABS: Glucose, Whole Blood 269 mg/dL (60-115)
[2022-03-06] MEDS: Atorvastatin Calcium 80 MG TABLET PO (20:07)
[2022-03-06] MEDS: allopurinoL 100 MG TABLET PO (20:07)
[2022-03-06 21:00] LABS: Glucose, Whole Blood 232 mg/dL (60-115)
[2022-03-07] VITALS (9 sets, daily range): BP systolic 115–136; BP diastolic 47–63; PULSE 58–76; RESP 16–20; TEMP 36.3–37.2; O2SAT 94–100; BMI 23.5
[2022-03-07] MEDS: Azithromycin 500 MG in 0.9 % Sodium Chloride 250 ML 125 MG IV (06:22)
[2022-03-07 06:56] LABS: INTERNATIONAL NORM RATIO 2.6 (0.9-1.1); Prothrombin Time 31.6 SEC (10.0-13.1)
[2022-03-07] MEDS: Insulin Lispro 100 UNIT/ML 3 ML VIAL SUBCUT ×5 (07:47→20:47)
[2022-03-07 08:08] LABS: Glucose, Whole Blood 203 mg/dL (60-115)
[2022-03-07] MEDS: Albuterol/Iprat 2.5/0.5MG 3 ML AMPUL.NEB INHALE ×2 (08:41→12:24)
[2022-03-07] MEDS: Nicotine 21 MG PATCH.TD24 TRANSDERMA (08:52)
[2022-03-07] MEDS: 0.9 % Sodium Chloride Flush 3 ML SYRINGE IVFLUSH ×3 (08:52→20:48)
[2022-03-07] MEDS: Finasteride 5 MG TABLET PO (08:53)
[2022-03-07] MEDS: methylPREDNISolone Sod Succ 40 MG/ML VIAL IVPUSH ×2 (08:53→20:48)
[2022-03-07] MEDS: cefTRIAXone sodium 1 GM in 0.9 % Sodium Chloride 50 ML IV (08:53)
[2022-03-07] MEDS: Metoprolol Tartrate 50 MG TABLET PO ×2 (08:54→20:47)
[2022-03-07] MEDS: Cholecalciferol (Vitamin D3) 25 MCG TABLET PO (08:54)
[2022-03-07] MEDS: Clopidogrel Bisulfate 75 MG TABLET PO (08:54)
[2022-03-07] MEDS: Furosemide 40 MG TABLET PO (08:54)
[2022-03-07] MEDS: dilTIAZem HCL CD 120 MG CAP.ER.DEG PO (08:54)
[2022-03-07] MEDS: Amiodarone HCL 200 MG TABLET PO (08:54)
[2022-03-07 11:32] LABS: Glucose, Whole Blood 196 mg/dL (60-115)
--- NOTE | 2022-03-07 12:23 | HO.PM.IMPN ---
Subjective Subjective Date of Service: 03/07/22 Interval History: Seen and examined this morning Follow-up for COPD exacerbation, pneumonia No overnight events Reports some improvement in breathing, still with intermittent cough Down to 1 L of supplemental oxygen Review of Systems Review of Systems: Yes all other systems are reviewed and are negative Constitutional Constitutional: Denies chills and Denies fever(s) ENT Ears, Nose, Mouth, and Throat: Denies dizziness Cardiovascular Cardiovascular: Denies chest pain, Denies palpitations and Reports dyspnea Respiratory Respiratory: Reports cough and Reports dyspnea Gastrointestinal Gastrointestinal: Denies abdominal pain, Denies nausea and Denies vomiting Neurologic Neurologic: Denies dizziness Endocrine Endocrine: Denies palpitations Physical Exam Vital Signs: Vital Signs: Last Vital Signs Temp 97.9 F 03/07/22 11:24 Pulse 68 03/07/22 11:24 Resp 17 03/07/22 11:24 BP 115/53 L 03/07/22 11:24 Pulse Ox 95 03/07/22 11:24 O2 Del Method 03/07/22 11:24 O2 Flow Rate 1 03/07/22 11:24 BMI result Body Mass Index 23.5 Const: General: cooperative, alert and awake Nutritional Appearance: average body habitus Orientation/consciousness: patient oriented x3 Resp: Other: Expiratory wheezing Effort & Inspection: no use of accessory muscles Auscultation: diminished lung sounds Cardio: Rate: regular rate GI: Inspection: No distended Palpation (GI): Soft to palpation and nontender Neuro: General: patient oriented x3 and CN's II-XI intact bilaterally Extrem: General: Yes no pedal edema Objective Data Active Medications Acetaminophen (Acetaminophen 325 Mg Tablet) 650 mg PO Q6H PRN PRN Reason: Pain, Mild (Pain Scale 1-3) Albuterol/Ipratropium (Albuterol/Iprat 2.5/0.5mg 3 Ml Ampul.Neb) 3 ml INHALE RQ4H PRN PRN Reason: Shortness of Breath/Wheezing Albuterol/Ipratropium (Albuterol/Iprat 2.5/0.5mg 3 Ml Ampul.Neb) 3 ml INHALE RQ4H WHILE AWAKE [facility] Last Admin: 03/07/22 08:41 Dose: 3 ml Documented By: CLEMENCIA Allopurinol (Allopurinol 100 Mg Tablet) 100 mg PO BEDTIME [facility] Last Admin: 03/06/22 20:07 Dose: 100 mg Documented By: CM Amiodarone HCl (Amiodarone Hcl 200 Mg Tablet) 200 mg PO DAILY [facility] Last Admin: 03/07/22 08:54 Dose: 200 mg Documented By: GALI Atorvastatin Calcium (Atorvastatin Calcium 80 Mg Tablet) 80 mg PO BEDTIME [facility] Last Admin: 03/06/22 20:07 Dose: 80 mg Documented By: CM Benzonatate (Benzonatate 100 Mg Capsule) 200 mg PO TID PRN PRN Reason: Cough Clopidogrel Bisulfate (Clopidogrel Bisulfate 75 Mg Tablet) 75 mg PO DAILY [facility] Last Admin: 03/07/22 08:54 Dose: 75 mg Documented By: GALI Dextrose (Dextrose 50 % 25 Gm/50 Ml Syringe) 25 gm IVPUSH Q15M PRN; Protocol PRN Reason: per Hypoglycemia Standing Ord. Diltiazem HCl (Diltiazem Hcl Cd 120 Mg Cap.Er.Deg) 120 mg PO DAILY [facility]; Protocol Last Admin: 03/07/22 08:54 Dose: 120 mg Documented By: GALI Docusate Sodium (Docusate Sodium 100 Mg Capsule) 100 mg PO DAILY PRN PRN Reason: Constipation Finasteride (Finasteride 5 Mg Tablet) 5 mg PO DAILY [facility] Last Admin: 03/07/22 08:53 Dose: 5 mg Documented By: GALI Furosemide (Furosemide 40 Mg Tablet) 40 mg PO DAILY [facility]; Protocol Last Admin: 03/07/22 08:54 Dose: 40 mg Documented By: GALI Glucose (Glucose Gel 15 Gm Gel..Gram.) 15 gm PO Q15M PRN; Protocol PRN Reason: per Hypoglycemia Standing Ord. Ceftriaxone Sodium 1 gm/ (Sodium Chloride) 50 mls @ 100 mls/hr IV Q24H [facility] Last Admin: 03/07/22 08:53 Dose: 100 mls/hr Documented By: GALI Azithromycin 500 mg/ Sodium (Chloride) 250 mls @ 125 mls/hr IV Q24H [facility] Last Infusion: 03/07/22 09:01 Dose: 0 mls/hr Documented By: GALI Insulin Human Lispro (Insulin Lispro 100 Unit/Ml 3 Ml Vial) 0 unit SUBCUT QIDACHS [facility]; Protocol Last Admin: 03/07/22 11:25 Dose: 2 unit Documented By: GALI Methylprednisolone Sodium Succinate (Methylprednisolone Sod Succ 40 Mg/Ml Vial) 40 mg IVPUSH Q12H [facility] Last Admin: 03/07/22 08:53 Dose: 40 mg Documented By: GALI Metoprolol Tartrate (Metoprolol Tartrate 50 Mg Tablet) 50 mg PO BID [facility]; Protocol Last Admin: 03/07/22 08:54 Dose: 50 mg Documented By: GALI Nicotine (Nicotine 21 Mg Patch.Td24) 21 mg TRANSDERMA DAILY [facility] Last Admin: 03/07/22 08:52 Dose: 21 mg Documented By: GALI Ondansetron HCl (Ondansetron Hcl 4 Mg/2 Ml Vial) 4 mg IVPUSH Q8H PRN PRN Reason: Nausea and Vomiting Pharmacy Consult (Consult Rx Perform Med Rec) 1 each MISCELLANE ONCE PRN PRN Reason: Consult order Sodium Chloride (0.9 % Sodium Chloride Flush 3 Ml Syringe) 3 ml IVFLUSH QSHIFT [facility] Last Admin: 03/07/22 08:52 Dose: 3 ml Documented By: GALI Vitamin D (Cholecalciferol (Vitamin D3) 25 Mcg Tablet) 25 mcg PO DAILY [facility] Last Admin: 03/07/22 08:54 Dose: 25 mcg Documented By: GALI Warfarin Sodium (Warfarin Sodium 4 Mg Tablet) 4 mg PO DAILY@1800 [facility] Labs CBC & Chem 7: 03/06/22 06:28 03/06/22 06:28 Labs: Laboratory Results - last 24 hr 03/06/22 03/06/22 03/07/22 17:50 20:57 06:31 PT 31.6 H INR 2.6 H POC Glucose 269 H 232 H 03/07/22 03/07/22 07:44 11:20 PT INR POC Glucose 203 H 196 H Microbiology Microbiology Results: Microbiology 03/05/22 21:18 Blood Culture - Preliminary Blood - Venous No growth after 24 hours. 03/05/22 20:04 Blood Culture - Preliminary Blood - Venous No growth after 24 hours. Assessment and Plan (1) PAF (paroxysmal atrial fibrillation): Status: Acute (2) Community acquired pneumonia: Status: Acute (3) Acute respiratory failure with hypoxia: Status: Acute Plan 76-year-old male past medical history of COPD, AFib, CHF who presents to the hospital with complaints of orthopnea, PND, dyspnea, cough and sputum production found to be acutely hypoxic acute hypoxic respiratory failure likely secondary to COPD and pneumonia - continue supplemental oxygen, wean as tolerated chronic HFpEF has elevated BNP, orthopnea, PND echo from this year shows ejection fraction of 60-65% Was initially treated with IV Lasix, seen by Cardiology who did not feel that CHF was playing a large role in his current presentation -transitioned back to baseline oral Lasix dose community-acquired pneumonia evidence of consolidation on chest x-ray, has leukocytosis, afebrile, has dyspnea, cough and sputum production No evidence of sepsis COVID negative Blood cultures negative at 24 hours - continue IV ceftriaxone/azithromycin D#2 Acute COPD exacerbation - Continue IV Solu-Medrol, scheduled breathing treatments Paroxysmal atrial fibrillation - continue diltiazem, Lopressor, amiodarone - Continue anticoagulation with warfarin, INR 2.6 - PT INR daily diabetes - hold metformin - continue SSI, diabetic diet, POCs CAD s/p CABG continue BB, plavix, statin Tobacco dependence Patient continues to smoke 1 1/2 packs of cigarettes daily The importance of smoking cessation was discussed -nicotine replacement therapy DVT prophylaxis: Warfarin attending-Dr. Hernandez Patient requires ongoing inpatient hospitalization for acute COPD exacerbation, IV antibiotics, cardiology evaluation and close monitoring - possible home tomorrow Quality Stroke Does the patient have a stroke diagnosis?: No VTE Prior VTE?: No VTE Risk Level:: Medical - moderate - high VTE Device Contraindication: Treatment Not Indicated VTE Drug Contraindication: N/A - Med Ordered
--- NOTE | 2022-03-07 12:43 | PM.PNCARD ---
Subjective Subjective Date of Service: 03/07/22 Interval history: Patient states that he is doing okay. No specific complaints. Shortness of breath seems to be improving. Review of Systems Review of Systems Yes all other systems are reviewed and are negative Constitutional: Reports as per HPI Eyes: Reports as per HPI Reports as per HPI Cardiovascular: Reports as per HPI, Denies acrocyanosis, Denies cool extremities, Denies chest pain, Denies leg edema, Denies lightheadedness, Denies palpitations and Reports dyspnea Respiratory: Reports as per HPI, Reports no additional respiratory complaints and Reports dyspnea Gastrointestinal: Reports as per HPI and Reports no additional gastrointestinal complaints Genitourinary: Reports no additional male genitourinary complaints and Reports as per HPI Musculoskeletal: Reports no additional musculoskeletal complaints and Reports as per HPI Skin/Breast: Reports system reviewed and no additional complaints, except as docu Reports system reviewed and no additional complaints, except as documented and Reports as per HPI Psychiatric: Reports no additional psychiatric complaints and Reports as per HPI Endocrine: Reports no additional endocrine complaints, Reports as per HPI and Denies palpitations Hematologic/Lymphatic: Reports no additional hematologic/lymphatic complaints and Reports as per HPI Allergic/Immunologic: Reports no additional allergic/immunologic complaints and Reports as per HPI Physical Exam Vital Signs: Last Vital Signs Temp 97.9 F 03/07/22 11:24 Pulse 68 03/07/22 12:28 Resp 16 03/07/22 12:28 BP 115/53 L 03/07/22 11:24 Pulse Ox 95 03/07/22 11:24 O2 Del Method 03/07/22 11:24 O2 Flow Rate 1 03/07/22 11:24 BMI result Body Mass Index 23.5 Const General: comfortable and no acute distress Orientation/consciousness: patient oriented x3 HEENT Other: Unremarkable Head: Yes normal to inspection Neck Neck: Yes normal visual inspection Chest Chest palpation & inspection: normal inspection of the chest Resp Auscultation: rhonchi, wheezes and diminished lung sounds Cardio Palpation: normal PMI Heart sounds: S1 normal heart sound present, S2 normal heart sound present, no gallops, no murmurs and no rubs GI Palpation (GI): Soft to palpation Back/Spine/Pelvis Other: unremarkable Skin General skin exam: no rashes or lesions noted Neuro General: patient oriented x3 Extrem General: Yes normal to inspection Psych Mental Status: mental status grossly normal Objective Labs and Meds Result diagrams: 03/06/22 06:28 03/06/22 06:28 Lab results: Laboratory Results - last 24 hr 03/06/22 03/06/22 03/07/22 17:50 20:57 06:31 PT 31.6 H INR 2.6 H POC Glucose 269 H 232 H 03/07/22 03/07/22 07:44 11:20 PT INR POC Glucose 203 H 196 H Progress Note: A&P Assessment and plan (1) Acute on chronic diastolic CHF (congestive heart failure), NYHA class 3: Status: Acute (2) Acute respiratory failure with hypoxia: Status: Acute (3) Atherosclerotic cardiovascular disease: Status: Acute (4) PAF (paroxysmal atrial fibrillation): Status: Acute Plan Overall, his clinical examination is more supportive of COPD than congestive heart failure. However, could have had some component of diastolic heart failure in addition to his COPD. On clinical exam, he seems mostly euvolemic. Okay to use oral Lasix. Other cardiac medications unchanged including amiodarone/anticoagulation, diltiazem, among others. Continue statins as well unchanged. Not sure if he is on beta-blockers as it is not reflected in the last office note. Need to verify. Otherwise, when stable can be discharged. Discussed with . Time Spent With Patient Time: Total time spent is greater than 50% in coordination of care (as documented) at patient's floor/unit and/or counseling patient: 35min. Progress Note: Quality Stroke Does the patient have a stroke diagnosis?: No Procedures Date of Service Date of Service: 03/07/22
[2022-03-07 16:19] LABS: Glucose, Whole Blood 434 mg/dL (60-115)
[2022-03-07] MEDS: Warfarin Sodium 4 MG TABLET PO (18:03)
[2022-03-07 20:22] LABS: Glucose, Whole Blood 213 mg/dL (60-115)
[2022-03-07] MEDS: allopurinoL 100 MG TABLET PO (20:47)
[2022-03-07] MEDS: Atorvastatin Calcium 80 MG TABLET PO (20:47)
[2022-03-07] MEDS: Calcium Carbonate 750 MG TAB.CHEW PO (22:20)
[2022-03-08] MEDS: traZODone HCL 50 MG TABLET PO (01:02)
[2022-03-08 04:00] VITALS: BP 112/56; PULSE 66; RESP 18; TEMP 36.3; O2SAT 93
[2022-03-08 06:00] VITALS: BMI 23.8
[2022-03-08] MEDS: Azithromycin 500 MG in 0.9 % Sodium Chloride 250 ML 100 MG IV (06:14)
[2022-03-08 06:28] VITALS: BP 132/60; PULSE 62; RESP 16; TEMP 36.7; O2SAT 89
[2022-03-08] MEDS: Insulin Lispro 100 UNIT/ML 3 ML VIAL SUBCUT ×2 (07:24→11:47)
[2022-03-08 07:26] LABS: Glucose, Whole Blood 167 mg/dL (60-115)
[2022-03-08 07:38] LABS: INTERNATIONAL NORM RATIO 1.9 (0.9-1.1); Prothrombin Time 22.3 SEC (10.0-13.1)
[2022-03-08] MEDS: cefTRIAXone sodium 1 GM in 0.9 % Sodium Chloride 50 ML IV (07:38)
[2022-03-08] MEDS: 0.9 % Sodium Chloride Flush 3 ML SYRINGE IVFLUSH (07:39)
[2022-03-08] MEDS: Nicotine 21 MG PATCH.TD24 TRANSDERMA (07:39)
[2022-03-08] MEDS: dilTIAZem HCL CD 120 MG CAP.ER.DEG PO (07:40)
[2022-03-08] MEDS: methylPREDNISolone Sod Succ 40 MG/ML VIAL IVPUSH (07:40)
[2022-03-08] MEDS: Cholecalciferol (Vitamin D3) 25 MCG TABLET PO (07:40)
[2022-03-08] MEDS: Metoprolol Tartrate 50 MG TABLET PO (07:40)
[2022-03-08] MEDS: Clopidogrel Bisulfate 75 MG TABLET PO (07:40)
[2022-03-08] MEDS: Amiodarone HCL 200 MG TABLET PO (07:40)
[2022-03-08] MEDS: Finasteride 5 MG TABLET PO (07:40)
[2022-03-08] MEDS: Furosemide 40 MG TABLET PO (07:41)
[2022-03-08 07:50] VITALS: BP 118/57; PULSE 76; RESP 20; TEMP 36.4; O2SAT 92
[2022-03-08 11:13] LABS: Glucose, Whole Blood 165 mg/dL (60-115)
[2022-03-08] MEDS: Albuterol/Iprat 2.5/0.5MG 3 ML AMPUL.NEB INHALE (11:32)
[2022-03-08 11:36] VITALS: PULSE 54; RESP 20; O2SAT 93
[2022-03-08 12:00] VITALS: BP 117/56; PULSE 73; RESP 22; TEMP 36.6; O2SAT 95
--- NOTE | 2022-03-08 12:04 | P.DS_ITS ---
DS: Providers Provider Date of Service: 03/08/22 Date of admission: 03/05/22 23:19 Date of discharge: 03/08/22 Primary care physician: Gregory Ellison MD Consults: 03/05/22 23:16 Consult to Cardiology Routine Consulting Provider: Pancho Piper Reason for consultation: CHF Has provider been notified: No Attending physician on discharge: Stacey Kurtz Discharging clinician: Eliana Puentes DS: Diagnosis Discharge Diagnosis (1) Acute on chronic diastolic CHF (congestive heart failure), NYHA class 3: Status: Acute (2) Acute respiratory failure with hypoxia: Status: Acute (3) Atherosclerotic cardiovascular disease: Status: Acute (4) PAF (paroxysmal atrial fibrillation): Status: Acute DS: Summary Hospital Course Hospital Course: From H&P on day of admission 76-year-old male with past medical history of AFib, COPD, AAA,? CABG, diabetes, PAD,presents to the hospital with complaints of shortness of breath, cough and sputum production this been going on for a week. he also reports orthopnea and PND, ? No swelling in the legs.Patient denies any fever or chills, no chest pain, no palpitations, no abdominal pain nausea or vomiting, no diarrhea constipation.? He denies any increased salt intake,? And reports compliance with his? furosemide. ? On arrival to the ED patient hemodynamically stable with tachypnea in the 20s, blood pressure stable, satting 88% on room air Labs are significant for? WBC count of 12, hemoglobin of 13.8, hematocrit 42.4, BUN of 29, creatinine of 1.31 with a baseline of 0.86, BNP of 865 180 previously this year, UA that is positive for blood, trace leukocyte Estrace.? Patient denies any? urinary symptoms.? Chest x-ray shows mild ground-glass change in the mid left lung possibly infectious or inflammatory? linear scar, subsegmental atelectasis,? and evidence of CABG on CT ?patient will be admitted for further management acute hypoxic respiratory failure. secondary to COPD and pneumonia chronic HFpEF. Echo from this year shows ejection fraction of 60-65%. Was initially treated with IV Lasix, seen by Cardiology who did not feel that CHF was playing a large role in his current presentation and he was therefor transitioned back to baseline oral Lasix dose. community-acquired pneumonia. Patient tested negative for COVID-19. Blood cultures have remained negative. Will be discharged home to complete course of antibiotics. Acute COPD exacerbation. He was started on treatment with scheduled and as needed bronchodilator therapy, systemic steroids. He will be transition to oral prednisone taper. He is encouraged to follow-up with Dr. Booth after discharge. He was seen by respiratory therapy and evaluated for home oxygen, he did qualify for 2L/minute of oxygen with exertion. He reports that his breathing has improved back to his baseline and he is eager to return home. The importance of smoking cessation was advised and he was cautioned against smoking while using his oxygen. Attempted to obtain VNA services however were not able to secure insurance authorization today, patient did not want to stay in the hospital an additional day. Discussed with him and his at the bedside and they both feel comfortable using any oxygen at home. He has a follow-up appointment with his PCP on Wednesday and if he is having any issues VNA services can be arranged as an outpatient. Paroxysmal atrial fibrillation. Patient was continued on all his baseline medications in should continue outpatient INR monitoring on his previous schedule Time Spent with Patient Time attestation: Total time spent providing and/or coordinating discharge services: Discharge coordination time: Greater than 30 minutes Quality: Safe Use of Opioids Does Pt have an Active Cancer Diagnosis on the Problem List?: No Quality: Stroke Does the patient have a stroke diagnosis?: No Physical Exam Vital Signs: Vital Signs: Last Vital Signs Temp 97.5 F 03/08/22 07:50 Pulse 54 03/08/22 11:36 Resp 20 03/08/22 11:36 BP 118/57 L 03/08/22 07:50 Pulse Ox 92 03/08/22 07:50 O2 Del Method 03/08/22 07:50 O2 Flow Rate 1 03/08/22 04:00 BMI result Body Mass Index 23.8 Const: General: cooperative, comfortable, alert and awake Nutritional A ppearance: average body habitus Orientation/consciousness: patient oriented x3 Resp: Other: Improved aeration Effort & Inspection: normal respiratory effort and able to speak in complete sentences Auscultation: diminished lung sounds Cardio: Rate: regular rate Heart sounds: S1 normal heart sound present and S2 normal heart sound present GI: Inspection: No distended Palpation (GI): Soft to palpation and nontender Neuro: General: patient oriented x3 Extrem: General: Yes no pedal edema DS: Data Data Completed and Pending Labs on day of discharge: Laboratory Results - last 24 hr 03/07/22 03/07/22 03/08/22 16:16 20:14 06:33 PT 22.3 H INR 1.9 H POC Glucose 434 H* 213 H 03/08/22 03/08/22 07:18 11:05 PT INR POC Glucose 167 H 165 H Preliminary micro results at discharge 03/05/22 21:18 Blood Culture - Preliminary Blood - Venous No growth after 48 hours. 03/05/22 20:04 Blood Culture - Preliminary Blood - Venous No growth after 48 hours. Discharge Plan Discharge Patient Disposition: Home, Self-Care Discharge Diagnosis: Acute respiratory failure with hypoxia Acute COPD exacerbation Acute on chronic diastolic CHF Community-acquired pneumonia Referrals: Gregory Ellison MD [Primary Care Provider] - 1 Week Discharge Medications: New prednisone 10 mg tablet See Taper PO DAILY Qty: 30 0RF Taper: Prednisone 40 mg daily for 3 Days and 0 Hour 30 mg daily for 3 Days and 0 Hour 20 mg daily for 3 Days and 0 Hour 10 mg daily for 3 Days and 0 Hour cefuroxime axetil 250 mg tablet 250 mg PO BID 3 Days Qty: 6 0RF doxycycline hyclate 100 mg tablet 100 mg PO BID 3 Days Qty: 6 0RF Continued furosemide 40 mg tablet 40 mg PO DAILY Qty: 90 3RF finasteride 5 mg tablet 5 mg PO DAILY 90 Days Qty: 90 1RF budesonide-formoterol [Symbicort] 160-4.5 mcg/actuation HFA aerosol inhaler 2 puff PO BID Qty: 10.2 3RF warfarin 4 mg tablet 4 mg PO DAILY Qty: 30 0RF Protocol: Dose Management Condition: Wednesday (Week One) Dose/Route: 4 mg Instruction: 1 x 4 mg tablet Condition: Wednesday Dose/Route: 4 mg Instruction: 1 x 4 mg tablet Condition: Wednesday Dose/Route: 4 mg Instruction: 1 x 4 mg tablet Condition: Wednesday Dose/Route: 4 mg Instruction: 1 x 4 mg tablet Condition: Dose/Route: 4 mg Instruction: 1 x 4 mg tablet Condition: Wednesday Dose/Route: 4 mg Instruction: 1 x 4 mg tablet Condition: Wednesday Dose/Route: 4 mg Instruction: 1 x 4 mg tablet Condition: Wednesday (Week Two) Dose/Route: 4 mg Instruction: 1 x 4 mg tablet Condition: Wednesday Dose/Route: 4 mg Instruction: 1 x 4 mg tablet Condition: Wednesday Dose/Route: 4 mg Instruction: 1 x 4 mg tablet Condition: Wednesday Dose/Route: 4 mg Instruction: 1 x 4 mg tablet Condition: Dose/Route: 4 mg Instruction: 1 x 4 mg tablet Condition: Wednesday Dose/Route: 4 mg Instruction: 1 x 4 mg tablet Condition: Wednesday Dose/Route: 4 mg Instruction: 1 x 4 mg tablet Protocol Text: Adjustment Start Date: Wednesday03/03/22 INR Value: 3.0 INR Date: 03/03/22 Recheck Date: 03/10/22 Additional Instructions: cont reg dosing eat a green today albuterol sulfate 90 mcg/actuation HFA aerosol inhaler 2 puff inhalation Q4-6H PRN (Reason: dyspnea) Qty: 1 0RF cholecalciferol (vitamin D3) [Vitamin D3] 25 mcg (1,000 unit) Capsule 25 mcg PO DAILY allopurinol 100 mg tablet 100 mg PO BEDTIME metformin 500 mg tablet extended release 24 hr 500 mg PO BEDTIME diltiazem HCl 120 mg Capsule,Extended Release 24hr 120 mg PO DAILY rosuvastatin [Crestor] 40 mg tablet 40 mg PO DAILY Qty: 90 3RF clopidogrel [Plavix] 75 mg tablet 75 mg PO DAILY amiodarone 200 mg tablet 200 mg PO DAILY metoprolol tartrate 50 mg tablet 50 mg PO BID Discharge Orders: Discharge Order (Routine); Ordered 03/08/22 Ordered By: Eliana Puentes Activity on Discharge: As tolerated Stand Alone Forms: Patient Portal Discharge page Care Plan Goals: see below Health Concerns: Acute COPD exacerbation Acute respiratory failure with hypoxia Pneumonia Plan of Treatment: For pneumonia please finish entire course of antibiotics For COPD exacerbation please complete course of steroids as prescribed. Your oxygen level was on the low side and you qualify for home oxygen 2l/min with exertion. Recommend complete tobacco cessation. Do NOT smoke cigarettes while using oxygen For CHF continue low-salt diet, weigh yourself daily if able, monitor for signs of leg swelling Call to schedule follow-up with PCP Call to schedule follow-up with Dr. Booth of pulmonology Assessment: see discharge summary Discharge Date/Time: 03/08/22 13:48
--- NOTE | 2022-03-08 12:11 | MHC.CM.PN ---
Medical requesting VNA for in-home servicing for patient D/T new O2. Medical indicating in-home O2 has already been arranged and would like VNA for in-home care. CM to follow.
--- NOTE | 2022-03-08 12:18 | MHC.CM.PN ---
Met with patient and in room; patient was just previously on service w/a VNA, they do not remember the service. They are requesting the first available that can sign him on to service. Will place referrals and see which company can sign him on first. CM to follow.
[2022-03-08 12:35] VITALS: PULSE 54; PULSE 62; PULSE 76; PULSE 84; O2SAT 88; O2SAT 92; O2SAT 93; O2SAT 95
--- NOTE | 2022-03-08 12:56 | MHC.CM.PN ---
No accepting VNAs at this time; [facility] has indicated they can run the insurance and attempt auth for tomorrow, Medical notified. Medical indicated they do not think patient will wait until tomorrow. Pending next steps from Medical in an effort to guide [facility] if they should attempt auth tomorrow. CM to follow.
--- NOTE | 2022-03-08 13:21 | MHC.CM.PN ---
Medical indicates patient and are comfortable D/Cing home w/out VNA support and new O2. Medical states patient has a PCP appointment this upcoming Wednesday for F/U. Plan is D/C to home w/new O2 w/out VNA services.
== END 2022-03-08 13:48 | disposition home or self-care (01) | DRG 194 ==
LOC: HO.ED 22:26 → HO.EDOVER 23:26 → HO.IMC 03-07 01:34
PROVIDERS: Admitting Provider Internal Medicine; Emergency Provider Emergency Medicine; PCP Internal Medicine; Visit Provider Physician Assistant Medical
DX: J18.9 Pneumonia, unspecified organism (principal); I50.32 Chronic diastolic (congestive) heart failure; J44.0 Chronic obstructive pulmonary disease with (acute) lower respiratory infection; J44.1 Chronic obstructive pulmonary disease with (acute) exacerbation; J91.8 Pleural effusion in other conditions classified elsewhere; F17.210 Nicotine dependence, cigarettes, uncomplicated; I25.10 Atherosclerotic heart disease of native coronary artery without angina pectoris; I48.0 Paroxysmal atrial fibrillation; E11.51 Type 2 diabetes mellitus with diabetic peripheral angiopathy without gangrene; Z95.1 Presence of aortocoronary bypass graft; Z20.822 Contact with and (suspected) exposure to COVID-19; Z86.718 Personal history of other venous thrombosis and embolism; Z71.6 Tobacco abuse counseling; Z79.4 Long term (current) use of insulin; Z79.01 Long term (current) use of anticoagulants; Z79.02 Long term (current) use of antithrombotics/antiplatelets; Z79.51 Long term (current) use of inhaled steroids; Z79.899 Other long term (current) drug therapy
CPT/HCPCS: 36415; 71045; 80048; 80053; 80076; 81001; 81003; 82803; 82947; 83605; 83690; 83735; 83880; 84145; 84484; 85025; 85610; 87040; 87635; 93005; 94640; 96365; 96366; 96367; 96375; 99219; 99285; J0456; J0696; J1940; J1956; J2920; J2930; J3475; Q0163

== ENCOUNTER 2022-03-09 18:47 | Inpatient (IN) | payer MEDICARE, OTHER, SELFPAY ==
--- NOTE | ~2022-03-09 | CT_ITS ---
EXAMINATION: CT CHEST WITHOUT CONTRAST CLINICAL INFORMATION: Acute hypoxia COMPARISON: CT chest 01/14/2021 and chest radiograph 03/05/2022 TECHNIQUE: Multidetector volumetric CT imaging of the chest was done. Axial MIP volume rendering provided. Sagittal and coronal reformatted images were obtained. This CT examination was performed using dose optimization techniques as appropriate, variously including the following: *Automated exposure control *Adjustment of mA and/or kV according to patient size (this includes techniques or standardized protocols for targeted exams where dose is matched to indication/reason for exam; i.e. extremities or head) *Use of iterative reconstruction technique DLP: 270 mGy-cm FINDINGS: LUNGS AND PLEURA: Again seen are changes of COPD, significantly worse on the right compared to the left. Bronchial wall thickening, especially the lung bases is unchanged with some mild peripheral traction bronchiectasis, right greater than left. Round atelectasis is seen at the right lung base with some small pleural calcifications and thickening. In the left upper lobe, there is peripheral honeycombing and increased interstitial markings suggesting interstitial lung disease. Some tiny scattered micronodules are unchanged. MEDIASTINUM: Status post median sternotomy. Extensive coronary disease is seen status post CABG. No mediastinal or hilar lymphadenopathy is seen. Calcific changes are present aorta without evidence of aneurysm. There is a stenosis involving the proximal left subclavian artery. Blood pressures taken in the right arm would more accurately reflect central arterial pressure. AXILLA: No lymphadenopathy. UPPER ABDOMEN: Unremarkable. OSSEOUS STRUCTURES: Mild degenerative changes present in the spine. CT/CT chest wo con IMPRESSION: 1. Severe emphysema, right greater than left. 2. No acute consolidations 3. Changes within the left upper lobe consistent with fibrotic interstitial lung disease. Perhaps emphysematous changes on the right are so bad with marked bullous formation at fibrotic changes are not really apparent. 4. Bronchial wall thickening and bronchiectasis with areas of basilar atelectasis, round on the right. Fleischner guidelines were followed.
[2022-03-09 19:07] VITALS: BP 104/65; PULSE 74; RESP 20; TEMP 37; O2SAT 97; BMI 26.6
--- NOTE | 2022-03-09 19:08 | ED_ITS ---
HPI - SOB/Dyspnea General Chief Complaint: Upper Respiratory Symptoms Stated Complaint: Diff Breathing Time Seen by Provider: 03/09/22 19:08 Source: patient Mode of arrival: ambulatory Limitations: no limitations History of Present Illness HPI Narrative: Patient has history of COPD , HFpEF paroxysmal atrial fibrillation on Coumadin , CABG, AICD, diabetes just discharged home yesterday after admission for 3 days for increased shortness of breath and CAP comes back as is still feeling short of breath getting worse was tachypneic saturating 94% when EMS arrived Related Data Home Medications Medication Instructions Recorded Confirmed cholecalciferol (vitamin D3) 25 25 mcg PO DAILY 07/02/20 03/09/22 mcg (1,000 unit) capsule (Vitamin D3) clopidogrel 75 mg tablet (Plavix) 75 mg PO DAILY 12/23/21 03/09/22 amiodarone 200 mg tablet 200 mg PO DAILY 12/25/21 03/09/22 allopurinol 100 mg tablet 100 mg PO BEDTIME 01/05/22 03/09/22 metformin 500 mg tablet,extended 500 mg PO BEDTIME 01/05/22 03/09/22 release 24 hr metoprolol tartrate 50 mg tablet 50 mg PO BID 02/12/22 03/09/22 diltiazem HCl 120 mg 120 mg PO DAILY 03/05/22 03/09/22 capsule,extended release 24 hr Previous Rx's Medication Instructions Recorded furosemide 40 mg tablet 40 mg PO DAILY #90 caps 10/06/21 finasteride 5 mg tablet 5 mg PO DAILY 90 days #90 tabs 10/28/21 budesonide-formoterol HFA 160 2 puff PO BID #10.2 grams 10/29/21 mcg-4.5 mcg/actuation aerosol inhaler (Symbicort) rosuvastatin 40 mg tablet (Crestor) 40 mg PO DAILY #90 tabs 11/12/21 warfarin 4 mg tablet 4 mg PO DAILY #30 tabs 02/15/22 albuterol sulfate 90 mcg/actuation 2 puff inhalation Q4-6H PRN 02/20/22 aerosol inhaler dyspnea #1 ea cefuroxime axetil 250 mg tablet 250 mg PO BID 3 days #6 tabs 03/08/22 doxycycline hyclate 100 mg tablet 100 mg PO BID 3 days #6 tabs 03/08/22 prednisone 10 mg tablet See Taper PO DAILY #30 tabs 03/08/22 Allergies Allergy/AdvReac Type Severity Reaction Status Date / Time No Known Allergies Allergy Verified 03/09/22 19:07 [No Known Allergies*] Review of Systems Review of Systems: Yes all other systems are reviewed and are negative [facility] Past Medical History Medical History Abdominal aortic aneurysm without rupture Benign essential hypertension BPH loc w urin obs/LUTS Chronic atrial fibrillation COPD (chronic obstructive pulmonary disease) Coronary artery disease Current use of anticoagulant therapy Diabetes mellitus Elevated PSA Follicular lymphoma Heart failure with preserved ejection fraction High cholesterol History of blood clots History of deep vein thrombosis (DVT) of lower extremity Insomnia Overweight (BMI 25.0-29.9) PAF (paroxysmal atrial fibrillation) Peripheral arterial disease Pneumonia Pure hypercholesterolemia Smoker Smoker Vitamin D deficiency Surgical History History of quadruple bypass Family History Family History Father Cancer Mother Cardiovascular disease Social History Social History Household Members: Spouse Housing: House Are you a primary home care rn to a significant other at home: No Do you presently have visiting nurse or other home services: Yes (sometimes family sends a nurse) Alcohol intake: never Patient Tobacco Use Status: Former Tobacco user Tobacco use type: Cigarette Cigarette Packs Per Day: 1.5 Cigarettes Per Day: 30.0 Years Smoked: 65 Smoked in Last 30 Days: No Use of substances other than those prescribed or required for medical reasons: No Advance Directives: Yes Advance Directives on File: Yes Advance Directives Date on File: 01/06/22 service: No Current occupational status: retired Cognitive needs: No Hearing needs: No Vision needs: No Physical Exam Vital Signs: Vital Signs: Last Vital Signs Temp 97.8 F 03/10/22 00:00 Pulse 64 03/10/22 00:00 Resp 16 03/10/22 00:00 BP 133/42 L 03/10/22 00:00 Pulse Ox 99 03/10/22 00:00 O2 Del Method 03/10/22 00:00 O2 Flow Rate 3 03/10/22 00:00 Oxygen Flow Rate 3 03/09/22 20:09 BMI result Body Mass Index 26.6 Appearance: Alert. Oriented X3. In moderate respiratory distress Eyes: PERRLA, No Nystagmus ENT: Pharynx normal. Oral Mucosa moist Neck: Normal inspection. Neck supple. CVS: Normal heart rate and rhythm. Pulses normal. Respiratory: In moderate respiratory distress tachypneic. Equal air entry bilateral, bilateral wheezing with few crackles at the bases Abdomen: Soft and nontender. Bowel sounds are present, no mass palpable, no CVA tenderness Skin: Skin warm and dry. Normal skin color. Normal skin turgor. Extremities: No lower extremity edema. No calf tenderness Neuro: Oriented X 3. No motor deficit. No sensory deficit.No cerebellar signs , cranial nerves II-XII intact MDM - SOB/Dyspnea MDM Narrative Medical decision making narrative: Patient has severe emphysema with worsening of shortness of breath unable to manage at home just discharged from the hospital with steroids patient waited keep taken able to speak full sentences will admit patient for COPD exacerbation CT scan of the chest is negative for acute infiltrate patient is on Coumadin Lab Data Attestation: I reviewed the patient's lab results. Result diagrams: 03/09/22 19:45 03/09/22 19:45 Labs: Lab Results 03/09/22 03/09/22 03/09/22 Range/Units 19:45 19:45 19:45 WBC 14.4 H (4.8-10.8) X10*3/uL RBC 3.93 L (4.60-5.80) X10*6/uL Hgb 12.3 L (14.0-18.0) g/dl Hct 37.0 L (42.0-52.0) % MCV 94.1 (80.0-98.0) fL MCH 31.3 (27.0-33.0) pg MCHC 33.2 (31.0-36.0) g/dl RDW 16.9 H (11.0-16.0) % Plt Count 240 (160-400) X10*3/uL MPV 9.9 (9.4-12.4) fL Immature Gran % (Auto) 0.7 H (0.0-0.4) % Neut % (Auto) 89.7 H (45-73) % Lymph % (Auto) 2.9 L (20-40) % [place] % (Auto) 6.5 (2-11) % Eos % (Auto) 0.1 (0-4) % Baso % (Auto) 0.1 (0-2) % Lymph # (Auto) 0.4 L (1.2-4.9) X10*3/uL [place] # (Auto) 0.9 (0.1-1.2) X10*3/uL Eos # (Auto) 0.0 (0.0-0.4) X10*3/uL Baso # (Auto) 0.0 (0.0-0.2) X10*3/uL Abs Immat Gran (auto) 0.10 H (0.00-0.03) X10*3/uL Absolute Neuts (auto) 12.9 H (2.0-8.3) x10*3/uL Absolute Nucleated RBC 0.000 (0.0-0.012) X10*3/uL Nucleated RBC % (auto) 0.0 (0.0-0.2) /100WBC Sodium 141 (135-145) mmol/L Potassium 4.2 (3.3-5.1) mmol/L Chloride 98 (96-108) mmol/L Carbon Dioxide 32 H (22-29) mmol/L Anion Gap 15 (12-20) BUN 42 H D (9-16) mg/dL Creatinine 1.23 (0.5-1.4) mg/dL Estim Creat Clear Calc 45.3 Estimated GFR 57 Random Glucose 181 H (60-115) mg/dL Calcium 8.7 (8.4-10.2) mg/dL Total Bilirubin 0.8 (0.0-1.0) mg/dL AST 34 D (5-37) U/L ALT 42 H (0-40) U/L Alkaline Phosphatase 73 D (39-117) U/L Troponin I High Sens 21.7 (<3.5-35.0) ng/L B-Natriuretic Peptide 466 H (<100) pg/mL Total Protein 5.7 L (6.5-8.0) g/dL Albumin 3.7 (3.5-5.0) g/dL COVID-19 ([facility]) (Negative) COVID-19 Clin Com 03/09/22 Range/Units 19:45 WBC (4.8-10.8) X10*3/uL RBC (4.60-5.80) X10*6/uL Hgb (14.0-18.0) g/dl Hct (42.0-52.0) % MCV (80.0-98.0) fL MCH (27.0-33.0) pg MCHC (31.0-36.0) g/dl RDW (11.0-16.0) % Plt Count (160-400) X10*3/uL MPV (9.4-12.4) fL Immature Gran % (Auto) (0.0-0.4) % Neut % (Auto) (45-73) % Lymph % (Auto) (20-40) % [place] % (Auto) (2-11) % Eos % (Auto) (0-4) % Baso % (Auto) (0-2) % Lymph # (Auto) (1.2-4.9) X10*3/uL [place] # (Auto) (0.1-1.2) X10*3/uL Eos # (Auto) (0.0-0.4) X10*3/uL Baso # (Auto) (0.0-0.2) X10*3/uL Abs Immat Gran (auto) (0.00-0.03) X10*3/uL Absolute Neuts (auto) (2.0-8.3) x10*3/uL Absolute Nucleated RBC (0.0-0.012) X10*3/uL Nucleated RBC % (auto) (0.0-0.2) /100WBC Sodium (135-145) mmol/L Potassium (3.3-5.1) mmol/L Chloride (96-108) mmol/L Carbon Dioxide (22-29) mmol/L Anion Gap (12-20) BUN (9-16) mg/dL Creatinine (0.5-1.4) mg/dL Estim Creat Clear Calc Estimated GFR Random Glucose (60-115) mg/dL Calcium (8.4-10.2) mg/dL Total Bilirubin (0.0-1.0) mg/dL AST (5-37) U/L ALT (0-40) U/L Alkaline Phosphatase (39-117) U/L Troponin I High Sens (<3.5-35.0) ng/L B-Natriuretic Peptide (<100) pg/mL Total Protein (6.5-8.0) g/dL Albumin (3.5-5.0) g/dL COVID-19 ([facility]) Negative (Negative) COVID-19 Clin Com See Note Discharge Plan Discharge Clinical Impression: Acute exacerbation of chronic obstructive pulmonary disease, Acute on chronic diastolic CHF (congestive heart failure), NYHA class 3 Patient Disposition: Admitted As Inpatient
--- NOTE | 2022-03-09 19:20 | ECG_ITS ---
Test Reason : AFIB Blood Pressure : / mmHG Vent. Rate : 075 BPM Atrial Rate : 075 BPM P-R Int : 172 ms QRS Dur : 094 ms QT Int : 436 ms P-R-T Axes : 109 032 060 degrees QTc Int : 486 ms Sinus rhythm with Premature atrial complexes Septal infarct (cited on or before 27-APR-2004) Incomplete right bundle branch block Abnormal ECG When compared with ECG of 05-MAR-2022 19:53, Questionable change in initial forces of Septal leads Referred By: Bola Pang Electronically Signed By:LISA HILL
[2022-03-09 19:24] VITALS: BP 144/61; PULSE 73; RESP 30; TEMP 36.7; O2SAT 99
[2022-03-09 19:49] LABS: MANUAL DIFF FLAG NO
[2022-03-09 19:51] LABS: Basophils Percent Auto 0.1 % (0-2); Eosinophils Percent Auto 0.1 % (0-4); Hemoglobin 12.3 g/dl (14.0-18.0); Imm Gran Pct Auto 0.7 % (0.0-0.4); Lymphocytes Absolute Auto 0.4 X10*3/uL (1.2-4.9); Lymphocytes Percent Auto 2.9 % (20-40); Mean Corpuscular HGB Conc 33.2 g/dl (31.0-36.0); Mean Corpuscular Hemoglobin 31.3 pg (27.0-33.0); Mean Corpuscular Volume 94.1 fL (80.0-98.0); Mean Platelet Volume 9.9 fL (9.4-12.4); Monocytes Absolute Auto 0.9 X10*3/uL (0.1-1.2); Monocytes Percent Auto 6.5 % (2-11); Neutrophils Absolute Auto 12.9 x10*3/uL (2.0-8.3); Neutrophils Percent Auto 89.7 % (45-73); Platelet Count 240 X10*3/uL (160-400); Red Blood Count 3.93 X10*6/uL (4.60-5.80); Red Cell Distribution Width 16.9 % (11.0-16.0); White Blood Count 14.4 X10*3/uL (4.8-10.8)
[2022-03-09 20:05] LABS: COVID-19 Test Negative (Negative); IDNOW Serial# 16C4AD1C
[2022-03-09 20:09] VITALS: O2SAT 96
[2022-03-09 20:12] LABS: B Type Natriuretic Peptide 466 pg/mL (<100); Troponin-I High Sensitivity 21.7 ng/L (<3.5-35.0)
[2022-03-09 20:36] LABS: Alanine Aminotransferase 42 U/L (0-40); Albumin Level 3.7 g/dL (3.5-5.0); Alkaline Phosphatase 73 U/L (39-117); Anion Gap 15 (12-20); Aspartate Amino Transferase 34 U/L (5-37); Bilirubin Total 0.8 mg/dL (0.0-1.0); Blood Urea Nitrogen 42 mg/dL (9-16); Calcium 8.7 mg/dL (8.4-10.2); Carbon Dioxide 32 mmol/L (22-29); Chloride 98 mmol/L (96-108); Creatinine Clr Calc Pharmacy 45.3; Estimated Glomerular Filt Rate 57; Glucose Random 181 mg/dL (60-115); Potassium 4.2 mmol/L (3.3-5.1); Sodium 141 mmol/L (135-145); Total Protein 5.7 g/dL (6.5-8.0)
--- NOTE | 2022-03-09 22:11 | PM.IMHP ---
History of Present Illness Date of Service: 03/09/22 Chief Complaint: sob 76-year-old male with a past medical history of hypertension, hyperlipidemia, diabetes, CAD, CHF, chronic AFib, DVT of on Coumadin, peripheral vascular disease, tobacco dependence, history of ocular lymphoma, COPD-on 2 L of home oxygen, BPH, abdominal aortic aneurysm, recent admission to the hospital for acute hypoxic respiratory failure in the setting of pneumonia/CHF/COPD-discharged on 03/08/22; presented to the hospital today with a chief complaint of shortness of breath. Patient reports that he was discharged home on oral antibiotics and prednisone taper-today he fell severely short of breath, limiting his activities of daily living; complains of mild dry cough. Denies any fevers. Mentions that he has been complaint with his home medications. Denies any nausea vomiting or diarrhea. Denies any GI symptoms. Denies any chest pain or palpitations. Review of all other systems is negative except mentioned above ER course: Per ER team patient noted to be mildly short of breath, wheezing noted, CT chest showed severe emphysema, no acute consolidation, left upper lobe changes consistent fibrotic interstitial lung disease; bronchial wall thickening and bronchiectasis noted as well. Admitted to the hospital for further management [facility] Medical History Abdominal aortic aneurysm without rupture Benign essential hypertension BPH loc w urin obs/LUTS Chronic atrial fibrillation COPD (chronic obstructive pulmonary disease) Coronary artery disease Current use of anticoagulant therapy Diabetes mellitus Elevated PSA Follicular lymphoma Heart failure with preserved ejection fraction High cholesterol History of blood clots History of deep vein thrombosis (DVT) of lower extremity Insomnia Overweight (BMI 25.0-29.9) PAF (paroxysmal atrial fibrillation) Peripheral arterial disease Pneumonia Pure hypercholesterolemia Smoker Smoker Vitamin D deficiency Family History Father Cancer Mother Cardiovascular disease Surgical History History of quadruple bypass Social History Household Members: Spouse Housing: House Are you a primary career development facilitator to a significant other at home: No Do you presently have visiting nurse or other home services: Yes (sometimes family sends a nurse) Alcohol intake: never Patient Tobacco Use Status: Former Tobacco user Tobacco use type: Cigarette Cigarette Packs Per Day: 1.5 Cigarettes Per Day: 30.0 Years Smoked: 65 Smoked in Last 30 Days: No Use of substances other than those prescribed or required for medical reasons: No Advance Directives: Yes Advance Directives on File: Yes Advance Directives Date on File: 01/06/22 service: No Current occupational status: retired Cognitive needs: No Hearing needs: No Vision needs: No Meds Allergies Allergy/AdvReac Type Severity Reaction Status Date / Time No Known Allergies Allergy Verified 03/09/22 19:07 [No Known Allergies*] Active Medications: Current Medications Acetaminophen (Acetaminophen 325 Mg Tablet) 650 mg PO Q6H PRN PRN Reason: Pain, Mild (Pain Scale 1-3) Albuterol/Ipratropium (Albuterol/Iprat 2.5/0.5mg 3 Ml Ampul.Neb) 3 ml INHALE RQ4H WHILE AWAKE TAMMY Albuterol/Ipratropium (Albuterol/Iprat 2.5/0.5mg 3 Ml Ampul.Neb) 3 ml INHALE RQ4H PRN PRN Reason: Shortness of Breath/Wheezing Dextrose (Dextrose 50 % 25 Gm/50 Ml Syringe) 25 gm IVPUSH Q15M PRN; Protocol PRN Reason: per Hypoglycemia Standing Ord. Glucose (Glucose Gel 15 Gm Gel..Gram.) 15 gm PO Q15M PRN; Protocol PRN Reason: per Hypoglycemia Standing Ord. Insulin Human Lispro (Insulin Lispro 100 Unit/Ml 3 Ml Vial) 0 unit SUBCUT QIDACHS [facility]; Protocol Melatonin (Melatonin 3 Mg Tablet) 6 mg PO BEDTIME PRN PRN Reason: Insomnia Methylprednisolone Sodium Succinate (Methylprednisolone Sod Succ 40 Mg/Ml Vial) 40 mg IVPUSH Q6H [facility] Senna (Sennosides 8.6 Mg Tablet) 17.2 mg PO BEDTIME PRN PRN Reason: Constipation Sodium Chloride (0.9 % Sodium Chloride Flush 3 Ml Syringe) 3 ml IVFLUSH QSHIFT [facility] Home Medications Medication Instructions Recorded Confirmed Last Taken Type cholecalciferol (vitamin D3) 25 25 mcg PO DAILY 07/02/20 03/09/22 03/09/22 History mcg (1,000 unit) capsule (Vitamin D3) clopidogrel 75 mg tablet (Plavix) 75 mg PO DAILY 12/23/21 03/09/22 03/09/22 History amiodarone 200 mg tablet 200 mg PO DAILY 12/25/21 03/09/22 03/09/22 History allopurinol 100 mg tablet 100 mg PO BEDTIME 01/05/22 03/09/22 03/08/22 History metformin 500 mg tablet,extended 500 mg PO BEDTIME 01/05/22 03/09/22 03/08/22 History release 24 hr metoprolol tartrate 50 mg tablet 50 mg PO BID 02/12/22 03/09/22 03/09/22 History diltiazem HCl 120 mg 120 mg PO DAILY 03/05/22 03/09/22 03/09/22 History capsule,extended release 24 hr Physical Exam Vital Signs and Narrative: Vital Signs: Last Vital Signs Temp 98.1 F 03/09/22 19:24 Pulse 73 03/09/22 19:24 Resp 30 H 03/09/22 19:24 BP 144/61 H 03/09/22 19:24 Pulse Ox 96 03/09/22 20:09 O2 Del Method 03/09/22 20:09 O2 Flow Rate 4 03/09/22 19:24 Oxygen Flow Rate 3 03/09/22 20:09 BMI result Body Mass Index 26.6 Gen: Appears be in no acute distress. On supplemental oxygen. Speaks in full sentences. HEENT: NCAT, Moist mucosa. Pulmonary: Bilateral expiratory wheezing noted. CVS: Normal S1-S2 Abdomen: BS+, Soft, Nontender Extremities: Warm well perfused Neuro: Alert and awake. Results Labs CBC and Chem 7: 03/09/22 19:45 03/09/22 19:45 Labs: Laboratory Results - last 24 hr 03/09/22 03/09/22 03/09/22 19:45 19:45 19:45 MCV 94.1 MCH 31.3 MCHC 33.2 RDW 16.9 H Plt Count 240 MPV 9.9 Immature Gran % (Auto) 0.7 H Neut % (Auto) 89.7 H Lymph % (Auto) 2.9 L Gove % (Auto) 6.5 Eos % (Auto) 0.1 Baso % (Auto) 0.1 Lymph # (Auto) 0.4 L Gove # (Auto) 0.9 Eos # (Auto) 0.0 Baso # (Auto) 0.0 Abs Immat Gran (auto) 0.10 H Absolute Neuts (auto) 12.9 H Absolute Nucleated RBC 0.000 Nucleated RBC % (auto) 0.0 Anion Gap 15 Estim Creat Clear Calc 45.3 Estimated GFR 57 Random Glucose 181 H Calcium 8.7 Total Bilirubin 0.8 AST 34 D ALT 42 H Alkaline Phosphatase 73 D B-Natriuretic Peptide 466 H Total Protein 5.7 L Albumin 3.7 COVID-19 (HARRY) COVID-19 Clin Com 03/09/22 19:45 MCV MCH MCHC RDW Plt Count MPV Immature Gran % (Auto) Neut % (Auto) Lymph % (Auto) Gove % (Auto) Eos % (Auto) Baso % (Auto) Lymph # (Auto) Gove # (Auto) Eos # (Auto) Baso # (Auto) Abs Immat Gran (auto) Absolute Neuts (auto) Absolute Nucleated RBC Nucleated RBC % (auto) Anion Gap Estim Creat Clear Calc Estimated GFR Random Glucose Calcium Total Bilirubin AST ALT Alkaline Phosphatase B-Natriuretic Peptide Total Protein Albumin COVID-19 (HARRY) Negative COVID-19 Clin Com See Note Imaging Radiologist's Impressions: Impressions Chest CT 03/09/22 20:22 IMPRESSION: 1. Severe emphysema, right greater than left. 2. No acute consolidations 3. Changes within the left upper lobe consistent with fibrotic interstitial lung disease. Perhaps emphysematous changes on the right are so bad with marked bullous formation at fibrotic changes are not really apparent. 4. Bronchial wall thickening and bronchiectasis with areas of basilar atelectasis, round on the right. Fleischner guidelines were followed. Assessment and Plan (1) COPD with acute exacerbation: Status: Acute Plan 76-year-old male with a past medical history of hypertension, hyperlipidemia, diabetes, CAD, CHF, chronic AFib, DVT of on Coumadin, peripheral vascular disease, tobacco dependence, history of ocular lymphoma, COPD-on 2 L of home oxygen, BPH, abdominal aortic aneurysm, recent admission to the hospital for acute hypoxic respiratory failure in the setting of pneumonia/CHF/COPD-discharged on 03/08/22; presented to the hospital today with a chief complaint of shortness of breath. Noted to be in COPD exacerbation. Admitted for further management. COPD exacerbation: Will give the patient Solu-Medrol IV q.i.d. Nebulizations standing and p.r.n. Recent history of pneumonia: Patient on doxycycline and cefuroxime-will continue History of CHF: Stable. Continue home Lasix. History of AFib/DVT: Patient on Coumadin. Monitor INR. Adjust Coumadin as needed. Continue home amiodarone History of diabetes: Insulin sliding scale History of history and/HLD/CAD: Continue home Plavix, statin, metoprolol: DVT prophylaxis: Patient on Coumadin Code status: Full code Quality Stroke Does the patient have a stroke diagnosis?: No VTE Prior VTE?: No VTE Risk Level:: Medical - moderate - high VTE Device Contraindication: Treatment Not Indicated VTE Drug Contraindication: N/A - Med Ordered
[2022-03-09 22:35] VITALS: PULSE 70; RESP 20; O2SAT 95
[2022-03-09] MEDS: Albuterol/Iprat 2.5/0.5MG 3 ML AMPUL.NEB INHALE (22:35)
[2022-03-09 22:54] LABS: INTERNATIONAL NORM RATIO 2.3 (0.9-1.1)
[2022-03-09 23:08] LABS: Troponin-I High Sensitivity 24.8 ng/L (<3.5-35.0)
[2022-03-09] MEDS: methylPREDNISolone Sod Succ 40 MG/ML VIAL IVPUSH (23:13)
[2022-03-10] VITALS (12 sets, daily range): BP systolic 118–140; BP diastolic 42–64; PULSE 60–73; RESP 16–21; TEMP 36.1–37.4; O2SAT 94–100; BMI 23.3
[2022-03-10] MEDS: 0.9 % Sodium Chloride Flush 3 ML SYRINGE IVFLUSH ×4 (00:05→21:24)
[2022-03-10 01:12] LABS: Glucose, Whole Blood 169 mg/dL (60-115)
[2022-03-10] MEDS: methylPREDNISolone Sod Succ 40 MG/ML VIAL IVPUSH ×4 (04:29→21:23)
[2022-03-10 05:03] LABS: Basophils Percent Auto 0.1 % (0-2); Hematocrit 35.6 % (42.0-52.0); Hemoglobin 11.6 g/dl (14.0-18.0); Imm Gran Abs Auto 0.09 X10*3/uL (0.00-0.03); Imm Gran Pct Auto 0.9 % (0.0-0.4); Lymphocytes Absolute Auto 0.2 X10*3/uL (1.2-4.9); Lymphocytes Percent Auto 1.6 % (20-40); MANUAL DIFF FLAG SCAN; Mean Corpuscular HGB Conc 32.6 g/dl (31.0-36.0); Mean Corpuscular Hemoglobin 30.3 pg (27.0-33.0); Mean Platelet Volume 10.2 fL (9.4-12.4); Monocytes Absolute Auto 0.2 X10*3/uL (0.1-1.2); Monocytes Percent Auto 1.5 % (2-11); Neutrophils Absolute Auto 9.7 x10*3/uL (2.0-8.3); Neutrophils Percent Auto 95.9 % (45-73); Platelet Count 209 X10*3/uL (160-400); Red Blood Count 3.83 X10*6/uL (4.60-5.80); Red Cell Distribution Width 16.7 % (11.0-16.0); SCAN SMEAR FLAG 1; White Blood Count 10.1 X10*3/uL (4.8-10.8)
[2022-03-10 05:21] LABS: Anion Gap 14 (12-20); Blood Urea Nitrogen 37 mg/dL (9-16); Calcium 8.7 mg/dL (8.4-10.2); Carbon Dioxide 32 mmol/L (22-29); Chloride 99 mmol/L (96-108); Creatinine Clr Calc Pharmacy 52.1; Estimated Glomerular Filt Rate > 60; Glucose Random 199 mg/dL (60-115); Potassium 4.4 mmol/L (3.3-5.1); Sodium 141 mmol/L (135-145)
[2022-03-10 06:40] LABS: INTERNATIONAL NORM RATIO 2.1 (0.9-1.1); Prothrombin Time 25.4 SEC (10.0-13.1)
--- NOTE | 2022-03-10 07:24 | PC.NURSE ---
pt a/o x 4 pt c/o slight sob. lungs sounds - rhonchi/slight exp wheezing sherri lower lobes. pt 02 sat 99% on 2l/m via n/c. occasional prod cough. speaks in full sentences. heart sounds -irregular, hr 68. abd soft, n/t. no edema noted to sherri lower ext. pt aware of plan of care of admission to hosp.
[2022-03-10 07:40] LABS: Glucose, Whole Blood 177 mg/dL (60-115)
[2022-03-10] MEDS: Albuterol/Iprat 2.5/0.5MG 3 ML AMPUL.NEB INHALE ×4 (07:50→18:42)
--- NOTE | 2022-03-10 08:16 | PC.NURSE ---
pt has multi skin discoloration to sherri forearms. skin appear thin. pt's grand-daughter (Erika lomeli, ) called [facility] and was updated on pt status. pt aware of plan of care.
--- NOTE | 2022-03-10 08:43 | PC.NURSE ---
rn to rn report given to hayden osman aware of plan of care.
[2022-03-10] MEDS: Cholecalciferol (Vitamin D3) 25 MCG TABLET PO (08:45)
[2022-03-10] MEDS: Furosemide 40 MG TABLET PO (08:46)
[2022-03-10] MEDS: dilTIAZem HCL CD 120 MG CAP.ER.DEG PO (08:46)
[2022-03-10] MEDS: Metoprolol Tartrate 50 MG TABLET PO ×2 (08:46→21:23)
[2022-03-10] MEDS: Amiodarone HCL 200 MG TABLET PO (08:46)
[2022-03-10] MEDS: Insulin Lispro 100 UNIT/ML 3 ML VIAL SUBCUT ×4 (08:46→21:26)
[2022-03-10] MEDS: Clopidogrel Bisulfate 75 MG TABLET PO (08:46)
--- NOTE | 2022-03-10 10:07 | HO.PM.IMPN ---
Subjective Subjective Date of Service: 03/11/22 Interval History: f/u on copd exacerbation interval history: feels better Review of Systems +sob, no fever, no ricci p Physical Exam Vital Signs: Vital Signs: Last Vital Signs Temp 97.0 F 03/10/22 08:00 Pulse 73 03/10/22 08:00 Resp 20 03/10/22 08:00 BP 135/64 03/10/22 08:00 Pulse Ox 98 03/10/22 08:00 O2 Del Method 03/10/22 08:00 O2 Flow Rate 3 03/10/22 08:00 Oxygen Flow Rate 3 03/09/22 20:09 BMI result Body Mass Index 26.6 Const: Other: General: AO X 3, no acute distress Resp: some rhonchi, no wheeze CVS: S1,S2,RRR GI: +BS, NT, no distention Skin: No rash Neuro: motor grossly intact Psych: appropriate affect Objective Data Active Medications Acetaminophen (Acetaminophen 325 Mg Tablet) 650 mg PO Q6H PRN PRN Reason: Pain, Mild (Pain Scale 1-3) Albuterol Sulfate (Albuterol Sulfate 90 Mcg 8 Gm Inhaler) 2 puff INHALE Q4H PRN PRN Reason: dyspnea Albuterol/Ipratropium (Albuterol/Iprat 2.5/0.5mg 3 Ml Ampul.Neb) 3 ml INHALE RQ4H WHILE AWAKE [facility] Last Admin: 03/10/22 07:50 Dose: 3 ml Documented By: MODESTO Albuterol/Ipratropium (Albuterol/Iprat 2.5/0.5mg 3 Ml Ampul.Neb) 3 ml INHALE RQ4H PRN PRN Reason: Shortness of Breath/Wheezing Allopurinol (Allopurinol 100 Mg Tablet) 100 mg PO BEDTIME [facility] Amiodarone HCl (Amiodarone Hcl 200 Mg Tablet) 200 mg PO DAILY [facility] Last Admin: 03/10/22 08:46 Dose: 200 mg Documented By: CHETNA Atorvastatin Calcium (Atorvastatin Calcium 80 Mg Tablet) 80 mg PO BEDTIME [facility] Cefuroxime Axetil (Cefuroxime Axetil 250 Mg Tablet) 250 mg PO BID [facility] Last Admin: 03/10/22 08:46 Dose: 250 mg Documented By: CHETNA Clopidogrel Bisulfate (Clopidogrel Bisulfate 75 Mg Tablet) 75 mg PO DAILY [facility] Last Admin: 03/10/22 08:46 Dose: 75 mg Documented By: CHETNA Dextrose (Dextrose 50 % 25 Gm/50 Ml Syringe) 25 gm IVPUSH Q15M PRN; Protocol PRN Reason: per Hypoglycemia Standing Ord. Diltiazem HCl (Diltiazem Hcl Cd 120 Mg Cap.Er.Deg) 120 mg PO DAILY [facility]; Protocol Last Admin: 03/10/22 08:46 Dose: 120 mg Documented By: CHETNA Doxycycline Hyclate (Doxycycline Hyclate 100 Mg Tablet) 100 mg PO BID [facility] Last Admin: 03/10/22 08:46 Dose: 100 mg Documented By: CHETNA Finasteride (Finasteride 5 Mg Tablet) 5 mg PO DAILY [facility] Fluticasone/Vilanterol (Fluticasone/Vilanterol 200/25 Blst.W.Dev) 1 puff INHALE RDAILY [facility] Last Admin: 03/10/22 07:53 Dose: Not Given Documented By: MODESTO Non-Admin Reason: IV Running Furosemide (Furosemide 40 Mg Tablet) 40 mg PO DAILY [facility]; Protocol Last Admin: 03/10/22 08:46 Dose: 40 mg Documented By: CHETNA Glucose (Glucose Gel 15 Gm Gel..Gram.) 15 gm PO Q15M PRN; Protocol PRN Reason: per Hypoglycemia Standing Ord. Insulin Human Lispro (Insulin Lispro 100 Unit/Ml 3 Ml Vial) 0 unit SUBCUT QIDACHS [facility]; Protocol Last Admin: 03/10/22 08:46 Dose: 2 unit Documented By: CHETNA Melatonin (Melatonin 3 Mg Tablet) 6 mg PO BEDTIME PRN PRN Reason: Insomnia Methylprednisolone Sodium Succinate (Methylprednisolone Sod Succ 40 Mg/Ml Vial) 40 mg IVPUSH Q6H [facility] Last Admin: 03/10/22 08:45 Dose: 40 mg Documented By: CHETNA Metoprolol Tartrate (Metoprolol Tartrate 50 Mg Tablet) 50 mg PO BID [facility]; Protocol Last Admin: 03/10/22 08:46 Dose: 50 mg Documented By: CHETNA Senna (Sennosides 8.6 Mg Tablet) 17.2 mg PO BEDTIME PRN PRN Reason: Constipation Sodium Chloride (0.9 % Sodium Chloride Flush 3 Ml Syringe) 3 ml IVFLUSH QSHIFT [facility] Last Admin: 03/10/22 07:29 Dose: 3 ml Documented By: SCOC Vitamin D (Cholecalciferol (Vitamin D3) 25 Mcg Tablet) 25 mcg PO DAILY [facility] Last Admin: 03/10/22 08:45 Dose: 25 mcg Documented By: SCOC Warfarin Sodium (Warfarin Sodium 4 Mg Tablet) 4 mg PO DAILY@1800 [facility] Labs CBC & Chem 7: 03/10/22 04:35 03/10/22 04:35 Labs: Laboratory Results - last 24 hr 03/09/22 03/09/22 03/09/22 19:45 19:45 19:45 MCV 94.1 MCH 31.3 MCHC 33.2 RDW 16.9 H Plt Count 240 MPV 9.9 Immature Gran % (Auto) 0.7 H Neut % (Auto) 89.7 H Lymph % (Auto) 2.9 L Darke % (Auto) 6.5 Eos % (Auto) 0.1 Baso % (Auto) 0.1 Lymph # (Auto) 0.4 L Darke # (Auto) 0.9 Eos # (Auto) 0.0 Baso # (Auto) 0.0 Abs Immat Gran (auto) 0.10 H Absolute Neuts (auto) 12.9 H Absolute Nucleated RBC 0.000 Nucleated RBC % (auto) 0.0 PT INR Anion Gap 15 Estim Creat Clear Calc 45.3 Estimated GFR 57 POC Glucose Random Glucose 181 H Calcium 8.7 Total Bilirubin 0.8 AST 34 D ALT 42 H Alkaline Phosphatase 73 D B-Natriuretic Peptide 466 H Total Protein 5.7 L Albumin 3.7 COVID-19 ([facility]) COVID-19 Clin Com 03/09/22 03/09/22 03/10/22 19:45 22:44 01:07 MCV MCH MCHC RDW Plt Count MPV Immature Gran % (Auto) Neut % (Auto) Lymph % (Auto) Darke % (Auto) Eos % (Auto) Baso % (Auto) Lymph # (Auto) Darke # (Auto) Eos # (Auto) Baso # (Auto) Abs Immat Gran (auto) Absolute Neuts (auto) Absolute Nucleated RBC Nucleated RBC % (auto) PT 27.0 H INR 2.3 H Anion Gap Estim Creat Clear Calc Estimated GFR POC Glucose 169 H Random Glucose Calcium Total Bilirubin AST ALT Alkaline Phosphatase B-Natriuretic Peptide Total Protein Albumin COVID-19 (HARRY) Negative COVID-19 Clin Com See Note 03/10/22 03/10/22 03/10/22 04:35 04:35 07:36 MCV MCH MCHC RDW Plt Count MPV Immature Gran % (Auto) Neut % (Auto) Lymph % (Auto) Darke % (Auto) Eos % (Auto) Baso % (Auto) Lymph # (Auto) Darke # (Auto) Eos # (Auto) Baso # (Auto) Abs Immat Gran (auto) Absolute Neuts (auto) Absolute Nucleated RBC Nucleated RBC % (auto) PT 25.4 H INR 2.1 H Anion Gap 14 Estim Creat Clear Calc 52.1 Estimated GFR > 60 POC Glucose 177 H Random Glucose 199 H Calcium 8.7 Total Bilirubin AST ALT Alkaline Phosphatase B-Natriuretic Peptide Total Protein Albumin COVID-19 ([facility]) COVID-19 Clin Com Assessment and Plan (1) COPD with acute exacerbation: Status: Acute Plan 76-year-old male with a past medical history of hypertension, hyperlipidemia, diabetes, CAD, CHF, chronic AFib, DVT of on Coumadin, peripheral vascular disease, tobacco dependence, history of ocular lymphoma, COPD-on 2 L of home oxygen, BPH, abdominal aortic aneurysm, recent admission to the hospital for acute hypoxic respiratory failure in the setting of pneumonia/CHF/COPD-discharged on 03/08/22; presented to the hospital today with a chief complaint of shortness of breath. Noted to be in COPD exacerbation. Admitted for further management. #COPD exacerbation: -IV Medrol IV for 1 more day -bronchodilators by neb #Recent history of pneumonia: Patient on doxycycline and cefuroxime-will continue #History of chronic diastolic CHF: Stable. Continue home Lasix. #History of persistent AFib --continue Amio, coumadin #Hisoty of DVT: Patient on Coumadin. Monitor INR.\ #History of diabetes: Insulin sliding scale #History of history and/HLD/CAD: Continue home Plavix, statin, metoprolol: DVT prophylaxis: Patient on Coumadin Code status: Full code Need for inpatient: Ongoing treatment of acute COPD with IV steroid, and bronchodilators, need for frequent monitoring and monitoring response Quality Stroke Does the patient have a stroke diagnosis?: No VTE Prior VTE?: No VTE Risk Level:: Medical - moderate - high VTE Device Contraindication: Treatment Not Indicated VTE Drug Contraindication: N/A - Med Ordered
[2022-03-10] MEDS: Finasteride 5 MG TABLET PO (10:18)
[2022-03-10 11:16] LABS: Glucose, Whole Blood 255 mg/dL (60-115)
[2022-03-10 11:23] LABS: SLIDE REVIEW VERIFIED
--- NOTE | 2022-03-10 11:38 | P.CDIC_ITS ---
CDI Concurrent Query Documentation Clarification: PHYSICIAN'S DOCUMENTATION REQUEST Date of Query: 03/10/22 1138 Patient Name: Christian Paula Admit Date: 03/09/22 Dear Doctor, A review of the medical record indicates additional documentation may be needed. Please review below and update the documentation accordingly. Clinical Indicators: Risk Factors/Clinical Indicators/Treatments ED 03/09 : COPD exacerbation on Home 2 liters Home O2. Increased shortness of breath, moderate respiratory distress placed on 3 liters NC. RR 22 pulse ox 94%, worsening SOB, tachypneic. ABG's Recognized standard criteria for respiratory failure includes: (Source: [facility] Hospitalist May 2013) ABGs (1 or more) Symptoms: ? PO2 <60 or RA SpO2 <91% ? Tachypnea, SOB, dyspnea ? PcO2 >50 and pH <7.35 ? Pallor or cyanosis ? pO2 decrease or pcO2 increase ? Anxiety or restlessness by 10 mm/Hg from baseline if known ? Use of accessory muscles ? Retractions (grunting in newborns) ? Unable to speak in complete sentences P/F ratio < 300 Supplemental O2 requirement of 40% or more Intubation is not required Clarify which of the following accurately represents the patient's respiratory status: * Acute respiratory failure * Acute on chronic respiratory failure * Chronic respiratory failure * Other (please specify) * Unable to determine Please include type if known: * Hypoxic * Hypercapnic * Hypoxic and hypercapnic * Unable to determine Use of terms such as suspected, likely, concern for, or probable (associated with a specific diagnosis that is being evaluated, monitored, or treated as if it exists) are acceptable and can be coded in the inpatient setting, when documented at the time of discharge. Thank you, Monica Diaz [facility], CDIS Extension: [phone] Please use your independent medical judgment in providing your response. THIS QUERY IS PART OF THE PERMANENT MEDICAL RECORD Provider Response: Other Other Diagnosis: COPD exacerbation, no component of acute respiratory failure
[2022-03-10 16:24] LABS: Glucose, Whole Blood 360 mg/dL (60-115)
[2022-03-10] MEDS: Warfarin Sodium 4 MG TABLET PO (16:56)
[2022-03-10 20:02] LABS: Glucose, Whole Blood 235 mg/dL (60-115)
[2022-03-10] MEDS: allopurinoL 100 MG TABLET PO (21:24)
[2022-03-10] MEDS: Atorvastatin Calcium 80 MG TABLET PO (21:24)
[2022-03-10] MEDS: Melatonin 3 MG TABLET 6 MG PO (21:25)
[2022-03-11] MEDS: methylPREDNISolone Sod Succ 40 MG/ML VIAL IVPUSH ×2 (03:15→10:59)
[2022-03-11 03:26] VITALS: BP 120/56; PULSE 57; RESP 16; TEMP 36.1; O2SAT 96
[2022-03-11 06:34] LABS: INTERNATIONAL NORM RATIO 2.3 (0.9-1.1); Prothrombin Time 27.7 SEC (10.0-13.1)
[2022-03-11 07:22] VITALS: BP 130/61; PULSE 64; RESP 18; TEMP 36.4; O2SAT 98
[2022-03-11] MEDS: Insulin Lispro 100 UNIT/ML 3 ML VIAL SUBCUT (07:35)
[2022-03-11] MEDS: Acetaminophen 325 MG TABLET 650 MG PO (07:36)
[2022-03-11] MEDS: Furosemide 40 MG TABLET PO (07:36)
[2022-03-11] MEDS: dilTIAZem HCL CD 120 MG CAP.ER.DEG PO (07:36)
[2022-03-11] MEDS: Finasteride 5 MG TABLET PO (07:37)
[2022-03-11] MEDS: Clopidogrel Bisulfate 75 MG TABLET PO (07:37)
[2022-03-11] MEDS: Amiodarone HCL 200 MG TABLET PO (07:37)
[2022-03-11] MEDS: Cholecalciferol (Vitamin D3) 25 MCG TABLET PO (07:37)
[2022-03-11] MEDS: Metoprolol Tartrate 50 MG TABLET PO (07:37)
[2022-03-11] MEDS: 0.9 % Sodium Chloride Flush 3 ML SYRINGE IVFLUSH (07:38)
[2022-03-11] MEDS: Albuterol/Iprat 2.5/0.5MG 3 ML AMPUL.NEB INHALE (07:45)
[2022-03-11] MEDS: Fluticasone/Vilanterol 200/25 BLST.W.DEV 1 PUFF INHALE (07:45)
[2022-03-11 07:49] LABS: Glucose, Whole Blood 176 mg/dL (60-115)
[2022-03-11 07:52] VITALS: PULSE 80; RESP 16; O2SAT 99
--- NOTE | 2022-03-11 10:12 | P.DS_ITS ---
DS: Providers Provider Date of Service: 03/11/22 Date of admission: 03/09/22 21:45 Primary care physician: Gregory Ellison MD DS: Diagnosis Discharge Diagnosis (1) COPD with acute exacerbation: Status: Acute DS: Summary Hospital Course Hospital Course: Chief Complaint: sob 76-year-old male with a past medical history of hypertension, hyperlipidemia, diabetes, CAD, CHF, chronic AFib, DVT of on Coumadin, peripheral vascular disease, tobacco dependence, history of ocular lymphoma, COPD-on 2 L of home oxygen, BPH, abdominal aortic aneurysm, recent admission to the hospital for acute hypoxic respiratory failure in the setting of pneumonia/CHF/COPD- discharged on 03/08/22; presented to the hospital today with a chief complaint of shortness of breath.? Patient reports that he was discharged home on oral antibiotics and prednisone taper-today he fell severely short of breath, limiting his activities of daily living; complains of mild dry cough.? Denies any fevers.? Mentions that he has been complaint with his home medications.? Denies any nausea vomiting or diarrhea.? Denies any GI symptoms.? Denies any chest pain or palpitations.? Review of all other systems is negative except mentioned above ER course: Per ER team patient noted to be mildly short of breath, wheezing noted, CT chest showed severe emphysema, no acute consolidation, left upper lobe changes consistent fibrotic interstitial lung disease; bronchial wall thickening and bronchiectasis noted as well.? Admitted to the hospital for further management Hospital course: Patient presented with shortness of breath and admittef for exacerbation of COPD treated with IV solumedrol, bronchodilators by Neb with improvement by the second day, he has underlying chronic systolic heart failure but without exacerbation at this time. Will discharge with Prednisone for 5 days, to continue all chronic meds. Noted to have hyperglycemia due to steroid and will resume home diabeteic meds. He is comfortable going home. Time Spent with Patient Time attestation: Total time spent providing and/or coordinating discharge services: Discharge coordination time: Greater than 30 minutes Quality: Safe Use of Opioids Does Pt have an Active Cancer Diagnosis on the Problem List?: No Quality: Stroke Does the patient have a stroke diagnosis?: No Physical Exam Vital Signs: Vital Signs: Last Vital Signs Temp 97.5 F 03/11/22 07:22 Pulse 80 03/11/22 07:52 Resp 16 08/31/22 07:52 BP 130/61 03/11/22 07:22 Pulse Ox 98 03/11/22 07:22 O2 Del Method 03/11/22 07:22 O2 Flow Rate 3 03/11/22 07:22 Oxygen Flow Rate 3 03/09/22 20:09 BMI result Body Mass Index 23.3 DS: Data Data Completed and Pending Labs on day of discharge: Laboratory Results - last 24 hr 03/10/22 03/10/22 03/10/22 04:35 11:10 16:20 WBC 10.1 RBC 3.83 L Hgb 11.6 L Hct 35.6 L MCV 93.0 MCH 30.3 MCHC 32.6 RDW 16.7 H Plt Count 209 MPV 10.2 Immature Gran % (Auto) 0.9 H Neut % (Auto) 95.9 H Lymph % (Auto) 1.6 L [place] % (Auto) 1.5 L Eos % (Auto) 0.0 Baso % (Auto) 0.1 Lymph # (Auto) 0.2 L [place] # (Auto) 0.2 Eos # (Auto) 0.0 Baso # (Auto) 0.0 Abs Immat Gran (auto) 0.09 H Absolute Neuts (auto) 9.7 H Absolute Nucleated RBC 0.000 Nucleated RBC % (auto) 0.0 Smear Tech's Comments VERIFIED PT INR POC Glucose 255 H 360 H* 03/10/22 03/11/22 03/11/22 19:56 06:00 07:25 WBC RBC Hgb Hct MCV MCH MCHC RDW Plt Count MPV Immature Gran % (Auto) Neut % (Auto) Lymph % (Auto) [place] % (Auto) Eos % (Auto) Baso % (Auto) Lymph # (Auto) [place] # (Auto) Eos # (Auto) Baso # (Auto) Abs Immat Gran (auto) Absolute Neuts (auto) Absolute Nucleated RBC Nucleated RBC % (auto) Smear Tech's Comments PT 27.7 H INR 2.3 H POC Glucose 235 H 176 H Discharge Plan Discharge Anticipated Discharge Date/Time: 03/11/22 10:05 Patient Disposition: Home, Self-Care Discharge Diagnosis: COPD exacerbation Referrals: Gregory Ellison MD [Primary Care Provider] - 1 Week Discharge Medications: New prednisone 20 mg tablet 40 mg PO DAILY Qty: 8 0RF Continued furosemide 40 mg tablet 40 mg PO DAILY Qty: 90 3RF finasteride 5 mg tablet 5 mg PO DAILY 90 Days Qty: 90 1RF budesonide-formoterol [Symbicort] 160-4.5 mcg/actuation HFA aerosol inhaler 2 puff PO BID Qty: 10.2 3RF warfarin 4 mg tablet 4 mg PO DAILY Qty: 30 0RF Protocol: Dose Management Condition: Wednesday (Week One) Dose/Route: 4 mg Instruction: 1 x 4 mg tablet Condition: Wednesday Dose/Route: 4 mg Instruction: 1 x 4 mg tablet Condition: Wednesday Dose/Route: 4 mg Instruction: 1 x 4 mg tablet Condition: Wednesday Dose/Route: 4 mg Instruction: 1 x 4 mg tablet Condition: Dose/Route: 4 mg Instruction: 1 x 4 mg tablet Condition: Wednesday Dose/Route: 4 mg Instruction: 1 x 4 mg tablet Condition: Wednesday Dose/Route: 4 mg Instruction: 1 x 4 mg tablet Condition: Wednesday (Week Two) Dose/Route: 4 mg Instruction: 1 x 4 mg tablet Condition: Wednesday Dose/Route: 4 mg Instruction: 1 x 4 mg tablet Condition: Wednesday Dose/Route: 4 mg Instruction: 1 x 4 mg tablet Condition: Wednesday Dose/Route: 4 mg Instruction: 1 x 4 mg tablet Condition: Dose/Route: 4 mg Instruction: 1 x 4 mg tablet Condition: Wednesday Dose/Route: 4 mg Instruction: 1 x 4 mg tablet Condition: Wednesday Dose/Route: 4 mg Instruction: 1 x 4 mg tablet Protocol Text: Adjustment Start Date: Wednesday03/03/22 INR Value: 3.0 INR Date: 03/03/22 Recheck Date: 03/10/22 Additional Instructions: cont reg dosing eat a green today albuterol sulfate 90 mcg/actuation HFA aerosol inhaler 2 puff inhalation Q4-6H PRN (Reason: dyspnea) Qty: 1 0RF cholecalciferol (vitamin D3) [Vitamin D3] 25 mcg (1,000 unit) Capsule 25 mcg PO DAILY allopurinol 100 mg tablet 100 mg PO BEDTIME metformin 500 mg tablet extended release 24 hr 500 mg PO BEDTIME diltiazem HCl 120 mg Capsule,Extended Release 24hr 120 mg PO DAILY prednisone 10 mg tablet See Taper PO DAILY Qty: 30 0RF Taper: Prednisone 40 mg daily for 3 Days and 0 Hour 30 mg daily for 3 Days and 0 Hour 20 mg daily for 3 Days and 0 Hour 10 mg daily for 3 Days and 0 Hour cefuroxime axetil 250 mg tablet 250 mg PO BID 3 Days Qty: 6 0RF doxycycline hyclate 100 mg tablet 100 mg PO BID 3 Days Qty: 6 0RF rosuvastatin [Crestor] 40 mg tablet 40 mg PO DAILY Qty: 90 3RF clopidogrel [Plavix] 75 mg tablet 75 mg PO DAILY amiodarone 200 mg tablet 200 mg PO DAILY metoprolol tartrate 50 mg tablet 50 mg PO BID Discharge Orders: Discharge Order (Routine); Ordered 03/11/22 Ordered By: Chris Hodges Diet: Advance to usual diet Activity on Discharge: As tolerated Stand Alone Forms: Patient Portal Discharge page Care Plan Goals: Full recovery from copd Health Concerns: chronic copd that is severe Plan of Treatment: Use inhalers and take prednisone as directed and follow up with your Doctor in a week Assessment: as above
--- NOTE | 2022-03-11 11:32 | MHC.CM.PN ---
pt dcd home no skilled servcies ordered by
[2022-03-11 11:37] LABS: Glucose, Whole Blood 191 mg/dL (60-115)
== END 2022-03-11 11:45 | disposition home or self-care (01) | DRG 191 ==
LOC: HO.ED 19:41 → HO.EDOVER 22:08 → HO.IMC 03-10 07:26
PROVIDERS: Admitting Provider Hospitalist; Emergency Provider Internal Medicine; PCP Internal Medicine; Visit Provider Internal Medicine
DX: J43.9 Emphysema, unspecified (principal); I50.32 Chronic diastolic (congestive) heart failure; I48.91 Unspecified atrial fibrillation; I25.10 Atherosclerotic heart disease of native coronary artery without angina pectoris; E11.51 Type 2 diabetes mellitus with diabetic peripheral angiopathy without gangrene; E78.5 Hyperlipidemia, unspecified; F17.210 Nicotine dependence, cigarettes, uncomplicated; Z20.822 Contact with and (suspected) exposure to COVID-19; Z95.1 Presence of aortocoronary bypass graft; Z71.6 Tobacco abuse counseling; Z86.718 Personal history of other venous thrombosis and embolism; Z99.81 Dependence on supplemental oxygen; Z95.810 Presence of automatic (implantable) cardiac defibrillator; Z87.01 Personal history of pneumonia (recurrent); Z79.01 Long term (current) use of anticoagulants; Z79.02 Long term (current) use of antithrombotics/antiplatelets; Z79.52 Long term (current) use of systemic steroids; Z79.899 Other long term (current) drug therapy
CPT/HCPCS: 36415; 71250; 80048; 80053; 82947; 83880; 84484; 85025; 85610; 87635; 93005; 94640; 99219; 99285; J2920

== ENCOUNTER 2022-03-16 13:31 | Emergency (ER) | payer MEDICARE, OTHER, SELFPAY ==
--- NOTE | ~2022-03-16 | XR_ITS ---
EXAMINATION: XR CHEST CLINICAL INFORMATION: COPD, shortness of breath COMPARISON: Chest x-ray 03/05/2022, 01/05/2022 TECHNIQUE: Frontal view of the chest was obtained. FINDINGS: Blunting of bilateral costophrenic angles, unchanged. Streaky opacities in the right mid lower lung, unchanged compatible with subsegmental atelectasis and/or scarring. No new focal airspace opacity. Attenuation of the right upper lobe pulmonary vascularity consistent with emphysema as on prior. Cardiomediastinal silhouette is unchanged. Sternal wires and mediastinal vascular clips noted. No evidence of pulmonary edema. No acute osseous injury. XR/XR chest 1V IMPRESSION: 1. Findings consistent with emphysema and scarring in the right lung with small bilateral pleural effusions and/or pleural thickening. No acute pulmonary process or change.
[2022-03-16 13:36] VITALS: BP 148/56; BP 173/61; PULSE 60; PULSE 63; RESP 28; TEMP 36.8; O2SAT 100; BMI 24.7
--- NOTE | 2022-03-16 13:44 | ED_ITS ---
HPI - SOB/Dyspnea General Chief Complaint: Dyspnea Stated Complaint: SOB,94% RA,RECENT H/O PNA/BRONCHITIS PER EMS Time Seen by Provider: 03/16/22 13:34 Source: patient and EMS Mode of arrival: EMS Limitations: no limitations History of Present Illness HPI Narrative: Patient comes to the emergency room complaining of shortness of breath. Patient is known to have history of severe COPD, oxygen dependent 2 L, CHF, atrial fibrillation and DVT on Coumadin. This is patient's 3rd visit in 2 weeks for similar symptoms. Patient states that his was concerned about the patient's shortness of breath. Therefore, 911 was called. Patient states that at home he has been compliant with his medications, using his inhaler and albuterol nebs. Patient denies chest pain or abdominal pain Related Data Home Medications Medication Instructions Recorded Confirmed cholecalciferol (vitamin D3) 25 25 mcg PO DAILY 07/02/20 03/09/22 mcg (1,000 unit) capsule (Vitamin D3) clopidogrel 75 mg tablet (Plavix) 75 mg PO DAILY 12/23/21 03/09/22 amiodarone 200 mg tablet 200 mg PO DAILY 12/25/21 03/09/22 allopurinol 100 mg tablet 100 mg PO BEDTIME 01/05/22 03/09/22 metformin 500 mg tablet,extended 500 mg PO BEDTIME 01/05/22 03/09/22 release 24 hr metoprolol tartrate 50 mg tablet 50 mg PO BID 02/12/22 03/09/22 diltiazem HCl 120 mg 120 mg PO DAILY 03/05/22 03/09/22 capsule,extended release 24 hr Previous Rx's Medication Instructions Recorded furosemide 40 mg tablet 40 mg PO DAILY #90 caps 10/06/21 finasteride 5 mg tablet 5 mg PO DAILY 90 days #90 tabs 10/28/21 budesonide-formoterol HFA 160 2 puff PO BID #10.2 grams 10/29/21 mcg-4.5 mcg/actuation aerosol inhaler (Symbicort) rosuvastatin 40 mg tablet (Crestor) 40 mg PO DAILY #90 tabs 11/12/21 warfarin 4 mg tablet 4 mg PO DAILY #30 tabs 02/15/22 cefuroxime axetil 250 mg tablet 250 mg PO BID 3 days #6 tabs 08/28/22 doxycycline hyclate 100 mg tablet 100 mg PO BID 3 days #6 tabs 03/08/22 prednisone 10 mg tablet See Taper PO DAILY #30 tabs 03/08/22 prednisone 20 mg tablet 40 mg PO DAILY #8 tabs 03/11/22 albuterol sulfate 90 mcg/actuation 2 puff PO Q4-6H PRN for dyspnea 03/16/22 aerosol inhaler #8.5 grams Allergies Allergy/AdvReac Type Severity Reaction Status Date / Time No Known Allergies Allergy Verified 03/16/22 13:36 [No Known Allergies*] Review of Systems Review of Systems: Constitutional : No Weight loss, No Fever, No Chills, No Night Sweats, No Fatigue, No Malaise ENT/Mouth : No Hearing loss, No Ear Pain, No Nasal Congestion, No Sinus Pain, No Hoarseness, No sore throat, No Rhinorrhea, No Swallowing Difficulty Eyes: No Eye Pain, No Swelling, No Redness, No Foreign Body, No Discharge, No Vision Changes Cardiovascular : No Chest Pain, No SOB, No Dyspnea on Exertion, No Orthopnea, No Edema, No Palpitations Respiratory : Complaining of baseline cough, more wheezing than usual, shortness of breath with exertion and at rest Gastrointestinal : No Nausea, No Vomiting, No Diarrhea, No Constipation, No abdominal Pain, No Hematochezia, No Melena Genitourinary : no irregular bleeding, No Dysuria, No Urinary Frequency, No Hematuria, No Urinary Incontinence, No Urgency, No Flank Pain, No Urinary Flow Changes, No Hesitancy Musculoskeletal : No joint pain, No Myalgias, No Joint Swelling Skin : No Skin Lesions, No rash Neuro : No Weakness, No Numbness, No Paresthesias, No Loss of Consciousness, No Dizziness, No Headache Psych : No Anxiety/Panic, No Depression, No SI/HI/AH/VH, No Social Issues, Heme/Lymph: No Bruising, No Bleeding,No Lymphadenopathy Endocrine : No Polyuria, No Polydipsia, No Temperature Intolerance [facility] Past Medical History Medical History Abdominal aortic aneurysm without rupture Acute exacerbation of chronic obstructive pulmonary disease Acute on chronic diastolic CHF (congestive heart failure), NYHA class 3 Atherosclerotic cardiovascular disease Benign essential hypertension BPH loc w urin obs/LUTS Chronic atrial fibrillation COPD (chronic obstructive pulmonary disease) Coronary artery disease Current use of anticoagulant therapy Diabetes mellitus Elevated PSA Follicular lymphoma Heart failure with preserved ejection fraction High cholesterol History of blood clots History of deep vein thrombosis (DVT) of lower extremity Insomnia Overweight (BMI 25.0-29.9) PAF (paroxysmal atrial fibrillation) Peripheral arterial disease Pneumonia Pure hypercholesterolemia Smoker Smoker Vitamin D deficiency Surgical History History of quadruple bypass Family History Family History Father Cancer Mother Cardiovascular disease Social History Social History Household Members: Significant Other Housing: Apartment Are you a primary primary care provider to a significant other at home: No Do you presently have visiting nurse or other home services: No Alcohol intake: never Patient Tobacco Use Status: Current everyday Tobacco user Tobacco use type: Cigarette Cigarette Packs Per Day: 1.5 Cigarettes Per Day: 30.0 Years Smoked: 65 Second Hand Smoke Exposure: No Use of substances other than those prescribed or required for medical reasons: No Advance Directives: Yes Advance Directives on File: Yes Advance Directives Date on File: 01/06/22 service: No Current occupational status: retired Cognitive needs: No Hearing needs: No Vision needs: No Physical Exam Vital Signs: Vital Signs: Last Vital Signs Temp 98.1 F 03/16/22 15:46 Pulse 60 03/16/22 15:46 Resp 16 03/16/22 15:46 BP 136/64 03/16/22 15:46 Pulse Ox 98 03/16/22 15:46 O2 Del Method 03/16/22 15:46 O2 Flow Rate 2 03/16/22 15:46 Oxygen Flow Rate 2 03/16/22 13:36 BMI result Body Mass Index 24.7 Const: Other: Appearance: Alert. Oriented X3. No acute distress. Eyes: Pupils equal, round and reactive to light. ENT: Pharynx normal. Neck: Normal inspection. Neck supple. No lymph nodes noted. No crepitus CVS: Normal heart rate and rhythm. Pulses normal. Normal S1 and S2 Respiratory: Tachypneic, bilateral wheezing, decreased breath sounds bilat erally Abdomen: Soft and nontender. No rigidity. No distention. Skin: Skin warm and dry. Normal skin color. Normal skin turgor. Extremities: No lower extremity edema. No Lacerations. No Rash Neuro: Oriented X 3. No motor deficit. No sensory deficit. Moving all extremities. No slurred speech. CN 2 through 12 grossly intact Psych: calm, cooperative, normal affect Course Course Course Narrative: All of patient's labs and imaging pending. Patient is receiving breathing treatments and Solu-Medrol IV. Patient's white blood cell count is likely secondary due to steroid use. Lactic of 2.3 likely secondary to several nebulizations. Patient does not have any fever, no chills, normal vitals. Sepsis not suspected. Chest x-ray does not show any acute changes. BNP elevated which has been el evated before. No signs of CHF or fluid overload. Patient uses oxygen at home. Overall, I do not think that patient is to be admitted to the hospital, however, I do believe that he will benefit from pulmonary rehab. Patient has been in the hospital for almost 2 weeks I discussed the patient with our shoe caser. Tomorrow, patient will be evaluated by Physical therapy and recommended patient can go to rehab. Physician observation started at 16:40, case management and physical therapy evaluation pending for the morning of March 17 I discussed the above-mentioned with the patient and his , both agree with the plan. 17:50 patient states that he changed his mind, does not want to go to pulmonary rehab. Patient states that he feels well and he is reading at baseline and would like to go home. I discussed with the patient that his INR is 4.5, instructed to skip 1 dose of Coumadin tomorrow and then resume his normal dose of 4 mg daily. Patient has 1 lactic acid level pending. Patient declined. Patient states that he still has enough breathing treatments both neb and bumps. Patient is still taking his steroids that were prescribed from his previous discharge. Patient made aware that if he uses mind or if he has any more difficulty breathing, he is welcome to come back to the hospital at any time. Patient being discharged per his request. Vital stable, blood pressure 136/64, heart rate 60, temperature 98.1 degrees, oxygen saturation 98% on 2 L nasal cannula which is his home dose MDM - SOB/Dyspnea Lab Data Result diagrams: 03/16/22 14:26 03/16/22 14:26 Labs: Lab Results 03/16/22 03/16/22 03/16/22 Range/Units 14:26 14:26 14:26 WBC 14.3 H (4.8-10.8) X10*3/uL RBC 4.18 L (4.60-5.80) X10*6/uL Hgb 12.8 L (14.0-18.0) g/dl Hct 39.7 L (42.0-52.0) % MCV 95.0 (80.0-98.0) fL MCH 30.6 (27.0-33.0) pg MCHC 32.2 (31.0-36.0) g/dl RDW 16.0 (11.0-16.0) % Plt Count 259 (160-400) X10*3/uL MPV 10.1 (9.4-12.4) fL Immature Gran % (Auto) 0.9 H (0.0-0.4) % Neut % (Auto) 91.2 H (45-73) % Lymph % (Auto) 2.7 L (20-40) % [place] % (Auto) 5.0 (2-11) % Eos % (Auto) 0.1 (0-4) % Baso % (Auto) 0.1 (0-2) % Lymph # (Auto) 0.4 L (1.2-4.9) X10*3/uL [place] # (Auto) 0.7 (0.1-1.2) X10*3/uL Eos # (Auto) 0.0 (0.0-0.4) X10*3/uL Baso # (Auto) 0.0 (0.0-0.2) X10*3/uL Abs Immat Gran (auto) 0.13 H (0.00-0.03) X10*3/uL Absolute Neuts (auto) 13.0 H (2.0-8.3) x10*3/uL Absolute Nucleated RBC 0.000 (0.0-0.012) X10*3/uL Nucleated RBC % (auto) 0.0 (0.0-0.2) /100WBC Smear Tech's Comments VERIFIED PT (10.0-13.1) SEC INR (0.9-1.1) Sodium 143 (135-145) mmol/L Potassium 4.6 (3.3-5.1) mmol/L Chloride 95 L (96-108) mmol/L Carbon Dioxide 40 H* D (22-29) mmol/L Anion Gap 13 (12-20) BUN 30 H (9-16) mg/dL Creatinine 1.18 (0.5-1.4) mg/dL Estim Creat Clear Calc 45.6 Estimated GFR 60 Random Glucose 187 H (60-115) mg/dL Lactic Acid (0.5-2.0) mmol/L Calcium 9.4 D (8.4-10.2) mg/dL Total Bilirubin 1.1 H (0.0-1.0) mg/dL Direct Bilirubin 0.5 (0.0-0.5) mg/dL AST 11 D (5-37) U/L ALT 36 (0-40) U/L Alkaline Phosphatase 65 (39-117) U/L Troponin I High Sens 21.3 (<3.5-35.0) ng/L B-Natriuretic Peptide 752 H (<100) pg/mL Total Protein 5.5 L (6.5-8.0) g/dL Albumin 3.6 (3.5-5.0) g/dL COVID-19 ([facility]) (Negative) COVID-19 Clin Com 03/16/22 03/16/22 03/16/22 Range/Units 14:26 14:26 14:26 WBC (4.8-10.8) X10*3/uL RBC (4.60-5.80) X10*6/uL Hgb (14.0-18.0) g/dl Hct (42.0-52.0) % MCV (80.0-98.0) fL MCH (27.0-33.0) pg MCHC (31.0-36.0) g/dl RDW (11.0-16.0) % Plt Count (160-400) X10*3/uL MPV (9.4-12.4) fL Immature Gran % (Auto) (0.0-0.4) % Neut % (Auto) (45-73) % Lymph % (Auto) (20-40) % [place] % (Auto) (2-11) % Eos % (Auto) (0-4) % Baso % (Auto) (0-2) % Lymph # (Auto) (1.2-4.9) X10*3/uL [place] # (Auto) (0.1-1.2) X10*3/uL Eos # (Auto) (0.0-0.4) X10*3/uL Baso # (Auto) (0.0-0.2) X10*3/uL Abs Immat Gran (auto) (0.00-0.03) X10*3/uL Absolute Neuts (auto) (2.0-8.3) x10*3/uL Absolute Nucleated RBC (0.0-0.012) X10*3/uL Nucleated RBC % (auto) (0.0-0.2) /100WBC Smear Tech's Comments PT 54.5 H (10.0-13.1) SEC INR 4.5 H D (0.9-1.1) Sodium (135-145) mmol/L Potassium (3.3-5.1) mmol/L Chloride (96-108) mmol/L Carbon Dioxide (22-29) mmol/L Anion Gap (12-20) BUN (9-16) mg/dL Creatinine (0.5-1.4) mg/dL Estim Creat Clear Calc Estimated GFR Random Glucose (60-115) mg/dL Lactic Acid 2.3 H* (0.5-2.0) mmol/L Calcium (8.4-10.2) mg/dL Total Bilirubin (0.0-1.0) mg/dL Direct Bilirubin (0.0-0.5) mg/dL AST (5-37) U/L ALT (0-40) U/L Alkaline Phosphatase (39-117) U/L Troponin I High Sens (<3.5-35.0) ng/L B-Natriuretic Peptide (<100) pg/mL Total Protein (6.5-8.0) g/dL Albumin (3.5-5.0) g/dL COVID-19 ([facility]) Negative (Negative) COVID-19 Clin Com See Note 03/16/22 Range/Units 14:26 WBC (4.8-10.8) X10*3/uL RBC (4.60-5.80) X10*6/uL Hgb (14.0-18.0) g/dl Hct (42.0-52.0) % MCV (80.0-98.0) fL MCH (27.0-33.0) pg MCHC (31.0-36.0) g/dl RDW (11.0-16.0) % Plt Count (160-400) X10*3/uL MPV (9.4-12.4) fL Immature Gran % (Auto) (0.0-0.4) % Neut % (Auto) (45-73) % Lymph % (Auto) (20-40) % [place] % (Auto) (2-11) % Eos % (Auto) (0-4) % Baso % (Auto) (0-2) % Lymph # (Auto) (1.2-4.9) X10*3/uL [place] # (Auto) (0.1-1.2) X10*3/uL Eos # (Auto) (0.0-0.4) X10*3/uL Baso # (Auto) (0.0-0.2) X10*3/uL Abs Immat Gran (auto) (0.00-0.03) X10*3/uL Absolute Neuts (auto) (2.0-8.3) x10*3/uL Absolute Nucleated RBC (0.0-0.012) X10*3/uL Nucleated RBC % (auto) (0.0-0.2) /100WBC Smear Tech's Comments PT (10.0-13.1) SEC INR (0.9-1.1) Sodium (135-145) mmol/L Potassium (3.3-5.1) mmol/L Chloride (96-108) mmol/L Carbon Dioxide (22-29) mmol/L Anion Gap (12-20) BUN (9-16) mg/dL Creatinine (0.5-1.4) mg/dL Estim Creat Clear Calc Estimated GFR Random Glucose (60-115) mg/dL Lactic Acid (0.5-2.0) mmol/L Calcium (8.4-10.2) mg/dL Total Bilirubin (0.0-1.0) mg/dL Direct Bilirubin (0.0-0.5) mg/dL AST (5-37) U/L ALT (0-40) U/L Alkaline Phosphatase (39-117) U/L Troponin I High Sens (<3.5-35.0) ng/L B-Natriuretic Peptide Cancelled (<100) pg/mL Total Protein (6.5-8.0) g/dL Albumin (3.5-5.0) g/dL COVID-19 ([facility]) (Negative) COVID-19 Clin Com Imaging Data Chest x-ray: Radiologist's impression: FINDINGS: Blunting of bilateral costophrenic angles, unchanged. Streaky opacities in the right mid lower lung, unchanged compatible with subsegmental atelectasis and/or scarring. No new focal airspace opacity. Attenuation of the right upper lobe pulmonary vascularity consistent with emphysema as on prior. Cardiomediastinal silhouette is unchanged. Sternal wires and mediastinal vascular clips noted. No evidence of pulmonary edema. No acute osseous injury. XR/XR chest 1V IMPRESSION: ? 1. Findings consistent with emphysema and scarring in the right lung with small bilateral pleural effusions and/or pleural thickening. No acute pulmonary process or change. Discharge Plan Discharge Clinical Impression: Chronic obstructive pulmonary disease without exacerbation Patient Disposition: Home, Self-Care Instructions: COPD (Chronic Obstructive Pulmonary Disease) (ED) Additional Instructions: You refused pulmonary rehab. If you change your mind, please return to the [facility]. Please follow-up with your primary care physician tomorrow. If you have any worsening or new symptoms, please return to the emergency room or call 911 Prescriptions: No Action furosemide 40 mg tablet 40 mg PO DAILY Qty: 90 3RF finasteride 5 mg tablet 5 mg PO DAILY 90 Days Qty: 90 1RF budesonide-formoterol [Symbicort] 160-4.5 mcg/actuation HFA aerosol inhaler 2 puff PO BID Qty: 10.2 3RF warfarin 4 mg tablet 4 mg PO DAILY Qty: 30 0RF Protocol: Dose Management Condition: Wednesday (Week One) Dose/Route: 4 mg Instruction: 1 x 4 mg tablet Condition: Wednesday Dose/Route: 4 mg Instruction: 1 x 4 mg tablet Condition: Wednesday Dose/Route: 4 mg Instruction: 1 x 4 mg tablet Condition: Wednesday Dose/Route: 4 mg Instruction: 1 x 4 mg tablet Condition: Dose/Route: 4 mg Instruction: 1 x 4 mg tablet Condition: Wednesday Dose/Route: 4 mg Instruction: 1 x 4 mg tablet Condition: Wednesday Dose/Route: 4 mg Instruction: 1 x 4 mg tablet Condition: Wednesday (Week Two) Dose/Route: 4 mg Instruction: 1 x 4 mg tablet Condition: Wednesday Dose/Route: 4 mg Instruction: 1 x 4 mg tablet Condition: Wednesday Dose/Route: 4 mg Instruction: 1 x 4 mg tablet Condition: Wednesday Dose/Route: 4 mg Instruction: 1 x 4 mg tablet Condition: Dose/Route: 4 mg Instruction: 1 x 4 mg tablet Condition: Wednesday Dose/Route: 4 mg Instruction: 1 x 4 mg tablet Condition: Wednesday Dose/Route: 4 mg Instruction: 1 x 4 mg tablet Protocol Text: Adjustment Start Date: Wednesday03/03/22 INR Value: 3.0 INR Date: 03/03/22 Recheck Date: 03/10/22 Additional Instructions: cont reg dosing eat a green today albuterol sulfate 90 mcg/actuation HFA aerosol inhaler 2 puff PO Q4-6H PRN (Reason: for dyspnea) Qty: 8.5 0RF cholecalciferol (vitamin D3) [Vitamin D3] 25 mcg (1,000 unit) Capsule 25 mcg PO DAILY allopurinol 100 mg tablet 100 mg PO BEDTIME metformin 500 mg tablet extended release 24 hr 500 mg PO BEDTIME diltiazem HCl 120 mg Capsule,Extended Release 24hr 120 mg PO DAILY prednisone 10 mg tablet See Taper PO DAILY Qty: 30 0RF Taper: Prednisone 40 mg daily for 3 Days and 0 Hour 30 mg daily for 3 Days and 0 Hour 20 mg daily for 3 Days and 0 Hour 10 mg daily for 3 Days and 0 Hour cefuroxime axetil 250 mg tablet 250 mg PO BID 3 Days Qty: 6 0RF doxycycline hyclate 100 mg tablet 100 mg PO BID 3 Days Qty: 6 0RF prednisone 20 mg tablet 40 mg PO DAILY Qty: 8 0RF rosuvastatin [Crestor] 40 mg tablet 40 mg PO DAILY Qty: 90 3RF clopidogrel [Plavix] 75 mg tablet 75 mg PO DAILY amiodarone 200 mg tablet 200 mg PO DAILY metoprolol tartrate 50 mg tablet 50 mg PO BID
--- NOTE | 2022-03-16 14:12 | ECG_ITS ---
Test Reason : SOB Blood Pressure : / mmHG Vent. Rate : 056 BPM Atrial Rate : 056 BPM P-R Int : 182 ms QRS Dur : 084 ms QT Int : 486 ms P-R-T Axes : 070 032 000 degrees QTc Int : 468 ms Sinus bradycardia Septal infarct (cited on or before 27-APR-2004) Abnormal ECG When compared with ECG of 09-MAR-2022 19:22, Premature atrial complexes are no longer Present Questionable change in initial forces of Septal leads Heart rate has decreased Referred By: Paula Gonzalez Electronically Signed By:ILSA HILL
[2022-03-16] MEDS: methylPREDNISolone Sod Succ 125 MG/2 ML VIAL IVPUSH (14:32)
[2022-03-16 14:35] LABS: Basophils Percent Auto 0.1 % (0-2); Eosinophils Percent Auto 0.1 % (0-4); Hematocrit 39.7 % (42.0-52.0); Hemoglobin 12.8 g/dl (14.0-18.0); Imm Gran Abs Auto 0.13 X10*3/uL (0.00-0.03); Imm Gran Pct Auto 0.9 % (0.0-0.4); Lymphocytes Absolute Auto 0.4 X10*3/uL (1.2-4.9); Lymphocytes Percent Auto 2.7 % (20-40); MANUAL DIFF FLAG SCAN; Mean Corpuscular HGB Conc 32.2 g/dl (31.0-36.0); Mean Corpuscular Hemoglobin 30.6 pg (27.0-33.0); Mean Platelet Volume 10.1 fL (9.4-12.4); Monocytes Absolute Auto 0.7 X10*3/uL (0.1-1.2); Neutrophils Percent Auto 91.2 % (45-73); Platelet Count 259 X10*3/uL (160-400); Red Blood Count 4.18 X10*6/uL (4.60-5.80); SCAN SMEAR FLAG 1; White Blood Count 14.3 X10*3/uL (4.8-10.8)
[2022-03-16 14:40] LABS: INTERNATIONAL NORM RATIO 4.5 (0.9-1.1); Prothrombin Time 54.5 SEC (10.0-13.1)
[2022-03-16 14:47] LABS: COVID-19 Test Negative (Negative)
[2022-03-16 14:52] LABS: SLIDE REVIEW VERIFIED
[2022-03-16] MEDS: Albuterol Sulfate (0.083%) 2.5 MG/3 ML VIAL.NEB 10 MG INHALE (14:53)
[2022-03-16 14:54] VITALS: PULSE 56; RESP 24; O2SAT 99
[2022-03-16 14:55] LABS: Lactic Acid 2.3 mmol/L (0.5-2.0)
[2022-03-16 14:56] LABS: Alanine Aminotransferase 36 U/L (0-40); Albumin Level 3.6 g/dL (3.5-5.0); Alkaline Phosphatase 65 U/L (39-117); Anion Gap 13 (12-20); Aspartate Amino Transferase 11 U/L (5-37); Bilirubin Direct 0.5 mg/dL (0.0-0.5); Bilirubin Total 1.1 mg/dL (0.0-1.0); Blood Urea Nitrogen 30 mg/dL (9-16); Calcium 9.4 mg/dL (8.4-10.2); Carbon Dioxide 40 mmol/L (22-29); Chloride 95 mmol/L (96-108); Creatinine Clr Calc Pharmacy 45.6; Estimated Glomerular Filt Rate 60; Glucose Random 187 mg/dL (60-115); Potassium 4.6 mmol/L (3.3-5.1); Sodium 143 mmol/L (135-145); Total Protein 5.5 g/dL (6.5-8.0)
[2022-03-16 14:57] LABS: B Type Natriuretic Peptide 752 pg/mL (<100); Troponin-I High Sensitivity 21.3 ng/L (<3.5-35.0)
[2022-03-16 15:46] VITALS: BP 136/64; PULSE 60; RESP 16; TEMP 36.7; O2SAT 98
[2022-03-16 16:31] LABS: Reflex Lactate? Lactic Acid Added
--- NOTE | 2022-03-17 08:33 | MHC.CM.ED ---
Received case management consult overnight for possible pulm rehab. Patient decided to go home instead of pulmonary rehab. Not seen by case management.
== END 2022-03-16 17:38 | disposition home or self-care (01) ==
PROVIDERS: Emergency Provider Emergency Medicine; PCP Internal Medicine
DX: J44.1 Chronic obstructive pulmonary disease with (acute) exacerbation (principal); R06.02 Shortness of breath; Z20.822 Contact with and (suspected) exposure to COVID-19; I10 Essential (primary) hypertension; E11.9 Type 2 diabetes mellitus without complications; E78.5 Hyperlipidemia, unspecified; I48.0 Paroxysmal atrial fibrillation; F17.200 Nicotine dependence, unspecified, uncomplicated; Z86.718 Personal history of other venous thrombosis and embolism; Z99.81 Dependence on supplemental oxygen; Z79.01 Long term (current) use of anticoagulants; Z79.84 Long term (current) use of oral hypoglycemic drugs; Z79.899 Other long term (current) drug therapy; Z79.02 Long term (current) use of antithrombotics/antiplatelets
CPT/HCPCS: 36415; 71045; 80048; 80076; 83605; 83880; 84484; 85025; 85610; 87040; 87635; 93005; 94640; 96374; 99284; 99285; J2930

== ENCOUNTER 2022-03-25 11:51 | Inpatient (IN) | payer MEDICARE, OTHER, SELFPAY ==
[2022-03-25] VITALS (9 sets, daily range): BP systolic 116–151; BP diastolic 39–80; PULSE 64–120; RESP 14–98; TEMP 36.6–37.2; O2SAT 95–100; BMI 25.2
--- NOTE | ~2022-03-25 | XR_ITS ---
EXAMINATION: XR CHEST CLINICAL INFORMATION: Dyspnea. COMPARISON: 03/16/[address] scan dated 03/09/2022. TECHNIQUE: Frontal view of the chest was obtained. FINDINGS: Paucity of lung markings in the upper lung tejeda, right greater than left. Coarsened interstitial markings inferiorly. Right basilar linear markings. Minimal blunting of the costophrenic angles bilaterally. The heart and mediastinal structures are unremarkable. Multilevel sternotomy wires are intact. XR/XR chest 1V IMPRESSION: Known COPD and associated chronic changes without acute cardiopulmonary process.
--- NOTE | 2022-03-25 12:01 | ECG_ITS ---
Test Reason : DYSPNEA Blood Pressure : / mmHG Vent. Rate : 076 BPM Atrial Rate : 076 BPM P-R Int : 184 ms QRS Dur : 084 ms QT Int : 404 ms P-R-T Axes : 084 011 033 degrees QTc Int : 454 ms Normal sinus rhythm Septal infarct (cited on or before 27-APR-2004) Nonspecific ST abnormality Abnormal ECG When compared with ECG of 16-MAR-2022 14:19, Questionable change in initial forces of Septal leads Nonspecific ST abnormality is now Present Referred By: Milla Wang Electronically Signed By:LISA HILL
--- NOTE | 2022-03-25 12:08 | ED_ITS ---
HPI - SOB/Dyspnea General Chief Complaint: Dyspnea Stated Complaint: DIFF BREATHING X'S WEEKS H/O COPD/CHF PER EMS Time Seen by Provider: 03/25/22 12:00 Source: patient and old records reviewed Mode of arrival: EMS Limitations: no limitations History of Present Illness HPI Narrative: 76-year-old male with hx of HTN, HLD , DM , CAD s/p CABG, CHF, afib, DVT of on Coumadin, PVD, COPD-on 2 L of home oxygen continues to smoke daily, BPH, abdominal aortic aneurysm - reports worsening shortness of breath, LE swelling, increased cough - states this is typical for him but this past week has been much worse. He notes increased sputum production. EMS found patient at home 80% on his home O2 gave a duoneb with sats > 90 afterwards MD elicited complaint: shortness of breath and cough Pertinent past history: COPD, congestive heart failure, diabetes and pneumonia Onset (ago): week(s) (1) Context: smoke/fume exposure Timing: progressively worsening Severity: moderate Exacerbating factors: lying flat, exertion and coughing Relieving factors: oxygen and bronchodilators Known history of: COPD, congestive heart failure and diabetes Associated symptoms: cough, wheezing, sputum production and other (LE edema) Treatment prior to arrival: oxygen and bronchodilator Related Data Home Medications Medication Instructions Recorded Confirmed cholecalciferol (vitamin D3) 25 25 mcg PO DAILY 07/02/20 03/25/22 mcg (1,000 unit) capsule (Vitamin D3) clopidogrel 75 mg tablet (Plavix) 75 mg PO DAILY 12/23/21 03/25/22 amiodarone 200 mg tablet 200 mg PO DAILY 12/25/21 03/25/22 allopurinol 100 mg tablet 100 mg PO BEDTIME 01/05/22 03/25/22 metformin 500 mg tablet,extended 500 mg PO BEDTIME 01/05/22 03/25/22 release 24 hr metoprolol tartrate 50 mg tablet 50 mg PO BID 02/12/22 03/25/22 Previous Rx's Medication Instructions Recorded furosemide 40 mg tablet 40 mg PO DAILY #90 caps 10/06/21 finasteride 5 mg tablet 5 mg PO DAILY 90 days #90 tabs 10/28/21 budesonide-formoterol HFA 160 2 puff PO BID #10.2 grams 10/29/21 mcg-4.5 mcg/actuation aerosol inhaler (Symbicort) rosuvastatin 40 mg tablet (Crestor) 40 mg PO DAILY #90 tabs 11/12/21 warfarin 4 mg tablet 4 mg PO DAILY #30 tabs 02/15/22 prednisone 10 mg tablet See Taper PO DAILY #30 tabs 03/08/22 albuterol sulfate 90 mcg/actuation 2 puff PO Q4-6H PRN for dyspnea 03/16/22 aerosol inhaler #8.5 grams Allergies Allergy/AdvReac Type Severity Reaction Status Date / Time No Known Allergies Allergy Verified 03/16/22 13:36 [No Known Allergies*] Review of Systems Review of Systems: Constitutional : No Fever, pos Chills ENT/Mouth : No sore throat, No Rhinorrhea, No Swallowing Difficulty Eyes: No Eye Pain, No Swelling, No Redness Cardiovascular : No Chest Pain, positive SOB, No Orthopnea, positive Edema Respiratory : pos Cough, pos Sputum, pos Wheezing, positive dyspnea Gastrointestinal : No Nausea, No Vomiting, No Diarrhea, No abdominal Pain, No Hematochezia, No Melena Genitourinary : No Dysuria, No Urinary Frequency, No Hematuria Musculoskeletal : No joint pain, No Myalgias Skin : No Skin Lesions, No rash Neuro : pos Weakness, No Numbness, No Dizziness, No Headache Psych : No Anxiety/Panic, No Depression Heme/Lymph: No Bruising, No Lymphadenopathy Endocrine : No Polyuria, No Polydipsia All other systems reviewed and are negative [facility] Past Medical History Attestation statement: The following information was validated with the patient. Source: old records reviewed Medical History Abdominal aortic aneurysm without rupture Acute exacerbation of chronic obstructive pulmonary disease Acute on chronic diastolic CHF (congestive heart failure), NYHA class 3 Atherosclerotic cardiovascular disease Benign essential hypertension BPH loc w urin obs/LUTS Chronic atrial fibrillation COPD (chronic obstructive pulmonary disease) Coronary artery disease Current use of anticoagulant therapy Diabetes mellitus Elevated PSA Follicular lymphoma Heart failure with preserved ejection fraction High cholesterol History of blood clots History of deep vein thrombosis (DVT) of lower extremity Insomnia Overweight (BMI 25.0-29.9) PAF (paroxysmal atrial fibrillation) Peripheral arterial disease Pneumonia Pure hypercholesterolemia Smoker Smoker Vitamin D deficiency Surgical History History of quadruple bypass Family History Family History Father Cancer Mother Cardiovascular disease Social History Social History Household Members: Significant Other Housing: Apartment Are you a primary residential care facility manager to a significant other at home: No Do you presently have visiting nurse or other home services: No Alcohol intake: never Patient Tobacco Use Status: Former Tobacco user Tobacco use type: Cigarette Cigarette Packs Per Day: 1.5 Cigarettes Per Day: 30.0 Years Smoked: 65 Second Hand Smoke Exposure: No Use of substances other than those prescribed or required for medical reasons: No Advance Directives: Yes Advance Directives on File: Yes Advance Directives Date on File: 01/06/22 service: No Current occupational status: retired Cognitive needs: No Hearing needs: No Vision needs: No Physical Exam Vital Signs: Vital Signs: Last Vital Signs Temp 98.1 F 03/25/22 12:04 Pulse 65 03/25/22 15:10 Resp 26 H 03/25/22 15:10 BP 135/55 L 03/25/22 15:10 Pulse Ox 98 03/25/22 15:10 O2 Del Method 03/25/22 15:10 O2 Flow Rate 1 03/25/22 15:10 Oxygen Flow Rate 2 03/25/22 12:04 BMI result Body Mass Index 25.2 Appearance: Alert. Oriented X3. Mild acute distress. Eyes: Pupils equal, round and reactive to light. ENT: Pharynx normal. Neck: Normal inspection. Neck supple. CVS: irregular tachycardic heart rate and rhythm. Pulses normal. Respiratory: Mild respiratory distress - labored and tachypneic pursed lip breathing. Breath sounds coarse bilaterally with diffuse wheezes heard Abdomen: Soft and nontender. Skin: Skin warm and dry. Normal skin color. Normal skin turgor. Extremities: 2+ pitting lower extremity edema. No calf ttp Neuro: Oriented X 3. No motor deficit. No sensory deficit. Course Course Course Narrative: refusing bipap wants to do it on my own improving after nebs, steroids and lasix will need admission MDM - SOB/Dyspnea MDM Narrative Medical decision making narrative: 76-year-old male with hx of HTN, HLD , DM , CAD s/p CABG, CHF, afib, DVT of on Coumadin, PVD, COPD-on 2 L of home oxygen continues to smoke daily, BPH, abdominal aortic aneurysm reports increased WOB with cough/sputum. EMS found patient hypoxic at home. At this time likely COPD and CHF exacerbation - basic labs, IV steroids, duoneb ordered, IV lasix. given coumadin use and IV steroid bolus of IV pepcid ordered. CXR for pneumonia. Given coarse lung sounds and sputum will order ceftriaxone and azithromycin. Patient likely to be admitted given his work of breathing. Lab Data Result diagrams: 03/25/22 12:42 03/25/22 12:42 Labs: Lab Results 03/25/22 03/25/22 03/25/22 Range/Units 12:42 12:42 12:42 WBC 17.6 H (4.8-10.8) X10*3/uL RBC 3.55 L (4.60-5.80) X10*6/uL Hgb 10.9 L (14.0-18.0) g/dl Hct 34.4 L (42.0-52.0) % MCV 96.9 (80.0-98.0) fL MCH 30.7 (27.0-33.0) pg MCHC 31.7 (31.0-36.0) g/dl RDW 17.0 H (11.0-16.0) % Plt Count 232 (160-400) X10*3/uL MPV 9.9 (9.4-12.4) fL Immature Gran % (Auto) 1.0 H (0.0-0.4) % Neut % (Auto) 91.3 H (45-73) % Lymph % (Auto) 3.7 L (20-40) % [place] % (Auto) 3.2 (2-11) % Eos % (Auto) 0.7 (0-4) % Baso % (Auto) 0.1 (0-2) % Lymph # (Auto) 0.7 L (1.2-4.9) X10*3/uL [place] # (Auto) 0.6 (0.1-1.2) X10*3/uL Eos # (Auto) 0.1 (0.0-0.4) X10*3/uL Baso # (Auto) 0.0 (0.0-0.2) X10*3/uL Abs Immat Gran (auto) 0.17 H (0.00-0.03) X10*3/uL Absolute Neuts (auto) 16.0 H (2.0-8.3) x10*3/uL Absolute Nucleated RBC 0.030 H (0.0-0.012) X10*3/uL Nucleated RBC % (auto) 0.2 (0.0-0.2) /100WBC Smear Tech's Comments VERIFIED PT 34.9 H (10.0-13.1) SEC INR 2.9 H (0.9-1.1) VBG pH (7.32-7.43) VBG pCO2 mmHg VBG pO2 mmHg VBG HCO3 (22-26) mmol/L VBG O2 Saturation % VBG Base Excess mmol/L Sodium 142 (135-145) mmol/L Potassium 4.4 (3.3-5.1) mmol/L Chloride 98 (96-108) mmol/L Carbon Dioxide 34 H (22-29) mmol/L Anion Gap 14 (12-20) BUN 23 H (9-16) mg/dL Creatinine 0.91 (0.5-1.4) mg/dL Estim Creat Clear Calc 59.1 Estimated GFR > 60 Random Glucose 214 H (60-115) mg/dL Lactic Acid (0.5-2.0) mmol/L Calcium 9.2 (8.4-10.2) mg/dL Magnesium 2.0 (1.6-2.6) mg/dL Total Bilirubin 1.0 (0.0-1.0) mg/dL Direct Bilirubin 0.4 (0.0-0.5) mg/dL AST 21 D (5-37) U/L ALT 40 (0-40) U/L Alkaline Phosphatase 74 (39-117) U/L Troponin I High Sens (<3.5-35.0) ng/L B-Natriuretic Peptide (<100) pg/mL Total Protein 5.8 L (6.5-8.0) g/dL Albumin 3.8 (3.5-5.0) g/dL Procalcitonin ng/mL COVID-19 ([facility]) (Negative) COVID-19 Clin Com 03/25/22 03/25/22 03/25/22 Range/Units 12:42 12:42 12:42 WBC (4.8-10.8) X10*3/uL RBC (4.60-5.80) X10*6/uL Hgb (14.0-18.0) g/dl Hct (42.0-52.0) % MCV (80.0-98.0) fL MCH (27.0-33.0) pg MCHC (31.0-36.0) g/dl RDW (11.0-16.0) % Plt Count (160-400) X10*3/uL MPV (9.4-12.4) fL Immature Gran % (Auto) (0.0-0.4) % Neut % (Auto) (45-73) % Lymph % (Auto) (20-40) % [place] % (Auto) (2-11) % Eos % (Auto) (0-4) % Baso % (Auto) (0-2) % Lymph # (Auto) (1.2-4.9) X10*3/uL [place] # (Auto) (0.1-1.2) X10*3/uL Eos # (Auto) (0.0-0.4) X10*3/uL Baso # (Auto) (0.0-0.2) X10*3/uL Abs Immat Gran (auto) (0.00-0.03) X10*3/uL Absolute Neuts (auto) (2.0-8.3) x10*3/uL Absolute Nucleated RBC (0.0-0.012) X10*3/uL Nucleated RBC % (auto) (0.0-0.2) /100WBC Smear Tech's Comments PT (10.0-13.1) SEC INR (0.9-1.1) VBG pH (7.32-7.43) VBG pCO2 mmHg VBG pO2 mmHg VBG HCO3 (22-26) mmol/L VBG O2 Saturation % VBG Base Excess mmol/L Sodium (135-145) mmol/L Potassium (3.3-5.1) mmol/L Chloride (96-108) mmol/L Carbon Dioxide (22-29) mmol/L Anion Gap (12-20) BUN (9-16) mg/dL Creatinine (0.5-1.4) mg/dL Estim Creat Clear Calc Estimated GFR Random Glucose (60-115) mg/dL Lactic Acid 1.8 (0.5-2.0) mmol/L Calcium (8.4-10.2) mg/dL Magnesium (1.6-2.6) mg/dL Total Bilirubin (0.0-1.0) mg/dL Direct Bilirubin (0.0-0.5) mg/dL AST (5-37) U/L ALT (0-40) U/L Alkaline Phosphatase (39-117) U/L Troponin I High Sens 74.7 H D (<3.5-35.0) ng/L B-Natriuretic Peptide 753 H (<100) pg/mL Total Protein (6.5-8.0) g/dL Albumin (3.5-5.0) g/dL Procalcitonin 0.20 ng/mL COVID-19 ([facility]) (Negative) COVID-19 Clin Com 03/25/22 03/25/22 03/25/22 Range/Units 12:47 13:04 14:42 WBC (4.8-10.8) X10*3/uL RBC (4.60-5.80) X10*6/uL Hgb (14.0-18.0) g/dl Hct (42.0-52.0) % MCV (80.0-98.0) fL MCH (27.0-33.0) pg MCHC (31.0-36.0) g/dl RDW (11.0-16.0) % Plt Count (160-400) X10*3/uL MPV (9.4-12.4) fL Immature Gran % (Auto) (0.0-0.4) % Neut % (Auto) (45-73) % Lymph % (Auto) (20-40) % [place] % (Auto) (2-11) % Eos % (Auto) (0-4) % Baso % (Auto) (0-2) % Lymph # (Auto) (1.2-4.9) X10*3/uL [place] # (Auto) (0.1-1.2) X10*3/uL Eos # (Auto) (0.0-0.4) X10*3/uL Baso # (Auto) (0.0-0.2) X10*3/uL Abs Immat Gran (auto) (0.00-0.03) X10*3/uL Absolute Neuts (auto) (2.0-8.3) x10*3/uL Absolute Nucleated RBC (0.0-0.012) X10*3/uL Nucleated RBC % (auto) (0.0-0.2) /100WBC Smear Tech's Comments PT (10.0-13.1) SEC INR (0.9-1.1) VBG pH 7.34 (7.32-7.43) VBG pCO2 81 mmHg VBG pO2 46 mmHg VBG HCO3 44 H (22-26) mmol/L VBG O2 Saturation 58.0 % VBG Base Excess 15.6 mmol/L Sodium (135-145) mmol/L Potassium (3.3-5.1) mmol/L Chloride (96-108) mmol/L Carbon Dioxide (22-29) mmol/L Anion Gap (12-20) BUN (9-16) mg/dL Creatinine (0.5-1.4) mg/dL Estim Creat Clear Calc Estimated GFR Random Glucose (60-115) mg/dL Lactic Acid (0.5-2.0) mmol/L Calcium (8.4-10.2) mg/dL Magnesium (1.6-2.6) mg/dL Total Bilirubin (0.0-1.0) mg/dL Direct Bilirubin (0.0-0.5) mg/dL AST (5-37) U/L ALT (0-40) U/L Alkaline Phosphatase (39-117) U/L Troponin I High Sens 88.7 H (<3.5-35.0) ng/L B-Natriuretic Peptide (<100) pg/mL Total Protein (6.5-8.0) g/dL Albumin (3.5-5.0) g/dL Procalcitonin ng/mL COVID-19 ([facility]ARRY) Negative (Negative) COVID-19 Clin Com See Note ECG Data Attestation: I personally reviewed and interpreted this ECG as follows: ECG interpretation date: 03/25/22 ECG interpretation time: 12:24 Interpretation: Rate: 76 Rhythm: NSR [place]: normal Normal P waves. Normal VERONIQUE. Normal QRS complex. ST T wave : no FRANDY, subtle depressions less than 1mm noted in V3- V6 qTC: normal prior studies: changed from prior EKG The study has been interpreted contemporaneously by me. . Critical Care Time Critical Care Time Critical Care Time: Yes Total Critical Care Time: 35 Attestation: hour long neb, review of records, admission to hospital I attest to this time spent taking care of the patient Discharge Plan Discharge Clinical Impression: Acute exacerbation of chronic obstructive airways disease Congestive heart failure Qualifiers: Heart failure type: unspecified Heart failure chronicity: acute on chronic Qualified Code(s): I50.9 - Heart failure, unspecified Leukocytosis Qualifiers: Leukocytosis type: unspecified Qualified Code(s): D72.829 - Elevated white blood cell count, unspecified Patient Disposition: Admitted As Inpatient
[2022-03-25] MEDS: Albuterol Sulfate 2.5 MG, Albuterol/Iprat 2.5/0.5MG 3 ML 3 ML INHALE (12:23)
[2022-03-25] MEDS: methylPREDNISolone Sod Succ 125 MG/2 ML VIAL 60 MG IVPUSH (12:50)
[2022-03-25] MEDS: Furosemide 20 MG/2 ML VIAL IVPUSH (12:50)
[2022-03-25] MEDS: Famotidine/PF 20 MG/2 ML VIAL IVPUSH (12:50)
[2022-03-25 12:53] LABS: VBG Base Excess 15.6 mmol/L; VBG HCO3 44 mmol/L (22-26); VBG pCO2 81 mmHg; VBG pH 7.34 (7.32-7.43); VBG pO2 46 mmHg
[2022-03-25 12:53] LABS: Venous Blood Gas Refer to POC result
[2022-03-25 12:54] LABS: Basophils Percent Auto 0.1 % (0-2); Eosinophils Absolute Auto 0.1 X10*3/uL (0.0-0.4); Eosinophils Percent Auto 0.7 % (0-4); Hematocrit 34.4 % (42.0-52.0); Hemoglobin 10.9 g/dl (14.0-18.0); Imm Gran Abs Auto 0.17 X10*3/uL (0.00-0.03); Lymphocytes Absolute Auto 0.7 X10*3/uL (1.2-4.9); Lymphocytes Percent Auto 3.7 % (20-40); MANUAL DIFF FLAG SCAN; Mean Corpuscular HGB Conc 31.7 g/dl (31.0-36.0); Mean Corpuscular Hemoglobin 30.7 pg (27.0-33.0); Mean Corpuscular Volume 96.9 fL (80.0-98.0); Mean Platelet Volume 9.9 fL (9.4-12.4); Monocytes Absolute Auto 0.6 X10*3/uL (0.1-1.2); Monocytes Percent Auto 3.2 % (2-11); NRBC Pct Auto 0.2 /100WBC (0.0-0.2); Neutrophils Percent Auto 91.3 % (45-73); Platelet Count 232 X10*3/uL (160-400); Red Blood Count 3.55 X10*6/uL (4.60-5.80); SCAN SMEAR FLAG 1; White Blood Count 17.6 X10*3/uL (4.8-10.8)
[2022-03-25 13:02] LABS: Lactic Acid 1.8 mmol/L (0.5-2.0)
--- NOTE | 2022-03-25 13:04 | PHA.MEDREC ---
Pharmacy Consult ? Medication Reconciliation Pharmacy has completed the medication reconciliation. Patient says they are finishing pollo and only have two more doses left of the 10mg. Last dose 03/27
[2022-03-25 13:08] LABS: Alanine Aminotransferase 40 U/L (0-40); Albumin Level 3.8 g/dL (3.5-5.0); Alkaline Phosphatase 74 U/L (39-117); Anion Gap 14 (12-20); Aspartate Amino Transferase 21 U/L (5-37); Bilirubin Direct 0.4 mg/dL (0.0-0.5); Blood Urea Nitrogen 23 mg/dL (9-16); Calcium 9.2 mg/dL (8.4-10.2); Carbon Dioxide 34 mmol/L (22-29); Chloride 98 mmol/L (96-108); Creatinine Clr Calc Pharmacy 59.1; Estimated Glomerular Filt Rate > 60; Glucose Random 214 mg/dL (60-115); INTERNATIONAL NORM RATIO 2.9 (0.9-1.1); Potassium 4.4 mmol/L (3.3-5.1); Prothrombin Time 34.9 SEC (10.0-13.1); Sodium 142 mmol/L (135-145); Total Protein 5.8 g/dL (6.5-8.0)
[2022-03-25 13:13] LABS: B Type Natriuretic Peptide 753 pg/mL (<100); Troponin-I High Sensitivity 74.7 ng/L (<3.5-35.0)
[2022-03-25] MEDS: cefTRIAXone sodium 1 GM in 0.9 % Sodium Chloride 50 ML IV (13:14)
--- NOTE | 2022-03-25 13:20 | PC.NURSE ---
pt alert and oriented, skin pwd, respirations labored breathing about 26-30min and using abd accessory muscles, ls diminished with some expiatory wheezing, with a cough sometimes productive per pt, denies pain at this time vs stable and ns on the monitor
[2022-03-25 13:38] LABS: COVID-19 Test Negative (Negative)
[2022-03-25 14:06] LABS: SLIDE REVIEW VERIFIED
[2022-03-25] MEDS: Azithromycin 500 MG in 0.9 % Sodium Chloride 250 ML 125 MG IV (15:07)
[2022-03-25 15:09] LABS: Troponin-I High Sensitivity 88.7 ng/L (<3.5-35.0)
--- NOTE | 2022-03-25 15:55 | PM.IMHP ---
History of Present Illness Date of Service: 03/25/22 Chief Complaint: dyspnea, wheeze 76yo M with COPD on home O2, HFpEF, AF and history of DVT on warfarin, CAD s/p 4v CABG, DM2, history of follicular lymphoma, and tobacco abuse who was just admitted here 03/09-03/11/22 for COPD exacerbation. He was discharged on a steroid taper and felt better for about a week, but then a week ago, started developing worsening dyspnea and wheezing. He complains of cough productive of purulent sputum as well. No chest pain. No leg swelling. No fever. No lightheadedness. He smokes 10 cigarettes a day. He was found by EMS to be hypoxic down to the 80s. He was brought in and given 60 mg of IV methylprednisolone, a dose of azithromycin, and 2 Duoneb treatments. Review of Systems Review of Systems: Yes all other systems are reviewed and are negative [facility] Medical History Abdominal aortic aneurysm without rupture Acute exacerbation of chronic obstructive pulmonary disease Acute on chronic diastolic CHF (congestive heart failure), NYHA class 3 Atherosclerotic cardiovascular disease Benign essential hypertension BPH loc w urin obs/LUTS Chronic atrial fibrillation COPD (chronic obstructive pulmonary disease) Coronary artery disease Current use of anticoagulant therapy Diabetes mellitus Elevated PSA Follicular lymphoma Heart failure with preserved ejection fraction High cholesterol History of blood clots History of deep vein thrombosis (DVT) of lower extremity Insomnia Overweight (BMI 25.0-29.9) PAF (paroxysmal atrial fibrillation) Peripheral arterial disease Pneumonia Pure hypercholesterolemia Smoker Smoker Vitamin D deficiency Family History Father Cancer Mother Cardiovascular disease Surgical History History of quadruple bypass Social History Household Members: Significant Other Housing: Apartment Are you a primary cardiac care nurse to a significant other at home: No Do you presently have visiting nurse or other home services: No Alcohol intake: never Patient Tobacco Use Status: Former Tobacco user Tobacco use type: Cigarette Cigarette Packs Per Day: 1.5 Cigarettes Per Day: 30.0 Years Smoked: 65 Second Hand Smoke Exposure: No Use of substances other than those prescribed or required for medical reasons: No Advance Directives: Yes Advance Directives on File: Yes Advance Directives Date on File: 01/06/22 service: No Current occupational status: retired Cognitive needs: No Hearing needs: No Vision needs: No Meds Allergies Allergy/AdvReac Type Severity Reaction Status Date / Time No Known Allergies Allergy Verified 03/16/22 13:36 [No Known Allergies*] Active Medications: Current Medications Albuterol Sulfate (Albuterol Sulfate (0.083%) 2.5 Mg/3 Ml Vial.Neb) 2.5 mg INHALE Q2H PRN PRN Reason: Shortness of Breath/Wheezing Albuterol/Ipratropium (Albuterol/Iprat 2.5/0.5mg 3 Ml Ampul.Neb) 3 ml INHALE RQ4H [facility] Allopurinol (Allopurinol 100 Mg Tablet) 100 mg PO BEDTIME [facility] Amiodarone HCl (Amiodarone Hcl 200 Mg Tablet) 200 mg PO DAILY [facility] Clopidogrel Bisulfate (Clopidogrel Bisulfate 75 Mg Tablet) 75 mg PO DAILY [facility] Dextrose (Dextrose 50 % 25 Gm/50 Ml Syringe) 25 gm IVPUSH Q15M PRN; Protocol PRN Reason: per Hypoglycemia Standing Ord. Doxycycline Hyclate (Doxycycline Hyclate 100 Mg Tablet) 100 mg PO Q12H [facility] Finasteride (Finasteride 5 Mg Tablet) 5 mg PO DAILY [facility] Glucose (Glucose Gel 15 Gm Gel..Gram.) 15 gm PO Q15M PRN; Protocol PRN Reason: per Hypoglycemia Standing Ord. Insulin Human Lispro (Insulin Lispro 100 Unit/Ml 3 Ml Vial) 0 unit SUBCUT QIDACHS [facility]; Protocol Methylprednisolone Sodium Succinate (Methylprednisolone Sod Succ 40 Mg/Ml Vial) 40 mg IVPUSH Q8H [facility] Metoprolol Tartrate (Metoprolol Tartrate 50 Mg Tablet) 50 mg PO BID [facility]; Protocol Non-Formulary Medication (Budesonide-Formoterol [Symbicort]) 2 puff PO BID [facility] Non-Formulary Medication (Rosuvastatin [Crestor]) 40 mg PO DAILY [facility] Pharmacy Consult (Consult Rx Perform Med Rec) 1 each MISCELLANE ONCE PRN PRN Reason: Consult order Vitamin D (Cholecalciferol (Vitamin D3) 25 Mcg Tablet) 25 mcg PO DAILY [facility] Warfarin Sodium (Warfarin Sodium 4 Mg Tablet) 4 mg PO DAILY [facility] Home Medications Medication Instructions Recorded Confirmed Last Taken Type cholecalciferol (vitamin D3) 25 25 mcg PO DAILY 07/02/20 03/25/22 03/25/22 History mcg (1,000 unit) capsule (Vitamin D3) clopidogrel 75 mg tablet (Plavix) 75 mg PO DAILY 12/23/21 03/25/22 03/25/22 History amiodarone 200 mg tablet 200 mg PO DAILY 12/25/21 03/25/22 03/25/22 History allopurinol 100 mg tablet 100 mg PO BEDTIME 01/05/22 03/25/22 03/24/22 History metformin 500 mg tablet,extended 500 mg PO BEDTIME 01/05/22 03/25/22 03/24/22 History release 24 hr metoprolol tartrate 50 mg tablet 50 mg PO BID 02/12/22 03/25/22 03/25/22 History Physical Exam Vital Signs and Narrative: Vital Signs: Last Vital Signs Temp 98.1 F 03/25/22 12:04 Pulse 65 03/25/22 15:10 Resp 26 H 03/25/22 15:10 BP 135/55 L 03/25/22 15:10 Pulse Ox 98 03/25/22 15:10 O2 Del Method 03/25/22 15:10 O2 Flow Rate 1 03/25/22 15:10 Oxygen Flow Rate 2 03/25/22 12:04 BMI result Body Mass Index 25.2 Gen: in mild respiratory distress HEENT: sclera anicteric, moist mucus membranes Neck: supple Lungs: diffuse expiratory wheezing Heart: regular rate and rhythm, no murmurs Abd: soft, non-tender, non-distended Ext: no edema Skin: warm/well-perfused, extensive bruising Neuro: alert and oriented x3, no focal findings Psych: appropriate affect Results Labs CBC and Chem 7: 03/25/22 12:42 03/25/22 12:42 Labs: Laboratory Results - last 24 hr 03/25/22 03/25/22 03/25/22 12:42 12:42 12:42 MCV 96.9 MCH 30.7 MCHC 31.7 RDW 17.0 H Plt Count 232 MPV 9.9 Immature Gran % (Auto) 1.0 H Neut % (Auto) 91.3 H Lymph % (Auto) 3.7 L Brantley % (Auto) 3.2 Eos % (Auto) 0.7 Baso % (Auto) 0.1 Lymph # (Auto) 0.7 L Brantley # (Auto) 0.6 Eos # (Auto) 0.1 Baso # (Auto) 0.0 Abs Immat Gran (auto) 0.17 H Absolute Neuts (auto) 16.0 H Absolute Nucleated RBC 0.030 H Nucleated RBC % (auto) 0.2 Smear Tech's Comments VERIFIED PT 34.9 H INR 2.9 H VBG pH VBG pCO2 VBG pO2 VBG HCO3 VBG O2 Saturation VBG Base Excess Anion Gap 14 Estim Creat Clear Calc 59.1 Estimated GFR > 60 Random Glucose 214 H Lactic Acid Calcium 9.2 Magnesium 2.0 Total Bilirubin 1.0 Direct Bilirubin 0.4 AST 21 D ALT 40 Alkaline Phosphatase 74 B-Natriuretic Peptide Total Protein 5.8 L Albumin 3.8 Procalcitonin COVID-19 ([facility]) [employer] 03/25/22 03/25/22 03/25/22 12:42 12:42 12:42 MCV MCH MCHC RDW Plt Count MPV Immature Gran % (Auto) Neut % (Auto) Lymph % (Auto) Brantley % (Auto) Eos % (Auto) Baso % (Auto) Lymph # (Auto) Brantley # (Auto) Eos # (Auto) Baso # (Auto) Abs Immat Gran (auto) Absolute Neuts (auto) Absolute Nucleated RBC Nucleated RBC % (auto) Smear Tech's Comments PT INR VBG pH VBG pCO2 VBG pO2 VBG HCO3 VBG O2 Saturation VBG Base Excess Anion Gap Estim Creat Clear Calc Estimated GFR Random Glucose Lactic Acid 1.8 Calcium Magnesium Total Bilirubin Direct Bilirubin AST ALT Alkaline Phosphatase B-Natriuretic Peptide 753 H Total Protein Albumin Procalcitonin 0.20 COVID-19 ([facility]) [employer] 03/25/22 03/25/22 12:47 13:04 MCV MCH MCHC RDW Plt Count MPV Immature Gran % (Auto) Neut % (Auto) Lymph % (Auto) Brantley % (Auto) Eos % (Auto) Baso % (Auto) Lymph # (Auto) Brantley # (Auto) Eos # (Auto) Baso # (Auto) Abs Immat Gran (auto) Absolute Neuts (auto) Absolute Nucleated RBC Nucleated RBC % (auto) Smear Tech's Comments PT INR VBG pH 7.34 VBG pCO2 81 VBG pO2 46 VBG HCO3 44 H VBG O2 Saturation 58.0 VBG Base Excess 15.6 Anion Gap Estim Creat Clear Calc Estimated GFR Random Glucose Lactic Acid Calcium Magnesium Total Bilirubin Direct Bilirubin AST ALT Alkaline Phosphatase B-Natriuretic Peptide Total Protein Albumin Procalcitonin COVID-19 ([facility]) Negative COVID-19 Clin Com See Note Imaging Radiologist's Impressions: Impressions Chest X-Ray 03/25/22 13:18 IMPRESSION: Known COPD and associated chronic changes without acute cardiopulmonary process. Assessment and Plan (1) Acute exacerbation of chronic obstructive airways disease: Status: Acute Plan 76yo M with COPD on home O2, HFpEF, AF and history of DVT on warfarin, CAD s/p 4v CABG, DM2, history of follicular lymphoma, and tobacco abuse who was just admitted here 03/09-03/11/22 for COPD exacerbation and is presenting with worsening dyspnea and purulent cough, found to be hypoxic and wheezing. # COPD exacerbation - admit to [facility], give IV glucocorticoids, standing/prn nebulized bronchodilators, doxycycline, Pulmonary consult given frequency of exacerbations [he was scheduled for PFTs as outpt this week], continue ICS/LABA formulary equivalent # acute/chronic hypoxic/hypercapneic resp failure - suppl O2, titrate to SaO2 88-92% given CO2 retention # HFpEF, chronic - continue furosemide, metoprolol # pAF # hx DVT - continue amiodarone for rhythm control - INR therapeutic; continue warfarin # CAD - continue statin, metoprolol, clopidogrel # DM2 - hold MTF + give javier-dose lispro # VTE prophylaxis: warfarin # code status: full code I anticipate that the patient will stay at least 2 midnights in hospital due to the above reasons. It is neither reasonable nor safe to care for them in a less acute setting. Quality Stroke Does the patient have a stroke diagnosis?: No VTE Prior VTE?: No VTE Risk Level:: Medical - moderate - high VTE Device Contraindication: N/A - Device Ordered VTE Drug Contraindication: N/A - Med Ordered
[2022-03-25] MEDS: Albuterol/Iprat 2.5/0.5MG 3 ML AMPUL.NEB INHALE ×2 (16:03→19:58)
[2022-03-25 18:05] LABS: Glucose, Whole Blood 361 mg/dL (60-115)
--- NOTE | 2022-03-25 18:12 | MHC.CM.PN ---
IMM 03/25. CM met with admitted patient with bed assignment pending. Lives w . Uses home O2 @2L & DM supplies. No services. Continues to smoke. States was smoking 1 1/2 packs/day and now smokes 10 cigs/day. HCP on file. HCP/ Dorota Paula ([phone]). Vax/boosted x1/Moderna. D/C plan: Home ? VNA. Assess during hospital stay. No referrals placed at this time. Family to transport. CM to follow for d/c planning.
[2022-03-25] MEDS: Insulin Lispro 100 UNIT/ML 3 ML VIAL SUBCUT ×2 (18:22→21:42)
--- NOTE | 2022-03-25 18:25 | PC.NURSE ---
pt reports feeling better, work of breathing decreased, breathing about 22 per minute vs stable
--- NOTE | 2022-03-25 19:29 | PC.NURSE ---
PATIENT WAS ASSISTED ONTO BEDSIDE COMMODE TO MOVE HIS BOWEL .
--- NOTE | 2022-03-25 21:06 | PC.NURSE ---
PATIENT REQUESTED ICE CHIPS .
[2022-03-25 21:28] LABS: Glucose, Whole Blood 290 mg/dL (60-115)
[2022-03-25] MEDS: Metoprolol Tartrate 50 MG TABLET PO (21:41)
[2022-03-25] MEDS: methylPREDNISolone Sod Succ 40 MG/ML VIAL IVPUSH (21:42)
[2022-03-25] MEDS: allopurinoL 100 MG TABLET PO (21:42)
[2022-03-26] VITALS (11 sets, daily range): BP systolic 115–145; BP diastolic 42–69; PULSE 51–89; RESP 16–23; TEMP 36.6–37.1; O2SAT 96–99
[2022-03-26] MEDS: methylPREDNISolone Sod Succ 40 MG/ML VIAL IVPUSH ×3 (04:36→20:01)
[2022-03-26 06:34] LABS: Venous Blood Gas Refer to POC result
[2022-03-26 06:34] LABS: VBG Base Excess 11.5 mmol/L; VBG HCO3 35 mmol/L (22-26); VBG pCO2 43 mmHg; VBG pH 7.52 (7.32-7.43); VBG pO2 192 mmHg
[2022-03-26 06:49] LABS: INTERNATIONAL NORM RATIO 2.1 (0.9-1.1); Prothrombin Time 25.2 SEC (10.0-13.1)
[2022-03-26 07:31] LABS: Glucose, Whole Blood 228 mg/dL (60-115)
[2022-03-26] MEDS: Insulin Lispro 100 UNIT/ML 3 ML VIAL SUBCUT ×4 (07:57→20:05)
[2022-03-26] MEDS: Furosemide 40 MG TABLET PO (07:59)
[2022-03-26] MEDS: Atorvastatin Calcium 80 MG TABLET PO (08:01)
[2022-03-26] MEDS: Amiodarone HCL 200 MG TABLET PO (08:02)
[2022-03-26] MEDS: Clopidogrel Bisulfate 75 MG TABLET PO (08:03)
[2022-03-26] MEDS: Finasteride 5 MG TABLET PO (08:03)
[2022-03-26] MEDS: Cholecalciferol (Vitamin D3) 25 MCG TABLET PO (08:03)
[2022-03-26] MEDS: 0.9 % Sodium Chloride Flush 3 ML SYRINGE IVFLUSH ×3 (08:03→20:05)
[2022-03-26] MEDS: Albuterol/Iprat 2.5/0.5MG 3 ML AMPUL.NEB INHALE ×4 (08:06→19:25)
--- NOTE | 2022-03-26 09:00 | PC.NURSE ---
Patient resting quietly A&Ox3. Denies pain. Metoprolol held HR not within parameters. called, will be in to visit this afternoon. R/T at bedside.
--- NOTE | 2022-03-26 09:15 | PM.CNPUL ---
History of Present Illness History of Present Illness Consult date: 03/26/22 Reason for consult: dyspnea, cough and hypoxemia Chief complaint: COPD exac Narrative: I have seen this 76 years old gentleman this morning for pulmonary consultation. He had seen me recently in the office for pulmonary follow-up. He was treated the about 3 weeks ago here at the hospital for acute exacerbation of COPD, This time he comes with increased cough and shortness of breath but no definite fever or chills or chest pain. He has only minimal expectoration. Patient has history of heavy smoking since younger age, as he had stated he actually started smoking when he was 8 years old. Continues to smoke but has cut down between half to 1 pack of cigarettes a day. He does have nicotine patches at home but does not care to use it. Patient has past history of coronary artery disease having had CABG surgery many years ago. He has history of chronic atrial fibrillation and is on anticoagulation Also has had DVT in the past. He has dilated abdominal aorta which is is symptomatic. At home he uses Symbicort 160-4.5 2 puffs b.i.d., and albuterol just p.r.n.. He does have oxygen at home and uses 2 L/minute only at night and only once in a while during the daytime.. Review of Systems Review of Systems: Yes all other systems are reviewed and are negative Eyes: Eyes: Reports no additional eye complaints ENT: Reports system reviewed and no additional complaints, except as documented Cardiovascular: Cardiovascular: Denies chest pain, Reports irregular heart rhythm, Denies leg edema and Reports dyspnea on exertion Respiratory: Respiratory: Reports as per HPI and Reports dyspnea on exertion Gastrointestinal: Gastrointestinal: Reports no additional gastrointestinal complaints Genitourinary: Genitourinary: Reports no additional male genitourinary complaints Musculoskeletal: Musculoskeletal: Reports myalgias (Mild aches and pains) Integumentary/Breasts: Skin/Breast: Reports system reviewed and no additional complaints, except as docu Neurologic: Reports system reviewed and no additional complaints, except as documented PMFSH Past Medical History Medical History Abdominal aortic aneurysm without rupture Acute exacerbation of chronic obstructive pulmonary disease Acute on chronic diastolic CHF (congestive heart failure), NYHA class 3 Atherosclerotic cardiovascular disease Benign essential hypertension BPH loc w urin obs/LUTS Chronic atrial fibrillation COPD (chronic obstructive pulmonary disease) Coronary artery disease Current use of anticoagulant therapy Diabetes mellitus Elevated PSA Follicular lymphoma Heart failure with preserved ejection fraction High cholesterol History of blood clots History of deep vein thrombosis (DVT) of lower extremity Insomnia Overweight (BMI 25.0-29.9) PAF (paroxysmal atrial fibrillation) Peripheral arterial disease Pneumonia Pure hypercholesterolemia Smoker Smoker Vitamin D deficiency Family History Family History Father Cancer Mother Cardiovascular disease Surgical History Surgical History History of quadruple bypass Social History Social History Household Members: Significant Other Housing: Apartment Are you a primary personal care assistant to a significant other at home: No Do you presently have visiting nurse or other home services: No Alcohol intake: never Patient Tobacco Use Status: Former Tobacco user Tobacco use type: Cigarette Cigarette Packs Per Day: 1.5 Cigarettes Per Day: 30.0 Years Smoked: 65 Second Hand Smoke Exposure: No Use of substances other than those prescribed or required for medical reasons: No Advance Directives: Yes Advance Directives on File: Yes Advance Directives Date on File: 01/06/22 service: No Current occupational status: retired Cognitive needs: No Hearing needs: No Vision needs: No Meds Allergies Allergy/AdvReac Type Severity Reaction Status Date / Time No Known Allergies Allergy Verified 03/16/22 13:36 [No Known Allergies*] Active Medications: Current Medications Acetaminophen (Acetaminophen 325 Mg Tablet) 650 mg PO Q6H PRN PRN Reason: Pain, Mild (Pain Scale 1-3) Albuterol Sulfate (Albuterol Sulfate (0.083%) 2.5 Mg/3 Ml Vial.Neb) 2.5 mg INHALE Q2H PRN PRN Reason: Shortness of Breath/Wheezing Albuterol/Ipratropium (Albuterol/Iprat 2.5/0.5mg 3 Ml Ampul.Neb) 3 ml INHALE RQ4H [facility] Last Admin: 03/26/22 08:06 Dose: 3 ml Allopurinol (Allopurinol 100 Mg Tablet) 100 mg PO BEDTIME [facility] Last Admin: 03/25/22 21:42 Dose: 100 mg Amiodarone HCl (Amiodarone Hcl 200 Mg Tablet) 200 mg PO DAILY [facility] Last Admin: 03/26/22 08:02 Dose: 200 mg Atorvastatin Calcium (Atorvastatin Calcium 80 Mg Tablet) 80 mg PO DAILY [facility] Last Admin: 03/26/22 08:01 Dose: 80 mg Clopidogrel Bisulfate (Clopidogrel Bisulfate 75 Mg Tablet) 75 mg PO DAILY [facility] Last Admin: 03/26/22 08:03 Dose: 75 mg Dextrose (Dextrose 50 % 25 Gm/50 Ml Syringe) 25 gm IVPUSH Q15M PRN; Protocol PRN Reason: per Hypoglycemia Standing Ord. Doxycycline Hyclate (Doxycycline Hyclate 100 Mg Tablet) 100 mg PO Q12H [facility] Last Admin: 03/26/22 05:15 Dose: 100 mg Finasteride (Finasteride 5 Mg Tablet) 5 mg PO DAILY [facility] Last Admin: 03/26/22 08:03 Dose: 5 mg Fluticasone/Vilanterol (Fluticasone/Vilanterol 200/25 Blst.W.Dev) 1 puff INHALE RDAILY [facility] Last Admin: 03/26/22 08:06 Dose: Not Given Furosemide (Furosemide 40 Mg Tablet) 40 mg PO DAILY [facility]; Protocol Last Admin: 03/26/22 07:59 Dose: 40 mg Glucose (Glucose Gel 15 Gm Gel..Gram.) 15 gm PO Q15M PRN; Protocol PRN Reason: per Hypoglycemia Standing Ord. Insulin Human Lispro (Insulin Lispro 100 Unit/Ml 3 Ml Vial) 0 unit SUBCUT QIDACHS [facility]; Protocol Last Admin: 03/26/22 07:57 Dose: 4 unit Methylprednisolone Sodium Succinate (Methylprednisolone Sod Succ 40 Mg/Ml Vial) 40 mg IVPUSH Q8H [facility] Last Admin: 03/26/22 04:36 Dose: 40 mg Metoprolol Tartrate (Metoprolol Tartrate 50 Mg Tablet) 50 mg PO BID [facility]; Protocol Last Admin: 03/26/22 08:00 Dose: Not Given Ondansetron HCl (Ondansetron Hcl 4 Mg/2 Ml Vial) 4 mg IVPUSH Q8H PRN PRN Reason: Nausea and Vomiting Pharmacy Consult (Consult Rx Perform Med Rec) 1 each MISCELLANE ONCE PRN PRN Reason: Consult order Sodium Chloride (0.9 % Sodium Chloride Flush 3 Ml Syringe) 3 ml IVFLUSH QSHIFT [facility] Last Admin: 03/26/22 08:03 Dose: 3 ml Vitamin D (Cholecalciferol (Vitamin D3) 25 Mcg Tablet) 25 mcg PO DAILY [facility] Last Admin: 03/26/22 08:03 Dose: 25 mcg Warfarin Sodium (Warfarin Sodium 4 Mg Tablet) 4 mg PO DAILY@1800 [facility] Home Medications Medication Instructions Recorded Confirmed Last Taken Type cholecalciferol (vitamin D3) 25 25 mcg PO DAILY 07/02/20 03/25/22 03/25/22 History mcg (1,000 unit) capsule (Vitamin D3) clopidogrel 75 mg tablet (Plavix) 75 mg PO DAILY 12/23/21 03/25/22 03/25/22 History amiodarone 200 mg tablet 200 mg PO DAILY 12/25/21 03/25/22 03/25/22 History allopurinol 100 mg tablet 100 mg PO BEDTIME 01/05/22 03/25/22 03/24/22 History metformin 500 mg tablet,extended 500 mg PO BEDTIME 01/05/22 03/25/22 03/24/22 History release 24 hr metoprolol tartrate 50 mg tablet 50 mg PO BID 02/12/22 03/25/22 03/25/22 History Physical Exam Vital Signs: Vital Signs: Last Vital Signs Temp 98.7 F 03/26/22 04:00 Pulse 63 03/26/22 08:06 Resp 18 03/26/22 08:06 BP 124/51 L 03/26/22 08:05 Pulse Ox 97 03/26/22 08:05 O2 Del Method 03/26/22 08:05 O2 Flow Rate 2 03/26/22 08:05 Oxygen Flow Rate 2 03/25/22 12:04 BMI result Body Mass Index 25.2 Const: General: comfortable, no acute distress, alert and awake Orientation/consciousness: patient oriented x3 HEENT: Head: Yes normal to inspection General nose exam: No nasal polyps present and No nasal discharge present Face and sinus: Yes sinuses nontender Mouth: oropharynx normal Throat: Yes posterior oropharynx normal Eyes: General: appearance normal, both eyes and all related structures Neck: Neck: Yes normal visual inspection, Yes no lymphadenopathy, Yes trachea midline and Yes no JVD Thyroid: Thyroid normal Chest: Chest palpation & inspection: normal inspection of the chest (Midline scar from previous CABG surgery), normal palpation of entire chest wall and no tenderness Resp: Other: Percussion note is resonant, breath sounds distant on both sides with prolonged expiratory phase. Scattered expiratory wheezes heard over both lower lobes. Cardio: Palpation: normal PMI Rate: regular rate Rhythm: regular rhythm Heart sounds: no gallops and no murmurs Peripheral pulses: Peripheral pulses 2+ throughout GI: Palpation (GI): Soft to palpation, nontender, No hepatosplenomegaly present and no masses Auscultation: normal bowel sounds Back/Spine/Pelvis: Thoracic/Lumbar Spine: thoracic and lumbar spine normal to inspection Skin: General skin exam: no rashes or lesions noted Neuro: General: patient oriented x3 and no focal motor deficits Cranial nerves: Yes CN's II-XII intact bilaterally Extrem: General: Yes normal to inspection, Yes no clubbing, cyanosis or edema and Yes no calf tenderness Psych: Appearance: grossly normal and disheveled Speech and movement: Normal speech and movement present Results Laboratory Findings CBC and BMP: 03/25/22 12:42 03/25/22 12:42 ABG, PT/INR, D-dimer: PT/INR, D-dimer PT 25.2 SEC (10.0-13.1) H 03/26/22 06:37 INR 2.1 (0.9-1.1) H 03/26/22 06:37 Abnormal lab findings: Abnormal Labs 03/25/22 03/25/22 03/25/22 12:42 12:42 12:42 WBC 17.6 H RBC 3.55 L Hgb 10.9 L Hct 34.4 L RDW 17.0 H Immature Gran % (Auto) 1.0 H Neut % (Auto) 91.3 H Lymph % (Auto) 3.7 L Lymph # (Auto) 0.7 L Abs Immat Gran (auto) 0.17 H Absolute Neuts (auto) 16.0 H Absolute Nucleated RBC 0.030 H PT 34.9 H INR 2.9 H VBG pH VBG HCO3 Carbon Dioxide 34 H BUN 23 H POC Glucose Random Glucose 214 H Troponin I High Sens B-Natriuretic Peptide Total Protein 5.8 L 03/25/22 03/25/22 03/25/22 12:42 12:47 14:42 WBC RBC Hgb Hct RDW Immature Gran % (Auto) Neut % (Auto) Lymph % (Auto) Lymph # (Auto) Abs Immat Gran (auto) Absolute Neuts (auto) Absolute Nucleated RBC PT INR VBG pH VBG HCO3 44 H Carbon Dioxide BUN POC Glucose Random Glucose Troponin I High Sens 74.7 H D 88.7 H B-Natriuretic Peptide 753 H Total Protein 03/25/22 03/25/22 03/26/22 17:59 20:54 06:29 WBC RBC Hgb Hct RDW Immature Gran % (Auto) Neut % (Auto) Lymph % (Auto) Lymph # (Auto) Abs Immat Gran (auto) Absolute Neuts (auto) Absolute Nucleated RBC PT INR VBG pH 7.52 H VBG HCO3 35 H Carbon Dioxide BUN POC Glucose 361 H* 290 H Random Glucose Troponin I High Sens B-Natriuretic Peptide Total Protein 03/26/22 03/26/22 06:37 07:06 WBC RBC Hgb Hct RDW Immature Gran % (Auto) Neut % (Auto) Lymph % (Auto) Lymph # (Auto) Abs Immat Gran (auto) Absolute Neuts (auto) Absolute Nucleated RBC PT 25.2 H INR 2.1 H VBG pH VBG HCO3 Carbon Dioxide BUN POC Glucose 228 H Random Glucose Troponin I High Sens B-Natriuretic Peptide Total Protein Diagnostic Findings Chest x-ray: report reviewed Assessment and Plan (1) Acute exacerbation of chronic obstructive airways disease: Status: Acute (2) Acute respiratory failure with hypoxia: Status: Acute (3) Smoker: Status: Acute (4) Chronic atrial fibrillation: Status: Acute Plan This 76 years old gentleman, with longstanding history of COPD, and persistent smoker. Has features of acute exacerbation at this time. Increased bronchovascular markings in the lower lobes with says some scarring in the right lower lobe, but no definite pneumonia. Leukocytosis is probably due to use of steroids. His main issue is continued heavy smoking, which he is not ready to quit. Recc . Solu-Medrol 40 mg IV q.8 hours for 1 more day then prednisone 40 mg a day for 5 days. IV azithromycin may be changed to Zithromax 250 mg p.o. daily, for a course of 5 days. IV Rocephin may be discontinued on discharge. In place of Symbicort he should be started on Breo 200-25 1 inhalation daily while in the hospital. DuoNeb updrafts Q 4-6 hours while awake. O2 2 L/minute and may wean of if O2 sat stays above 90%. [employer] him for smoking cessation. Patient would need close follow-up as outpatient. Procedures Date of Service Date of Service: 03/26/22
[2022-03-26 12:22] LABS: Glucose, Whole Blood 268 mg/dL (60-115)
--- NOTE | 2022-03-26 14:45 | HO.PM.IMPN ---
Subjective Subjective Date of Service: 03/26/22 Interval History: No acute issues overnight. Patient states breathing minimally improved Review of Systems Denies chest pain Admits to shortness of breath at rest Denies nausea vomiting diarrhea Denies fever chills Physical Exam Vital Signs: Vital Signs: Last Vital Signs Temp 98.7 F 03/26/22 04:00 Pulse 71 03/26/22 12:17 Resp 23 H 03/26/22 12:17 BP 144/42 H 03/26/22 12:17 Pulse Ox 99 03/26/22 12:17 O2 Del Method 03/26/22 12:17 O2 Flow Rate 2 03/26/22 12:17 Oxygen Flow Rate 2 03/25/22 12:04 BMI result Body Mass Index 25.2 Const: Other: No acute distress Resp: Other: Diminished at bases with scattered expiratory wheezes Cardio: Other: No S4; positive S1-S2; no S3 murmurs rubs or gallops GI: Other: Soft nontender nondistended normoactive bowel sounds Extrem: Other: No edema bilaterally Objective Data Active Medications Acetaminophen (Acetaminophen 325 Mg Tablet) 650 mg PO Q6H PRN PRN Reason: Pain, Mild (Pain Scale 1-3) Albuterol Sulfate (Albuterol Sulfate (0.083%) 2.5 Mg/3 Ml Vial.Neb) 2.5 mg INHALE Q2H PRN PRN Reason: Shortness of Breath/Wheezing Albuterol/Ipratropium (Albuterol/Iprat 2.5/0.5mg 3 Ml Ampul.Neb) 3 ml INHALE RQ4H [facility] Last Admin: 03/26/22 11:24 Dose: 3 ml Documented By: OZZIE Allopurinol (Allopurinol 100 Mg Tablet) 100 mg PO BEDTIME [facility] Last Admin: 03/25/22 21:42 Dose: 100 mg Documented By: JEWEL Amiodarone HCl (Amiodarone Hcl 200 Mg Tablet) 200 mg PO DAILY [facility] Last Admin: 03/26/22 08:02 Dose: 200 mg Documented By: JENSEN Atorvastatin Calcium (Atorvastatin Calcium 80 Mg Tablet) 80 mg PO DAILY [facility] Last Admin: 03/26/22 08:01 Dose: 80 mg Documented By: JENSEN Clopidogrel Bisulfate (Clopidogrel Bisulfate 75 Mg Tablet) 75 mg PO DAILY [facility] Last Admin: 03/26/22 08:03 Dose: 75 mg Documented By: JENSEN Dextrose (Dextrose 50 % 25 Gm/50 Ml Syringe) 25 gm IVPUSH Q15M PRN; Protocol PRN Reason: per Hypoglycemia Standing Ord. Doxycycline Hyclate (Doxycycline Hyclate 100 Mg Tablet) 100 mg PO Q12H [facility] Last Admin: 03/26/22 05:15 Dose: 100 mg Documented By: SHAKA Finasteride (Finasteride 5 Mg Tablet) 5 mg PO DAILY [facility] Last Admin: 03/26/22 08:03 Dose: 5 mg Documented By: JENSEN Fluticasone/Vilanterol (Fluticasone/Vilanterol 200/25 Blst.W.Dev) 1 puff INHALE RDAILY [facility] Last Admin: 03/26/22 08:06 Dose: Not Given Documented By: OZZIE Non-Admin Reason: med not avail Furosemide (Furosemide 40 Mg Tablet) 40 mg PO DAILY [facility]; Protocol Last Admin: 03/26/22 07:59 Dose: 40 mg Documented By: JENSEN Glucose (Glucose Gel 15 Gm Gel..Gram.) 15 gm PO Q15M PRN; Protocol PRN Reason: per Hypoglycemia Standing Ord. Insulin Human Lispro (Insulin Lispro 100 Unit/Ml 3 Ml Vial) 0 unit SUBCUT QIDACHS [facility]; Protocol Last Admin: 03/26/22 13:06 Dose: 6 unit Documented By: YAYA Methylprednisolone Sodium Succinate (Methylprednisolone Sod Succ 40 Mg/Ml Vial) 40 mg IVPUSH Q8H [facility] Last Admin: 03/26/22 13:06 Dose: 40 mg Documented By: YAYA Metoprolol Tartrate (Metoprolol Tartrate 50 Mg Tablet) 50 mg PO BID [facility]; Protocol Last Admin: 03/26/22 08:00 Dose: Not Given Documented By: JENSEN Non-Admin Reason: Decreased Heart Rate Ondansetron HCl (Ondansetron Hcl 4 Mg/2 Ml Vial) 4 mg IVPUSH Q8H PRN PRN Reason: Nausea and Vomiting Pharmacy Consult (Consult Rx Perform Med Rec) 1 each MISCELLANE ONCE PRN PRN Reason: Consult order Sodium Chloride (0.9 % Sodium Chloride Flush 3 Ml Syringe) 3 ml IVFLUSH QSHIFT [facility] Last Admin: 03/26/22 08:03 Dose: 3 ml Documented By: JENSEN Vitamin D (Cholecalciferol (Vitamin D3) 25 Mcg Tablet) 25 mcg PO DAILY [facility] Last Admin: 03/26/22 08:03 Dose: 25 mcg Documented By: JENSEN Warfarin Sodium (Warfarin Sodium 4 Mg Tablet) 4 mg PO DAILY@1800 [facility] Labs CBC & Chem 7: 03/25/22 12:42 03/25/22 12:42 Labs: Laboratory Results - last 24 hr 03/25/22 03/25/22 03/26/22 17:59 20:54 06:29 PT INR VBG pH 7.52 H VBG pCO2 43 VBG pO2 192 VBG HCO3 35 H VBG O2 Saturation 100.0 VBG Base Excess 11.5 POC Glucose 361 H* 290 H 03/26/22 03/26/22 03/26/22 06:37 07:06 12:14 PT 25.2 H INR 2.1 H VBG pH VBG pCO2 VBG pO2 VBG HCO3 VBG O2 Saturation VBG Base Excess POC Glucose 228 H 268 H Assessment and Plan (1) Acute exacerbation of chronic obstructive airways disease: Status: Acute (2) Acute respiratory failure with hypoxia: Status: Acute (3) Chronic heart failure with preserved ejection fraction (HFpEF): Status: Acute (4) Chronic atrial fibrillation: Status: Acute Plan 76yo M with COPD on home O2, HFpEF, AF and history of DVT on warfarin, CAD s/p 4v CABG, DM2, history of follicular lymphoma, and tobacco abuse who was just admitted here 03/09-03/11/22 for COPD exacerbation and is presenting with worsening dyspnea and purulent cough, found to be hypoxic and wheezing. 1.COPD exacerbation - as recommended will continue Solu-Medrol 40 mg IV times 24 hours and then switch to oral taper -switch to throw max to p.o. complete a 5 day course -DC Symbicort in favor of Breo -DuoNebs q.4 hours while awake -titrate O2 2.Acute/chronic hypoxic/hypercapneic resp failure - suppl O2, titrate to SaO2 88-92% given CO2 retention 3. HFpEF, chronic - continue furosemide, metoprolol 4.PAF - INR therapeutic; continue warfarin 5.CAD - continue statin/metoprolol/clopidogrel 6. DM2 - lispro correctional scale -add back metformin Warfarin Full code Will require ongoing hospitalization for IV steroids and titration of O2 Quality Stroke Does the patient have a stroke diagnosis?: No VTE Prior VTE?: No VTE Risk Level:: Medical - moderate - high VTE Device Contraindication: N/A - Device Ordered VTE Drug Contraindication: N/A - Med Ordered
--- NOTE | 2022-03-26 16:20 | PC.NURSE ---
report given to NAVYA Ward. pt will be transferred to room [facility] pt aware of plan.
[2022-03-26 16:47] LABS: Glucose, Whole Blood 402 mg/dL (60-115)
[2022-03-26] MEDS: Insulin Lispro 100 UNIT/ML 3 ML VIAL 7 UNIT SUBCUT (17:22)
[2022-03-26] MEDS: Warfarin Sodium 4 MG TABLET PO (17:23)
[2022-03-26 19:37] LABS: Glucose, Whole Blood 347 mg/dL (60-115)
[2022-03-26] MEDS: Metoprolol Tartrate 50 MG TABLET PO (20:01)
[2022-03-26] MEDS: allopurinoL 100 MG TABLET PO (20:02)
[2022-03-27] VITALS (9 sets, daily range): BP systolic 119–141; BP diastolic 56–64; PULSE 52–92; RESP 16–20; TEMP 36.1–37.2; O2SAT 95–100
[2022-03-27 06:27] LABS: Basophils Percent Auto 0.1 % (0-2); Hematocrit 28.8 % (42.0-52.0); Hemoglobin 9.4 g/dl (14.0-18.0); Imm Gran Abs Auto 0.14 X10*3/uL (0.00-0.03); Imm Gran Pct Auto 0.8 % (0.0-0.4); Lymphocytes Absolute Auto 0.2 X10*3/uL (1.2-4.9); Lymphocytes Percent Auto 1.3 % (20-40); MANUAL DIFF FLAG SCAN; Mean Corpuscular HGB Conc 32.6 g/dl (31.0-36.0); Mean Corpuscular Hemoglobin 30.6 pg (27.0-33.0); Mean Corpuscular Volume 93.8 fL (80.0-98.0); Mean Platelet Volume 9.7 fL (9.4-12.4); Monocytes Absolute Auto 0.3 X10*3/uL (0.1-1.2); Monocytes Percent Auto 1.5 % (2-11); Neutrophils Absolute Auto 16.6 x10*3/uL (2.0-8.3); Neutrophils Percent Auto 96.3 % (45-73); Platelet Count 168 X10*3/uL (160-400); Red Blood Count 3.07 X10*6/uL (4.60-5.80); SCAN SMEAR FLAG 1; White Blood Count 17.2 X10*3/uL (4.8-10.8)
[2022-03-27 06:29] LABS: Prothrombin Time 23.8 SEC (10.0-13.1)
[2022-03-27 06:46] LABS: SLIDE REVIEW VERIFIED
[2022-03-27 07:00] LABS: Alanine Aminotransferase 27 U/L (0-40); Alkaline Phosphatase 58 U/L (39-117); Anion Gap 14 (12-20); Aspartate Amino Transferase 12 U/L (5-37); Bilirubin Total 0.7 mg/dL (0.0-1.0); Blood Urea Nitrogen 25 mg/dL (9-16); Calcium 8.6 mg/dL (8.4-10.2); Carbon Dioxide 34 mmol/L (22-29); Chloride 98 mmol/L (96-108); Creatinine Clr Calc Pharmacy 67.2; Estimated Glomerular Filt Rate > 60; Glucose Fasting 99 mg/dL (60-99); Potassium 3.5 mmol/L (3.3-5.1); Sodium 142 mmol/L (135-145); Total Protein 4.6 g/dL (6.5-8.0)
[2022-03-27 07:26] LABS: Glucose, Whole Blood 111 mg/dL (60-115)
[2022-03-27] MEDS: Albuterol/Iprat 2.5/0.5MG 3 ML AMPUL.NEB INHALE ×3 (07:31→18:42)
[2022-03-27] MEDS: Fluticasone/Vilanterol 200/25 BLST.W.DEV 1 PUFF INHALE (07:31)
[2022-03-27] MEDS: Amiodarone HCL 200 MG TABLET PO (09:09)
[2022-03-27] MEDS: Furosemide 40 MG TABLET PO (09:09)
[2022-03-27] MEDS: Clopidogrel Bisulfate 75 MG TABLET PO (09:09)
[2022-03-27] MEDS: Atorvastatin Calcium 80 MG TABLET PO (09:09)
[2022-03-27] MEDS: Metoprolol Tartrate 50 MG TABLET PO ×2 (09:09→19:50)
[2022-03-27] MEDS: Cholecalciferol (Vitamin D3) 25 MCG TABLET PO (09:09)
[2022-03-27] MEDS: Finasteride 5 MG TABLET PO (09:10)
[2022-03-27] MEDS: methylPREDNISolone Sod Succ 40 MG/ML VIAL IVPUSH ×2 (09:10→19:50)
[2022-03-27] MEDS: 0.9 % Sodium Chloride Flush 3 ML SYRINGE IVFLUSH ×3 (09:10→19:51)
[2022-03-27 11:34] LABS: Glucose, Whole Blood 208 mg/dL (60-115)
[2022-03-27] MEDS: Insulin Lispro 100 UNIT/ML 3 ML VIAL SUBCUT ×3 (12:28→21:29)
[2022-03-27] MEDS: Acetaminophen 325 MG TABLET 650 MG PO (12:54)
--- NOTE | 2022-03-27 13:35 | HO.PM.IMPN ---
Subjective Subjective Date of Service: 03/27/22 Interval History: States breathing somewhat improved since admission Review of Systems Denies chest pain Admits to shortness of breath at rest Denies nausea vomiting diarrhea Denies fever chills Physical Exam Vital Signs: Vital Signs: Last Vital Signs Temp 98.1 F 03/27/22 11:11 Pulse 92 03/27/22 11:12 Resp 18 03/27/22 11:12 BP 120/56 L 03/27/22 11:11 Pulse Ox 100 03/27/22 11:11 O2 Del Method 03/27/22 11:11 O2 Flow Rate 2 03/27/22 11:11 Oxygen Flow Rate 2 03/25/22 12:04 BMI result Body Mass Index 25.2 Const: Other: No acute distress Resp: Other: Diminished at bases with scattered expiratory wheezes Cardio: Other: No S4; positive S1-S2; no S3 murmurs rubs or gallops GI: Other: Soft nontender nondistended normoactive bowel sounds Extrem: Other: No edema bilaterally Objective Data Active Medications Acetaminophen (Acetaminophen 325 Mg Tablet) 650 mg PO Q6H PRN PRN Reason: Pain, Mild (Pain Scale 1-3) Last Admin: 03/27/22 12:54 Dose: 650 mg Documented By: PANFILO Albuterol Sulfate (Albuterol Sulfate (0.083%) 2.5 Mg/3 Ml Vial.Neb) 2.5 mg INHALE Q2H PRN PRN Reason: Shortness of Breath/Wheezing Albuterol/Ipratropium (Albuterol/Iprat 2.5/0.5mg 3 Ml Ampul.Neb) 3 ml INHALE RQ4H [facility] Last Admin: 03/27/22 11:11 Dose: 3 ml Documented By: OZZIE Allopurinol (Allopurinol 100 Mg Tablet) 100 mg PO BEDTIME [facility] Last Admin: 03/26/22 20:02 Dose: 100 mg Documented By: OTONIEL Amiodarone HCl (Amiodarone Hcl 200 Mg Tablet) 200 mg PO DAILY [facility] Last Admin: 03/27/22 09:09 Dose: 200 mg Documented By: PANFILO Atorvastatin Calcium (Atorvastatin Calcium 80 Mg Tablet) 80 mg PO DAILY [facility] Last Admin: 03/27/22 09:09 Dose: 80 mg Documented By: PANFILO Clopidogrel Bisulfate (Clopidogrel Bisulfate 75 Mg Tablet) 75 mg PO DAILY [facility] Last Admin: 03/27/22 09:09 Dose: 75 mg Documented By: PANFILO Dextrose (Dextrose 50 % 25 Gm/50 Ml Syringe) 25 gm IVPUSH Q15M PRN; Protocol PRN Reason: per Hypoglycemia Standing Ord. Doxycycline Hyclate (Doxycycline Hyclate 100 Mg Tablet) 100 mg PO Q12H [facility] Last Admin: 03/27/22 05:45 Dose: 100 mg Documented By: OTONIEL Finasteride (Finasteride 5 Mg Tablet) 5 mg PO DAILY [facility] Last Admin: 03/27/22 09:10 Dose: 5 mg Documented By: PANFILO Fluticasone/Vilanterol (Fluticasone/Vilanterol 200/25 Blst.W.Dev) 1 puff INHALE RDAILY [facility] Last Admin: 03/27/22 07:31 Dose: 1 puff Documented By: OZZIE Furosemide (Furosemide 40 Mg Tablet) 40 mg PO DAILY [facility]; Protocol Last Admin: 03/27/22 09:09 Dose: 40 mg Documented By: PANFILO Glucose (Glucose Gel 15 Gm Gel..Gram.) 15 gm PO Q15M PRN; Protocol PRN Reason: per Hypoglycemia Standing Ord. Insulin Human Lispro (Insulin Lispro 100 Unit/Ml 3 Ml Vial) 0 unit SUBCUT QIDACHS [facility]; Protocol Last Admin: 03/27/22 12:28 Dose: 4 unit Documented By: PANFILO Methylprednisolone Sodium Succinate (Methylprednisolone Sod Succ 40 Mg/Ml Vial) 40 mg IVPUSH BID [facility] Last Admin: 03/27/22 09:10 Dose: 40 mg Documented By: PANFILO Metoprolol Tartrate (Metoprolol Tartrate 50 Mg Tablet) 50 mg PO BID [facility]; Protocol Last Admin: 03/27/22 09:09 Dose: 50 mg Documented By: PANFILO Ondansetron HCl (Ondansetron Hcl 4 Mg/2 Ml Vial) 4 mg IVPUSH Q8H PRN PRN Reason: Nausea and Vomiting Pharmacy Consult (Consult Rx Perform Med Rec) 1 each MISCELLANE ONCE PRN PRN Reason: Consult order Sodium Chloride (0.9 % Sodium Chloride Flush 3 Ml Syringe) 3 ml IVFLUSH QSHIFT [facility] Last Admin: 03/27/22 09:10 Dose: 3 ml Documented By: PANFILO Vitamin D (Cholecalciferol (Vitamin D3) 25 Mcg Tablet) 25 mcg PO DAILY [facility] Last Admin: 03/27/22 09:09 Dose: 25 mcg Documented By: PANFILO Warfarin Sodium (Warfarin Sodium 4 Mg Tablet) 4 mg PO DAILY@1800 [facility] Last Admin: 03/26/22 17:23 Dose: 4 mg Documented By: YULY Labs CBC & Chem 7: 03/27/22 05:55 03/27/22 05:58 Labs: Laboratory Results - last 24 hr 03/26/22 03/26/22 03/27/22 16:43 19:15 05:55 MCV MCH MCHC RDW Plt Count MPV Immature Gran % (Auto) Neut % (Auto) Lymph % (Auto) [place] % (Auto) Eos % (Auto) Baso % (Auto) Lymph # (Auto) [place] # (Auto) Eos # (Auto) Baso # (Auto) Abs Immat Gran (auto) Absolute Neuts (auto) Absolute Nucleated RBC Nucleated RBC % (auto) Smear Tech's Comments PT 23.8 H INR 2.0 H Anion Gap Estim Creat Clear Calc Estimated GFR POC Glucose 402 H* 347 H Fasting Glucose Calcium Total Bilirubin AST ALT Alkaline Phosphatase Total Protein Albumin 03/27/22 03/27/22 03/27/22 05:55 05:58 07:11 MCV 93.8 MCH 30.6 MCHC 32.6 RDW 17.0 H Plt Count 168 D MPV 9.7 Immature Gran % (Auto) 0.8 H Neut % (Auto) 96.3 H Lymph % (Auto) 1.3 L [place] % (Auto) 1.5 L Eos % (Auto) 0.0 Baso % (Auto) 0.1 Lymph # (Auto) 0.2 L [place] # (Auto) 0.3 Eos # (Auto) 0.0 Baso # (Auto) 0.0 Abs Immat Gran (auto) 0.14 H Absolute Neuts (auto) 16.6 H Absolute Nucleated RBC 0.000 Nucleated RBC % (auto) 0.0 Smear Tech's Comments VERIFIED PT INR Anion Gap 14 Estim Creat Clear Calc 67.2 Estimated GFR > 60 POC Glucose 111 Fasting Glucose 99 Calcium 8.6 D Total Bilirubin 0.7 AST 12 D ALT 27 Alkaline Phosphatase 58 D Total Protein 4.6 L D Albumin 3.0 L D 03/27/22 11:15 MCV MCH MCHC RDW Plt Count MPV Immature Gran % (Auto) Neut % (Auto) Lymph % (Auto) [place] % (Auto) Eos % (Auto) Baso % (Auto) Lymph # (Auto) [place] # (Auto) Eos # (Auto) Baso # (Auto) Abs Immat Gran (auto) Absolute Neuts (auto) Absolute Nucleated RBC Nucleated RBC % (auto) Smear Tech's Comments PT INR Anion Gap Estim Creat Clear Calc Estimated GFR POC Glucose 208 H Fasting Glucose Calcium Total Bilirubin AST ALT Alkaline Phosphatase Total Protein Albumin Microbiology Microbiology Results: Microbiology 03/25/22 13:04 Blood Culture - Preliminary Blood - Venous No growth after 24 hours. 03/25/22 12:42 Blood Culture - Preliminary Blood - Venous No growth after 24 hours. Assessment and Plan (1) Acute exacerbation of chronic obstructive airways disease: Status: Acute (2) Acute respiratory failure with hypoxia: Status: Acute (3) Heart failure with preserved ejection fraction: Status: Acute Plan 76yo M with COPD on home O2, HFpEF, AF and history of DVT on warfarin, CAD s/p 4v CABG, DM2, history of follicular lymphoma, and tobacco abuse who was just admitted here 03/09-03/11/22 for COPD exacerbation and is presenting with worsening dyspnea and purulent cough, found to be hypoxic and wheezing. 1.COPD exacerbation - Solu-Medrol 40 mg IV times 24 additional hours and then switch to oral taper -switchto azithro complete a 5 day course -DC Symbicort in favor of Breo -DuoNebs q.4 hours while awake -titrate O2 2.Acute/chronic hypoxic/hypercapneic resp failure - suppl O2, titrate to SaO2 88-92% given CO2 retention 3. HFpEF, chronic - continue furosemide, metoprolol 4.PAF - INR therapeutic; continue warfarin 5.CAD - continue statin/metoprolol/clopidogrel 6. DM2 - lispro correctional scale -add back metformin Warfarin Full code Will require ongoing hospitalization for IV steroids and titration of O2 Quality Stroke Does the patient have a stroke diagnosis?: No VTE Prior VTE?: No VTE Risk Level:: Medical - moderate - high VTE Device Contraindication: N/A - Device Ordered VTE Drug Contraindication: N/A - Med Ordered
--- NOTE | 2022-03-27 13:41 | MHC.CM.PN ---
PER ROUNDS PT NOT READY FOR DC
[2022-03-27] MEDS: Azithromycin 250 MG TABLET PO (15:05)
[2022-03-27 16:44] LABS: Glucose, Whole Blood 305 mg/dL (60-115)
[2022-03-27] MEDS: Warfarin Sodium 4 MG TABLET PO (17:11)
[2022-03-27] MEDS: allopurinoL 100 MG TABLET PO (19:50)
[2022-03-27] MEDS: metFORMIN HCl 500 MG TABLET PO (19:50)
[2022-03-27 20:40] LABS: Glucose, Whole Blood 183 mg/dL (60-115)
[2022-03-27] MEDS: diphenhydrAMINE HCL 25 MG TABLET PO (21:30)
[2022-03-28 03:30] VITALS: BP 130/64; PULSE 64; RESP 16; TEMP -13.6; TEMP 7.6; O2SAT 99
[2022-03-28 07:02] LABS: Basophils Percent Auto 0.1 % (0-2); Hematocrit 29.2 % (42.0-52.0); Hemoglobin 9.6 g/dl (14.0-18.0); Imm Gran Abs Auto 0.11 X10*3/uL (0.00-0.03); Imm Gran Pct Auto 0.7 % (0.0-0.4); Lymphocytes Absolute Auto 0.2 X10*3/uL (1.2-4.9); Lymphocytes Percent Auto 1.4 % (20-40); MANUAL DIFF FLAG SCAN; Mean Corpuscular HGB Conc 32.9 g/dl (31.0-36.0); Mean Corpuscular Hemoglobin 30.8 pg (27.0-33.0); Mean Corpuscular Volume 93.6 fL (80.0-98.0); Mean Platelet Volume 9.8 fL (9.4-12.4); Monocytes Absolute Auto 0.3 X10*3/uL (0.1-1.2); Monocytes Percent Auto 1.7 % (2-11); Neutrophils Absolute Auto 14.9 x10*3/uL (2.0-8.3); Neutrophils Percent Auto 96.1 % (45-73); Platelet Count 149 X10*3/uL (160-400); Red Blood Count 3.12 X10*6/uL (4.60-5.80); SCAN SMEAR FLAG 1; White Blood Count 15.5 X10*3/uL (4.8-10.8)
[2022-03-28 07:05] VITALS: BP 126/60; PULSE 54; RESP 17; TEMP 36.4; O2SAT 98
[2022-03-28 07:10] LABS: INTERNATIONAL NORM RATIO 2.2 (0.9-1.1)
[2022-03-28] MEDS: Fluticasone/Vilanterol 200/25 BLST.W.DEV 1 PUFF INHALE (07:30)
[2022-03-28] MEDS: Albuterol/Iprat 2.5/0.5MG 3 ML AMPUL.NEB INHALE (07:30)
[2022-03-28 07:31] VITALS: PULSE 72; RESP 18; O2SAT 97
[2022-03-28 07:37] LABS: SLIDE REVIEW VERIFIED
[2022-03-28 07:44] LABS: Glucose, Whole Blood 138 mg/dL (60-115)
[2022-03-28 08:03] LABS: Alanine Aminotransferase 28 U/L (0-40); Albumin Level 2.9 g/dL (3.5-5.0); Alkaline Phosphatase 62 U/L (39-117); Anion Gap 15 (12-20); Aspartate Amino Transferase 18 U/L (5-37); Bilirubin Total 0.9 mg/dL (0.0-1.0); Blood Urea Nitrogen 32 mg/dL (9-16); Calcium 8.4 mg/dL (8.4-10.2); Carbon Dioxide 32 mmol/L (22-29); Chloride 95 mmol/L (96-108); Creatinine Clr Calc Pharmacy 63.3; Estimated Glomerular Filt Rate > 60; Glucose Fasting 145 mg/dL (60-99); Sodium 138 mmol/L (135-145); Total Protein 4.5 g/dL (6.5-8.0)
[2022-03-28] MEDS: Atorvastatin Calcium 80 MG TABLET PO (09:28)
[2022-03-28] MEDS: methylPREDNISolone Sod Succ 40 MG/ML VIAL IVPUSH (09:28)
[2022-03-28] MEDS: Metoprolol Tartrate 50 MG TABLET PO (09:28)
[2022-03-28] MEDS: 0.9 % Sodium Chloride Flush 3 ML SYRINGE IVFLUSH (09:28)
[2022-03-28] MEDS: Amiodarone HCL 200 MG TABLET PO (09:29)
[2022-03-28] MEDS: Clopidogrel Bisulfate 75 MG TABLET PO (09:29)
[2022-03-28] MEDS: Finasteride 5 MG TABLET PO (09:29)
[2022-03-28] MEDS: Furosemide 40 MG TABLET PO (09:29)
[2022-03-28] MEDS: Cholecalciferol (Vitamin D3) 25 MCG TABLET PO (09:29)
--- NOTE | 2022-03-28 10:23 | MHC.CM.PN ---
Addendum entered by Alejandra Miguel 03/28/22 12:42: PT DISCHARGED HOME TODAY WITH REFERRAL TO [facility] PROVIDED DC Original Note: CM INFORMED PT WILL LIKELY DC TODAY AND NEED [facility] REFERRAL PLACED TO [facility], AWAITING RESPONSE
[2022-03-28 11:15] LABS: Glucose, Whole Blood 176 mg/dL (60-115)
--- NOTE | 2022-03-28 11:24 | PM.DS ---
DS: Providers Provider Date of Service: 03/28/22 Date of admission: 03/25/22 15:53 Date of discharge: 03/28/22 Primary care physician: Gregory Ellison MD Consults: 03/25/22 15:44 Consult to Pulmonology Routine Consulting Provider: [facility] Pulmonology Services Reason for consultation: frequent COPD exac DS: Diagnosis Discharge Diagnosis (1) Acute exacerbation of chronic obstructive airways disease: Status: Acute (2) Acute respiratory failure with hypoxia: Status: Acute (3) Heart failure with preserved ejection fraction: Status: Acute DS: Summary Hospital Course Hospital Course: 76yo M with COPD on home O2, HFpEF, AF and history of DVT on warfarin, CAD s/p 4v CABG, DM2, history of follicular lymphoma, and tobacco abuse who was just admitted here 03/09-03/11/22 for COPD exacerbation.? He was discharged on a steroid taper and felt better for about a week, but then a week ago, started developing worsening dyspnea and wheezing.? He complains of cough productive of purulent sputum as well.? No chest pain.? No leg swelling.? No fever.? No lightheadedness.? He smokes 10 cigarettes a day. He was found by EMS to be hypoxic down to the 80s.? He was brought in and given 60 mg of IV methylprednisolone, a dose of azithromycin, and 2 Duoneb treatments. Hospital Course Admitted to general medical floor and started on pulse dose steroids IV and IV ceftriaxone and azithromycin. Seen by pulmonology who felt azithromycin was all that was needed as well as a prednisone taper. Over the next 48 hours he improved to where he felt he was at baseline. He will be discharged home to resume his care and completed prednisone taper Time Spent with Patient Time attestation: Total time spent providing and/or coordinating discharge services: Discharge coordination time: Greater than 30 minutes Quality: Safe Use of Opioids Does Pt have an Active Cancer Diagnosis on the Problem List?: No Quality: Stroke Does the patient have a stroke diagnosis?: No Physical Exam Vital Signs: Vital Signs: Last Vital Signs Temp 97.6 F 03/28/22 07:05 Pulse 72 03/28/22 07:31 Resp 18 03/28/22 07:31 BP 126/60 03/28/22 07:05 Pulse Ox 98 03/28/22 07:05 O2 Del Method 03/28/22 07:05 O2 Flow Rate 2 03/28/22 07:05 Oxygen Flow Rate 2 03/25/22 12:04 BMI result Body Mass Index 25.2 Const: Other: No acute distress Resp: Other: Diminished at bases with scattered expiratory wheezes Cardio: Other: No S4; positive S1-S2; no S3 murmurs rubs or gallops GI: Other: Soft nontender nondistended normoactive bowel sounds Extrem: Other: No edema bilaterally DS: Data Data Completed and Pending Labs on day of discharge: Laboratory Results - last 24 hr 03/27/22 03/27/22 03/27/22 11:15 16:17 20:36 WBC RBC Hgb Hct MCV MCH MCHC RDW Plt Count MPV Immature Gran % (Auto) Neut % (Auto) Lymph % (Auto) [place] % (Auto) Eos % (Auto) Baso % (Auto) Lymph # (Auto) [place] # (Auto) Eos # (Auto) Baso # (Auto) Abs Immat Gran (auto) Absolute Neuts (auto) Absolute Nucleated RBC Nucleated RBC % (auto) Smear Tech's Comments PT INR Sodium Potassium Chloride Carbon Dioxide Anion Gap BUN Creatinine Estim Creat Clear Calc Estimated GFR POC Glucose 208 H 305 H 183 H Fasting Glucose Calcium Total Bilirubin AST ALT Alkaline Phosphatase Total Protein Albumin 03/28/22 03/28/22 03/28/22 06:24 06:24 06:24 WBC 15.5 H RBC 3.12 L Hgb 9.6 L Hct 29.2 L MCV 93.6 MCH 30.8 MCHC 32.9 RDW 17.0 H Plt Count 149 L MPV 9.8 Immature Gran % (Auto) 0.7 H Neut % (Auto) 96.1 H Lymph % (Auto) 1.4 L [place] % (Auto) 1.7 L Eos % (Auto) 0.0 Baso % (Auto) 0.1 Lymph # (Auto) 0.2 L [place] # (Auto) 0.3 Eos # (Auto) 0.0 Baso # (Auto) 0.0 Abs Immat Gran (auto) 0.11 H Absolute Neuts (auto) 14.9 H Absolute Nucleated RBC 0.000 Nucleated RBC % (auto) 0.0 Smear Tech's Comments VERIFIED PT 26.0 H INR 2.2 H Sodium 138 Potassium 4.0 Chloride 95 L Carbon Dioxide 32 H Anion Gap 15 BUN 32 H Creatinine 0.85 Estim Creat Clear Calc 63.3 Estimated GFR > 60 POC Glucose Fasting Glucose 145 H D Calcium 8.4 Total Bilirubin 0.9 AST 18 D ALT 28 Alkaline Phosphatase 62 Total Protein 4.5 L Albumin 2.9 L 03/28/22 03/28/22 07:09 11:09 WBC RBC Hgb Hct MCV MCH MCHC RDW Plt Count MPV Immature Gran % (Auto) Neut % (Auto) Lymph % (Auto) [place] % (Auto) Eos % (Auto) Baso % (Auto) Lymph # (Auto) [place] # (Auto) Eos # (Auto) Baso # (Auto) Abs Immat Gran (auto) Absolute Neuts (auto) Absolute Nucleated RBC Nucleated RBC % (auto) Smear Tech's Comments PT INR Sodium Potassium Chloride Carbon Dioxide Anion Gap BUN Creatinine Estim Creat Clear Calc Estimated GFR POC Glucose 138 H 176 H Fasting Glucose Calcium Total Bilirubin AST ALT Alkaline Phosphatase Total Protein Albumin Preliminary micro results at discharge 03/25/22 13:04 Blood Culture - Preliminary Blood - Venous No growth after 48 hours. 03/25/22 12:42 Blood Culture - Preliminary Blood - Venous No growth after 48 hours. Discharge Plan Discharge Patient Disposition: Home Health Service Discharge Diagnosis: Acute exacerbation of COPD Referrals: Gregory Ellison MD [Primary Care Provider] - 1 Week Discharge Medications: New metformin 500 mg Tablet 500 mg PO BEDTIME Qty: 30 0RF azithromycin 250 mg Tablet 250 mg PO Q24H Qty: 5 0RF prednisone 10 mg tablet See Rx Instructions .Route .COMPLEX Qty: 45 0RF Rx Instructions: 10 mg orally; 5 tabs p.o. daily x3 days; 4 tabs p.o. daily x3 days; 3 tabs daily x3 days; 2 tabs daily x3 days; 1 tab daily x3 days Continued furosemide 40 mg tablet 40 mg PO DAILY Qty: 90 3RF finasteride 5 mg tablet 5 mg PO DAILY 90 Days Qty: 90 1RF budesonide-formoterol [Symbicort] 160-4.5 mcg/actuation HFA aerosol inhaler 2 puff PO BID Qty: 10.2 3RF albuterol sulfate 90 mcg/actuation HFA aerosol inhaler 2 puff PO Q4-6H PRN (Reason: for dyspnea) Qty: 8.5 0RF metformin 500 mg tablet extended release 24 hr 500 mg PO BEDTIME 30 Days Qty: 30 1RF warfarin 4 mg tablet 4 mg PO DAILY Qty: 30 0RF Protocol: Dose Management Condition: Wednesday (Week One) Dose/Route: 4 mg Instruction: 1 x 4 mg tablet Condition: Wednesday Dose/Route: 4 mg Instruction: 1 x 4 mg tablet Condition: Wednesday Dose/Route: 4 mg Instruction: 1 x 4 mg tablet Condition: Wednesday Dose/Route: 4 mg Instruction: 1 x 4 mg tablet Condition: Dose/Route: 4 mg Instruction: 1 x 4 mg tablet Condition: Wednesday Dose/Route: 4 mg Instruction: 1 x 4 mg tablet Condition: Wednesday Dose/Route: 4 mg Instruction: 1 x 4 mg tablet Condition: Wednesday (Week Two) Dose/Route: 4 mg Instruction: 1 x 4 mg tablet Condition: Wednesday Dose/Route: 4 mg Instruction: 1 x 4 mg tablet Condition: Wednesday Dose/Route: 4 mg Instruction: 1 x 4 mg tablet Condition: Wednesday Dose/Route: 4 mg Instruction: 1 x 4 mg tablet Condition: Dose/Route: 4 mg Instruction: 1 x 4 mg tablet Condition: Wednesday Dose/Route: 4 mg Instruction: 1 x 4 mg tablet Condition: Wednesday Dose/Route: 4 mg Instruction: 1 x 4 mg tablet Protocol Text: Adjustment Start Date: Wednesday03/03/22 INR Value: 3.0 INR Date: 03/03/22 Recheck Date: 03/10/22 Additional Instructions: cont reg dosing eat a green today cholecalciferol (vitamin D3) [Vitamin D3] 25 mcg (1,000 unit) Capsule 25 mcg PO DAILY allopurinol 100 mg tablet 100 mg PO BEDTIME rosuvastatin [Crestor] 40 mg tablet 40 mg PO DAILY Qty: 90 3RF clopidogrel [Plavix] 75 mg tablet 75 mg PO DAILY amiodarone 200 mg tablet 200 mg PO DAILY metoprolol tartrate 50 mg tablet 50 mg PO BID Discontinued prednisone 10 mg tablet See Taper PO DAILY Qty: 30 0RF Taper: Prednisone 40 mg daily for 3 Days and 0 Hour 30 mg daily for 3 Days and 0 Hour 20 mg daily for 3 Days and 0 Hour 10 mg daily for 3 Days and 0 Hour Rx Instructions: ONLY 2 DAYS LEFT Discharge Orders: Discharge Order (Routine); Ordered 03/28/22 Ordered By: Radames Hernandez Diet: Advance to usual diet Activity on Discharge: As tolerated Stand Alone Forms: Patient Portal Discharge page Care Plan Goals: Complete course of azithromycin; complete prednisone taper Health Concerns: Attempt to stop smoking Plan of Treatment: Follow-up with your PCP in 2 weeks Assessment: See discharge summary
[2022-03-28 12:00] VITALS: BP 124/58; PULSE 75; TEMP 36.1; O2SAT 97
--- NOTE | 2022-03-30 12:05 | P.F2F_ITS ---
Service Date Service Date: 03/30/22 Encounter Date of encounter: 03/28/22 Encounter: Acute hospitalization Reasons for Services Signs and symptoms assessed: Requires monitoring of oxygen saturation and home O2 use as well as med management Reason for retirement: medication management, teach disease management and other (Monitor O2 sats) Reason for physical therapy: home safety and mobility Homebound: Leaving the home is medically contraindicated at this time without the asist of a device and/or another person due th the listed conditions above and below. Reason homebound: unsteady gait / fall risk and shortness of breath with minimal effort Certification: Based on the above findings, I certify that this patient is confined to the home and needs intermittent retirement care, physical therapy and/or speech therapy, or continues to need occupational therapy. The patient is under my care, and I have initiated the establishment of the plan of care. The patient will be followed by a physician who will periodically review the plan of care.
== END 2022-03-28 12:16 | disposition home health service (06) | DRG 190 ==
LOC: HO.ED 13:55 → HO.EDOVER 15:59 → HO.IMC 03-26 16:03
PROVIDERS: Admitting Provider Family Medicine; Emergency Provider Emergency Medicine; PCP Internal Medicine; Visit Provider Hospitalist
DX: J44.1 Chronic obstructive pulmonary disease with (acute) exacerbation (principal); J96.21 Acute and chronic respiratory failure with hypoxia; J96.22 Acute and chronic respiratory failure with hypercapnia; I50.32 Chronic diastolic (congestive) heart failure; I48.20 Chronic atrial fibrillation, unspecified; I25.10 Atherosclerotic heart disease of native coronary artery without angina pectoris; I11.0 Hypertensive heart disease with heart failure; F17.210 Nicotine dependence, cigarettes, uncomplicated; E11.51 Type 2 diabetes mellitus with diabetic peripheral angiopathy without gangrene; I48.0 Paroxysmal atrial fibrillation; D72.829 Elevated white blood cell count, unspecified; Z71.6 Tobacco abuse counseling; Z99.81 Dependence on supplemental oxygen; Z20.822 Contact with and (suspected) exposure to COVID-19; Z86.718 Personal history of other venous thrombosis and embolism; Z85.72 Personal history of non-Hodgkin lymphomas; Z95.1 Presence of aortocoronary bypass graft; Z79.01 Long term (current) use of anticoagulants; Z79.02 Long term (current) use of antithrombotics/antiplatelets; Z79.84 Long term (current) use of oral hypoglycemic drugs; Z79.899 Other long term (current) drug therapy
CPT/HCPCS: 36415; 71045; 80048; 80053; 80076; 82803; 82947; 83605; 83735; 83880; 84145; 84484; 85025; 85610; 87040; 87635; 93005; 94640; 96365; 96366; 96367; 96375; 99285; J0456; J0696; J1940; J2920; J2930; Q0163

== ENCOUNTER → 2022-03-31 13:41 | Outpatient (BNVA) | payer MEDICARE, OTHER, SELFPAY | PROVIDERS: PCP Internal Medicine; Visit Provider Internal Medicine | DX: I48.0 Paroxysmal atrial fibrillation (principal); Z79.01 Long term (current) use of anticoagulants; Z51.81 Encounter for therapeutic drug level monitoring | CPT/HCPCS: Q3014 ==

== ENCOUNTER 2022-04-06 18:11 | Inpatient (IN) | payer MEDICARE, OTHER, SELFPAY ==
--- NOTE | ~2022-04-06 | XR_ITS ---
EXAMINATION: XR CHEST CLINICAL INFORMATION: Shortness of breath COMPARISON: 03/25/2022 chest radiographs, chest CT dated 03/09/2022. TECHNIQUE: Frontal view of the chest was obtained. FINDINGS: Again seen is a possibility of lung markings in the upper lung tejeda, right greater than left with chronic linear markings and blunting of the costophrenic angles without significant change. The heart and mediastinal structures are unremarkable. Multilevel sternotomy wires are intact. XR/XR chest 1V IMPRESSION: Chronic interstitial changes and COPD without significant change or definitive acute abnormality.
[2022-04-06 18:40] VITALS: BP 139/47; BP 152/71; PULSE 73; RESP 18; TEMP 36.7; O2SAT 90; O2SAT 99; BMI 24.3
--- NOTE | 2022-04-06 18:42 | ECG_ITS ---
Test Reason : sob Blood Pressure : / mmHG Vent. Rate : 066 BPM Atrial Rate : 066 BPM P-R Int : 168 ms QRS Dur : 088 ms QT Int : 432 ms P-R-T Axes : 000 020 019 degrees QTc Int : 452 ms Sinus rhythm with Premature atrial complexes Nonspecific ST and T wave abnormality Abnormal ECG When compared with ECG of 25-MAR-2022 12:21, Premature atrial complexes are now Present Criteria for Septal infarct are no longer Present Nonspecific T wave abnormality now evident in Anterior leads Referred By: Adeola Ely Electronically Signed By:LISA HILL
--- NOTE | 2022-04-06 18:48 | ED.GENADULT ---
HPI - General Adult General Chief complaint: Dyspnea Stated complaint: sob Time Seen by Provider: 04/06/22 18:42 Source: patient and EMS Mode of arrival: EMS Limitations: no limitations History of Present Illness HPI narrative: 76-year-old male history of COPD with fdc history of smoking just quit smoking 2 days ago, patient normally use at least 2 L of oxygen at home 01/02, been having shortness of breath for 1 day, declined any fever, history of chronic coughing now with a white sputum. Patient also noticed to have bilateral lower legs edema. Related Data Home Medications Medication Instructions Recorded Confirmed cholecalciferol (vitamin D3) 25 25 mcg PO DAILY 07/02/20 03/31/22 mcg (1,000 unit) capsule (Vitamin D3) clopidogrel 75 mg tablet (Plavix) 75 mg PO DAILY 12/23/21 03/31/22 amiodarone 200 mg tablet 200 mg PO DAILY 12/25/21 03/31/22 allopurinol 100 mg tablet 100 mg PO BEDTIME 01/05/22 03/31/22 metoprolol tartrate 50 mg tablet 50 mg PO BID 02/12/22 03/31/22 cefuroxime axetil 250 mg tablet 250 mg PO BID 03/31/22 03/31/22 Previous Rx's Medication Instructions Recorded furosemide 40 mg tablet 40 mg PO DAILY #90 caps 10/06/21 finasteride 5 mg tablet 5 mg PO DAILY 90 days #90 tabs 10/28/21 budesonide-formoterol HFA 160 2 puff PO BID #10.2 grams 10/29/21 mcg-4.5 mcg/actuation aerosol inhaler (Symbicort) rosuvastatin 40 mg tablet (Crestor) 40 mg PO DAILY #90 tabs 11/12/21 metformin 500 mg tablet,extended 500 mg PO BEDTIME 30 days #30 tabs 03/27/22 release 24 hr warfarin 4 mg tablet 4 mg PO DAILY #30 tabs 03/27/22 azithromycin 250 mg tablet 250 mg PO Q24H #5 tabs 03/28/22 metformin 500 mg tablet 500 mg PO BEDTIME #30 tabs 03/28/22 prednisone 10 mg tablet See Rx Instructions .Route 03/28/22 .COMPLEX #45 tabs albuterol sulfate 90 mcg/actuation 2 puff PO Q4-6H PRN for dyspnea 04/02/22 aerosol inhaler #8.5 grams Allergies Allergy/AdvReac Type Severity Reaction Status Date / Time No Known Allergies Allergy Verified 04/03/22 14:30 [No Known Allergies*] Review of Systems Review of Systems: All other systems are reviewed and are negative Constitutional: Reports as per HPI and Reports no additional constitutional complaints Eyes: Reports as per HPI and Reports no additional eye complaints Reports system reviewed and no additional complaints, except as documented Cardiovascular: Reports as per HPI and Reports no additional cardiovascular complaints Respiratory: Reports as per HPI and Reports no additional respiratory complaints Gastrointestinal: Reports as per HPI and Reports no additional gastrointestinal complaints Genitourinary: Reports no additional female genitourinary complaints Musculoskeletal: Reports no additional musculoskeletal complaints Skin/Breast: Reports system reviewed and no additional complaints, except as docu Psychiatric: Reports no additional psychiatric complaints Endocrine: Reports no additional endocrine complaints Hematologic/Lymphatic: Reports no additional hematologic/lymphatic complaints Allergic/Immunologic: Reports no additional allergic/immunologic complaints Reports system reviewed and no additional complaints, except as documented and Reports Abnormal speech present [facility] Past Medical History Medical History Abdominal aortic aneurysm without rupture Acute exacerbation of chronic obstructive pulmonary disease Acute on chronic diastolic CHF (congestive heart failure), NYHA class 3 Atherosclerotic cardiovascular disease Benign essential hypertension BPH loc w urin obs/LUTS Chronic atrial fibrillation COPD (chronic obstructive pulmonary disease) Coronary artery disease Current use of anticoagulant therapy Diabetes mellitus Elevated PSA Follicular lymphoma Heart failure with preserved ejection fraction High cholesterol History of blood clots History of deep vein thrombosis (DVT) of lower extremity Insomnia Overweight (BMI 25.0-29.9) PAF (paroxysmal atrial fibrillation) Peripheral arterial disease Pneumonia Pure hypercholesterolemia Smoker Smoker Vitamin D deficiency Surgical History History of quadruple bypass Family History Family History Father Cancer Mother Cardiovascular disease Social History Social History Household Members: Spouse and Children Housing: Apartment Are you a primary residential care facility manager to a significant other at home: No Do you presently have visiting nurse or other home services: No Alcohol intake: never Patient Tobacco Use Status: Former Tobacco user Tobacco use type: Cigarette Cigarette Packs Per Day: 1.5 Cigarettes Per Day: 30.0 Years Smoked: 65 Second Hand Smoke Exposure: No Advance Directives: Yes Advance Directives on File: Yes Advance Directives Date on File: 01/06/22 service: No Current occupational status: retired Cognitive needs: No Hearing needs: No Vision needs: No Physical Exam ED Vital Signs: Vital Signs - 24 hr 04/06/22 18:40 04/06/22 19:04 04/06/22 20:47 Temperature 98.1 F Pulse Rate 73 77 Respiratory Rate 18 22 H Blood Pressure 139/47 L 115/45 L Pulse Oximetry 99 96 Oxygen Delivery Method Nasal Cannula Nasal Cannula Oxygen Flow Rate 3 BMI result Body Mass Index 24.3 Vital signs have been reviewed as appeared to be correct. Blood pressure normal. Heart rate normal. Respiration rate normal. Temperature normal. Oxygen saturation normal. Appearance: Alert. Oriented X3. No acute distress. Head: Normal external exam. Normocephalic. Atraumatic. No Mendez signs noted. No raccoon eyes noted Eyes: PERRLA. EOMI. Conjunctiva and sclera normal. Eyelids normal. ENT: TM's Normal. Pharynx normal. Uvula midline. Moist mucous membranes. No trismus noted. No drooling noted. No muffled voice noted. Neck: Normal inspection. Neck supple. FROM. No adenopathy. Thyroid Normal. No meningeal signs. No neck mass noted. CVS: Normal heart rate and rhythm. Heart sound normal. No murmurs noted. Pulses normal throughout. Respiratory: No respiratory distress. Painless inspiration. Breath sounds normal. Diffuse mild expiratory wheezing, bilateral basilar rales. Chest nontender. No accessory muscle usage noted or decreased air movement noted. Abdomen: Soft and nontender. Bowel sounds normal in all 4 quadrants. No distention noted. No organomegaly noted. No visible injury noted. Back: No CVA tenderness. Full range of motion noted. Skin: Skin warm and dry. Normal skin color. Normal skin turgor. No rashes/lesions/lacerations noted. Extremities: +2 lower extremity edema bilaterally. Extremities exhibit normal range of motion. Extremities nontender. Neuro: Oriented X 3. Cranial nerve exam: II-XII are grossly intact No motor deficit. No sensory deficit. Reflexes normal. Course Course Course Narrative: 76-year-old male with long history of cigarette smoking and COPD patient use 2-4 L of supplemental oxygen at home 01/02 as per needed. Presented today of worsening of his breathing all day today, physical exam is revealing a mix of COPD exacerbation and CHF patient received Solu-Medrol Slight elevation of troponin were repeated 3 hours. Medical Decision Making Lab Data Lab results reviewed: Yes I reviewed the patient's lab results. Result diagrams: 04/06/22 19:07 04/06/22 19:07 Labs: Lab Results 04/06/22 04/06/22 04/06/22 Range/Units 19:07 19:07 19:07 WBC 11.2 H (4.8-10.8) X10*3/uL RBC 3.46 L (4.60-5.80) X10*6/uL Hgb 10.4 L (14.0-18.0) g/dl Hct 32.4 L (42.0-52.0) % MCV 93.6 (80.0-98.0) fL MCH 30.1 (27.0-33.0) pg MCHC 32.1 (31.0-36.0) g/dl RDW 16.8 H (11.0-16.0) % Plt Count 240 D (160-400) X10*3/uL MPV 9.6 (9.4-12.4) fL Immature Gran % (Auto) 1.0 H (0.0-0.4) % Neut % (Auto) 93.9 H (45-73) % Lymph % (Auto) 1.7 L (20-40) % [place] % (Auto) 3.2 (2-11) % Eos % (Auto) 0.1 (0-4) % Baso % (Auto) 0.1 (0-2) % Lymph # (Auto) 0.2 L (1.2-4.9) X10*3/uL [place] # (Auto) 0.4 (0.1-1.2) X10*3/uL Eos # (Auto) 0.0 (0.0-0.4) X10*3/uL Baso # (Auto) 0.0 (0.0-0.2) X10*3/uL Abs Immat Gran (auto) 0.11 H (0.00-0.03) X10*3/uL Absolute Neuts (auto) 10.5 H (2.0-8.3) x10*3/uL Absolute Nucleated RBC 0.060 H (0.0-0.012) X10*3/uL Nucleated RBC % (auto) 0.5 H (0.0-0.2) /100WBC Sodium 140 (135-145) mmol/L Potassium 4.0 (3.3-5.1) mmol/L Chloride 90 L (96-108) mmol/L Carbon Dioxide 38 H (22-29) mmol/L Anion Gap 16 (12-20) BUN 26 H (9-16) mg/dL Creatinine 1.09 (0.5-1.4) mg/dL Estim Creat Clear Calc 49.3 Estimated GFR > 60 Random Glucose 382 H* (60-115) mg/dL Lactic Acid (0.5-2.0) mmol/L Calcium 9.1 D (8.4-10.2) mg/dL Total Bilirubin 0.9 (0.0-1.0) mg/dL Direct Bilirubin 0.3 (0.0-0.5) mg/dL AST 17 (5-37) U/L ALT 36 (0-40) U/L Alkaline Phosphatase 74 (39-117) U/L Troponin I High Sens 53.0 H (<3.5-35.0) ng/L B-Natriuretic Peptide (<100) pg/mL Total Protein 5.5 L D (6.5-8.0) g/dL Albumin 3.6 D (3.5-5.0) g/dL Lipase 30 (8-78) U/L COVID-19 ([facility]) (Negative) COVID-19 Clin Com 04/06/22 04/06/22 04/06/22 Range/Units 19:07 19:07 19:07 WBC (4.8-10.8) X10*3/uL RBC (4.60-5.80) X10*6/uL Hgb (14.0-18.0) g/dl Hct (42.0-52.0) % MCV (80.0-98.0) fL MCH (27.0-33.0) pg MCHC (31.0-36.0) g/dl RDW (11.0-16.0) % Plt Count (160-400) X10*3/uL MPV (9.4-12.4) fL Immature Gran % (Auto) (0.0-0.4) % Neut % (Auto) (45-73) % Lymph % (Auto) (20-40) % [place] % (Auto) (2-11) % Eos % (Auto) (0-4) % Baso % (Auto) (0-2) % Lymph # (Auto) (1.2-4.9) X10*3/uL [place] # (Auto) (0.1-1.2) X10*3/uL Eos # (Auto) (0.0-0.4) X10*3/uL Baso # (Auto) (0.0-0.2) X10*3/uL Abs Immat Gran (auto) (0.00-0.03) X10*3/uL Absolute Neuts (auto) (2.0-8.3) x10*3/uL Absolute Nucleated RBC (0.0-0.012) X10*3/uL Nucleated RBC % (auto) (0.0-0.2) /100WBC Sodium (135-145) mmol/L Potassium (3.3-5.1) mmol/L Chloride (96-108) mmol/L Carbon Dioxide (22-29) mmol/L Anion Gap (12-20) BUN (9-16) mg/dL Creatinine (0.5-1.4) mg/dL Estim Creat Clear Calc Estimated GFR Random Glucose (60-115) mg/dL Lactic Acid 1.5 (0.5-2.0) mmol/L Calcium (8.4-10.2) mg/dL Total Bilirubin (0.0-1.0) mg/dL Direct Bilirubin (0.0-0.5) mg/dL AST (5-37) U/L ALT (0-40) U/L Alkaline Phosphatase (39-117) U/L Troponin I High Sens (<3.5-35.0) ng/L B-Natriuretic Peptide 930 H (<100) pg/mL Total Protein (6.5-8.0) g/dL Albumin (3.5-5.0) g/dL Lipase (8-78) U/L COVID-19 ([facility]) Negative (Negative) COVID-19 Clin Com See Note Imaging Data Chest x-ray: Attestation: I personally reviewed and interpreted this imaging study as follows: ECG Data Attestation: I personally reviewed and interpreted this ECG as follows: Interpretation: Sinus rhythm at 66 beats per minute, PACs, nonspecific ST-T changes, no change from old EKG. Discharge Plan Discharge Clinical Impression: Acute exacerbation of chronic obstructive airways disease, Congestive heart failure Patient Disposition: Admitted As Inpatient
[2022-04-06] MEDS: Albuterol Sulfate (0.083%) 2.5 MG/3 ML VIAL.NEB 7.5 MG INHALE (18:59)
[2022-04-06] MEDS: Albuterol/Iprat 2.5/0.5MG 3 ML AMPUL.NEB INHALE (18:59)
[2022-04-06 19:04] VITALS: PULSE 77; RESP 22; O2SAT 99
[2022-04-06 19:21] LABS: MANUAL DIFF FLAG NO
[2022-04-06 19:28] LABS: Basophils Percent Auto 0.1 % (0-2); Eosinophils Percent Auto 0.1 % (0-4); Hematocrit 32.4 % (42.0-52.0); Hemoglobin 10.4 g/dl (14.0-18.0); Imm Gran Abs Auto 0.11 X10*3/uL (0.00-0.03); Lymphocytes Absolute Auto 0.2 X10*3/uL (1.2-4.9); Lymphocytes Percent Auto 1.7 % (20-40); Mean Corpuscular HGB Conc 32.1 g/dl (31.0-36.0); Mean Corpuscular Hemoglobin 30.1 pg (27.0-33.0); Mean Corpuscular Volume 93.6 fL (80.0-98.0); Mean Platelet Volume 9.6 fL (9.4-12.4); Monocytes Absolute Auto 0.4 X10*3/uL (0.1-1.2); Monocytes Percent Auto 3.2 % (2-11); NRBC Pct Auto 0.5 /100WBC (0.0-0.2); Neutrophils Absolute Auto 10.5 x10*3/uL (2.0-8.3); Neutrophils Percent Auto 93.9 % (45-73); Platelet Count 240 X10*3/uL (160-400); Red Blood Count 3.46 X10*6/uL (4.60-5.80); Red Cell Distribution Width 16.8 % (11.0-16.0); SCAN SMEAR FLAG 1; White Blood Count 11.2 X10*3/uL (4.8-10.8)
[2022-04-06 19:37] LABS: COVID-19 Test Negative (Negative); IDNOW Serial# 16C4AD1C
[2022-04-06 19:38] LABS: Lactic Acid 1.5 mmol/L (0.5-2.0)
[2022-04-06 19:51] LABS: B Type Natriuretic Peptide 930 pg/mL (<100)
[2022-04-06 19:54] LABS: Alanine Aminotransferase 36 U/L (0-40); Albumin Level 3.6 g/dL (3.5-5.0); Alkaline Phosphatase 74 U/L (39-117); Anion Gap 16 (12-20); Aspartate Amino Transferase 17 U/L (5-37); Bilirubin Direct 0.3 mg/dL (0.0-0.5); Bilirubin Total 0.9 mg/dL (0.0-1.0); Blood Urea Nitrogen 26 mg/dL (9-16); Calcium 9.1 mg/dL (8.4-10.2); Carbon Dioxide 38 mmol/L (22-29); Chloride 90 mmol/L (96-108); Creatinine Clr Calc Pharmacy 49.3; Estimated Glomerular Filt Rate > 60; Glucose Random 382 mg/dL (60-115); Lipase 30 U/L (8-78); Sodium 140 mmol/L (135-145); Total Protein 5.5 g/dL (6.5-8.0)
[2022-04-06] MEDS: Furosemide 40 MG/4 ML VIAL IVPUSH (20:26)
[2022-04-06] MEDS: methylPREDNISolone Sod Succ 125 MG/2 ML VIAL IVPUSH (20:27)
[2022-04-06] MEDS: Magnesium Sulfate/H2O 2 GM/50 ML PIGGYBACK IV (20:27)
--- NOTE | 2022-04-06 20:45 | PC.NURSE ---
Assumed care of pt. at 1900. Pt. resting in room with family at bedside. Pt. denies any pain and reports that the breathing is getting better. Medicated with meds per SEP. Will continue to monitor.
[2022-04-06 20:47] VITALS: BP 115/45; O2SAT 96
[2022-04-06] MEDS: levoFLOXacin/D5W 750 MG/150 ML PIGGYBACK 100 MG IV (21:17)
[2022-04-06 22:16] VITALS: BP 108/39; PULSE 59; RESP 21; TEMP 36.7; O2SAT 97
--- NOTE | 2022-04-06 22:19 | PM.IMHP ---
History of Present Illness Date of Service: 04/06/22 Chief Complaint: SOB 76-year-old male with a past medical history of hypertension, hyperlipidemia, diabetes, CAD, CHF on Lasix, history of follicular lymphoma, history of DVT, paroxysmal AFib on Coumadin, tobacco dependence, COPD- on 2 L of home oxygen,BPH, abdominal aortic aneurysm, vitamin-D deficiency, peripheral vascular disease, insomnia presented to the hospital today with a chief complaint of shortness of breath. Patient reports that he was doing fine until yesterday but today he noted to have shortness of breath which has been gradually worsening. Mentioned that he has history of COPD and uses 2 L of home oxygen at home. Mentions he has cough. Denies any fevers. Denies any chest pain or palpitations. S shortness of breath was getting worse he decided to come to the ER for further evaluation. Denies any nausea vomiting or diarrhea. Denies any GI symptoms. Review of all other systems is negative except mentioned above ER course: Per ER team patient noted to have bilateral wheezing concerning for acute COPD exacerbation; also noted to have peripheral edema concerning for CHF. Given IV Lasix and steroids. Admitted to the hospital for further management. [facility] Medical History Abdominal aortic aneurysm without rupture Acute exacerbation of chronic obstructive pulmonary disease Acute on chronic diastolic CHF (congestive heart failure), NYHA class 3 Atherosclerotic cardiovascular disease Benign essential hypertension BPH loc w urin obs/LUTS Chronic atrial fibrillation COPD (chronic obstructive pulmonary disease) Coronary artery disease Current use of anticoagulant therapy Diabetes mellitus Elevated PSA Follicular lymphoma Heart failure with preserved ejection fraction High cholesterol History of blood clots History of deep vein thrombosis (DVT) of lower extremity Insomnia Overweight (BMI 25.0-29.9) PAF (paroxysmal atrial fibrillation) Peripheral arterial disease Pneumonia Pure hypercholesterolemia Smoker Smoker Vitamin D deficiency Family History Father Cancer Mother Cardiovascular disease Surgical History History of quadruple bypass Social History Household Members: Spouse and Children Housing: Apartment Are you a primary care management coordinator to a significant other at home: No Do you presently have visiting nurse or other home services: No Alcohol intake: never Patient Tobacco Use Status: Former Tobacco user Tobacco use type: Cigarette Cigarette Packs Per Day: 1.5 Cigarettes Per Day: 30.0 Years Smoked: 65 Second Hand Smoke Exposure: No Advance Directives: Yes Advance Directives on File: Yes Advance Directives Date on File: 01/06/22 service: No Current occupational status: retired Cognitive needs: No Hearing needs: No Vision needs: No Meds Allergies Allergy/AdvReac Type Severity Reaction Status Date / Time No Known Allergies Allergy Verified 04/03/22 14:30 [No Known Allergies*] Active Medications: Current Medications Acetaminophen (Acetaminophen 325 Mg Tablet) 650 mg PO Q6H PRN PRN Reason: Pain, Mild (Pain Scale 1-3) Albuterol/Ipratropium (Albuterol/Iprat 2.5/0.5mg 3 Ml Ampul.Neb) 3 ml INHALE RQ4H WHILE AWAKE [facility] Allopurinol (Allopurinol 100 Mg Tablet) 100 mg PO BEDTIME [facility] Amiodarone HCl (Amiodarone Hcl 200 Mg Tablet) 200 mg PO DAILY [facility] Clopidogrel Bisulfate (Clopidogrel Bisulfate 75 Mg Tablet) 75 mg PO DAILY [facility] Furosemide (Furosemide 40 Mg/4 Ml Vial) 40 mg IVPUSH DAILY [facility]; Protocol Azithromycin 500 mg/ Sodium (Chloride) 250 mls @ 125 mls/hr IV Q24H [facility] Melatonin (Melatonin 3 Mg Tablet) 6 mg PO BEDTIME PRN PRN Reason: Insomnia Methylprednisolone Sodium Succinate (Methylprednisolone Sod Succ 40 Mg/Ml Vial) 40 mg IVPUSH Q6H [facility] Metoprolol Tartrate (Metoprolol Tartrate 50 Mg Tablet) 50 mg PO BID [facility]; Protocol Non-Formulary Medication (Rosuvastatin [Crestor]) 40 mg PO DAILY [facility] Senna (Sennosides 8.6 Mg Tablet) 17.2 mg PO BEDTIME PRN PRN Reason: Constipation Sodium Chloride (0.9 % Sodium Chloride Flush 3 Ml Syringe) 3 ml IVFLUSH QSHIFT [facility] Warfarin Sodium (Warfarin Sodium 4 Mg Tablet) 4 mg PO DAILY [facility] Home Medications Medication Instructions Recorded Confirmed Last Taken Type clopidogrel 75 mg tablet (Plavix) 75 mg PO DAILY 12/23/21 04/06/22 03/25/22 History amiodarone 200 mg tablet 200 mg PO DAILY 12/25/21 04/06/2222 History allopurinol 100 mg tablet 100 mg PO BEDTIME 01/05/22 04/06/22 03/24/22 History metoprolol tartrate 50 mg tablet 50 mg PO BID 02/12/22 04/06/22 03/25/22 History Physical Exam Vital Signs and Narrative: Vital Signs: Last Vital Signs Temp 98.1 F 04/06/22 22:16 Pulse 59 04/06/22 22:16 Resp 21 H 04/06/22 22:16 BP 108/39 L 04/06/22 22:16 Pulse Ox 97 04/06/22 22:16 O2 Del Method 04/06/22 22:16 O2 Flow Rate 2 04/06/22 22:16 Oxygen Flow Rate 3 04/06/22 18:40 BMI result Body Mass Index 24.3 Gen: Appears be in no acute distress . On supplemental oxygen. Speaks in full sentences. HEENT: NCAT, Moist mucosa. Pulmonary: bilateral wheezing noted. CVS: Normal S1-S2 Abdomen: BS+, Soft, Nontender Extremities: Warm well perfused Neuro: Alert and awake. Grossly nonfocal Results Labs CBC and Chem 7: 04/06/22 19:07 04/06/22 19:07 Labs: Laboratory Results - last 24 hr 04/06/22 04/06/22 04/06/22 19:07 19:07 19:07 MCV 93.6 MCH 30.1 MCHC 32.1 RDW 16.8 H Plt Count 240 D MPV 9.6 Immature Gran % (Auto) 1.0 H Neut % (Auto) 93.9 H Lymph % (Auto) 1.7 L [place] % (Auto) 3.2 Eos % (Auto) 0.1 Baso % (Auto) 0.1 Lymph # (Auto) 0.2 L [place] # (Auto) 0.4 Eos # (Auto) 0.0 Baso # (Auto) 0.0 Abs Immat Gran (auto) 0.11 H Absolute Neuts (auto) 10.5 H Absolute Nucleated RBC 0.060 H Nucleated RBC % (auto) 0.5 H Anion Gap 16 Estim Creat Clear Calc 49.3 Estimated GFR > 60 Random Glucose 382 H* Lactic Acid Calcium 9.1 D Total Bilirubin 0.9 Direct Bilirubin 0.3 AST 17 ALT 36 Alkaline Phosphatase 74 B-Natriuretic Peptide 930 H Total Protein 5.5 L D Albumin 3.6 D Lipase 30 COVID-19 ([facility]) COVID-19 Clin Com 04/06/22 04/06/22 19:07 19:07 MCV MCH MCHC RDW Plt Count MPV Immature Gran % (Auto) Neut % (Auto) Lymph % (Auto) [place] % (Auto) Eos % (Auto) Baso % (Auto) Lymph # (Auto) [place] # (Auto) Eos # (Auto) Baso # (Auto) Abs Immat Gran (auto) Absolute Neuts (auto) Absolute Nucleated RBC Nucleated RBC % (auto) Anion Gap Estim Creat Clear Calc Estimated GFR Random Glucose Lactic Acid 1.5 Calcium Total Bilirubin Direct Bilirubin AST ALT Alkaline Phosphatase B-Natriuretic Peptide Total Protein Albumin Lipase COVID-19 ([facility]) Negative COVID-19 Clin Com See Note Imaging Radiologist's Impressions: Impressions Chest X-Ray 04/06/22 19:45 IMPRESSION: Chronic interstitial changes and COPD without significant change or definitive acute abnormality. Assessment and Plan (1) Acute exacerbation of chronic obstructive airways disease: Status: Acute (2) Congestive heart failure: Status: Acute Plan 76-year-old male with a past medical history of hypertension, hyperlipidemia, diabetes, CAD, CHF on Lasix, history of follicular lymphoma, history of DVT, paroxysmal AFib on Coumadin, tobacco dependence, COPD- on 2 L of home oxygen,BPH, abdominal aortic aneurysm, vitamin-D deficiency, peripheral vascular disease, insomnia presented to the hospital today with a chief complaint of shortness of breath. noted to have following conditions Acute COPD exacerbation: Patient on baseline 2 L of home oxygen at home. Will continue supplemental oxygen with goal oxygen saturation 93% Continue Solu-Medrol IV q.i.d. Nebulizations standing and p.r.n. Azithromycin Acute on chronic diastolic CHF: Patient noted to have bilateral peripheral edema Patient has baseline oxygen requirements Will keep the patient on Lasix 40 mg IV daily Cardiology consult Box Packer daily weights and I's and O's History of diabetes: Hold home metformin. Will keep the patient on Lantus 20 units plus insulin sliding scale. Monitor fingerstick glucose and adjust as needed. History of AFib /DVT: Patient on Coumadin. INR therapeutic. Heart rate is controlled. Continue home amiodarone/ metoprolol. History of CAD: Continue home Plavix/ statin History of BPH: Continue home finasteride DVT prophylaxis: Patient on Coumadin Code status: Full code Quality Stroke Does the patient have a stroke diagnosis?: No VTE Prior VTE?: No VTE Risk Level:: Medical - moderate - high VTE Device Contraindication: Treatment Not Indicated VTE Drug Contraindication: N/A - Med Ordered
[2022-04-06 22:25] LABS: Appearance Urine Clear; Color Urine Yellow; Glucose Urine UA 500 mg/dL (Negative); Leukocyte Esterase Urine Negative (Negative); Nitrite Urine Negative (Negative); PH 7.5 (5.0-9.0); UMIC TRIGGER UACC YES; Urine Blood Trace (Negative); Urine Ketones Negative (Negative); Urine Protein 30 (1+) mg/dL (Neg-Trace)
--- NOTE | 2022-04-06 22:41 | PHA.MEDREC ---
Pharmacy Consult ? Medication Reconciliation Pharmacy has completed the medication reconciliation.
[2022-04-06 22:46] LABS: Troponin-I High Sensitivity 57.1 ng/L (<3.5-35.0)
[2022-04-06 23:06] LABS: Bacteria Urine None Seen (None Seen); Hyaline Casts Urine 0-2 /LPF (0-2); RBC Urine 0-2 /HPF (0-2); Squamous Epithelial Cell Urine 0-2 /HPF (0-2); WBC Urine 0-5 /HPF (0-5)
[2022-04-07] MEDS: methylPREDNISolone Sod Succ 40 MG/ML VIAL IVPUSH ×2 (00:35→08:28)
[2022-04-07] MEDS: Azithromycin 500 MG in 0.9 % Sodium Chloride 250 ML 125 MG IV (00:53)
[2022-04-07 06:26] VITALS: BP 115/50; PULSE 58; RESP 22; TEMP 36.4; O2SAT 100
--- NOTE | 2022-04-07 06:41 | PC.NURSE ---
PT GIVEN BEDSIDE COMMODE AFTER STATING HE NEEDED TO HAVE A BM. PT SAT ON COMMODE 5 MINS AND RANG TO GET OFF AND SAID IT WAS A FALSE ALARM. PT GIVEN CALL [facility] AND WARM BLANKET AFTER BEING ASSISTED BACK INTO BED
[2022-04-07 07:22] LABS: Glucose, Whole Blood 346 mg/dL (60-115)
[2022-04-07 07:26] LABS: Basophils Percent Auto 0.1 % (0-2); Hemoglobin 9.9 g/dl (14.0-18.0); Imm Gran Abs Auto 0.13 X10*3/uL (0.00-0.03); Imm Gran Pct Auto 1.4 % (0.0-0.4); Lymphocytes Absolute Auto 0.2 X10*3/uL (1.2-4.9); MANUAL DIFF FLAG SCAN; Mean Corpuscular HGB Conc 31.9 g/dl (31.0-36.0); Mean Corpuscular Hemoglobin 30.5 pg (27.0-33.0); Mean Corpuscular Volume 95.4 fL (80.0-98.0); Mean Platelet Volume 9.9 fL (9.4-12.4); Monocytes Absolute Auto 0.1 X10*3/uL (0.1-1.2); Monocytes Percent Auto 1.4 % (2-11); NRBC Pct Auto 0.3 /100WBC (0.0-0.2); Neutrophils Absolute Auto 8.9 x10*3/uL (2.0-8.3); Neutrophils Percent Auto 95.1 % (45-73); Platelet Count 209 X10*3/uL (160-400); Red Blood Count 3.25 X10*6/uL (4.60-5.80); Red Cell Distribution Width 16.7 % (11.0-16.0); SCAN SMEAR FLAG 1; White Blood Count 9.4 X10*3/uL (4.8-10.8)
[2022-04-07 07:32] LABS: INTERNATIONAL NORM RATIO 4.3 (0.9-1.1); Prothrombin Time 52.3 SEC (10.0-13.1)
[2022-04-07] MEDS: Albuterol/Iprat 2.5/0.5MG 3 ML AMPUL.NEB INHALE (07:45)
[2022-04-07 07:47] VITALS: PULSE 61; RESP 15; O2SAT 100
[2022-04-07 07:49] LABS: Anion Gap 19 (12-20); Blood Urea Nitrogen 28 mg/dL (9-16); Calcium 8.1 mg/dL (8.4-10.2); Carbon Dioxide 35 mmol/L (22-29); Chloride 90 mmol/L (96-108); Creatinine Clr Calc Pharmacy 46.7; Estimated Glomerular Filt Rate > 60; Glucose Random 369 mg/dL (60-115); Potassium 3.5 mmol/L (3.3-5.1); Sodium 140 mmol/L (135-145)
[2022-04-07 07:52] LABS: SLIDE REVIEW VERIFIED
--- NOTE | 2022-04-07 07:56 | HO.PM.IMPN ---
Subjective Subjective Date of Service: 04/07/22 Interval History: Seen in f/u for copd exacerbation interval history: Physical Exam Vital Signs: Vital Signs: Last Vital Signs Temp 97.6 F 04/07/22 06:26 Pulse 61 04/07/22 07:47 Resp 15 04/07/22 07:47 BP 115/50 L 04/07/22 06:26 Pulse Ox 100 04/07/22 06:26 O2 Del Method 04/07/22 06:26 O2 Flow Rate 2 04/07/22 06:26 Oxygen Flow Rate 3 04/06/22 18:40 BMI result Body Mass Index 24.3 Const: Other: General: AO X 3, no acute distress Resp: CTA bilateral CVS: S1,S2,RRR GI: +BS, NT, no distention Skin: No rash Neuro: motor grossly intact Psych: appropriate affect Objective Data Active Medications Acetaminophen (Acetaminophen 325 Mg Tablet) 650 mg PO Q6H PRN PRN Reason: Pain, Mild (Pain Scale 1-3) Albuterol/Ipratropium (Albuterol/Iprat 2.5/0.5mg 3 Ml Ampul.Neb) 3 ml INHALE RQ4H WHILE AWAKE [facility] Last Admin: 04/07/22 07:45 Dose: 3 ml Documented By: EULALIA Allopurinol (Allopurinol 100 Mg Tablet) 100 mg PO BEDTIME [facility] Amiodarone HCl (Amiodarone Hcl 200 Mg Tablet) 200 mg PO DAILY [facility] Atorvastatin Calcium (Atorvastatin Calcium 80 Mg Tablet) 80 mg PO DAILY [facility] Clopidogrel Bisulfate (Clopidogrel Bisulfate 75 Mg Tablet) 75 mg PO DAILY [facility] Dextrose (Dextrose 50 % 25 Gm/50 Ml Syringe) 25 gm IVPUSH Q15M PRN; Protocol PRN Reason: per Hypoglycemia Standing Ord. Furosemide (Furosemide 40 Mg/4 Ml Vial) 40 mg IVPUSH DAILY [facility]; Protocol Glucose (Glucose Gel 15 Gm Gel..Gram.) 15 gm PO Q15M PRN; Protocol PRN Reason: per Hypoglycemia Standing Ord. Azithromycin 500 mg/ Sodium (Chloride) 250 mls @ 125 mls/hr IV Q24H [facility] Last Admin: 04/07/22 00:53 Dose: 125 mls/hr Documented By: LENY Insulin Glargine (Insulin Glargine,Hum.Rec.Anlog 100 Unit/Ml 10 Ml Vial) 20 unit SUBCUT BEDTIME [facility] Insulin Human Lispro (Insulin Lispro 100 Unit/Ml 3 Ml Vial) 0 unit SUBCUT QIDACHS [facility]; Protocol Melatonin (Melatonin 3 Mg Tablet) 6 mg PO BEDTIME PRN PRN Reason: Insomnia Methylprednisolone Sodium Succinate (Methylprednisolone Sod Succ 40 Mg/Ml Vial) 40 mg IVPUSH Q6H [facility] Last Admin: 04/07/22 00:35 Dose: 40 mg Documented By: LENY Metoprolol Tartrate (Metoprolol Tartrate 50 Mg Tablet) 50 mg PO BID [facility]; Protocol Senna (Sennosides 8.6 Mg Tablet) 17.2 mg PO BEDTIME PRN PRN Reason: Constipation Sodium Chloride (0.9 % Sodium Chloride Flush 3 Ml Syringe) 3 ml IVFLUSH QSHIFT [facility] Warfarin Sodium (Warfarin Sodium 4 Mg Tablet) 4 mg PO DAILY@1800 [facility] Labs CBC & Chem 7: 04/07/22 06:53 04/07/22 06:53 Labs: Laboratory Results - last 24 hr 04/06/22 04/06/22 04/06/22 19:07 19:07 19:07 MCV 93.6 MCH 30.1 MCHC 32.1 RDW 16.8 H Plt Count 240 D MPV 9.6 Immature Gran % (Auto) 1.0 H Neut % (Auto) 93.9 H Lymph % (Auto) 1.7 L [place] % (Auto) 3.2 Eos % (Auto) 0.1 Baso % (Auto) 0.1 Lymph # (Auto) 0.2 L [place] # (Auto) 0.4 Eos # (Auto) 0.0 Baso # (Auto) 0.0 Abs Immat Gran (auto) 0.11 H Absolute Neuts (auto) 10.5 H Absolute Nucleated RBC 0.060 H Nucleated RBC % (auto) 0.5 H Smear Tech's Comments PT INR Anion Gap 16 Estim Creat Clear Calc 49.3 Estimated GFR > 60 POC Glucose Random Glucose 382 H* Lactic Acid Calcium 9.1 D Total Bilirubin 0.9 Direct Bilirubin 0.3 AST 17 ALT 36 Alkaline Phosphatase 74 B-Natriuretic Peptide 930 H Total Protein 5.5 L D Albumin 3.6 D Lipase 30 Urine Color Urine Appearance Urine pH Ur Specific [place] Urine Protein Urine Glucose (UA) Urine Ketones Urine Blood Urine Nitrite Ur Leukocyte Esterase Urine RBC Urine WBC Ur Squamous Epith Cells Urine Bacteria Hyaline Casts COVID-19 ([facility]) COVID-19 Clin Com 04/06/22 04/06/22 04/06/22 19:07 19:07 22:15 MCV MCH MCHC RDW Plt Count MPV Immature Gran % (Auto) Neut % (Auto) Lymph % (Auto) [place] % (Auto) Eos % (Auto) Baso % (Auto) Lymph # (Auto) [place] # (Auto) Eos # (Auto) Baso # (Auto) Abs Immat Gran (auto) Absolute Neuts (auto) Absolute Nucleated RBC Nucleated RBC % (auto) Smear Tech's Comments PT INR Anion Gap Estim Creat Clear Calc Estimated GFR POC Glucose Random Glucose Lactic Acid 1.5 Calcium Total Bilirubin Direct Bilirubin AST ALT Alkaline Phosphatase B-Natriuretic Peptide Total Protein Albumin Lipase Urine Color Yellow Urine Appearance Clear Urine pH 7.5 Ur Specific [place] 1.010 Urine Protein 30 (1+) H Urine Glucose (UA) 500 H Urine Ketones Negative Urine Blood Trace H Urine Nitrite Negative Ur Leukocyte Esterase Negative Urine RBC 0-2 Urine WBC 0-5 Ur Squamous Epith Cells 0-2 Urine Bacteria None Seen Hyaline Casts 0-2 COVID-19 ([facility]) Negative COVID-19 Clin Com See Note 04/07/22 04/07/22 04/07/22 06:53 06:53 06:53 MCV 95.4 MCH 30.5 MCHC 31.9 RDW 16.7 H Plt Count 209 MPV 9.9 Immature Gran % (Auto) 1.4 H Neut % (Auto) 95.1 H Lymph % (Auto) 2.0 L [place] % (Auto) 1.4 L Eos % (Auto) 0.0 Baso % (Auto) 0.1 Lymph # (Auto) 0.2 L [place] # (Auto) 0.1 Eos # (Auto) 0.0 Baso # (Auto) 0.0 Abs Immat Gran (auto) 0.13 H Absolute Neuts (auto) 8.9 H Absolute Nucleated RBC 0.030 H Nucleated RBC % (auto) 0.3 H Smear Tech's Comments VERIFIED PT 52.3 H INR 4.3 H D Anion Gap 19 Estim Creat Clear Calc 46.7 Estimated GFR > 60 POC Glucose Random Glucose 369 H* Lactic Acid Calcium 8.1 L D Total Bilirubin Direct Bilirubin AST ALT Alkaline Phosphatase B-Natriuretic Peptide Total Protein Albumin Lipase Urine Color Urine Appearance Urine pH Ur Specific [place] Urine Protein Urine Glucose (UA) Urine Ketones Urine Blood Urine Nitrite Ur Leukocyte Esterase Urine RBC Urine WBC Ur Squamous Epith Cells Urine Bacteria Hyaline Casts COVID-19 ([facility]) COVID-19 Clin Com 04/07/22 07:19 MCV MCH MCHC RDW Plt Count MPV Immature Gran % (Auto) Neut % (Auto) Lymph % (Auto) [place] % (Auto) Eos % (Auto) Baso % (Auto) Lymph # (Auto) [place] # (Auto) Eos # (Auto) Baso # (Auto) Abs Immat Gran (auto) Absolute Neuts (auto) Absolute Nucleated RBC Nucleated RBC % (auto) Smear Tech's Comments PT INR Anion Gap Estim Creat Clear Calc Estimated GFR POC Glucose 346 H Random Glucose Lactic Acid Calcium Total Bilirubin Direct Bilirubin AST ALT Alkaline Phosphatase B-Natriuretic Peptide Total Protein Albumin Lipase Urine Color Urine Appearance Urine pH Ur Specific [place] Urine Protein Urine Glucose (UA) Urine Ketones Urine Blood Urine Nitrite Ur Leukocyte Esterase Urine RBC Urine WBC Ur Squamous Epith Cells Urine Bacteria Hyaline Casts COVID-19 ([facility]) COVID-19 Clin Com Assessment and Plan (1) Acute exacerbation of chronic obstructive airways disease: Status: Acute Plan 76-year-old male with a past medical history of hypertension, hyperlipidemia, diabetes, CAD, CHF on Lasix, history of follicular lymphoma, history of DVT, paroxysmal AFib on Coumadin, tobacco dependence, ? COPD- on 2 L of home oxygen,BPH, abdominal aortic aneurysm, vitamin-D deficiency, peripheral vascular disease, insomnia presented to the hospital today with a chief complaint of shortness of breath.? ?noted to have following conditions Acute COPD exacerbation: Patient on baseline 2 L of home oxygen at home.? Will continue supplemental oxygen with goal oxygen saturation 93% Continue Solu-Medrol IV q.i.d. Nebulizations standing and p.r.n. Azithromycin Acute on chronic diastolic CHF: Patient noted to have bilateral peripheral edema Patient has baseline oxygen requirements Will keep the patient on Lasix 40 mg IV daily Cardiology consult Acute Dialysis Nurse daily weights and I's and O's History of diabetes:? Hold home metformin.? Will keep the patient on Lantus 20 units plus insulin sliding scale.? Monitor fingerstick glucose and adjust as needed.? History of AFib /DVT: Patient on Coumadin. ? INR therapeutic. Heart rate is controlled.? Continue home amiodarone/ metoprolol.? History of CAD: Continue home Plavix/ statin History of BPH:? Continue home finasteride ?DVT prophylaxis:? Patient on Coumadin Code status:? Full code Quality Stroke Does the patient have a stroke diagnosis?: No VTE Prior VTE?: No VTE Risk Level:: Medical - moderate - high VTE Device Contraindication: Treatment Not Indicated VTE Drug Contraindication: N/A - Med Ordered
[2022-04-07] MEDS: Atorvastatin Calcium 80 MG TABLET PO (08:24)
[2022-04-07] MEDS: Furosemide 40 MG/4 ML VIAL IVPUSH (08:24)
[2022-04-07] MEDS: Clopidogrel Bisulfate 75 MG TABLET PO (08:25)
[2022-04-07] MEDS: Metoprolol Tartrate 50 MG TABLET PO (08:25)
[2022-04-07] MEDS: Amiodarone HCL 200 MG TABLET PO (08:26)
[2022-04-07] MEDS: 0.9 % Sodium Chloride Flush 3 ML SYRINGE IVFLUSH (08:27)
[2022-04-07] MEDS: Insulin Lispro 100 UNIT/ML 3 ML VIAL SUBCUT (08:27)
[2022-04-07 08:58] VITALS: BP 114/47; PULSE 65; RESP 16; O2SAT 100
--- NOTE | 2022-04-07 09:09 | PM.CNCAR ---
History of Present Illness History of Present Illness Date of Service: 04/07/22 Requesting physician: Chris Hodges Chief complaint: COPD, ?CHF Narrative: [age] gentleman who presented with shortness of breath. He has background history of heart failure with preserved ejection fraction and COPD. He said he was feeling short of breath and came to the hospital. At the time interview was all dressed up and ready to leave the hospital saying that he is feeling great. He is on home oxygen which is his baseline. He also has background of atrial fibrillation on Coumadin, follicular lymphoma, history of DVT, hypertension, hyperlipidemia and diabetes. It appears he came with shortness of breath and was treated for COPD exacerbation with improvement. He was also noticed to have mild peripheral edema and was given IV diuretics. Discussing with him he is feeling great right now. Looks clinically euvolemic right now. EKG reviewed showing sinus rhythm, normal axis, artifact, nonspecific T-wave changes, QT interval 452 milliseconds. COUNTS INCLUDE 234 BEDS AT THE [facility] Past Medical History Medical History Abdominal aortic aneurysm without rupture Acute exacerbation of chronic obstructive pulmonary disease Acute on chronic diastolic CHF (congestive heart failure), NYHA class 3 Atherosclerotic cardiovascular disease Benign essential hypertension BPH loc w urin obs/LUTS Chronic atrial fibrillation COPD (chronic obstructive pulmonary disease) Coronary artery disease Current use of anticoagulant therapy Diabetes mellitus Elevated PSA Follicular lymphoma Heart failure with preserved ejection fraction High cholesterol History of blood clots History of deep vein thrombosis (DVT) of lower extremity Insomnia Overweight (BMI 25.0-29.9) PAF (paroxysmal atrial fibrillation) Peripheral arterial disease Pneumonia Pure hypercholesterolemia Smoker Smoker Vitamin D deficiency Family History Family History Father Cancer Mother Cardiovascular disease Surgical History Surgical History History of quadruple bypass Social History Social History Household Members: Spouse and Children Housing: Apartment Are you a primary medicare sales representative to a significant other at home: No Do you presently have visiting nurse or other home services: No Alcohol intake: never Patient Tobacco Use Status: Former Tobacco user Tobacco use type: Cigarette Cigarette Packs Per Day: 1.5 Cigarettes Per Day: 30.0 Years Smoked: 65 Second Hand Smoke Exposure: No Advance Directives: Yes Advance Directives on File: Yes Advance Directives Date on File: 01/06/22 service: No Current occupational status: disabled Cognitive needs: No Hearing needs: No Vision needs: No Meds Allergies Allergy/AdvReac Type Severity Reaction Status Date / Time No Known Allergies Allergy Verified 04/03/22 14:30 [No Known Allergies*] Active Medications: Current Medications Acetaminophen (Acetaminophen 325 Mg Tablet) 650 mg PO Q6H PRN PRN Reason: Pain, Mild (Pain Scale 1-3) Albuterol/Ipratropium (Albuterol/Iprat 2.5/0.5mg 3 Ml Ampul.Neb) 3 ml INHALE RQ4H WHILE AWAKE [facility] Last Admin: 04/07/22 07:45 Dose: 3 ml Allopurinol (Allopurinol 100 Mg Tablet) 100 mg PO BEDTIME [facility] Amiodarone HCl (Amiodarone Hcl 200 Mg Tablet) 200 mg PO DAILY [facility] Last Admin: 04/07/22 08:26 Dose: 200 mg Atorvastatin Calcium (Atorvastatin Calcium 80 Mg Tablet) 80 mg PO DAILY [facility] Last Admin: 04/07/22 08:24 Dose: 80 mg Clopidogrel Bisulfate (Clopidogrel Bisulfate 75 Mg Tablet) 75 mg PO DAILY [facility] Last Admin: 04/07/22 08:25 Dose: 75 mg Dextrose (Dextrose 50 % 25 Gm/50 Ml Syringe) 25 gm IVPUSH Q15M PRN; Protocol PRN Reason: per Hypoglycemia Standing Ord. Furosemide (Furosemide 40 Mg/4 Ml Vial) 40 mg IVPUSH DAILY [facility]; Protocol Last Admin: 04/07/22 08:24 Dose: 40 mg Glucose (Glucose Gel 15 Gm Gel..Gram.) 15 gm PO Q15M PRN; Protocol PRN Reason: per Hypoglycemia Standing Ord. Azithromycin 500 mg/ Sodium (Chloride) 250 mls @ 125 mls/hr IV Q24H [facility] Last Infusion: 04/07/22 08:29 Dose: Infused Insulin Glargine (Insulin Glargine,Hum.Rec.Anlog 100 Unit/Ml 10 Ml Vial) 20 unit SUBCUT BEDTIME [facility] Insulin Human Lispro (Insulin Lispro 100 Unit/Ml 3 Ml Vial) 0 unit SUBCUT QIDACHS [facility]; Protocol Last Admin: 04/07/22 08:27 Dose: 8 unit Melatonin (Melatonin 3 Mg Tablet) 6 mg PO BEDTIME PRN PRN Reason: Insomnia Methylprednisolone Sodium Succinate (Methylprednisolone Sod Succ 40 Mg/Ml Vial) 40 mg IVPUSH Q6H [facility] Last Admin: 04/07/22 08:28 Dose: 40 mg Metoprolol Tartrate (Metoprolol Tartrate 50 Mg Tablet) 50 mg PO BID [facility]; Protocol Last Admin: 04/07/22 08:25 Dose: 50 mg Senna (Sennosides 8.6 Mg Tablet) 17.2 mg PO BEDTIME PRN PRN Reason: Constipation Sodium Chloride (0.9 % Sodium Chloride Flush 3 Ml Syringe) 3 ml IVFLUSH QSHIFT [facility] Last Admin: 04/07/22 08:27 Dose: 3 ml Warfarin Sodium (Warfarin Sodium 4 Mg Tablet) 4 mg PO DAILY@1800 [facility] Home Medications Medication Instructions Recorded Confirmed Last Taken Type clopidogrel 75 mg tablet (Plavix) 75 mg PO DAILY 12/23/21 04/06/22 03/25/22 History amiodarone 200 mg tablet 200 mg PO DAILY 12/25/21 04/06/22 03/25/22 History allopurinol 100 mg tablet 100 mg PO BEDTIME 01/05/22 04/06/22 03/24/22 History metoprolol tartrate 50 mg tablet 50 mg PO BID 02/12/22 04/06/22 03/25/22 History Physical Exam Vital Signs: Vital Signs: Last Vital Signs Temp 97.6 F 04/07/22 06:26 Pulse 65 04/07/22 08:58 Resp 16 04/07/22 08:58 BP 114/47 L 04/07/22 08:58 Pulse Ox 100 04/07/22 08:58 O2 Del Method 04/07/22 08:58 O2 Flow Rate 2 04/07/22 06:26 Oxygen Flow Rate 3 04/06/22 18:40 BMI result Body Mass Index 24.3 GENERAL APPEARANCE: in no acute distress, pleasant. NECK: no carotid bruit, no jugular venous distention. SKIN: no suspicious lesions, warm and dry. HEART: no murmurs, regular rate and rhythm. LUNGS: clear to auscultation bilaterally. ABDOMEN: soft, nontender. EXTREMITIES: no edema. PERIPHERAL PULSES: equal. NEUROLOGIC: No gross deficits, AAO X 3 Objective Labs and Meds Result diagrams: 04/07/22 06:53 04/07/22 06:53 Lab results: Laboratory Results - last 24 hr 04/06/22 04/06/22 04/06/22 19:07 19:07 19:07 WBC 11.2 H RBC 3.46 L Hgb 10.4 L Hct 32.4 L MCV 93.6 MCH 30.1 MCHC 32.1 RDW 16.8 H Plt Count 240 D MPV 9.6 Immature Gran % (Auto) 1.0 H Neut % (Auto) 93.9 H Lymph % (Auto) 1.7 L [place] % (Auto) 3.2 Eos % (Auto) 0.1 Baso % (Auto) 0.1 Lymph # (Auto) 0.2 L [place] # (Auto) 0.4 Eos # (Auto) 0.0 Baso # (Auto) 0.0 Abs Immat Gran (auto) 0.11 H Absolute Neuts (auto) 10.5 H Absolute Nucleated RBC 0.060 H Nucleated RBC % (auto) 0.5 H Smear Tech's Comments PT INR Sodium 140 Potassium 4.0 Chloride 90 L Carbon Dioxide 38 H Anion Gap 16 BUN 26 H Creatinine 1.09 Estim Creat Clear Calc 49.3 Estimated GFR > 60 POC Glucose Random Glucose 382 H* Lactic Acid Calcium 9.1 D Total Bilirubin 0.9 Direct Bilirubin 0.3 AST 17 ALT 36 Alkaline Phosphatase 74 Troponin I High Sens 53.0 H B-Natriuretic Peptide Total Protein 5.5 L D Albumin 3.6 D Lipase 30 Urine Color Urine Appearance Urine pH Ur Specific [place] Urine Protein Urine Glucose (UA) Urine Ketones Urine Blood Urine Nitrite Ur Leukocyte Esterase Urine RBC Urine WBC Ur Squamous Epith Cells Urine Bacteria Hyaline Casts COVID-19 ([facility]) COVID-19 Clin Com 04/06/22 04/06/22 04/06/22 19:07 19:07 19:07 WBC RBC Hgb Hct MCV MCH MCHC RDW Plt Count MPV Immature Gran % (Auto) Neut % (Auto) Lymph % (Auto) [place] % (Auto) Eos % (Auto) Baso % (Auto) Lymph # (Auto) [place] # (Auto) Eos # (Auto) Baso # (Auto) Abs Immat Gran (auto) Absolute Neuts (auto) Absolute Nucleated RBC Nucleated RBC % (auto) Smear Tech's Comments PT INR Sodium Potassium Chloride Carbon Dioxide Anion Gap BUN Creatinine Estim Creat Clear Calc Estimated GFR POC Glucose Random Glucose Lactic Acid 1.5 Calcium Total Bilirubin Direct Bilirubin AST ALT Alkaline Phosphatase Troponin I High Sens B-Natriuretic Peptide 930 H Total Protein Albumin Lipase Urine Color Urine Appearance Urine pH Ur Specific [place] Urine Protein Urine Glucose (UA) Urine Ketones Urine Blood Urine Nitrite Ur Leukocyte Esterase Urine RBC Urine WBC Ur Squamous Epith Cells Urine Bacteria Hyaline Casts COVID-19 ([facility]) Negative COVID-19 Clin Com See Note 04/06/22 04/06/22 04/07/22 22:15 22:15 06:53 WBC 9.4 RBC 3.25 L Hgb 9.9 L Hct 31.0 L MCV 95.4 MCH 30.5 MCHC 31.9 RDW 16.7 H Plt Count 209 MPV 9.9 Immature Gran % (Auto) 1.4 H Neut % (Auto) 95.1 H Lymph % (Auto) 2.0 L [place] % (Auto) 1.4 L Eos % (Auto) 0.0 Baso % (Auto) 0.1 Lymph # (Auto) 0.2 L [place] # (Auto) 0.1 Eos # (Auto) 0.0 Baso # (Auto) 0.0 Abs Immat Gran (auto) 0.13 H Absolute Neuts (auto) 8.9 H Absolute Nucleated RBC 0.030 H Nucleated RBC % (auto) 0.3 H Smear Tech's Comments VERIFIED PT INR Sodium Potassium Chloride Carbon Dioxide Anion Gap BUN Creatinine Estim Creat Clear Calc Estimated GFR POC Glucose Random Glucose Lactic Acid Calcium Total Bilirubin Direct Bilirubin AST ALT Alkaline Phosphatase Troponin I High Sens 57.1 H B-Natriuretic Peptide Total Protein Albumin Lipase Urine Color Yellow Urine Appearance Clear Urine pH 7.5 Ur Specific [place] 1.010 Urine Protein 30 (1+) H Urine Glucose (UA) 500 H Urine Ketones Negative Urine Blood Trace H Urine Nitrite Negative Ur Leukocyte Esterase Negative Urine RBC 0-2 Urine WBC 0-5 Ur Squamous Epith Cells 0-2 Urine Bacteria None Seen Hyaline Casts 0-2 COVID-19 ([facility]) COVID-19 Clin Com 04/07/22 04/07/22 04/07/22 06:53 06:53 07:19 WBC RBC Hgb Hct MCV MCH MCHC RDW Plt Count MPV Immature Gran % (Auto) Neut % (Auto) Lymph % (Auto) [place] % (Auto) Eos % (Auto) Baso % (Auto) Lymph # (Auto) [place] # (Auto) Eos # (Auto) Baso # (Auto) Abs Immat Gran (auto) Absolute Neuts (auto) Absolute Nucleated RBC Nucleated RBC % (auto) Smear Tech's Comments PT 52.3 H INR 4.3 H D Sodium 140 Potassium 3.5 Chloride 90 L Carbon Dioxide 35 H Anion Gap 19 BUN 28 H Creatinine 1.15 Estim Creat Clear Calc 46.7 Estimated GFR > 60 POC Glucose 346 H Random Glucose 369 H* Lactic Acid Calcium 8.1 L D Total Bilirubin Direct Bilirubin AST ALT Alkaline Phosphatase Troponin I High Sens B-Natriuretic Peptide Total Protein Albumin Lipase Urine Color Urine Appearance Urine pH Ur Specific [place] Urine Protein Urine Glucose (UA) Urine Ketones Urine Blood Urine Nitrite Ur Leukocyte Esterase Urine RBC Urine WBC Ur Squamous Epith Cells Urine Bacteria Hyaline Casts COVID-19 ([facility]) COVID-19 Clin Com Imaging Radiologist's impression: Impressions Chest X-Ray 04/06/22 19:45 IMPRESSION: Chronic interstitial changes and COPD without significant change or definitive acute abnormality. Assessment and Plan (1) Chronic diastolic heart failure: Status: Acute (2) Acute exacerbation of chronic obstructive airways disease: Status: Acute Plan 76-year-old gentleman with chronic diastolic heart failure and COPD who presented with acute exacerbation of COPD. He has improved significantly with treatment for COPD with steroids and inhalers. Clinically looks euvolemic right now. I think he can continue same dose of furosemide at home which is 40 mg once a day. Continue beta-dianne, amiodarone, Plavix and Coumadin. There is interaction between is thrombi seen and Coumadin and possibly best drug to use would be doxycycline. Thank you for allowing me to participate in the care of your patient. Please feel free to contact me if you have any questions. Procedures Date of Service Date of Service: 04/07/22
--- NOTE | 2022-04-07 10:03 | P.CDIC_ITS ---
CDI Concurrent Query Documentation Clarification: PHYSICIAN'S DOCUMENTATION REQUEST Date of Query: 04/07/22 1004 Patient Name: Christian Paula Admit Date: 04/06/22 Dear Doctor, A review of the medical record indicates additional documentation may be needed. Please review below and update the documentation accordingly. Clinical Indicators: Risk Factors/Clinical Indicators/Treatments COPD: 2-4 L of supplemental oxygen at home 01/02. Placed on 3 L NC w RR 22. Long history of smoking. Recognized standard criteria for respiratory failure includes: (Source: [facility] Hospitalist May 2013) ABGs (1 or more) Symptoms: ? PO2 <60 or RA SpO2 <91% ? Tachypnea, SOB, dyspnea ? PcO2 >50 and pH <7.35 ? Pallor or cyanosis ? pO2 decrease or pcO2 increase ? Anxiety or restlessness by 10 mm/Hg from baseline if known ? Use of accessory muscles ? Retractions (grunting in newborns) ? Unable to speak in complete sentences P/F ratio < 300 Supplemental O2 requirement of 40% or more Intubation is not required Clarify which of the following accurately represents the patient's respiratory status: * Chronic respiratory failure home O2 dependent * Other (please specify) * Unable to determine Please include type if known: * Hypoxic * Hypercapnic * Unable to determine if any Use of terms such as suspected, likely, concern for, or probable (associated with a specific diagnosis that is being evaluated, monitored, or treated as if it exists) are acceptable and can be coded in the inpatient setting, when documented at the time of discharge. Thank you, Monica Diaz [facility], [facility]IS Extension: [phone] Please use your independent medical judgment in providing your response. THIS QUERY IS PART OF THE PERMANENT MEDICAL RECORD Provider Response: Other Other Diagnosis: chronic respiratory failure
--- NOTE | 2022-04-07 10:05 | P.DS_ITS ---
DS: Providers Provider Date of Service: 04/07/22 Date of admission: 04/06/22 22:10 Primary care physician: Gregory Ellison MD Consults: 04/06/22 22:10 Consult to Cardiology Routine Consulting Provider: Dax Denney Reason for consultation: CHF DS: Diagnosis Discharge Diagnosis (1) Acute exacerbation of chronic obstructive airways disease: Status: Acute DS: Summary Hospital Course Hospital Course: Chief Complaint: SOB ? 76-year-old male with a past medical history of hypertension, hyperlipidemia, diabetes, CAD, CHF on Lasix, history of follicular lymphoma, history of DVT, paroxysmal AFib on Coumadin, tobacco dependence, ? COPD- on 2 L of home oxygen,BPH, abdominal aortic aneurysm, vitamin-D deficiency, peripheral vascular disease, insomnia presented to the hospital today with a chief complaint of shortness of breath.? Patient reports that he was doing fine until yesterday but today he noted to have shortness of breath which has been gradually worsening.? Mentioned that he has history of COPD and uses 2 L of home oxygen at home.? Mentions he has cough.? Denies any fevers.? Denies any chest pain or palpitations.? S shortness of breath was getting worse he decided to come to the ER for further evaluation.? Denies any nausea vomiting or diarrhea.? Denies any GI symptoms.? Review of all other systems is negative except mentioned above ER course: Per ER team patient noted to have bilateral wheezing concerning for acute COPD exacerbation;? also noted to have peripheral edema concerning for CHF.? Given IV Lasix and steroids.? Admitted to the hospital for further management. Hospital course: Patient was admitted for exacerbation of COPD with chronic respiatory failure and treated with IV solumedrol, bronchodilators by Neb and CHF treated with IV Lasix with rapid improvement than expected and will be discharge home with Oral steroid and to continue Lasix . Doxycyline for bronchitis. Crhonic diastolic heart failure is stable. Time Spent with Patient Time attestation: Total time spent providing and/or coordinating discharge services: Discharge coordination time: Greater than 30 minutes Quality: Safe Use of Opioids Does Pt have an Active Cancer Diagnosis on the Problem List?: No Quality: Stroke Does the patient have a stroke diagnosis?: No Physical Exam Vital Signs: Vital Signs: Last Vital Signs Temp 97.6 F 09/27/22 06:26 Pulse 65 04/07/22 08:58 Resp 16 04/07/22 08:58 BP 114/47 L 04/07/22 08:58 Pulse Ox 100 04/07/22 08:58 O2 Del Method 04/07/22 08:58 O2 Flow Rate 2 04/07/22 06:26 Oxygen Flow Rate 3 04/06/22 18:40 BMI result Body Mass Index 24.3 DS: Data Data Completed and Pending Labs on day of discharge: Laboratory Results - last 24 hr 04/06/22 04/06/22 04/06/22 19:07 19:07 19:07 WBC 11.2 H RBC 3.46 L Hgb 10.4 L Hct 32.4 L MCV 93.6 MCH 30.1 MCHC 32.1 RDW 16.8 H Plt Count 240 D MPV 9.6 Immature Gran % (Auto) 1.0 H Neut % (Auto) 93.9 H Lymph % (Auto) 1.7 L [place] % (Auto) 3.2 Eos % (Auto) 0.1 Baso % (Auto) 0.1 Lymph # (Auto) 0.2 L [place] # (Auto) 0.4 Eos # (Auto) 0.0 Baso # (Auto) 0.0 Abs Immat Gran (auto) 0.11 H Absolute Neuts (auto) 10.5 H Absolute Nucleated RBC 0.060 H Nucleated RBC % (auto) 0.5 H Smear Tech's Comments PT INR Sodium 140 Potassium 4.0 Chloride 90 L Carbon Dioxide 38 H Anion Gap 16 BUN 26 H Creatinine 1.09 Estim Creat Clear Calc 49.3 Estimated GFR > 60 POC Glucose Random Glucose 382 H* Lactic Acid Calcium 9.1 D Total Bilirubin 0.9 Direct Bilirubin 0.3 AST 17 ALT 36 Alkaline Phosphatase 74 Troponin I High Sens 53.0 H B-Natriuretic Peptide Total Protein 5.5 L D Albumin 3.6 D Lipase 30 Urine Color Urine Appearance Urine pH Ur Specific [place] Urine Protein Urine Glucose (UA) Urine Ketones Urine Blood Urine Nitrite Ur Leukocyte Esterase Urine RBC Urine WBC Ur Squamous Epith Cells Urine Bacteria Hyaline Casts COVID-19 ([facility]) COVID-19 Clin Com 04/06/22 04/06/22 04/06/22 19:07 19:07 19:07 WBC RBC Hgb Hct MCV MCH MCHC RDW Plt Count MPV Immature Gran % (Auto) Neut % (Auto) Lymph % (Auto) [place] % (Auto) Eos % (Auto) Baso % (Auto) Lymph # (Auto) [place] # (Auto) Eos # (Auto) Baso # (Auto) Abs Immat Gran (auto) Absolute Neuts (auto) Absolute Nucleated RBC Nucleated RBC % (auto) Smear Tech's Comments PT INR Sodium Potassium Chloride Carbon Dioxide Anion Gap BUN Creatinine Estim Creat Clear Calc Estimated GFR POC Glucose Random Glucose Lactic Acid 1.5 Calcium Total Bilirubin Direct Bilirubin AST ALT Alkaline Phosphatase Troponin I High Sens B-Natriuretic Peptide 930 H Total Protein Albumin Lipase Urine Color Urine Appearance Urine pH Ur Specific [place] Urine Protein Urine Glucose (UA) Urine Ketones Urine Blood Urine Nitrite Ur Leukocyte Esterase Urine RBC Urine WBC Ur Squamous Epith Cells Urine Bacteria Hyaline Casts COVID-19 ([facility]) Negative COVID-19 Clin Com See Note 04/06/22 04/06/22 04/07/22 22:15 22:15 06:53 WBC 9.4 RBC 3.25 L Hgb 9.9 L Hct 31.0 L MCV 95.4 MCH 30.5 MCHC 31.9 RDW 16.7 H Plt Count 209 MPV 9.9 Immature Gran % (Auto) 1.4 H Neut % (Auto) 95.1 H Lymph % (Auto) 2.0 L [place] % (Auto) 1.4 L Eos % (Auto) 0.0 Baso % (Auto) 0.1 Lymph # (Auto) 0.2 L [place] # (Auto) 0.1 Eos # (Auto) 0.0 Baso # (Auto) 0.0 Abs Immat Gran (auto) 0.13 H Absolute Neuts (auto) 8.9 H Absolute Nucleated RBC 0.030 H Nucleated RBC % (auto) 0.3 H Smear Tech's Comments VERIFIED PT INR Sodium Potassium Chloride Carbon Dioxide Anion Gap BUN Creatinine Estim Creat Clear Calc Estimated GFR POC Glucose Random Glucose Lactic Acid Calcium Total Bilirubin Direct Bilirubin AST ALT Alkaline Phosphatase Troponin I High Sens 57.1 H B-Natriuretic Peptide Total Protein Albumin Lipase Urine Color Yellow Urine Appearance Clear Urine pH 7.5 Ur Specific [place] 1.010 Urine Protein 30 (1+) H Urine Glucose (UA) 500 H Urine Ketones Negative Urine Blood Trace H Urine Nitrite Negative Ur Leukocyte Esterase Negative Urine RBC 0-2 Urine WBC 0-5 Ur Squamous Epith Cells 0-2 Urine Bacteria None Seen Hyaline Casts 0-2 COVID-19 ([facility]) COVID-19 Clin Com 04/07/22 04/07/22 04/07/22 06:53 06:53 07:19 WBC RBC Hgb Hct MCV MCH MCHC RDW Plt Count MPV Immature Gran % (Auto) Neut % (Auto) Lymph % (Auto) [place] % (Auto) Eos % (Auto) Baso % (Auto) Lymph # (Auto) [place] # (Auto) Eos # (Auto) Baso # (Auto) Abs Immat Gran (auto) Absolute Neuts (auto) Absolute Nucleated RBC Nucleated RBC % (auto) Smear Tech's Comments PT 52.3 H INR 4.3 H D Sodium 140 Potassium 3.5 Chloride 90 L Carbon Dioxide 35 H Anion Gap 19 BUN 28 H Creatinine 1.15 Estim Creat Clear Calc 46.7 Estimated GFR > 60 POC Glucose 346 H Random Glucose 369 H* Lactic Acid Calcium 8.1 L D Total Bilirubin Direct Bilirubin AST ALT Alkaline Phosphatase Troponin I High Sens B-Natriuretic Peptide Total Protein Albumin Lipase Urine Color Urine Appearance Urine pH Ur Specific [place] Urine Protein Urine Glucose (UA) Urine Ketones Urine Blood Urine Nitrite Ur Leukocyte Esterase Urine RBC Urine WBC Ur Squamous Epith Cells Urine Bacteria Hyaline Casts COVID-19 ([facility]) COVID-19 Clin Com Discharge Plan Discharge Anticipated Discharge Date/Time: 04/07/22 09:58 Patient Disposition: Home Health Service Discharge Diagnosis: Acute COPD exacerbation Referrals: [facility] [Outside] - 1 Week Gregory Ellison MD [Primary Care Provider] - 1 Week Discharge Medications: New prednisone 20 mg tablet 40 mg PO DAILY Qty: 8 0RF doxycycline hyclate 100 mg tablet 100 mg PO BID 5 Days Qty: 10 0RF Continued furosemide 40 mg tablet 40 mg PO DAILY Qty: 90 3RF finasteride 5 mg tablet 5 mg PO DAILY 90 Days Qty: 90 1RF budesonide-formoterol [Symbicort] 160-4.5 mcg/actuation HFA aerosol inhaler 2 puff PO BID Qty: 10.2 3RF metformin 500 mg tablet extended release 24 hr 500 mg PO BEDTIME 30 Days Qty: 30 1RF warfarin 4 mg tablet 4 mg PO DAILY Qty: 30 0RF Protocol: Dose Management Condition: Wednesday (Week One) Dose/Route: 4 mg Instruction: 1 x 4 mg tablet Condition: Wednesday Dose/Route: 4 mg Instruction: 1 x 4 mg tablet Condition: Wednesday Dose/Route: 0 mg Instruction: 0 tablets Condition: Wednesday Dose/Route: 2 mg Instruction: 0.5 x 4 mg tablets Condition: Dose/Route: 4 mg Instruction: 1 x 4 mg tablet Condition: Wednesday Dose/Route: 4 mg Instruction: 1 x 4 mg tablet Condition: Wednesday Dose/Route: 2 mg Instruction: 0.5 x 4 mg tablets Condition: Wednesday (Week Two) Dose/Route: 4 mg Instruction: 1 x 4 mg tablet Condition: Wednesday Dose/Route: 4 mg Instruction: 1 x 4 mg tablet Condition: Wednesday Dose/Route: 4 mg Instruction: 1 x 4 mg tablet Condition: Wednesday Dose/Route: 4 mg Instruction: 1 x 4 mg tablet Condition: Dose/Route: 4 mg Instruction: 1 x 4 mg tablet Condition: Wednesday Dose/Route: 4 mg Instruction: 1 x 4 mg tablet Condition: Wednesday Dose/Route: 4 mg Instruction: 1 x 4 mg tablet Protocol Text: Adjustment Start Date: Wednesday04/03/22 INR Value: 2.5 INR Date: 04/03/22 Recheck Date: 04/07/22 albuterol sulfate 90 mcg/actuation HFA aerosol inhaler 2 puff PO Q4-6H PRN (Reason: for dyspnea) Qty: 8.5 0RF allopurinol 100 mg tablet 100 mg PO BEDTIME prednisone 10 mg tablet See Rx Instructions .Route .COMPLEX Qty: 45 0RF Rx Instructions: 10 mg orally; 5 tabs p.o. daily x3 days; 4 tabs p.o. daily x3 days; 3 tabs daily x3 days; 2 tabs daily x3 days; 1 tab daily x3 days rosuvastatin [Crestor] 40 mg tablet 40 mg PO DAILY Qty: 90 3RF clopidogrel [Plavix] 75 mg tablet 75 mg PO DAILY amiodarone 200 mg tablet 200 mg PO DAILY metoprolol tartrate 50 mg tablet 50 mg PO BID Discharge Orders: Discharge Order (Routine); Ordered 04/07/22 Ordered By: Chris Hodges Diet: Advance to usual diet Activity on Discharge: As tolerated Stand Alone Forms: Patient Portal Discharge page Care Plan Goals: Full reocvery from copd Health Concerns: copd, bronchitis Plan of Treatment: use inhalers and take prednisone as ordered and follow up with your Doctor in a week. call for appointment Take doxycycline for bronchiis Assessment: As above
[2022-04-07 11:29] VITALS: BP 123/38; PULSE 59; RESP 16; O2SAT 96
--- NOTE | 2022-04-07 11:33 | MHC.CM.PN ---
Patient lives in an apartment with his , Daughter and Special Needs Granddaughter and he required no DME [employer] but was active with [facility] for INR's. Home/resume said services is the goal and CM has initiated and will follow for dc planning. Patient has received Moderna/Covid vax x3 and PCP is Dr. Ellison.IMM addressed.
--- NOTE | 2022-04-07 12:48 | MHC.CM.PN ---
Patient has been medically cleared for dc to home today, with services. Patient was active with [facility], who has been made aware of today's dc.
--- NOTE | 2022-04-07 13:43 | PC.NURSE ---
Alert and oriented. VSS, afebrile, no acute resp. distress noted. Took all schedule meds as order.. New order to discharge patient home with [facility] services. Went over discharge paper work, medication administrations and follow up apt with patient and his . Verbalized understanding back. Son brought in oxygen tank from home, patient placed on 2L NC. [facility], left via car with families.
== END 2022-04-07 13:15 | disposition home health service (06) | DRG 191 ==
LOC: HO.ED 20:51 → HO.EDOVER 22:21
PROVIDERS: Admitting Provider Hospitalist; Emergency Provider Emergency Medicine; PCP Internal Medicine; Visit Provider Internal Medicine
DX: J44.1 Chronic obstructive pulmonary disease with (acute) exacerbation (principal); I50.32 Chronic diastolic (congestive) heart failure; J96.10 Chronic respiratory failure, unspecified whether with hypoxia or hypercapnia; I11.0 Hypertensive heart disease with heart failure; I48.0 Paroxysmal atrial fibrillation; E11.9 Type 2 diabetes mellitus without complications; I25.10 Atherosclerotic heart disease of native coronary artery without angina pectoris; E78.5 Hyperlipidemia, unspecified; J40 Bronchitis, not specified as acute or chronic; J44.0 Chronic obstructive pulmonary disease with (acute) lower respiratory infection; F17.210 Nicotine dependence, cigarettes, uncomplicated; N40.0 Benign prostatic hyperplasia without lower urinary tract symptoms; Z71.6 Tobacco abuse counseling; Z20.822 Contact with and (suspected) exposure to COVID-19; Z99.81 Dependence on supplemental oxygen; Z95.1 Presence of aortocoronary bypass graft; Z85.72 Personal history of non-Hodgkin lymphomas; Z86.718 Personal history of other venous thrombosis and embolism; Z79.01 Long term (current) use of anticoagulants; Z79.02 Long term (current) use of antithrombotics/antiplatelets; Z79.84 Long term (current) use of oral hypoglycemic drugs; Z79.899 Other long term (current) drug therapy
CPT/HCPCS: 36415; 71045; 80048; 80076; 81001; 82947; 83605; 83690; 83880; 84484; 85025; 85610; 87040; 87635; 93005; 94640; 96365; 96375; 99219; 99285; J0456; J1940; J1956; J2920; J2930; J3475

== ENCOUNTER → 2022-04-16 15:58 | Outpatient (BNVA) | payer MEDICARE, OTHER, SELFPAY | PROVIDERS: PCP Internal Medicine; Visit Provider Internal Medicine | DX: I48.0 Paroxysmal atrial fibrillation (principal); Z79.01 Long term (current) use of anticoagulants; Z51.81 Encounter for therapeutic drug level monitoring | CPT/HCPCS: Q3014 ==

== ENCOUNTER → 2022-04-17 15:46 | Outpatient (BNVA) | payer MEDICARE, OTHER, SELFPAY | PROVIDERS: PCP Internal Medicine; Visit Provider Internal Medicine | DX: I48.0 Paroxysmal atrial fibrillation (principal); Z79.01 Long term (current) use of anticoagulants; Z51.81 Encounter for therapeutic drug level monitoring | CPT/HCPCS: 99211 ==

== ENCOUNTER → 2022-04-24 12:01 | Outpatient (BNVA) | payer MEDICARE, OTHER, SELFPAY | PROVIDERS: PCP Internal Medicine; Visit Provider Internal Medicine | DX: I48.0 Paroxysmal atrial fibrillation (principal); Z79.01 Long term (current) use of anticoagulants; Z51.81 Encounter for therapeutic drug level monitoring | CPT/HCPCS: Q3014 ==

== ENCOUNTER 2022-04-27 | Outpatient (REF) | payer MEDICARE, OTHER, SELFPAY | END 2022-04-27 00:01 | disposition home or self-care (01) | LOC: CF | PROVIDERS: Visit Provider Internal Medicine | DX: I48.0 Paroxysmal atrial fibrillation (principal); Z51.81 Encounter for therapeutic drug level monitoring; Z79.01 Long term (current) use of anticoagulants | CPT/HCPCS: 99211 ==

== ENCOUNTER 2022-05-26 08:40 | Outpatient (REF) | payer MEDICARE, OTHER, SELFPAY ==
--- NOTE | 2022-05-26 10:33 | PFT_ITS ---
FLOWS: FEV1 29% of predicted at 0.69 L. FVC 52% of predicted at 1.74 L. FEV1 to FVC ratio of 0.40 No bronchodilator response. LUNG VOLUMES: Total lung capacity 60% of predicted at 3.63 L. Residual volume 76% of predicted at 1.78 L. Slow vital capacity 49% of predicted at 1.84 L. Expiratory reserve volume 100% of predicted at 0.88 L. Diffusion capacity is severely decreased, diffusion capacity adjust to being moderately decreased after correction for alveolar ventilation. IMPRESSION: Combined to very severe obstructive and moderate to severe restrictive ventilatory defect with no bronchodilator response. Decreased diffusion capacity suggests emphysema. MD POPPY Crook/MODL / [id number]
== END 2022-05-26 08:41 | disposition home or self-care (01) ==
LOC: HO.RESP 08:40
PROVIDERS: PCP Internal Medicine; Visit Provider Internal Medicine
DX: I48.0 Paroxysmal atrial fibrillation (principal); J44.9 Chronic obstructive pulmonary disease, unspecified; F17.200 Nicotine dependence, unspecified, uncomplicated; Z51.81 Encounter for therapeutic drug level monitoring; Z79.01 Long term (current) use of anticoagulants
CPT/HCPCS: 85610; 94060; 94727; 94729; 99211

== ENCOUNTER 2022-06-23 22:16 | Inpatient (IN) | payer MEDICARE, SELFPAY ==
--- NOTE | ~2022-06-23 | XR_ITS ---
EXAMINATION: XR CHEST CLINICAL INFORMATION: [place] placement COMPARISON: 06/23/2022 TECHNIQUE: Frontal view of the chest was obtained. FINDINGS: ET tube is approximately 4.5 cm above the hipolito. The tip of the NG tube is at the level of the proximal stomach with side-port at esophagogastric junction. The tip of the recently placed vascular catheter is at the level of the right lower lobe/interlobar pulmonary artery. Pulmonary emphysema with emphysematous change most severely affecting right upper lobe. There is diffuse thickening of bronchial mcqueen or peribronchial interstitium. Persistent small right pleural effusion. Cardiac silhouette is mildly enlarged, status post coronary artery bypass graft surgery. Thoracic aorta is calcified. The small saccular aneurysm of the aortic arch observed on chest CT is not as well seen on this radiographic examination. Multilevel osteophyte formation of the spine. XR/XR chest 1V IMPRESSION: * No pneumothorax after pulmonary artery catheter placement. * Endotracheal tube is in satisfactory position at approximately 4.5 cm above the hipolito. * Pulmonary emphysema. * Interstitial prominence from thickening of the airway mcqueen and/or interstitial edema. * Small right pleural effusion is unchanged.
--- NOTE | ~2022-06-23 | CT_ITS ---
EXAMINATION: CT CHEST, ABDOMEN AND PELVIS WITHOUT CONTRAST. CLINICAL INFORMATION: Hypoxia, elevated INR. COMPARISON: CT chest 03/09/2022. TECHNIQUE: Multidetector volumetric imaging was performed from the thoracic inlet through the pubic symphysis without IV contrast. Sagittal and coronal reformatted images were obtained on the technologist's workstation. This CT examination was performed using dose optimization techniques as appropriate, variously including the following: *Automated exposure control *Adjustment of mA and/or kV according to patient size (this includes techniques or standardized protocols for targeted exams where dose is matched to indication/reason for exam; i.e. extremities or head) *Use of iterative reconstruction technique DLP: 341 and 651 mGy-cm FINDINGS: CHEST: Lung: Increased bronchial wall thickening, mucus impaction and patchy airspace opacities in the right middle and lower lobes when compared to 03/09/2022. Again noted rounded atelectasis in the right lower lobe. There are scattered sub-4 mm pulmonary nodules, some of which are new compared to 03/09/2022, some examples for instance noted in the periphery of the left upper lobe on images 130, 135, 175 and 184 series 19. Background of extensive emphysematous changes more pronounced in the right upper lobe. The endotracheal tube terminates at 3 cm above the hipolito. The central airways are patent. Mediastinum: Cardiomegaly. No pericardial effusion. Extensive coronary artery calcifications. The ascending thoracic aorta measures 4.2 cm in diameter, unchanged. The main pulmonary arteries are prominent suggesting some degree of pulmonary hypertension. No bulky adenopathy. Limited visualization of the thyroid gland without significant abnormality. Pericardium/Pleura: Trace amount of right-sided pleural fluid. No pneumothorax. Chest Wall/Axilla: Symmetric gynecomastia. No pathologically enlarged lymph nodes. ABDOMEN/PELVIS: Peritoneal Space: No free air or free fluid. Liver, Gallbladder, Biliary Tree: Limited noncontrast evaluation. No discrete focal liver lesion. The gallbladder is hydropic with hyperattenuating content, diffuse wall thickening and mild pericholecystic. Pancreas: Fat stranding around the proximal pancreas, extending into the diana hepatitis and retroperitoneum. The main pancreatic duct is nondilated. Spleen: Limited noncontrast examination, unremarkable. Adrenal Glands: No adrenal mass. Kidneys and Ureters: Extensive vascular calcifications. No hydronephrosis. Bilateral cortical cysts. No significant perinephric fat stranding. Bladder: Underdistended. Intraluminal air is nonspecific in the presence of a Valadez. No significant perivesical fat stranding. Gastrointestinal Tract: An enteric tube terminates in the stomach. The stomach and small bowel are nondilated. Normal appendix. There is diffuse colonic wall thickening. There is a background of extensive diverticulosis in the sigmoid. No evidence of bowel obstruction. Abdominal Wall: There is a 2 cm collection with hyperattenuating material and air in the right inguinal region (23:77). Hydroceles. Lymphovascular Structures: Ill-defined soft tissue infiltration of the retroperitoneum with fat stranding is similar to slightly increased compared to 01/14/2021. Extensive aortoiliac atherosclerosis. The infrarenal abdominal aorta measures up to 3.2 cm in diameter, stable. Pelvic Viscera: The balloon of the Valadez catheter is inflated within the prostate gland. The prostate gland is enlarged. Osseous Structures: Osteopenia. Multilevel degenerative changes. No acute or aggressive appearing osseous abnormalities. CT/CT abdomen pelvis wo IV con IMPRESSION: CHEST: 1. Increased bronchial wall thickening, mucus impaction and patchy airspace opacities in the right middle and lower lobes concerning for an atypical infectious process. 2. New sub-4 mm pulmonary nodules, some of which are new compared to 03/09/2022. For these findings, a short-term follow-up chest CT is recommended. ABDOMEN/PELVIS: 1. The balloon of the Valadez catheter is inflated within the prostate gland. Recommend repositioning. 2. Fat stranding around the proximal pancreas and extending into the diana hepatis and retroperitoneum could be associated with acute pancreatitis in the proper clinical context. Gallbladder wall thickening and pericholecystic fat stranding may be reactive. 3. There is diffuse colonic wall thickening, more noticeable in the ascending and proximal transverse colon concerning for colitis. After resolution of the acute symptoms, correlation with a colonoscopy is recommended if not already recently obtained to rule out underlying lesions. 4. There is a background of extensive sigmoid diverticulosis. 5. There is a 2 cm collection with hyperattenuating material and air in the right inguinal region with surrounding inflammatory changes. Correlate with physical examination. 6. Ill-defined soft tissue infiltration of the retroperitoneum is similar to slightly increased compared to 01/14/2021. This critical result was discussed with Abel Nelson NP at 06/24/2022 1:31 AM and it was ascertained that the content and urgency of the report was understood at the time of direct communication.
--- NOTE | ~2022-06-23 | CT_ITS ---
EXAMINATION: CT HEAD WITHOUT CONTRAST CLINICAL INFORMATION: Post cardiac arrest. COMPARISON: MR brain 04/04/2018. TECHNIQUE: Contiguous axial imaging was performed from the skull base to vertex without intravenous administration of contrast. This CT examination was performed using dose optimization techniques as appropriate, variously including the following: *Automated exposure control *Adjustment of mA and/or kV according to patient size (this includes techniques or standardized protocols for targeted exams where dose is matched to indication/reason for exam; i.e. extremities or head) *Use of iterative reconstruction technique DLP: 775 mGy-cm FINDINGS: There is no evidence of acute intracranial hemorrhage or edematous territorial infarction. There are moderate to severe scattered foci of hypodensity in the bilateral cerebral white matter. Little-white matter differentiation is preserved. Proportional prominence of the ventricles and sulcal spaces. No evidence for obstructive hydrocephalus. No abnormal mass effect or midline shift. No extra-axial fluid collections. No acute soft tissue or osseous abnormalities. Mucosal thickening of the right maxillary sinus and partial opacification of several right-sided ethmoid air cells. The mastoids and middle ear cavities are clear. Bilateral lens extraction. CT/CT head/brain wo IV con IMPRESSION: No acute intracranial abnormality. Moderate to severe white matter hypodensities presumably reflecting small vessel ischemic changes, overall similar to slightly progressed when compared to the MR from 04/04/2018.
--- NOTE | ~2022-06-23 | US_ITS ---
EXAMINATION: US VENOUS ULTRASOUND WITH DOPPLER LOWER EXTREMITY, BILATERAL CLINICAL INFORMATION: Hypoxic. Edema. Pain. COMPARISON: No similar priors. TECHNIQUE: Ultrasound of the deep veins is performed from the hip to the calf with compression sonography and color and pulse Doppler assessment. Spectral analysis with color-flow imaging is performed. FINDINGS: RIGHT: There is normal venous compression and respiratory variation and augmented flow. The visualized common femoral vein, superficial femoral vein, profunda femoral vein, popliteal vein, and the trifurcation region shows no evidence of deep venous thrombosis. There is no significant popliteal fossa cyst. LEFT: There is normal venous compression and respiratory variation and augmented flow. The visualized common femoral vein, superficial femoral vein, profunda femoral vein, popliteal vein, and the trifurcation region shows no evidence of deep venous thrombosis with the caveat that the mid left femoral vein was not well visualized due to shadowing from overlying dressing. There is no significant popliteal fossa cyst. If the patient's symptoms persist, followup ultrasound in 5 days 7 days might be of value to exclude proximal propagation from a non-visualized calf vein. US/US venous duplex LE BI IMPRESSION: No DVT demonstrated in the bilateral lower extremities with the caveat that the left mid femoral vein was not well seen due to shadowing from overlying bandages/dressings.
--- NOTE | ~2022-06-23 | XR_ITS ---
EXAMINATION: XR CHEST CLINICAL INFORMATION: Cardiac arrest. Check tube placement COMPARISON: 04/06/2022 TECHNIQUE: Frontal view of the chest was obtained. FINDINGS: ET tube is about 2 cm above the hipolito. Patient status post median sternotomy. The NG tube is present with its tip in the stomach with the side-port at the GE junction. This should probably be advanced. Small right pleural effusion is seen. Right basilar atelectasis is present. Pleural parenchymal changes stable when compared to 04/06/2022 XR/XR chest 1V IMPRESSION: ET tube 2 cm above the hipolito. NG tube with side-port at the GE junction and should probably be advanced.
--- NOTE | 2022-06-23 22:28 | ECG_ITS ---
Test Reason : CARDIAC ARREST Blood Pressure : / mmHG Vent. Rate : 077 BPM Atrial Rate : 084 BPM P-R Int : 000 ms QRS Dur : 216 ms QT Int : 478 ms P-R-T Axes : 102 -84 088 degrees QTc Int : 540 ms Probable atrial tachycardia Left axis deviation Right bundle branch block Abnormal ECG When compared with ECG of 06-APR-2022 19:12, Current undetermined rhythm precludes rhythm comparison, needs review Right bundle branch block is now Present Referred By: Abhishek Castillo Electronically Signed By:KELSY URBINA
[2022-06-23 22:33] VITALS: BP 148/44
[2022-06-23 22:36] VITALS: BMI 25.0
[2022-06-23 22:45] LABS: MANUAL DIFF FLAG NO
[2022-06-23 22:47] LABS: Basophils Percent Auto 0.1 % (0-2); Eosinophils Percent Auto 0.1 % (0-4); Hematocrit 36.3 % (42.0-52.0); Imm Gran Abs Auto 0.27 X10*3/uL (0.00-0.03); Imm Gran Pct Auto 2.4 % (0.0-0.4); Lymphocytes Absolute Auto 1.6 X10*3/uL (1.2-4.9); Lymphocytes Percent Auto 13.9 % (20-40); Mean Corpuscular HGB Conc 30.3 g/dl (31.0-36.0); Mean Corpuscular Hemoglobin 28.3 pg (27.0-33.0); Mean Corpuscular Volume 93.3 fL (80.0-98.0); Mean Platelet Volume 9.2 fL (9.4-12.4); Monocytes Absolute Auto 0.5 X10*3/uL (0.1-1.2); Monocytes Percent Auto 4.4 % (2-11); NRBC Pct Auto 0.3 /100WBC (0.0-0.2); Neutrophils Absolute Auto 8.9 x10*3/uL (2.0-8.3); Neutrophils Percent Auto 79.1 % (45-73); Platelet Count 382 X10*3/uL (160-400); Red Blood Count 3.89 X10*6/uL (4.60-5.80); Red Cell Distribution Width 15.8 % (11.0-16.0); White Blood Count 11.2 X10*3/uL (4.8-10.8)
--- NOTE | 2022-06-23 22:52 | PC.NURSE ---
pt arrived at 10:18 with Ros, poc 154 10:20pm, 20 in left AC, unable to get a blood pressure, pt at 93 percent, 1 epi at 10:24, 10:25 1 liter of normal saline, Hr 81 junctional, b/p 130/55, EKG 10:28, 10:29 2nd epi, blood pressure dropped at 10:40 74/28 epi drip started at 1mcq/kg started at 10:41pm, 92.3 core temp, bear hugger placed, landers placed size 16 [place], intubation at 10:26pm 26 at the lip. 7 1/2 size tube, 3rd epi at 10:43pm, O2 93 percent on 100% vented. 4 epi at 10:46pm, EPi drip increased to 2mcq/kg. pt bladder scanned 0. ABG ordered.
[2022-06-23 22:55] LABS: Partial Thromboplastin Time 51.6 SEC (26.0-36.4)
[2022-06-23 22:59] LABS: Prothrombin Time 109.5 SEC (10.0-13.1)
[2022-06-23 23:03] VITALS: BP 140/64; PULSE 89; RESP 26; TEMP 35.6; O2SAT 100
[2022-06-23 23:04] LABS: INTERNATIONAL NORM RATIO 8.7 (0.9-1.1)
--- NOTE | 2022-06-23 23:04 | ED.SOB ---
HPI - SOB/Dyspnea General Chief Complaint: Dyspnea Stated Complaint: cardiac arrest Time Seen by Provider: 06/23/22 22:30 Source: family and EMS Mode of arrival: EMS Limitations: other (PULMONARY/CARDIAC ARREST, INTUBATED) History of Present Illness HPI Narrative: 77-year-old male who presents emergency department for evaluation of shortness of breath, not eating or drinking x2 weeks, 20 lb weight loss and diarrhea. The paramedics were called to the patient's home for shortness of breath. They state that when they got into the ambulance, the patient went into a cardiac arrest. He was asystolic. Paramedics put in a gel LMA, right lower extremity IO and you stay Rey CPR device. He got 4 rounds of epinephrine and approximately 20 minutes of CPR and when they arrived in the emergency department the patient had return of spontaneous circulation. Patient was hypotensive and was given epinephrine IV and started on epinephrine drip. The patient's LMA was removed and he was intubated by me. Patient was placed on a ventilator 16/330/6.5 peep, FiO2 100%. I did talk to the patient's . She states the patient has been sick for 2 weeks with multiple episodes of diarrhea, loss of appetite, not eating and drinking. When he told her he was not feeling well and that he thought he was going to and not making the Marcie. Related Data Home Medications Medication Instructions Recorded Confirmed clopidogrel 75 mg tablet (Plavix) 75 mg PO DAILY 12/23/21 05/21/22 amiodarone 200 mg tablet 200 mg PO DAILY 12/25/21 05/21/22 allopurinol 100 mg tablet 100 mg PO BEDTIME 01/05/22 05/21/22 Previous Rx's Medication Instructions Recorded furosemide 40 mg tablet 40 mg PO DAILY #90 caps 10/06/21 budesonide-formoterol HFA 160 2 puff PO BID #10.2 grams 10/29/21 mcg-4.5 mcg/actuation aerosol inhaler (Symbicort) rosuvastatin 40 mg tablet (Crestor) 40 mg PO DAILY #90 tabs 11/12/21 metformin 500 mg tablet,extended 500 mg PO BEDTIME 30 days #30 tabs 03/27/22 release 24 hr finasteride 5 mg tablet 5 mg PO DAILY 90 days #90 tabs 04/23/22 albuterol sulfate 90 mcg/actuation 2 puff PO Q4-6H PRN for dyspnea 05/12/22 aerosol inhaler #8.5 grams metoprolol tartrate 50 mg tablet 50 mg PO BID #180 tabs 05/14/22 warfarin 4 mg tablet 4 mg PO DAILY #30 tabs 05/19/22 ROLLATOR #1 ea 05/22/22 Allergies Allergy/AdvReac Type Severity Reaction Status Date / Time No Known Allergies Allergy Verified 05/26/22 10:12 [No Known Allergies*] Review of Systems Review of Systems: Yes unobtainable due to endotracheal tube PMFSH Past Medical History Medical History Abdominal aortic aneurysm without rupture Acute exacerbation of chronic obstructive pulmonary disease Acute on chronic diastolic CHF (congestive heart failure), NYHA class 3 Atherosclerotic cardiovascular disease Benign essential hypertension BPH loc w urin obs/LUTS Chronic atrial fibrillation Chronic diastolic heart failure Congestive heart failure COPD (chronic obstructive pulmonary disease) Coronary artery disease Current use of anticoagulant therapy Diabetes mellitus Elevated PSA Follicular lymphoma Heart failure with preserved ejection fraction High cholesterol History of blood clots History of deep vein thrombosis (DVT) of lower extremity Insomnia Overweight (BMI 25.0-29.9) PAF (paroxysmal atrial fibrillation) Peripheral arterial disease Pneumonia Pure hypercholesterolemia Smoker Smoker Vitamin D deficiency Surgical History History of quadruple bypass Family History Family History Father Cancer Mother Cardiovascular disease Social History Social History Household Members: Spouse and Children Housing: Apartment Are you a primary nurse wound care to a significant other at home: No Do you presently have visiting nurse or other home services: No Alcohol intake: never Patient Tobacco Use Status: Former Tobacco user Tobacco use type: Cigarette Cigarette Packs Per Day: 1.5 Cigarettes Per Day: 30.0 Years Smoked: 65 Second Hand Smoke Exposure: No Advance Directives: Yes Advance Directives on File: Yes Advance Directives Date on File: 01/06/22 service: No Current occupational status: disabled Cognitive needs: No Hearing needs: No Vision needs: No Physical Exam Vital Signs: Vital Signs: Last Vital Signs Temp 95.2 F L 06/23/22 23:50 Pulse 73 06/23/22 23:50 Resp 26 H 06/23/22 23:50 BP 101/49 L 06/23/22 23:50 Pulse Ox 100 06/23/22 23:50 O2 Del Method 06/23/22 23:50 FiO2 60 06/23/22 23:37 BMI result Body Mass Index 25.0 Const: Other: Elderly male, cachectic, intubated, making some spontaneous respiratory effort HEENT: Other: Normal cephalic and atraumatic, pupils were equal and round at 8 mm, not reacting to light Resp: Other: Symmetric breath sounds with bag-valve mask assist through the T2 Cardio: Other: Very faint heart sounds, regular rate and rhythm GI: Other: Abdomen does appear to be distended, normoactive bowel sounds Neuro: Other: No spontaneous movement Course Course Course Narrative: 77-year-old male who presented to the emergency department and respiratory and cardiac arrest. Patient has been ill for approximately 2 weeks with frequent diarrhea, loss of appetite, not eating and drinking. This evening he was feeling worse with short of breath and had a respiratory/cardiac arrest while he was being placed in the ambulance. Paramedics perform CPR with a Rey device for 20 minutes, gave 4 rounds of epinephrine and the patient achieved return of spontaneous circulation on arrival to the emergency department. Patient was hypotensive and given 2 rounds of epinephrine started on epinephrine drip. The wet roller LMA was removed and I did intubate the patient. 2335: Laboratory evaluation: WBC elevated 11,200. Potassium low 2.6. BUN and creatinine elevated 66 and 5.98. AST and ALT elevated 152 and 86. Troponin elevated 52.9. Radiology evaluation: Radiology reading: IMPRESSION: ET tube 2 cm above the hipolito. NG tube with side-port at the GE junction and should probably be advanced. Dictated By:Xavier Gray MD On my review of the chest x-ray, felt that the ET T was down the right mainstem and it was pulled back 2 cm. Also, think that the patient has a right lower lobe infiltrate. I did discuss the patient's presentation with the covering custom marine canvas fabricator, Dr. Renteria. The patient will be admitted to the intensive care unit. The patient's family is here and I did discuss the patient's critical condition and his renal failure. I suspect the patient may have had a viral illness which causes diarrhea however malignancy also needs to be considered. Patient was treated with Zosyn 3.375 mg IV. Lactic acid is critically high at 12.6, this is probably secondary to his cardiac arrest and renal failure. Patient was treated with 2 L of normal saline IV. I ordered 1/3 L of normal saline. Medications Administered Generic Name Dose Route Start Last Admin Trade Name Freq PRN Reason Stop Dose Admin Potassium Chloride 10 meq in 100 mls @ 100 mls/hr 06/23/22 23:30 06/23/22 23:33 Potassium Chloride/H20 IV 06/24/22 01:29 100 mls/hr Q1H TAMMY Administration Discontinued Medications Generic Name Dose Route Start Last Admin Trade Name Freq PRN Reason Stop Dose Admin Sodium Chloride 1,000 mls @ 999 mls/hr 06/23/22 22:28 06/23/22 23:17 Ns IV 06/23/22 23:28 999 mls/hr .Q1H1M STA Administration Midazolam HCl 2 mg 06/23/22 23:26 06/23/22 23:32 Midazolam Hcl/Pf 2 Mg/2 Ml Vial IVPUSH 06/23/22 23:27 2 mg ONCE STA Administration Medical Decision Making Lab Data Result Diagrams: 06/23/22 22:30 06/23/22 22:30 Labs: Lab Results 06/23/22 06/23/22 06/23/22 Range/Units 22:20 22:30 22:30 WBC 11.2 H (4.8-10.8) X10*3/uL RBC 3.89 L (4.60-5.80) X10*6/uL Hgb 11.0 L (14.0-18.0) g/dl Hct 36.3 L (42.0-52.0) % MCV 93.3 (80.0-98.0) fL MCH 28.3 (27.0-33.0) pg MCHC 30.3 L (31.0-36.0) g/dl RDW 15.8 (11.0-16.0) % Plt Count 382 D (160-400) X10*3/uL MPV 9.2 L (9.4-12.4) fL Immature Gran % (Auto) 2.4 H (0.0-0.4) % Neut % (Auto) 79.1 H (45-73) % Lymph % (Auto) 13.9 L (20-40) % Nicol[place] % (Auto) 4.4 (2-11) % Eos % (Auto) 0.1 (0-4) % Baso % (Auto) 0.1 (0-2) % Lymph # (Auto) 1.6 (1.2-4.9) X10*3/uL [place] # (Auto) 0.5 (0.1-1.2) X10*3/uL Eos # (Auto) 0.0 (0.0-0.4) X10*3/uL Baso # (Auto) 0.0 (0.0-0.2) X10*3/uL Abs Immat Gran (auto) 0.27 H (0.00-0.03) X10*3/uL Absolute Neuts (auto) 8.9 H (2.0-8.3) x10*3/uL Absolute Nucleated RBC 0.030 H (0.0-0.012) X10*3/uL Nucleated RBC % (auto) 0.3 H (0.0-0.2) /100WBC PT 109.5 H (10.0-13.1) SEC INR 8.7 H* D (0.9-1.1) APTT 51.6 H (26.0-36.4) SEC O2 Saturation % ABG pH at Pt Temp (7.35-7.45) ABG pCO2 at Pt Temp (32-45) mmHg ABG pO2 at Pt Temp (83-108) mmHg ABG HCO3 (22-26) mmol/L ABG Base Excess (Actual) mmol/L Sodium (135-145) mmol/L Potassium (3.3-5.1) mmol/L Chloride (96-108) mmol/L Carbon Dioxide (22-29) mmol/L Anion Gap (12-20) BUN (9-16) mg/dL Creatinine (0.5-1.4) mg/dL Estim Creat Clear Calc Estimated GFR POC Glucose 154 H (60-115) mg/dL Random Glucose (60-115) mg/dL Lactic Acid (0.5-2.0) mmol/L Calcium (8.4-10.2) mg/dL AST (5-37) U/L ALT (0-40) U/L Alkaline Phosphatase (39-117) U/L Troponin I High Sens (<3.5-35.0) ng/L B-Natriuretic Peptide (<100) pg/mL Total Protein (6.5-8.0) g/dL Albumin (3.5-5.0) g/dL Lipase (8-78) U/L Influenza Type A (PCR) (Negative) Influenza Type B (PCR) (Negative) RSV RNA Qual (PCR) (Negative) SARS-CoV-2 RNA (RT-PCR) (Negative) 06/23/22 06/23/22 06/23/22 Range/Units 22:30 22:30 22:30 WBC (4.8-10.8) X10*3/uL RBC (4.60-5.80) X10*6/uL Hgb (14.0-18.0) g/dl Hct (42.0-52.0) % MCV (80.0-98.0) fL MCH (27.0-33.0) pg MCHC (31.0-36.0) g/dl RDW (11.0-16.0) % Plt Count (160-400) X10*3/uL MPV (9.4-12.4) fL Immature Gran % (Auto) (0.0-0.4) % Neut % (Auto) (45-73) % Lymph % (Auto) (20-40) % Nicollet % (Auto) (2-11) % Eos % (Auto) (0-4) % Baso % (Auto) (0-2) % Lymph # (Auto) (1.2-4.9) X10*3/uL Nicol[place] # (Auto) (0.1-1.2) X10*3/uL Eos # (Auto) (0.0-0.4) X10*3/uL Baso # (Auto) (0.0-0.2) X10*3/uL Abs Immat Gran (auto) (0.00-0.03) X10*3/uL Absolute Neuts (auto) (2.0-8.3) x10*3/uL Absolute Nucleated RBC (0.0-0.012) X10*3/uL Nucleated RBC % (auto) (0.0-0.2) /100WBC PT (10.0-13.1) SEC INR (0.9-1.1) APTT (26.0-36.4) SEC O2 Saturation % ABG pH at Pt Temp (7.35-7.45) ABG pCO2 at Pt Temp (32-45) mmHg ABG pO2 at Pt Temp (83-108) mmHg ABG HCO3 (22-26) mmol/L ABG Base Excess (Actual) mmol/L Sodium 135 (135-145) mmol/L Potassium 2.6 L D (3.3-5.1) mmol/L Chloride 82 L (96-108) mmol/L Carbon Dioxide 17 L (22-29) mmol/L Anion Gap 39 H (12-20) BUN 66 H D (9-16) mg/dL Creatinine 5.98 H* (0.5-1.4) mg/dL Estim Creat Clear Calc 8.8 Estimated GFR 9 POC Glucose (60-115) mg/dL Random Glucose 228 H D (60-115) mg/dL Lactic Acid (0.5-2.0) mmol/L Calcium 8.5 (8.4-10.2) mg/dL AST 152 H (5-37) U/L ALT 86 H (0-40) U/L Alkaline Phosphatase 111 D (39-117) U/L Troponin I High Sens 52.9 H (<3.5-35.0) ng/L B-Natriuretic Peptide 986 H (<100) pg/mL Total Protein 5.6 L (6.5-8.0) g/dL Albumin 3.4 L (3.5-5.0) g/dL Lipase 35 (8-78) U/L Influenza Type A (PCR) (Negative) Influenza Type B (PCR) (Negative) RSV RNA Qual (PCR) (Negative) SARS-CoV-2 RNA (RT-PCR) (Negative) 06/23/22 06/23/22 06/23/22 Range/Units 22:54 23:08 23:20 WBC (4.8-10.8) X10*3/uL RBC (4.60-5.80) X10*6/uL Hgb (14.0-18.0) g/dl Hct (42.0-52.0) % MCV (80.0-98.0) fL MCH (27.0-33.0) pg MCHC (31.0-36.0) g/dl RDW (11.0-16.0) % Plt Count (160-400) X10*3/uL MPV (9.4-12.4) fL Immature Gran % (Auto) (0.0-0.4) % Neut % (Auto) (45-73) % Lymph % (Auto) (20-40) % Nicollet % (Auto) (2-11) % Eos % (Auto) (0-4) % Baso % (Auto) (0-2) % Lymph # (Auto) (1.2-4.9) X10*3/uL Nicollet # (Auto) (0.1-1.2) X10*3/uL Eos # (Auto) (0.0-0.4) X10*3/uL Baso # (Auto) (0.0-0.2) X10*3/uL Abs Immat Gran (auto) (0.00-0.03) X10*3/uL Absolute Neuts (auto) (2.0-8.3) x10*3/uL Absolute Nucleated RBC (0.0-0.012) X10*3/uL Nucleated RBC % (auto) (0.0-0.2) /100WBC PT (10.0-13.1) SEC INR (0.9-1.1) APTT (26.0-36.4) SEC O2 Saturation 100.0 % ABG pH at Pt Temp 7.10 L* (7.35-7.45) ABG pCO2 at Pt Temp 34 (32-45) mmHg ABG pO2 at Pt Temp 587 H (83-108) mmHg ABG HCO3 11 L (22-26) mmol/L ABG Base Excess (Actual) -17.4 mmol/L Sodium (135-145) mmol/L Potassium (3.3-5.1) mmol/L Chloride (96-108) mmol/L Carbon Dioxide (22-29) mmol/L Anion Gap (12-20) BUN (9-16) mg/dL Creatinine (0.5-1.4) mg/dL Estim Creat Clear Calc Estimated GFR POC Glucose (60-115) mg/dL Random Glucose (60-115) mg/dL Lactic Acid 12.6 H* (0.5-2.0) mmol/L Calcium (8.4-10.2) mg/dL AST (5-37) U/L ALT (0-40) U/L Alkaline Phosphatase (39-117) U/L Troponin I High Sens (<3.5-35.0) ng/L B-Natriuretic Peptide (<100) pg/mL Total Protein (6.5-8.0) g/dL Albumin (3.5-5.0) g/dL Lipase (8-78) U/L Influenza Type A (PCR) NEGATIVE (Negative) Influenza Type B (PCR) NEGATIVE (Negative) RSV RNA Qual (PCR) NEGATIVE (Negative) SARS-CoV-2 RNA (RT-PCR) NEGATIVE (Negative) Procedures Intubation Time out performed: No sedative: none Assist Device Used: fiber optic device ([place] scope) ET Tube Size: 7.5 ET Tube Uncuffed: Yes Tube Secured Depth (cm): 22 Tube Secured Location: lips Tube Placement Confirmation: visualized tube passing through cords Patient Tolerated Procedure: no complications Additional Comments: On my review of the chest x-ray, believe that the endotracheal tube was down the right mainstem and the tube was withdrawn 2 cm and secured at 22 cm at the lip by respiratory therapy Critical Care Time Critical Care Time Critical Care Time: Yes Total Critical Care Time: 80 Attestation: Critical Care: The patient was critically ill with a high probability of imminent or life threatening deterioration. I spent greater than 30 minutes of discontinuous time evaluating the patient,delivering critical care at the bedside, discussing and evaluating pertinent data with consultants. Critical care time does not include time spent performing separately billable procedures or teaching. Total time spent performing critical care was 80 minutes. Discharge Plan Discharge Prescriptions: No Action furosemide 40 mg tablet 40 mg PO DAILY Qty: 90 3RF budesonide-formoterol [Symbicort] 160-4.5 mcg/actuation HFA aerosol inhaler 2 puff PO BID Qty: 10.2 3RF metformin 500 mg tablet extended release 24 hr 500 mg PO BEDTIME 30 Days Qty: 30 1RF finasteride 5 mg tablet 5 mg PO DAILY 90 Days Qty: 90 1RF albuterol sulfate 90 mcg/actuation HFA aerosol inhaler 2 puff PO Q4-6H PRN (Reason: for dyspnea) Qty: 8.5 0RF metoprolol tartrate 50 mg tablet 50 mg PO BID Qty: 180 3RF warfarin 4 mg tablet 4 mg PO DAILY Qty: 30 2RF Protocol: Dose Management Condition: Wednesday (Week One) Dose/Route: 2 mg Instruction: 0.5 x 4 mg tablets Condition: Wednesday Dose/Route: 4 mg Instruction: 1 x 4 mg tablet Condition: Wednesday Dose/Route: 2 mg Instruction: 0.5 x 4 mg tablets Condition: Wednesday Dose/Route: 2 mg Instruction: 0.5 x 4 mg tablets Condition: Dose/Route: 2 mg Instruction: 0.5 x 4 mg tablets Condition: Wednesday Dose/Route: 2 mg Instruction: 0.5 x 4 mg tablets Condition: Wednesday Dose/Route: 2 mg Instruction: 0.5 x 4 mg tablets Condition: Wednesday (Week Two) Dose/Route: 2 mg Instruction: 0.5 x 4 mg tablets Condition: Wednesday Dose/Route: 4 mg Instruction: 1 x 4 mg tablet Condition: Wednesday Dose/Route: 2 mg Instruction: 0.5 x 4 mg tablets Condition: Wednesday Dose/Route: 2 mg Instruction: 0.5 x 4 mg tablets Condition: Dose/Route: 2 mg Instruction: 0.5 x 4 mg tablets Condition: Wednesday Dose/Route: 2 mg Instruction: 0.5 x 4 mg tablets Condition: Wednesday Dose/Route: 2 mg Instruction: 0.5 x 4 mg tablets Protocol Text: Adjustment Start Date: Wednesday05/26/22 INR Value: 2.2 INR Date: 05/26/22 Recheck Date: 06/09/22 Additional Instructions: cont prev dosing balance reds and greens call with any medication changes (DME) ROLLATOR See Rx Instructions .Route .MEDSUPPLY Qty: 1 0RF Rx Instructions: As directed allopurinol 100 mg tablet 100 mg PO BEDTIME rosuvastatin [Crestor] 40 mg tablet 40 mg PO DAILY Qty: 90 3RF clopidogrel [Plavix] 75 mg tablet 75 mg PO DAILY amiodarone 200 mg tablet 200 mg PO DAILY
[2022-06-23 23:05] LABS: B Type Natriuretic Peptide 986 pg/mL (<100)
[2022-06-23 23:07] LABS: Troponin-I High Sensitivity 52.9 ng/L (<3.5-35.0)
[2022-06-23 23:09] LABS: Alanine Aminotransferase 86 U/L (0-40); Albumin Level 3.4 g/dL (3.5-5.0); Alkaline Phosphatase 111 U/L (39-117); Anion Gap 39 (12-20); Aspartate Amino Transferase 152 U/L (5-37); Blood Urea Nitrogen 66 mg/dL (9-16); Calcium 8.5 mg/dL (8.4-10.2); Carbon Dioxide 17 mmol/L (22-29); Chloride 82 mmol/L (96-108); Glucose Random 228 mg/dL (60-115); Lipase 35 U/L (8-78); Potassium 2.6 mmol/L (3.3-5.1); Sodium 135 mmol/L (135-145); Total Protein 5.6 g/dL (6.5-8.0)
[2022-06-23 23:10] LABS: Creatinine Clr Calc Pharmacy 8.8; Estimated Glomerular Filt Rate 9
[2022-06-23 23:11] LABS: Glucose, Whole Blood 154 mg/dL (60-115)
[2022-06-23 23:15] LABS: ABG Base Excess -17.4 mmol/L; ABG HCO3 11 mmol/L (22-26); ABG pCO2 34 mmHg (32-45); ABG pO2 587 mmHg (83-108)
[2022-06-23] MEDS: 0.9 % Sodium Chloride 1,000 ML 999 ML IV (23:17)
[2022-06-23 23:23] LABS: Lactic Acid 12.6 mmol/L (0.5-2.0)
--- NOTE | 2022-06-23 23:27 | PC.NURSE ---
Addendum entered by Arianne Agarwla 06/23/22 23:55: NG tube was inserted and confirmed with X-ray. Pt's has 2 bags of IVF running and epi as ordered by the provider. K+ was hold d/t pt was hypotensive. Pt's lactic acid was 12.4 and provider was notified. This nurse gave report to ICU nurse and pt is going to be transfer by this nurse and RT. The bare hugger was removed by the [employer] nurse order. Original Note: by doctor order: Pt's epi has been stopped, and k+ is going to be given.
--- NOTE | 2022-06-23 23:28 | P.HPCC_ITS ---
History of Present Illness Date of Service: 06/23/22 <Abel Nelson NP - Last Filed: 06/24/22 03:02> Attending physician on admission: Harley Young <Abel Nelson NP - Last Filed: 06/24/22 03:02> Chief Complaint: shortness of breath <Abel Nelson NP - Last Filed: 06/24/22 03:02> The patient is a 76-year-old male with a past medical history of hypertension, hyperlipidemia, diabetes, CAD, Congestive heart failure on Lasix, history of follicular lymphoma, history of DVT, paroxysmal AFib(On Coumadin) tobacco dependence, ? COPD- on 2 L of home oxygen,BPH, abdominal aortic aneurysm, vitamin-D deficiency, peripheral vascular disease, insomnia? who presented to the hospital today after cardiac/Pulmonary arrest. Paramedics called to the home for shortness of breath, family also stated patient not eating or drinking for x2 weeks, 20 lb weight loss and diarrhea.? when patient arrived in the ambulance, the patient went into a cardiac arrest.? He was asystolic.? Paramedics put in a gel LMA, right lower extremity IO and you stay Rey CPR device.? He got 4 rounds of epinephrine and approximately 20 minutes of CPR and when they arrived in the emergency department the patient had return of spontaneous circulation.? In ED, patient was hypotensive and was given epinephrine IVpush and started on epinephrine drip.? The patient's LMA was removed and exchanged to ET tube.? Laboratory data was significant for? WBC 11.2, hemoglobin 11, hematocrit 36.3, INR 8.7,? potassium 2.6, chloride 82, serum bicarb 17, and anion gap 39, BUN 66, creatinine 5.98, lactic acid 12.6, AST 152, ALT 86, troponin sensitivity 52.9, BNP 986, ?AB./587/11 IMAGING:? CT-head- PENDING? Chest CT-? 1.? Increased bronchial wall thickening, mucus impaction and patchy airspace opacities in the right middle and lower lobes concerning for an atypical infectious process. 2.? New sub-4 mm pulmonary nodules Abdomen/pelvis-? 1.? The balloon of the Valadez catheter is inflated within the prostate gland. Recommend repositioning. 2.? Fat stranding around the proximal pancreas and extending into the diana hepatis and retroperitoneum could be associated with acute pancreatitis in the proper clinical context. Gallbladder wall thickening and pericholecystic fat stranding may be reactive. 3.? There is diffuse colonic wall thickening, more noticeable in the ascending and proximal transverse colon concerning for colitis. After resolution of the acute symptoms, correlation with a colonoscopy is recommended if not already recently obtained to rule out underlying lesions. 4.? There is a background of extensive sigmoid diverticulosis. 5.? There is a 2 cm collection with hyperattenuating material and air in the right inguinal region with surrounding inflammatory changes. Correlate with physical examination. 6.? Ill-defined soft tissue infiltration of the retroperitoneum is similar to slightly increased compared to 01/14/2021. <Abel Nelson NP - Last Filed: 06/24/22 03:02> The patient is a 76-year-old male with a past medical history of hypertension, hyperlipidemia, diabetes, CAD, Congestive heart failure on Lasix, history of follicular lymphoma, history of DVT, paroxysmal AFib(On Coumadin) tobacco dependence, ? COPD- on 2 L of home oxygen,BPH, abdominal aortic aneurysm, vitamin-D deficiency, peripheral vascular disease, insomnia? who presented to the hospital today after cardiac/Pulmonary arrest. Paramedics called to the home for shortness of breath, family also stated patient not eating or drinking for x2 weeks, 20 lb weight loss and diarrhea.? when patient arrived in the ambulance, the patient went into a cardiac arrest.? He was asystolic.? Paramedics put in a gel LMA, right lower extremity IO and you stay Rey CPR device.? He got 4 rounds of epinephrine and approximately 20 minutes of CPR and when they arrived in the emergency department the patient had return of spontaneous circulation.? In ED, patient was hypotensive and was given epinephrine IVpush and started on epinephrine drip.? The patient's LMA was removed and exchanged to ET tube.? Laboratory data was significant for? WBC 11.2, hemoglobin 11, hematocrit 36.3, INR 8.7,? potassium 2.6, chloride 82, serum bicarb 17, and anion gap 39, BUN 66, creatinine 5.98, lactic acid 12.6, AST 152, ALT 86, troponin sensitivity 52.9, BNP 986, ?AB.10/34/587/11 IMAGING:? CT-head- PENDING? Chest CT-? 1.? Increased bronchial wall thickening, mucus impaction and patchy airspace opacities in the right middle and lower lobes concerning for an atypical infectious process. 2.? New sub-4 mm pulmonary nodules Abdomen/pelvis-? 1.? The balloon of the Valadez catheter is inflated within the prostate gland. Recommend repositioning. 2.? Fat stranding around the proximal pancreas and extending into the diana hepatis and retroperitoneum could be associated with acute pancreatitis in the proper clinical context. Gallbladder wall thickening and pericholecystic fat stranding may be reactive. 3.? There is diffuse colonic wall thickening, more noticeable in the ascending and proximal transverse colon concerning for colitis. After resolution of the acute symptoms, correlation with a colonoscopy is recommended if not already recently obtained to rule out underlying lesions. 4.? There is a background of extensive sigmoid diverticulosis. 5.? There is a 2 cm collection with hyperattenuating material and air in the right inguinal region with surrounding inflammatory changes. Correlate with physical examination. 6.? Ill-defined soft tissue infiltration of the retroperitoneum is similar to slightly increased compared to 01/14/2021. Dr. Young dictating addendum-- <Harley Young MD - Last Filed: 06/24/22 14:02> Review of Systems Review of Systems: Yes Unobtainable due to mental status (Patient intubated ) <Abel Nelson NP - Last Filed: 06/24/22 03:02> [facility] Past Medical History Medical History: Medical History Abdominal aortic aneurysm without rupture Acute exacerbation of chronic obstructive pulmonary disease Acute on chronic diastolic CHF (congestive heart failure), NYHA class 3 Atherosclerotic cardiovascular disease Benign essential hypertension BPH loc w urin obs/LUTS Chronic atrial fibrillation Chronic diastolic heart failure Congestive heart failure COPD (chronic obstructive pulmonary disease) Coronary artery disease Current use of anticoagulant therapy Diabetes mellitus Elevated PSA Follicular lymphoma Heart failure with preserved ejection fraction High cholesterol History of blood clots History of deep vein thrombosis (DVT) of lower extremity Insomnia Overweight (BMI 25.0-29.9) PAF (paroxysmal atrial fibrillation) Peripheral arterial disease Pneumonia Pure hypercholesterolemia Smoker Smoker Vitamin D deficiency <Abel Nelson NP - Last Filed: 06/24/22 03:02> Family History Family History: Family History Father Cancer Mother Cardiovascular disease <Abel Nelson NP - Last Filed: 06/24/22 03:02> Surgical History Surgical History: Surgical History History of quadruple bypass <Abel Nelson NP - Last Filed: 06/24/22 03:02> Social History Social History: Social History Household Members: Spouse Housing: Apartment Are you a primary palliative care nurse practitioner to a significant other at home: No Do you presently have visiting nurse or other home services: No Unable to assess alcohol history related to: Unable to respond Alcohol intake: never Patient Tobacco Use Status: Former Tobacco user Tobacco use type: Cigarette Cigarette Packs Per Day: 1.5 Cigarettes Per Day: 30.0 Years Smoked: 65 Second Hand Smoke Exposure: No Use of substances other than those prescribed or required for medical reasons: Unable to respond Currently Displaying Signs/Symptoms of Drug Intoxication Withdrawal: No Advance Directives: Yes Advance Directives on File: Yes Advance Directives Date on File: 01/06/22 Recently lost weight without trying: Yes How much weight loss: 14-23 pounds Eating poorly because of decreased appetite: Yes Nutrition screen score: 5 Nutrition Risks: Poor intake 0-25% >4 days service: No Current occupational status: disabled Cognitive needs: No Hearing needs: No Vision needs: No <Abel Nelson NP - Last Filed: 06/24/22 03:02> Meds Allergies/Adverse reactions: Allergies Allergy/AdvReac Type Severity Reaction Status Date / Time No Known Allergies Allergy Verified 05/26/22 10:12 [No Known Allergies*] <Abel Nelson NP - Last Filed: 06/24/22 03:02> Active Medications: Current Medications Epinephrine 5 mg/ Dextrose 255 mls @ 0 mls/hr IVCONT .Q0M TAMMY; Protocol Sodium Chloride (Ns) 1,000 mls @ 999 mls/hr IV .Q1H1M STA Stop: 06/23/22 23:28 Last Admin: 06/23/22 23:17 Dose: 999 mls/hr Piperacillin Sod/Tazobactam (Sod 3.375 gm/ Sodium Chloride) 50 mls @ 100 mls/hr IV ONCE ONE Stop: 06/23/22 23:41 Potassium Chloride (Potassium Chloride/H20) 10 meq in 100 mls @ 100 mls/hr IV Q1H TAMMY Stop: 06/24/22 01:29 <Abel Nelson NP - Last Filed: 06/24/22 03:02> Home medications: Home Medications Medication Instructions Recorded Confirmed Last Taken Type clopidogrel 75 mg tablet (Plavix) 75 mg PO DAILY 12/23/21 06/24/22 03/25/22 History amiodarone 200 mg tablet 200 mg PO DAILY 12/25/21 06/24/22 03/25/22 History allopurinol 100 mg tablet 100 mg PO BEDTIME 01/05/22 06/24/22 03/24/22 History warfarin 4 mg tablet (Jantoven) 1 tab PO MO 06/24/22 06/24/22 Unknown History warfarin 4 mg tablet (Jantoven) 2 mg PO SUTUWETHFRSA 06/24/22 06/24/22 Unknown History <Abel Nelson NP - Last Filed: 06/24/22 03:02> Physical Exam Vital Signs: Vital Signs: Last Vital Signs Temp 96.1 F L 06/23/22 23:03 Pulse 89 06/23/22 23:03 Resp 26 H 06/23/22 23:03 BP 140/64 H 06/23/22 23:03 Pulse Ox 100 06/23/22 23:03 O2 Del Method 06/23/22 23:03 BMI result Body Mass Index 25.0 <Abel Nelson NP - Last Filed: 06/24/22 03:02> focused assessment performed at 2300 ?General: patient intubated, malnourished looking. ?HEENT:? Head is normocephalic, atraumatic, pupils equal round non reactive to light bilaterally.?Buccal mucosa is dry, Neck is supple. ?Cardiac:?Afib rate control. no murmurs rubs or gallops. Normal cap refill. No edema ?Pulmonary:? Lungs diminished no wheezes, rales or rhonchi. ?Abdomen:? ?Abdomen soft, non-tender, non-distended. Normal bowel sounds. No pulsatile mass. No hepatosplenomegaly. ?Neurologic:? patient not moving extremity to pain, off sedation. No gag, no corneal reflex. ?Skin:Patient with bruising all over body. Skin tears throughout. Very dry skin Vascular:? 2+ pulses upper and lower extremities distally.? <Abel Nelson [employer] SYSTEMS DESIGNER - Last Filed: 06/24/22 03:02> Results Labs CBC and Chem 7: : 06/24/22 06:40 06/24/22 06:40 <Abel Nelson NP - Last Filed: 06/24/22 03:02> Labs: Laboratory Results - last 24 hr 06/23/22 06/23/22 06/23/22 22:20 22:30 22:30 MCV 93.3 MCH 28.3 MCHC 30.3 L RDW 15.8 Plt Count 382 D MPV 9.2 L Immature Gran % (Auto) 2.4 H Neut % (Auto) 79.1 H Lymph % (Auto) 13.9 L [place] % (Auto) 4.4 Eos % (Auto) 0.1 Baso % (Auto) 0.1 Lymph # (Auto) 1.6 [place] # (Auto) 0.5 Eos # (Auto) 0.0 Baso # (Auto) 0.0 Abs Immat Gran (auto) 0.27 H Absolute Neuts (auto) 8.9 H Absolute Nucleated RBC 0.030 H Nucleated RBC % (auto) 0.3 H PT 109.5 H INR 8.7 H* D APTT 51.6 H O2 Saturation ABG pH at Pt Temp ABG pCO2 at Pt Temp ABG pO2 at Pt Temp ABG HCO3 ABG Base Excess (Actual) Anion Gap Estim Creat Clear Calc Estimated GFR POC Glucose 154 H Random Glucose Lactic Acid Calcium AST ALT Alkaline Phosphatase Troponin I High Sens B-Natriuretic Peptide Total Protein Albumin Lipase 06/23/22 06/23/22 06/23/22 22:30 22:30 22:30 MCV MCH MCHC RDW Plt Count MPV Immature Gran % (Auto) Neut % (Auto) Lymph % (Auto) [place] % (Auto) Eos % (Auto) Baso % (Auto) Lymph # (Auto) [place] # (Auto) Eos # (Auto) Baso # (Auto) Abs Immat Gran (auto) Absolute Neuts (auto) Absolute Nucleated RBC Nucleated RBC % (auto) PT INR APTT O2 Saturation ABG pH at Pt Temp ABG pCO2 at Pt Temp ABG pO2 at Pt Temp ABG HCO3 ABG Base Excess (Actual) Anion Gap 39 H Estim Creat Clear Calc 8.8 Estimated GFR 9 POC Glucose Random Glucose 228 H D Lactic Acid Calcium 8.5 AST 152 H ALT 86 H Alkaline Phosphatase 111 D Troponin I High Sens 52.9 H B-Natriuretic Peptide 986 H Total Protein 5.6 L Albumin 3.4 L Lipase 35 06/23/22 06/23/22 22:54 23:08 MCV MCH MCHC RDW Plt Count MPV Immature Gran % (Auto) Neut % (Auto) Lymph % (Auto) [place] % (Auto) Eos % (Auto) Baso % (Auto) Lymph # (Auto) [place] # (Auto) Eos # (Auto) Baso # (Auto) Abs Immat Gran (auto) Absolute Neuts (auto) Absolute Nucleated RBC Nucleated RBC % (auto) PT INR APTT O2 Saturation 100.0 ABG pH at Pt Temp 7.10 L* ABG pCO2 at Pt Temp 34 ABG pO2 at Pt Temp 587 H ABG HCO3 11 L ABG Base Excess (Actual) -17.4 Anion Gap Estim Creat Clear Calc Estimated GFR POC Glucose Random Glucose Lactic Acid 12.6 H* Calcium AST ALT Alkaline Phosphatase Troponin I High Sens B-Natriuretic Peptide Total Protein Albumin Lipase <Abel Nelson NP - Last Filed: 06/24/22 03:02> Assessment and Plan (1) Cardiac arrest due to respiratory disorder: Status: Acute <Abel Nelson NP - Last Filed: 06/24/22 03:02> (2) Pneumonia: Qualifiers: Laterality: right Lung location: lower lobe of lung <Abel Nelson NP - Last Filed: 06/24/22 03:02> Status: Acute <Abel Nelson NP - Last Filed: 06/24/22 03:02> (3) Acute renal failure: Status: Acute <Abel Nelson NP - Last Filed: 06/24/22 03:02> (4) Acute hypokalemia: Status: Acute <Abel Nelson NP - Last Filed: 06/24/22 03:02> (5) Diarrhea: Status: Acute <Abel Nelson NP - Last Filed: 06/24/22 03:02> Plan: Neuro:? ?Patient neuro assessment? concerning-? pupils are fixed,? nonreactive to light.? No gag reflex,? does not withdraw to pain.? Patient off sedation medication. ? But he did receive sedation medication during intubation.? Head CT is pending.? Will? continue frequent? neuro assessments Cardiac:?? Cardiopulmonary arrest:? patient is status post cardiopulmonary arrest,? Patient achieved ROSC after 4 rounds of epi en route to hospital. ? no evidence of acute STEMI. BNP elevated but CT/ Xray with no evidence of severe pulmonary congestion. Abgs showing metabolic acidosis ?Patient also has a history of 2 weeks of being sick with diffuse diarrhea and significant weight loss. Pulmonary vs infection .? Unable to rule out PEs due to renal function. Wll order bilateral? venous Doppler. ? Continue antibiotics. Continue? pressors.? Wean off vent as tolerated Septic shock-? patient white count slightly elevated to 11.2,? lactic acid? 12.6,? and severely hypotensive requiring pressors, unsure if patient? cardiopulmonary arrest pulmonary vs infection? vs ischemic bowel process.? CT of the chest? shows some right middle lobe /lower lobes infiltrates.? CT of the abdomen? concerning pancreatitis but lipase was negative. colonic wall thickening, more noticeable in the ascending and proximal transverse colon concerning for colitis ?and there is a background of extensive sigmoid diverticulosis. Unable to do CTA ABD due to renal function.? Received appropriate fluid? resuscitation in the emergency room,? also received Zosyn in ED, will add vancomycin. Cont to wean off pressors? Pulmonary:?? Acute hypoxic respiratory failure-? see cardiopulmonary arrest plan Renal:? CONTRERAS- ? creatinine is elevated to 5.98 from 1.15 in March of this year. He is also anuric. He is severely dehydrated from poor nutrition and severe diarrhea in the last 2 weeks, and he is status post cardiac arrest.? Receive 3 L of fluids in the emergency room.? Potassium 2.9. Will continue fluid resuscitation. Consult renal services in the am with morning labs?? Endo:? No acute issues.?? GI:?Liver failure-? patient LFTs all elevated,? INR elevated to 8.? He is on Coumadin at home,? he is severely dehydrated and has had? significant weight loss in the past 2 weeks. Will give Vit K, FFps and repeat labs.? ? Heme/Onc:? No acute issues. Psych:? No acute issues. Miscellaneous: ? attempted to have a goals of care with family, but they wanted to continue with full code at this time.? Prophylaxis:Sub cut? Heparin,? IV Protonix Code status: FULL CODE? CRITICAL CARE TIME: X 90 MIN? ?Case discussed with attending Dr Young? <Abel Nelson NP - Last Filed: 06/24/22 03:02> Plan: Neuro:? ?Patient neuro assessment? concerning-? pupils are fixed,? nonreactive to light.? No gag reflex,? does not withdraw to pain.? Patient off sedation med ication. ? But he did receive sedation medication during intubation.? Head CT is pending.? Will? continue frequent? neuro assessments Cardiac:?? Cardiopulmonary arrest:? patient is status post cardiopulmonary arrest,? Patient achieved ROSC after 4 rounds of epi en route to hospital. ? no evidence of acute STEMI. BNP elevated but CT/ Xray with no evidence of severe pulmonary congestion. Abgs showing metabolic acidosis ?Patient also has a history of 2 weeks of being sick with diffuse diarrhea and significant weight loss. Pulmonary vs infection .? Unable to rule out PEs due to renal function. Wll order bilateral? venous Doppler. ? Continue antibiotics. Continue? pressors.? Wean off vent as tolerated Septic shock-? patient white count slightly elevated to 11.2,? lactic acid? 12.6,? and severely hypotensive requiring pressors, unsure if patient? cardiopulmonary arrest pulmonary vs infection? vs ischemic bowel process.? CT of the chest? shows some right middle lobe /lower lobes infiltrates.? CT of the abdomen? concerning pancreatitis but lipase was negative. colonic wall thickening, more noticeable in the ascending and proximal transverse colon concerning for colitis ?and there is a background of extensive sigmoid diverticulosis. Unable to do CTA ABD due to renal function.? Received appropriate fluid? resuscitation in the emergency room,? also received Zosyn in ED, will add vancomycin. Cont to wean off pressors? Pulmonary:?? Acute hypoxic respiratory failure-? see cardiopulmonary arrest plan Renal:? CONTRERAS- ? creatinine is elevated to 5.98 from 1.15 in March of this year. He is also anuric. He is severely dehydrated from poor nutrition and severe diarrhea in the last 2 weeks, and he is status post cardiac arrest.? Receive 3 L of fl uids in the emergency room.? Potassium 2.9. Will continue fluid resuscitation. Consult renal services in the am with morning labs?? Endo:? No acute issues.?? GI:?Liver failure-? patient LFTs all elevated,? INR elevated to 8.? He is on Coumadin at home,? he is severely dehydrated and has had? significant weight loss in the past 2 weeks. Will give Vit K, FFps and repeat labs.? ? Heme/Onc:? No acute issues. Psych:? No acute issues. Miscellaneous: ? attempted to have a goals of care with family, but they wanted to continue with full code at this time.? Prophylaxis:Sub cut? Heparin,? IV Protonix Code status: FULL CODE? CRITICAL CARE TIME: X 90 MIN? ?Case discussed with attending Dr Young? This is <Harley Young MD - Last Filed: 06/24/22 14:02> Time Spent With Patient Time: Total time managing care of this patient today _90___ minutes. <Abel Nelson NP - Last Filed: 06/24/22 03:02> Critical Care Time Critical Care Time (minutes): 90 <Abel Nelson NP - Last Filed: 06/24/22 03:02>
[2022-06-23 23:29] LABS: Influenza A PCR NEGATIVE (Negative); Influenza B PCR NEGATIVE (Negative); Resp Syncy Virus RNA Qual PCR NEGATIVE (Negative); SARS COV2 PCR INHOUSE NEGATIVE (Negative)
[2022-06-23] MEDS: Midazolam HCl/PF 2 MG/2 ML VIAL IVPUSH (23:32)
[2022-06-23] MEDS: Potassium Chloride/H20 10 MEQ/100 ML PIGGYBACK 100 MEQ IV (23:33)
[2022-06-23 23:34] VITALS: O2SAT 97
[2022-06-23 23:37] VITALS: PULSE 73; O2SAT 100
[2022-06-23 23:46] VITALS: O2SAT 100
[2022-06-23 23:50] VITALS: BP 101/49; PULSE 73; RESP 26; TEMP 35.1; O2SAT 100
[2022-06-24] VITALS (35 sets, daily range): BP systolic 66–126; BP diastolic 28–71; PULSE 30–102; RESP 12–31; TEMP 30.5–37.5; O2SAT 73–100; BMI 26.4; BMI 25.0
[2022-06-24 00:58] LABS: Reflex Lactate? Lactic Acid Added
[2022-06-24 01:16] LABS: Bilirubin Total 0.7 mg/dL (0.0-1.0)
[2022-06-24 01:35] LABS: VBG Base Excess -20.4 mmol/L; VBG HCO3 11 mmol/L (22-26); VBG pCO2 51 mmHg; VBG pH 6.94 (7.32-7.43); VBG pO2 72 mmHg
[2022-06-24] MEDS: EPINEPHrine 5 MG in Dextrose 5 % 250 ML 416.4 MG IVCONT (01:35)
[2022-06-24] MEDS: Hydrocortisone Sod Succ/PF 100 MG VIAL IVPUSH (01:35)
[2022-06-24] MEDS: Sodium Bicarbonate 8.4% 50 MEQ/50 ML SYRINGE IVPUSH ×3 (01:36→05:15)
[2022-06-24] MEDS: Phytonadione (Vit K1) 10 MG in 0.9 % Sodium Chloride 50 ML 51 MG IV (01:45)
[2022-06-24 01:49] LABS: Glucose, Whole Blood 263 mg/dL (60-115)
[2022-06-24 01:53] LABS: Troponin-I High Sensitivity 46.4 ng/L (<3.5-35.0)
[2022-06-24] MEDS: Piperacillin Sodium/Tazobactam 3.375 GM in 0.9 % Sodium Chloride 50 ML IV (02:00)
[2022-06-24] MEDS: EPINEPHrine 5 MG in Dextrose 5 % 250 ML 333.12 MG IVCONT (02:08)
[2022-06-24 02:09] LABS: ~Lactic Acid-LAB USE ONLY 15.3 mmol/L (0.5-2.0)
[2022-06-24] MEDS: 0.9 % Sodium Chloride 1,000 ML 999 ML IV (02:09)
[2022-06-24] MEDS: Potassium Chloride/H20 10 MEQ/100 ML PIGGYBACK 100 MEQ IV ×8 (02:46→11:29)
[2022-06-24] MEDS: Sodium Bicarbonate 8.4% 100 MEQ in Dextrose 5 % 900 ML IV (02:46)
[2022-06-24] MEDS: vancomycin HCL 1,000 MG in 0.9 % Sodium Chloride 250 ML 270 MG IV (02:58)
[2022-06-24] MEDS: metroNIDAZOLE/NS 500 MG/100 ML PIGGYBACK 100 MG IV (03:17)
[2022-06-24 03:27] LABS: Reflex Lactate? 2 Y
[2022-06-24] MEDS: Phenylephrine HCL 20 MG in 0.9 % Sodium Chloride 250 ML 25.72 MG IVCONT (03:38)
[2022-06-24] MEDS: EPINEPHrine 5 MG in Dextrose 5 % 250 ML 83.28 MG IVCONT (03:40)
[2022-06-24 04:06] LABS: VBG Base Excess -18.8 mmol/L; VBG HCO3 11 mmol/L (22-26); VBG pCO2 45 mmHg; VBG pO2 74 mmHg
[2022-06-24 04:34] LABS: ~Lactic Acid-LAB USE ONLY 15.2 mmol/L (0.5-2.0)
[2022-06-24] MEDS: Phenylephrine HCL 20 MG in 0.9 % Sodium Chloride 250 ML 308.63 MG IVCONT (05:01)
[2022-06-24 05:11] LABS: Magnesium 2.9 mg/dL (1.6-2.6); Phosphorus 10.9 mg/dL (2.7-4.5)
[2022-06-24 05:53] LABS: Glucose, Whole Blood 216 mg/dL (60-115)
[2022-06-24] MEDS: EPINEPHrine 5 MG in Dextrose 5 % 250 ML 249.84 MG IVCONT (05:58)
[2022-06-24] MEDS: Phenylephrine HCL 20 MG in 0.9 % Sodium Chloride 250 ML 180.03 MG IVCONT ×5 (06:21→12:22)
[2022-06-24 06:56] LABS: Basophils Percent Auto 0.1 % (0-2); Hemoglobin 7.8 g/dl (14.0-18.0); Imm Gran Abs Auto 0.36 X10*3/uL (0.00-0.03); Imm Gran Pct Auto 1.7 % (0.0-0.4); Lymphocytes Absolute Auto 0.4 X10*3/uL (1.2-4.9); MANUAL DIFF FLAG SCAN; Mean Corpuscular Hemoglobin 28.3 pg (27.0-33.0); Mean Corpuscular Volume 94.2 fL (80.0-98.0); Mean Platelet Volume 9.3 fL (9.4-12.4); Monocytes Absolute Auto 0.8 X10*3/uL (0.1-1.2); Monocytes Percent Auto 3.8 % (2-11); NRBC Pct Auto 0.4 /100WBC (0.0-0.2); Neutrophils Absolute Auto 19.2 x10*3/uL (2.0-8.3); Neutrophils Percent Auto 92.4 % (45-73); Platelet Count 232 X10*3/uL (160-400); Red Blood Count 2.76 X10*6/uL (4.60-5.80); Red Cell Distribution Width 15.7 % (11.0-16.0); SCAN SMEAR FLAG 1; White Blood Count 20.8 X10*3/uL (4.8-10.8)
[2022-06-24 07:01] LABS: INTERNATIONAL NORM RATIO 1.9 (0.9-1.1); Prothrombin Time 21.9 SEC (10.0-13.1)
[2022-06-24] MEDS: EPINEPHrine 5 MG in Dextrose 5 % 250 ML 166.56 MG IVCONT ×4 (07:30→12:25)
--- NOTE | 2022-06-24 07:44 | PC.NURSE ---
Patient arrived from ED on epinephrine gtt. INR 8.7, Sydni Nelson RISK COMPLIANCE ANALYST notified. Ordered for 10mg IV Vitamin K+ and 4 units FFP, all given as ordered w/o issues. Unable to obtain additional PIV access, RISK COMPLIANCE ANALYST aware. Increasingly hypotensive throughout shift, started on jose-synephrine as well as vasopressin in addition to epinephrine. Per radiology, Valadez placed in prostate - RISK COMPLIANCE ANALYST replaced Valadez w/o difficulty. RISK COMPLIANCE ANALYST notified regarding no urine output this shift, no new orders. Oncoming RN aware.
[2022-06-24 07:54] LABS: Alanine Aminotransferase 1299 U/L (0-40); Albumin Level 2.8 g/dL (3.5-5.0); Alkaline Phosphatase 152 U/L (39-117); Anion Gap 33 (12-20); Aspartate Amino Transferase 2586 U/L (5-37); Bilirubin Total 1.3 mg/dL (0.0-1.0); Blood Urea Nitrogen 52 mg/dL (9-16); Carbon Dioxide 15 mmol/L (22-29); Chloride 91 mmol/L (96-108); Creatinine Clr Calc Pharmacy 11.3; Estimated Glomerular Filt Rate 12; Glucose Random 298 mg/dL (60-115); Magnesium 2.3 mg/dL (1.6-2.6); Phosphorus 9.5 mg/dL (2.7-4.5); Potassium 2.8 mmol/L (3.3-5.1); Sodium 136 mmol/L (135-145); Total Protein 4.5 g/dL (6.5-8.0)
[2022-06-24 07:55] LABS: SLIDE REVIEW VERIFIED
[2022-06-24 08:02] LABS: Calcium 6.3 mg/dL (8.4-10.2)
--- NOTE | 2022-06-24 08:58 | ECG_ITS ---
Test Reason : wide qrs complex Blood Pressure : / mmHG Vent. Rate : 096 BPM Atrial Rate : 000 BPM P-R Int : 000 ms QRS Dur : 120 ms QT Int : 382 ms P-R-T Axes : 000 -47 237 degrees QTc Int : 482 ms Atrial tachycardia Left axis deviation Low voltage QRS Right bundle branch block Septal infarct , age undetermined Abnormal ECG When compared to the previous EKG of 23 jun 2022, QRs duration narrower Referred By: Harley Young Electronically Signed By:KELSY URBINA
--- NOTE | 2022-06-24 09:23 | PHA.MEDREC ---
Pharmacy Consult ? Medication Reconciliation Pharmacy has completed the medication reconciliation.
[2022-06-24 09:35] LABS: Venous Blood Gas Refer to POC result
[2022-06-24 09:36] LABS: VBG Base Excess -13.6 mmol/L; VBG HCO3 14 mmol/L (22-26); VBG pCO2 40 mmHg; VBG pH 7.15 (7.32-7.43); VBG pO2 57 mmHg
[2022-06-24 09:38] LABS: Venous Blood Gas Refer to POC result
[2022-06-24 09:39] LABS: Venous Blood Gas Refer to POC result
[2022-06-24 10:06] LABS: Lactic Acid 14.9 mmol/L (0.5-2.0)
--- NOTE | 2022-06-24 10:21 | CA_ITS ---
Transthoracic Echocardiogram Patient (Last, First, Middle): Christian Paula R Gender: Male Date of : 1945 Age: 77 Procedure Date: 06/24/2022 Procedure Type: Transthoracic Echocardiogram Location: ICU Height: 165.1 cm Weight: 68.04 kg BSA: 1.75 m2 Heart Rate: bpm BP: 113 / 60 mmHg Packaging Line Operator: Referring MD: Pancho Piper MD Symptoms: cardiomyopathy Study Quality: Technically Difficult ECG Rhythm: Atrial Fibrillation Conclusions: - The left ventricular systolic function is severely decreased. The visually estimated ejection fraction is between 25-30%. - There is evidence of regional wall motion abnormalities. - There is severely decreased right ventricular systolic function. - There is mild to moderate mitral valve regurgitation. - There is mild to moderate tricuspid valve regurgitation. Findings Left Ventricle Normal left ventricular cavity size. There is normal left ventricular wall thickness. The left ventricular systolic function is severely decreased. The visually estimated ejection fraction is between 25-30%. There is evidence of regional wall motion abnormalities. There is severe global hypokinesis. Diastolic function is indeterminate on the basis of available data. Wall Motion Rest Echo Findings The apex, apical inferior, basal inferior, mid anterior, apical septum, and mid anteroseptal segments are akinetic. Right Ventricle Normal right ventricular cavity size. There is severely decreased right ventricular systolic function. Atria The left atrium is mildly dilated. The right atrium is normal in size. Aortic Valve There is a normal trileaflet aortic valve. There is no aortic valve stenosis. There is mild aortic valve regurgitation. Mitral Valve There is mild mitral annular calcification. There is mild to moderate mitral valve regurgitation. There is no mitral valve stenosis. Pulmonic Valve The pulmonic valve is likely normal. Tricuspid Valve Normal tricuspid valve structure. There is mild to moderate tricuspid valve regurgitation. RVSP 35mmHg + RAP (on ventilator). Great Vessels The aortic annulus, sinuses of valsalva, and asc aorta are normal in size. Small plaque is seen in the sino tubular ridge. Venous The inferior vena cava is normal in size and collapses less than 50% with inspiration. (intubated) Pericardium/Pleural There is no evidence of pericardial effusion. Prior Study Comparison Changes noted compared to prior study dated: 11/13/2021. Decrease in LVEF. See comments on wall motion. Measurements 2D Linear Measurements IVSd: 0.92 0.6-0.9/0.6-1.0 cm LVIDd: 4.59 3.9-5.3/4.2-5.9 cm LVIDd Index: 2.62 2.4-3.2/2.2-3.1 cm/m2 LVIDs: 3.63 2.0-3.6 cm LVPWd: 1.03 0.7-1.1 cm Ao Root: 3.20 2.1-3.5 cm LA Diam: 4.50 2.7-3.8/3.0-4.0 cm LAIDs Index: 2.57 1.5-2.3 cm/m2 LV Mass: 190.48 67-162/88-224 g LV Mass Index: 108.84 43-95/49-115 g/m2 LVOT Diam: 2.00 3.0+(-)1.3 cm 2D Systolic Function EF 4C: 35.30 >55% EF 2C: 33.60 >55% EF BiP: 34.80 >55% Mitral Valve MV Pk E: 1.00 MV Decel Time: 90.00 E'Lateral: 15.80 E'Medial: 7.94 E/E' Med: 12.60 E/E' Lat: 6.30 PHT: 26.00 MVA PHT: 8.46 Decel Sweet [place]: 11.17 Aortic Valve AoV Pk Molina: 1.46 AoV Mn Molina: 0.97 AoV VTI: 0.20 AoV Pk Grad: 9.00 Aov Mn Grad: 4.00 CLARENCE Cont.VTI: 1.66 LVOT LVOT Pk Molina: 0.82 LVOT Mn Molina: 0.51 LVOT VTI: 0.11 LVOT Pk Grad: 3.00 LVOT Mn Grad: 1.00 LVOT Diam: 2.00 LVOT Area: 3.14 Diastolic Function MV Pk E: 1.00 E'Medial: 7.94 E/E' Med: 12.60 E' Laterial: 15.80 E/E' Lat: 6.30 Right Ventricle TVS' Molina: 8.00 Tricuspid Valve TR Pk Molina: 2.85 TR Pk Grad: 32.00 RA Press: 3.00 RVSP: 35.00 Great Vessels Aorta Ao Root-2D: 3.20 2.0-3.7 cm Ao Asc: 3.00 2.1-3.4 cm Pulmonary Valve PV Pk Molina: 0.86 Peak PV Grad: 3.00 Updated in Other Vendor System with Status of Final Pancho Piper MD electronically signed on 06/24/2022 5:36:46 PM with status of Final
[2022-06-24] MEDS: Famotidine/PF 20 MG/2 ML VIAL 10 MG IVPUSH (10:45)
[2022-06-24] MEDS: Chlorhexidine Gluc Oral Rinse 15 ML MOUTHWASH BUCCAL (10:45)
[2022-06-24 11:28] LABS: Reflex Lactate? Lactic Acid Added
[2022-06-24] MEDS: Midazolam HCl/PF 2 MG/2 ML VIAL 4 MG IVPUSH (11:37)
--- NOTE | 2022-06-24 11:40 | MHC.CLN ---
RE: CONSULT PT IS MODERATELY MALNOURISHED PT REPORTED POOR PO INTAKE X 2 WEEKS WITH MILD DEPLETION IN SUBCUTANEOUS FAT PT REPORTED 20# WT LOSS, HOWEVER PREVIOUS ADMISSION WT HX REVEALS WT IS STABLE AT THIS TIME, NO SIGNIFICANT WT LOSS WITH +2 EDEMA UNABLE TO PERFORM COMPLETE NFPE R/T PT WITH STEPHANI MERINO AND UNSTABLE CONDITION AT TIME OF ASSESSMENT PT IS CURRENTLY NPO AT THIS TIME IF TF NEEDED; RECOMMEND GLUCERNA AT MAX GOAL RATE 80ML/HR TO PROVIDE 1920KCALS, 80G PROTEIN, 1638ML WATER FROM FORMULA MONITOR TOLERANCE, RESIDUALS AND LYTES SEE ALSO FULL CLINICAL NUTRITION ASSESSMENT
--- NOTE | 2022-06-24 11:47 | P.CDIC_ITS ---
CDI Concurrent Query Documentation Clarification: PHYSICIAN'S DOCUMENTATION REQUEST Date of Query: 06/24/22 1148 Patient Name: Christian Paula Admit Date: 06/23/22 Dear Doctor, A review of the medical record indicates additional documentation may be needed. Please review below and update the documentation accordingly. Clinical Indicators: Risk Factors/Clinical Indicators/Treatments ICU notes 06/23 - COPD on 2 liters home oxygen. ABGs (1 or more) Symptoms: ? PO2 <60 or RA SpO2 <91% ? Tachypnea, SOB, dyspnea ? PcO2 >50 and pH <7.35 ? Pallor or cyanosis ? pO2 decrease or pcO2 increase ? Anxiety or restlessness by 10 mm/Hg from baseline if known ? Use of accessory muscles Oxygen dependent Clarify which of the following accurately represents the patient's respiratory status: * Acute hypoxic respiratory failure * Acute on chronic hypoxic respiratory failure * Other (please specify) * Unable to determine Use of terms such as suspected, likely, concern for, or probable (associated with a specific diagnosis that is being evaluated, monitored, or treated as if it exists) are acceptable and can be coded in the inpatient setting, when documented at the time of discharge. Thank you, Monica Diaz [facility], [facility] Extension: [phone] Please use your independent medical judgment in providing your response. THIS QUERY IS PART OF THE PERMANENT MEDICAL RECORD Provider Response: Acute Respiratory Failure
--- NOTE | 2022-06-24 11:56 | PM.CNCAR ---
History of Present Illness History of Present Illness Date of Service: 06/24/22 Chief complaint: post cardiac arrest Narrative: This is a cardiology consultation regarding a possible transesophageal echocardiogram/cardioversion. Patient is well known to me. Last seen in the office few months ago. Has a history of paroxysmal atrial fibrillation, coronary artery disease, congestive heart failure. Earlier this year, he underwent cardiac catheterization and stenting of the SVG to RCA due to complaints of chest pain. Also chronic smoker and continues to smoke. He was chronically ill but otherwise stable based on last office note. However, he has been hospitalized few times since that time. The last 2 weeks or so, he apparently had a lot of diarrhea and 20 lb weight loss. Then it seems he arrived by ambulance and then went into cardiac arrest and asystolic. Eventually, multiple rounds of epinephrine, CPR for 20 minutes. Then it seems he landed up in the ICU and on the ventilator. It was felt that his atrial fibrillation could be contributing to hypotension and then we have been asked to see him for possible cardioversion. Patient is intubated and does not seem to have mental status at this time and not able to obtain any further history. He is on various pressors. Review of Systems Review of Systems: Unable to obtain review of systems due to mental status. [facility] Past Medical History Medical History Abdominal aortic aneurysm without rupture Acute exacerbation of chronic obstructive pulmonary disease Acute on chronic diastolic CHF (congestive heart failure), NYHA class 3 Atherosclerotic cardiovascular disease Benign essential hypertension BPH loc w urin obs/LUTS Chronic atrial fibrillation Chronic diastolic heart failure Congestive heart failure COPD (chronic obstructive pulmonary disease) Coronary artery disease Current use of anticoagulant therapy Diabetes mellitus Elevated PSA Follicular lymphoma Heart failure with preserved ejection fraction High cholesterol History of blood clots History of deep vein thrombosis (DVT) of lower extremity Insomnia Overweight (BMI 25.0-29.9) PAF (paroxysmal atrial fibrillation) Peripheral arterial disease Pneumonia Pure hypercholesterolemia Smoker Smoker Vitamin D deficiency Family History Family History Father Cancer Mother Cardiovascular disease Surgical History Surgical History History of quadruple bypass Social History Social History Household Members: Spouse Housing: Apartment Are you a primary certified caregiver to a significant other at home: No Do you presently have visiting nurse or other home services: No Unable to assess alcohol history related to: Unable to respond Alcohol intake: never Patient Tobacco Use Status: Former Tobacco user Tobacco use type: Cigarette Cigarette Packs Per Day: 1.5 Cigarettes Per Day: 30.0 Years Smoked: 65 Second Hand Smoke Exposure: No Use of substances other than those prescribed or required for medical reasons: Unable to respond Currently Displaying Signs/Symptoms of Drug Intoxication Withdrawal: No Advance Directives: Yes Advance Directives on File: Yes Advance Directives Date on File: 01/06/22 Recently lost weight without trying: Yes How much weight loss: 14-23 pounds Eating poorly because of decreased appetite: Yes Nutrition screen score: 5 Nutrition Risks: Poor intake 0-25% >4 days service: No Current occupational status: disabled Cognitive needs: No Hearing needs: No Vision needs: No Meds Allergies Allergy/AdvReac Type Severity Reaction Status Date / Time No Known Allergies Allergy Verified 05/26/22 10:12 [No Known Allergies*] Active Medications: Current Medications Chlorhexidine Gluconate (Chlorhexidine Gluc Oral Rinse 15 Ml Mouthwash) 15 ml BUCCAL TID [facility] Last Admin: 06/24/22 10:45 Dose: 15 ml Famotidine (Famotidine/Pf 20 Mg/2 Ml Vial) 10 mg IVPUSH DAILY [facility] Last Admin: 06/24/22 10:45 Dose: 10 mg Heparin Sodium (Porcine) (Heparin Sodium,Porcine 5,000 Unit/Ml Vial) 5,000 unit SUBCUT TID TAMMY Last Admin: 06/24/22 10:41 Dose: Not Given Epinephrine 5 mg/ Dextrose 255 mls @ 0 mls/hr IVCONT .Q0M TAMMY; Protocol Last Admin: 06/24/22 10:51 Dose: 0.8 mcg/kg/min, 166.56 mls/hr Sodium Bicarbonate 100 meq/ (Dextrose) 1,000 mls @ 100 mls/hr IV .Q10H TAMMY Last Admin: 06/24/22 11:16 Dose: Not Given Norepinephrine Bitartrate (Levophed) 8 mg in 250 mls @ 0 mls/hr IVCONT .Q0M TAMMY; Protocol Vasopressin 20 unit/ Sodium (Chloride) 101 mls @ 12.12 mls/hr IVCONT .Q8H20M TAMMY Last Admin: 06/24/22 10:10 Dose: 0.04 unit/min, 12.12 mls/hr Phenylephrine HCl 20 mg/ (Sodium Chloride) 252 mls @ 0 mls/hr IVCONT .Q0M TAMMY; Protocol Last Admin: 06/24/22 10:53 Dose: 3.5 mcg/kg/min, 180.03 mls/hr Home Medications Medication Instructions Recorded Confirmed Last Taken Type clopidogrel 75 mg tablet (Plavix) 75 mg PO DAILY 12/23/21 06/24/22 03/25/22 History amiodarone 200 mg tablet 200 mg PO DAILY 12/25/21 06/24/22 03/25/22 History allopurinol 100 mg tablet 100 mg PO BEDTIME 01/05/22 06/24/22 03/24/22 History warfarin 4 mg tablet (Jantoven) 1 tab PO MO 06/24/22 06/24/22 Unknown History warfarin 4 mg tablet (Jantoven) 2 mg PO SUTUWETHFRSA 06/24/22 06/24/22 Unknown History Physical Exam Vital Signs: Vital Signs: Last Vital Signs Temp 99.5 F 06/24/22 10:00 Pulse 98 06/24/22 11:00 Resp 23 H 06/24/22 11:00 BP 120/58 L 06/24/22 11:00 Pulse Ox 73 L 06/24/22 11:00 O2 Del Method 06/24/22 11:00 FiO2 40 06/24/22 11:00 BMI result Body Mass Index 25.0 Const: Other: Intubated HEENT: Other: Unremarkable Head: Yes normal to inspection Eyes: Other: Pupils are fixed and not reacting to light Neck: Neck: Yes normal visual inspection Chest: Chest palpation & inspection: normal inspection of the chest Resp: Other: Bilateral diminished breath sounds extensive rhonchi Cardio: Palpation: normal PMI Heart sounds: S1 normal heart sound present, S2 normal heart sound present, no gallops, no murmurs and no rubs GI: Palpation (GI): Soft to palpation Back/Spine/Pelvis: Other: unremarkable Skin: General skin exam: no rashes or lesions noted Neuro: Other: Not able to assess Extrem: General: Yes normal to inspection Psych: Mental Status: mental status grossly abnormal Objective Labs and Meds Result diagrams: 06/24/22 06:40 06/24/22 06:40 Lab results: Laboratory Results - last 24 hr 06/23/22 06/23/22 06/23/22 22:20 22:30 22:30 WBC 11.2 H RBC 3.89 L Hgb 11.0 L Hct 36.3 L MCV 93.3 MCH 28.3 MCHC 30.3 L RDW 15.8 Plt Count 382 D MPV 9.2 L Immature Gran % (Auto) 2.4 H Neut % (Auto) 79.1 H Lymph % (Auto) 13.9 L [place] % (Auto) 4.4 Eos % (Auto) 0.1 Baso % (Auto) 0.1 Lymph # (Auto) 1.6 [place] # (Auto) 0.5 Eos # (Auto) 0.0 Baso # (Auto) 0.0 Abs Immat Gran (auto) 0.27 H Absolute Neuts (auto) 8.9 H Absolute Nucleated RBC 0.030 H Nucleated RBC % (auto) 0.3 H Smear Tech's Comments PT 109.5 H INR 8.7 H* D APTT 51.6 H O2 Saturation ABG pH at Pt Temp ABG pCO2 at Pt Temp ABG pO2 at Pt Temp ABG HCO3 ABG Base Excess (Actual) VBG pH VBG pCO2 VBG pO2 VBG HCO3 VBG O2 Saturation VBG Base Excess Sodium Potassium Chloride Carbon Dioxide Anion Gap BUN Creatinine Estim Creat Clear Calc Estimated GFR POC Glucose 154 H Random Glucose Lactic Acid Lactic Acid F/U @ 2Hr Lactic Acid F/U @ 4Hr Calcium Phosphorus Magnesium Total Bilirubin AST ALT Alkaline Phosphatase Troponin I High Sens B-Natriuretic Peptide Total Protein Albumin Lipase Influenza Type A (PCR) Influenza Type B (PCR) RSV RNA Qual (PCR) SARS-CoV-2 RNA (RT-PCR) Blood Type Antibody Screen 06/23/22 06/23/22 06/23/22 22:30 22:30 22:30 WBC RBC Hgb Hct MCV MCH MCHC RDW Plt Count MPV Immature Gran % (Auto) Neut % (Auto) Lymph % (Auto) [place] % (Auto) Eos % (Auto) Baso % (Auto) Lymph # (Auto) [place] # (Auto) Eos # (Auto) Baso # (Auto) Abs Immat Gran (auto) Absolute Neuts (auto) Absolute Nucleated RBC Nucleated RBC % (auto) Smear Tech's Comments PT INR APTT O2 Saturation ABG pH at Pt Temp ABG pCO2 at Pt Temp ABG pO2 at Pt Temp ABG HCO3 ABG Base Excess (Actual) VBG pH VBG pCO2 VBG pO2 VBG HCO3 VBG O2 Saturation VBG Base Excess Sodium 135 Potassium 2.6 L D Chloride 82 L Carbon Dioxide 17 L Anion Gap 39 H BUN 66 H D Creatinine 5.98 H* Estim Creat Clear Calc 8.8 Estimated GFR 9 POC Glucose Random Glucose 228 H D Lactic Acid Lactic Acid F/U @ 2Hr Lactic Acid F/U @ 4Hr Calcium 8.5 Phosphorus 10.9 H Magnesium 2.9 H Total Bilirubin 0.7 AST 152 H ALT 86 H Alkaline Phosphatase 111 D Troponin I High Sens 52.9 H B-Natriuretic Peptide 986 H Total Protein 5.6 L Albumin 3.4 L Lipase 35 Influenza Type A (PCR) Influenza Type B (PCR) RSV RNA Qual (PCR) SARS-CoV-2 RNA (RT-PCR) Blood Type Antibody Screen 06/23/22 06/23/22 06/23/22 22:54 23:08 23:20 WBC RBC Hgb Hct MCV MCH MCHC RDW Plt Count MPV Immature Gran % (Auto) Neut % (Auto) Lymph % (Auto) [place] % (Auto) Eos % (Auto) Baso % (Auto) Lymph # (Auto) [place] # (Auto) Eos # (Auto) Baso # (Auto) Abs Immat Gran (auto) Absolute Neuts (auto) Absolute Nucleated RBC Nucleated RBC % (auto) Smear Tech's Comments PT INR APTT O2 Saturation 100.0 ABG pH at Pt Temp 7.10 L* ABG pCO2 at Pt Temp 34 ABG pO2 at Pt Temp 587 H ABG HCO3 11 L ABG Base Excess (Actual) -17.4 VBG pH VBG pCO2 VBG pO2 VBG HCO3 VBG O2 Saturation VBG Base Excess Sodium Potassium Chloride Carbon Dioxide Anion Gap BUN Creatinine Estim Creat Clear Calc Estimated GFR POC Glucose Random Glucose Lactic Acid 12.6 H* Lactic Acid F/U @ 2Hr Lactic Acid F/U @ 4Hr Calcium Phosphorus Magnesium Total Bilirubin AST ALT Alkaline Phosphatase Troponin I High Sens B-Natriuretic Peptide Total Protein Albumin Lipase Influenza Type A (PCR) NEGATIVE Influenza Type B (PCR) NEGATIVE RSV RNA Qual (PCR) NEGATIVE SARS-CoV-2 RNA (RT-PCR) NEGATIVE Blood Type Antibody Screen 06/24/22 06/24/22 06/24/22 01:13 01:22 01:24 WBC RBC Hgb Hct MCV MCH MCHC RDW Plt Count MPV Immature Gran % (Auto) Neut % (Auto) Lymph % (Auto) [place] % (Auto) Eos % (Auto) Baso % (Auto) Lymph # (Auto) [place] # (Auto) Eos # (Auto) Baso # (Auto) Abs Immat Gran (auto) Absolute Neuts (auto) Absolute Nucleated RBC Nucleated RBC % (auto) Smear Tech's Comments PT INR APTT O2 Saturation ABG pH at Pt Temp ABG pCO2 at Pt Temp ABG pO2 at Pt Temp ABG HCO3 ABG Base Excess (Actual) VBG pH 6.94 L* VBG pCO2 51 VBG pO2 72 VBG HCO3 11 L VBG O2 Saturation 75.0 VBG Base Excess -20.4 Sodium Potassium Chloride Carbon Dioxide Anion Gap BUN Creatinine Estim Creat Clear Calc Estimated GFR POC Glucose 263 H Random Glucose Lactic Acid Lactic Acid F/U @ 2Hr Lactic Acid F/U @ 4Hr Calcium Phosphorus Magnesium Total Bilirubin AST ALT Alkaline Phosphatase Troponin I High Sens B-Natriuretic Peptide Total Protein Albumin Lipase Influenza Type A (PCR) Influenza Type B (PCR) RSV RNA Qual (PCR) SARS-CoV-2 RNA (RT-PCR) Blood Type A Positive Antibody Screen NEGATIVE 06/24/22 06/24/22 06/24/22 01:24 01:24 03:47 WBC RBC Hgb Hct MCV MCH MCHC RDW Plt Count MPV Immature Gran % (Auto) Neut % (Auto) Lymph % (Auto) [place] % (Auto) Eos % (Auto) Baso % (Auto) Lymph # (Auto) [place] # (Auto) Eos # (Auto) Baso # (Auto) Abs Immat Gran (auto) Absolute Neuts (auto) Absolute Nucleated RBC Nucleated RBC % (auto) Smear Tech's Comments PT INR APTT O2 Saturation ABG pH at Pt Temp ABG pCO2 at Pt Temp ABG pO2 at Pt Temp ABG HCO3 ABG Base Excess (Actual) VBG pH VBG pCO2 VBG pO2 VBG HCO3 VBG O2 Saturation VBG Base Excess Sodium Potassium Chloride Carbon Dioxide Anion Gap BUN Creatinine Estim Creat Clear Calc Estimated GFR POC Glucose Random Glucose Lactic Acid Lactic Acid F/U @ 2Hr 15.3 H* Lactic Acid F/U @ 4Hr 15.2 H* Calcium Phosphorus Magnesium Total Bilirubin AST ALT Alkaline Phosphatase Troponin I High Sens 46.4 H B-Natriuretic Peptide Total Protein Albumin Lipase Influenza Type A (PCR) Influenza Type B (PCR) RSV RNA Qual (PCR) SARS-CoV-2 RNA (RT-PCR) Blood Type Antibody Screen 06/24/22 06/24/22 06/24/22 03:59 05:48 06:40 WBC 20.8 H RBC 2.76 L D Hgb 7.8 L D Hct 26.0 L D MCV 94.2 MCH 28.3 MCHC 30.0 L RDW 15.7 Plt Count 232 D MPV 9.3 L Immature Gran % (Auto) 1.7 H Neut % (Auto) 92.4 H Lymph % (Auto) 2.0 L [place] % (Auto) 3.8 Eos % (Auto) 0.0 Baso % (Auto) 0.1 Lymph # (Auto) 0.4 L [place] # (Auto) 0.8 Eos # (Auto) 0.0 Baso # (Auto) 0.0 Abs Immat Gran (auto) 0.36 H Absolute Neuts (auto) 19.2 H Absolute Nucleated RBC 0.090 H Nucleated RBC % (auto) 0.4 H Smear Tech's Comments VERIFIED PT INR APTT O2 Saturation ABG pH at Pt Temp ABG pCO2 at Pt Temp ABG pO2 at Pt Temp ABG HCO3 ABG Base Excess (Actual) VBG pH 7.00 L* VBG pCO2 45 VBG pO2 74 VBG HCO3 11 L VBG O2 Saturation 80.0 VBG Base Excess -18.8 Sodium Potassium Chloride Carbon Dioxide Anion Gap BUN Creatinine Estim Creat Clear Calc Estimated GFR POC Glucose 216 H Random Glucose Lactic Acid Lactic Acid F/U @ 2Hr Lactic Acid F/U @ 4Hr Calcium Phosphorus Magnesium Total Bilirubin AST ALT Alkaline Phosphatase Troponin I High Sens B-Natriuretic Peptide Total Protein Albumin Lipase Influenza Type A (PCR) Influenza Type B (PCR) RSV RNA Qual (PCR) SARS-CoV-2 RNA (RT-PCR) Blood Type Antibody Screen 06/24/22 06/24/22 06/24/22 06:40 06:40 09:25 WBC RBC Hgb Hct MCV MCH MCHC RDW Plt Count MPV Immature Gran % (Auto) Neut % (Auto) Lymph % (Auto) [place] % (Auto) Eos % (Auto) Baso % (Auto) Lymph # (Auto) [place] # (Auto) Eos # (Auto) Baso # (Auto) Abs Immat Gran (auto) Absolute Neuts (auto) Absolute Nucleated RBC Nucleated RBC % (auto) Smear Tech's Comments PT 21.9 H INR 1.9 H D APTT O2 Saturation ABG pH at Pt Temp ABG pCO2 at Pt Temp ABG pO2 at Pt Temp ABG HCO3 ABG Base Excess (Actual) VBG pH VBG pCO2 VBG pO2 VBG HCO3 VBG O2 Saturation VBG Base Excess Sodium 136 Potassium 2.8 L Chloride 91 L Carbon Dioxide 15 L Anion Gap 33 H BUN 52 H Creatinine 4.65 H* Estim Creat Clear Calc 11.3 Estimated GFR 12 POC Glucose Random Glucose 298 H Lactic Acid 14.9 H* Lactic Acid F/U @ 2Hr Lactic Acid F/U @ 4Hr Calcium 6.3 L D Phosphorus 9.5 H Magnesium 2.3 Total Bilirubin 1.3 H AST 2586 H ALT 1299 H Alkaline Phosphatase 152 H Troponin I High Sens B-Natriuretic Peptide Total Protein 4.5 L Albumin 2.8 L Lipase Influenza Type A (PCR) Influenza Type B (PCR) RSV RNA Qual (PCR) SARS-CoV-2 RNA (RT-PCR) Blood Type Antibody Screen 06/24/22 09:28 WBC RBC Hgb Hct MCV MCH MCHC RDW Plt Count MPV Immature Gran % (Auto) Neut % (Auto) Lymph % (Auto) [place] % (Auto) Eos % (Auto) Baso % (Auto) Lymph # (Auto) [place] # (Auto) Eos # (Auto) Baso # (Auto) Abs Immat Gran (auto) Absolute Neuts (auto) Absolute Nucleated RBC Nucleated RBC % (auto) Smear Tech's Comments PT INR APTT O2 Saturation ABG pH at Pt Temp ABG pCO2 at Pt Temp ABG pO2 at Pt Temp ABG HCO3 ABG Base Excess (Actual) VBG pH 7.15 L* VBG pCO2 40 VBG pO2 57 VBG HCO3 14 L VBG O2 Saturation 74.0 VBG Base Excess -13.6 Sodium Potassium Chloride Carbon Dioxide Anion Gap BUN Creatinine Estim Creat Clear Calc Estimated GFR POC Glucose Random Glucose Lactic Acid Lactic Acid F/U @ 2Hr Lactic Acid F/U @ 4Hr Calcium Phosphorus Magnesium Total Bilirubin AST ALT Alkaline Phosphatase Troponin I High Sens B-Natriuretic Peptide Total Protein Albumin Lipase Influenza Type A (PCR) Influenza Type B (PCR) RSV RNA Qual (PCR) SARS-CoV-2 RNA (RT-PCR) Blood Type Antibody Screen ECG Interpretation: In the initial EKG, underlying rhythm is possible atrial tachycardia based on the atrial rate of just over 150/Min. Ventricular rate 77/Min. Right bundle-branch block. In the subsequent EKG, I think he is still in an atrial tachycardia type rhythm based on similar atrial rates. Atrial flutter is also possible. Do not think this is atrial fibrillation Imaging Radiologist's impression: Impressions Chest X-Ray 06/23/22 23:05 IMPRESSION: ET tube 2 cm above the hipolito. NG tube with side-port at the GE junction and should probably be advanced. Abdomen/Pelvis CT 06/24/22 00:35 IMPRESSION: CHEST: 1. Increased bronchial wall thickening, mucus impaction and patchy airspace opacities in the right middle and lower lobes concerning for an atypical infectious process. 2. New sub-4 mm pulmonary nodules, some of which are new compared to 03/09/2022. For these findings, a short-term follow-up chest CT is recommended. ABDOMEN/PELVIS: 1. The balloon of the Valadez catheter is inflated within the prostate gland. Recommend repositioning. 2. Fat stranding around the proximal pancreas and extending into the diana hepatis and retroperitoneum could be associated with acute pancreatitis in the proper clinical context. Gallbladder wall thickening and pericholecystic fat stranding may be reactive. 3. There is diffuse colonic wall thickening, more noticeable in the ascending and proximal transverse colon concerning for colitis. After resolution of the acute symptoms, correlation with a colonoscopy is recommended if not already recently obtained to rule out underlying lesions. 4. There is a background of extensive sigmoid diverticulosis. 5. There is a 2 cm collection with hyperattenuating material and air in the right inguinal region with surrounding inflammatory changes. Correlate with physical examination. 6. Ill-defined soft tissue infiltration of the retroperitoneum is similar to slightly increased compared to 01/14/2021. This critical result was discussed with Abel Nelson NP at 06/24/2022 1:31 AM and it was ascertained that the content and urgency of the report was understood at the time of direct communication. Chest CT 06/24/22 00:35 IMPRESSION: CHEST: 1. Increased bronchial wall thickening, mucus impaction and patchy airspace opacities in the right middle and lower lobes concerning for an atypical infectious process. 2. New sub-4 mm pulmonary nodules, some of which are new compared to 03/09/2022. For these findings, a short-term follow-up chest CT is recommended. ABDOMEN/PELVIS: 1. The balloon of the Valadez catheter is inflated within the prostate gland. Recommend repositioning. 2. Fat stranding around the proximal pancreas and extending into the diana hepatis and retroperitoneum could be associated with acute pancreatitis in the proper clinical context. Gallbladder wall thickening and pericholecystic fat stranding may be reactive. 3. There is diffuse colonic wall thickening, more noticeable in the ascending and proximal transverse colon concerning for colitis. After resolution of the acute symptoms, correlation with a colonoscopy is recommended if not already recently obtained to rule out underlying lesions. 4. There is a background of extensive sigmoid diverticulosis. 5. There is a 2 cm collection with hyperattenuating material and air in the right inguinal region with surrounding inflammatory changes. Correlate with physical examination. 6. Ill-defined soft tissue infiltration of the retroperitoneum is similar to slightly increased compared to 01/14/2021. This critical result was discussed with Abel Nelson NP at 06/24/2022 1:31 AM and it was ascertained that the content and urgency of the report was understood at the time of direct communication. Head CT 06/24/22 00:35 IMPRESSION: No acute intracranial abnormality. Moderate to severe white matter hypodensities presumably reflecting small vessel ischemic changes, overall similar to slightly progressed when compared to the MR from 04/04/2018. Venous Duplex 06/24/22 03:30 IMPRESSION: No DVT demonstrated in the bilateral lower extremities with the caveat that the left mid femoral vein was not well seen due to shadowing from overlying bandages/dressings. Chest X-Ray 06/24/22 08:58 IMPRESSION: * No pneumothorax after pulmonary artery catheter placement. * Endotracheal tube is in satisfactory position at approximately 4.5 cm above the hipolito. * Pulmonary emphysema. * Interstitial prominence from thickening of the airway mcqueen and/or interstitial edema. * Small right pleural effusion is unchanged. Assessment and Plan (1) Cardiac arrest due to respiratory disorder: Status: Acute (2) Atrial arrhythmia: Status: Acute (3) Supratherapeutic INR: Status: Acute (4) Arterial hypotension: Status: Acute Plan Pertinent data reviewed. Hemoglobin 7.8. White cell 20.8. INR was 8.7 upon arrival. Now it is 1.9 after he was reversed with vitamin K. potassium is 2.8. BUN is 52. Creatinine is 4.6. High lactic acid of 14.9. Low calcium of 6.3. Phosphorus high at 9.5. AST and ALT are high. In the thousands. High sensitivity troponin 52.9 and 46.4. Albumin is 2.8. Chest abdomen imaging studies reviewed. Overall, he is acutely ill with multiorgan dysfunction and on pressors. Does not appear to have mental status as well and pupils are not reactive. Primary event is likely not cardiac and could be respiratory based on extensive smoking history and COPD. His rhythm is probably atrial tachycardia and less likely atrial flutter with controlled rate. It is probably not helping with his hemodynamics but I also feel that with extensive abnormalities in labs as well as lack of mental status, he is not suitable for cardioversion either. Also he was supratherapeutic upon arrival but received vitamin K, which makes him pro-coagulopathic. Today's INR is 1.9. Based on this trajectory, INR is going to be likely lower with the next check. That will in turn increase the risk of stroke with cardioversion. Overall, he is acutely ill and may not survive this hospitalization. Cardioversion unlikely to change prognosis and has its own risks as described. Need to discuss goals of care with family. In the interim, supportive care only. Discussed about this with Dr. Young. Will review the echocardiogram that is getting completed. Time Spent With Patient Time: Total time managing care of this patient today 75 minutes. Procedures Date of Service Date of Service: 06/24/22
[2022-06-24 12:19] LABS: Glucose, Whole Blood 324 mg/dL (60-115)
--- NOTE | 2022-06-24 13:33 | PC.NURSE ---
SWAN CATHETER PLACED INTO LEFT SUBCLAVIAN BY - 7.5F, 60-62 CM AT HUB IO TO RIGHT TIBIA REMOVED BEDSIDE ECHO WITH DEFINITY PERFORMED NEPHROLOGY AND CARDIOLOGY BEDSIDE TO ASSESS - WITH PLAN FOR EEG AND DIALYSIS CATH/DIALYSIS PATIENTS FAMILY BEDSIDE AND DECISION TO BE MADE FREIGHT WEIGHER TERMINALLY EXTUBATED TO 2L NC AT 1250, ALL GTTS OFF AT 1252 ASYSTOLE/TOD: 1309 NEOB CALLED AND CASE DENIED AT 1317 #[id number] HOME: [facility] IN [address] [phone]
[2022-06-24 14:00] LABS: Reflex Lactate? 2 Y
--- NOTE | 2022-06-24 14:03 | P.PCNCC_ITS ---
Procedures Date of Service Date of Service: 06/24/22 Central Line Placement Left SC: Central Line Comments: Following bedside echo noting severe LV dysfunction with 20% ejection fraction and virtual akinesis of the anterior septal and apical septal mcqueen with at least moderately severe 3+ mitral regurgitation and elevated left heart filling pressures and 2+ aortic insufficiency as well I decided to place [place]isa catheter and I utilized the left subclavian vein with ultrasound imaging and guidance gained easy entry into the left subclavian vein without complication passing retrograde with Seldinger technique a J tipped guidewire over which an 8.5 [place] introducer was sequentially placed and through that a 7.5 [place] multi lumen [place]isa catheter was then passed again retrograde with balloon inflated into the right pulmonary artery this was confirmed by chest x-ray to be in the right pulmonary artery and with excellent ability to wedge the catheter We noted a mean right atrial pressure markedly elevated at 20 mmHg and right jona tricular systolic pressure of 69 mmHg and a pulmonary artery pressure of 69/38 with a mean pulmonary capillary wedge pressure of 35 mmHg consistent with severe biventricular but predominant left heart failure Consent for Procedure: Elective - informed consent obtained Time out performed: Yes Sterile Technique Used: Yes Patient placed on monitor/pulse ox: Yes prep: mask, gown and gloves Central line prep: Chlorhexidine scrub Ultrasound used for placement: Yes Post procedure: sutured in place, good blood return, all ports aspirated, flushed, capped and sterile dressing applied Post procedure x-ray: tip of catheter in good position and no pneumothorax seen Patient tolerated procedure: well and no complications Complications: none
--- NOTE | 2022-06-24 14:10 | MHC.CM.PN ---
Patient before being seen by case management.
--- NOTE | 2022-06-24 14:14 | P.DS_ITS ---
DS: Providers Provider Date of Service: 06/24/22 Date of admission: 06/23/22 23:34 Date of discharge: 06/24/22 Primary care physician: Unknown Physician Admitting clinician: Abel Nelson Attending physician on admission: Harley Young Consults: 06/24/22 09:42 Consult to Nephrology Stat Consulting Provider: Maldonado Houston Reason for consultation: CONTRERAS Has provider been notified: Yes 06/24/22 10:15 Consult to Cardiology Routine Consulting Provider: Pancho Piper Reason for consultation: cardiogenic shock Has provider been notified: Yes Attending physician on discharge: Harley Young Discharging clinician: Harley Young DS: Diagnosis Discharge Diagnosis (1) Cardiac arrest due to respiratory disorder: Status: Acute (2) Pneumonia: Status: Acute (3) Acute renal failure: Status: Acute (4) Acute hypokalemia: Status: Acute (5) Diarrhea: Status: Acute (6) Cardiogenic shock: Status: Acute (7) Ischemic cardiomyopathy: Status: Acute (8) Shock liver: Status: Acute (9) Smoker: Status: Acute (10) COPD (chronic obstructive pulmonary disease): Status: Acute (11) Atrial fibrillation with RVR: Status: Acute (12) Supratherapeutic INR: Status: Acute (13) Arterial hypotension: Status: Acute (14) Chronic atrial fibrillation: Status: Acute DS: Summary Hospital Course Hospital Course: Patient apparently deteriorating for 2 weeks with marked increased weakness and fatigability no longer coming out of his room unable to stand without assistance and had significant diarrhea but terribly anorectic with no p.o. intake culminating in his request to come to the hospital and upon entry to the ambulance had a witnessed the arrest and was brought to the emergency room where he was intubated and the completion of his resuscitation to the yazidi of spontaneous circulation took place but the total down time probably between 30 and 40 minutes all told and the patient seems to been having repeated and very pattern and myoclonus verses status epilepticus ever since when I came in to see him in the morning Off sedation he remains unresponsive he has no pupillary response he has got a very very minimal cough but no gag reflex on suctioning but does have spontaneous respirations He has dense livedo in acrocyanosis and he has an uric and in combination has a significant elevation of of SGOT and SGPT indicating shock liver The abdominal exam is relatively benign is no palpable organomegaly and my review of the CT scan did not show any evidence of bowel wall thickening and there was no no significant mesenteric fat stranding and there was no gas in the intestinal wall nothing to indicate ischemic bowel except for marked elevation of serum lactate at 15 which remained on several repeated samples very elevated at the same level and he had profound metabolic acidosis and of course was in severe biventricular failure with predominant left heart failure as noted on the in the Page-Lisa numbers He was an uric with acute renal failure and he also had manifestations of shock liver and with increasingly dense livedo in acrocyanosis unequivocally this had a poor prognosis and the patient was having repeated episodes of what 1st looked like myoclonus but so pattern and that I gave 4 mg of Versed and the process completely shut off so retrospectively This might have been status epilepticus before placing a dialysis catheter I spoke with the family very frankly the family said he would never have wanted the this kind of a support a was very much a in dysphagia for with this and the family reached a consensus about not only DNR but comfort measure only looking for extubation which we accommodated form and the patient became asystolic no evidence of of respiration and do not pulse at 13:09 hours time Status at Discharge Cognitive/behavioral status at discharge: Pronounced at 13:09 hours Time Spent with Patient Time attestation: Total time managing care of this patient today ____ minutes. Discharge coordination time: Greater than 30 minutes Quality: Safe Use of Opioids Does Pt have an Active Cancer Diagnosis on the Problem List?: No Quality: Stroke Does the patient have a stroke diagnosis?: No Physical Exam Vital Signs: Vital Signs: Last Vital Signs Temp 99.5 F 06/24/22 10:00 Pulse 30 L 06/24/22 13:00 Resp 12 06/24/22 12:00 BP 117/53 L 06/24/22 12:00 Pulse Ox 73 L 06/24/22 11:00 O2 Del Method 06/24/22 12:00 FiO2 40 06/24/22 12:00 BMI result Body Mass Index 25.0 Initially his systolic pressure was 110 on a combination of phenylephrine and vasopressin and IV epinephrine with heart rate 80s and in atrial fibrillation with marked livedo an acrocyanosis and very poor bilateral carotid upstrokes and virtually in palpable peripheral pulses and markedly diminished bilateral breath sounds Once extubated and removed from his pressor agents he had a very rapid decline and was pronounced at 13:09 hours DS: Data Data Completed and Pending Labs on day of discharge: Laboratory Results - last 24 hr 06/23/22 06/23/22 06/23/22 22:20 22:30 22:30 WBC 11.2 H RBC 3.89 L Hgb 11.0 L Hct 36.3 L MCV 93.3 MCH 28.3 MCHC 30.3 L RDW 15.8 Plt Count 382 D MPV 9.2 L Immature Gran % (Auto) 2.4 H Neut % (Auto) 79.1 H Lymph % (Auto) 13.9 L [place] % (Auto) 4.4 Eos % (Auto) 0.1 Baso % (Auto) 0.1 Lymph # (Auto) 1.6 [place] # (Auto) 0.5 Eos # (Auto) 0.0 Baso # (Auto) 0.0 Abs Immat Gran (auto) 0.27 H Absolute Neuts (auto) 8.9 H Absolute Nucleated RBC 0.030 H Nucleated RBC % (auto) 0.3 H Smear Tech's Comments PT 109.5 H INR 8.7 H* D APTT 51.6 H O2 Saturation ABG pH at Pt Temp ABG pCO2 at Pt Temp ABG pO2 at Pt Temp ABG HCO3 ABG Base Excess (Actual) VBG pH VBG pCO2 VBG pO2 VBG HCO3 VBG O2 Saturation VBG Base Excess Sodium Potassium Chloride Carbon Dioxide Anion Gap BUN Creatinine Estim Creat Clear Calc Estimated GFR POC Glucose 154 H Random Glucose Lactic Acid Lactic Acid F/U @ 2Hr Lactic Acid F/U @ 4Hr Calcium Phosphorus Magnesium Total Bilirubin AST ALT Alkaline Phosphatase Troponin I High Sens B-Natriuretic Peptide Total Protein Albumin Lipase Influenza Type A (PCR) Influenza Type B (PCR) RSV RNA Qual (PCR) SARS-CoV-2 RNA (RT-PCR) Blood Type Antibody Screen 06/23/22 06/23/22 06/23/22 22:30 22:30 22:30 WBC RBC Hgb Hct MCV MCH MCHC RDW Plt Count MPV Immature Gran % (Auto) Neut % (Auto) Lymph % (Auto) [place] % (Auto) Eos % (Auto) Baso % (Auto) Lymph # (Auto) [place] # (Auto) Eos # (Auto) Baso # (Auto) Abs Immat Gran (auto) Absolute Neuts (auto) Absolute Nucleated RBC Nucleated RBC % (auto) Smear Tech's Comments PT INR APTT O2 Saturation ABG pH at Pt Temp ABG pCO2 at Pt Temp ABG pO2 at Pt Temp ABG HCO3 ABG Base Excess (Actual) VBG pH VBG pCO2 VBG pO2 VBG HCO3 VBG O2 Saturation VBG Base Excess Sodium 135 Potassium 2.6 L D Chloride 82 L Carbon Dioxide 17 L Anion Gap 39 H BUN 66 H D Creatinine 5.98 H* Estim Creat Clear Calc 8.8 Estimated GFR 9 POC Glucose Random Glucose 228 H D Lactic Acid Lactic Acid F/U @ 2Hr Lactic Acid F/U @ 4Hr Calcium 8.5 Phosphorus 10.9 H Magnesium 2.9 H Total Bilirubin 0.7 AST 152 H ALT 86 H Alkaline Phosphatase 111 D Troponin I High Sens 52.9 H B-Natriuretic Peptide 986 H Total Protein 5.6 L Albumin 3.4 L Lipase 35 Influenza Type A (PCR) Influenza Type B (PCR) RSV RNA Qual (PCR) SARS-CoV-2 RNA (RT-PCR) Blood Type Antibody Screen 06/23/22 06/23/22 06/23/22 22:54 23:08 23:20 WBC RBC Hgb Hct MCV MCH MCHC RDW Plt Count MPV Immature Gran % (Auto) Neut % (Auto) Lymph % (Auto) [place] % (Auto) Eos % (Auto) Baso % (Auto) Lymph # (Auto) [place] # (Auto) Eos # (Auto) Baso # (Auto) Abs Immat Gran (auto) Absolute Neuts (auto) Absolute Nucleated RBC Nucleated RBC % (auto) Smear Tech's Comments PT INR APTT O2 Saturation 100.0 ABG pH at Pt Temp 7.10 L* ABG pCO2 at Pt Temp 34 ABG pO2 at Pt Temp 587 H ABG HCO3 11 L ABG Base Excess (Actual) -17.4 VBG pH VBG pCO2 VBG pO2 VBG HCO3 VBG O2 Saturation VBG Base Excess Sodium Potassium Chloride Carbon Dioxide Anion Gap BUN Creatinine Estim Creat Clear Calc Estimated GFR POC Glucose Random Glucose Lactic Acid 12.6 H* Lactic Acid F/U @ 2Hr Lactic Acid F/U @ 4Hr Calcium Phosphorus Magnesium Total Bilirubin AST ALT Alkaline Phosphatase Troponin I High Sens B-Natriuretic Peptide Total Protein Albumin Lipase Influenza Type A (PCR) NEGATIVE Influenza Type B (PCR) NEGATIVE RSV RNA Qual (PCR) NEGATIVE SARS-CoV-2 RNA (RT-PCR) NEGATIVE Blood Type Antibody Screen 06/24/22 06/24/22 06/24/22 01:13 01:22 01:24 WBC RBC Hgb Hct MCV MCH MCHC RDW Plt Count MPV Immature Gran % (Auto) Neut % (Auto) Lymph % (Auto) [place] % (Auto) Eos % (Auto) Baso % (Auto) Lymph # (Auto) [place] # (Auto) Eos # (Auto) Baso # (Auto) Abs Immat Gran (auto) Absolute Neuts (auto) Absolute Nucleated RBC Nucleated RBC % (auto) Smear Tech's Comments PT INR APTT O2 Saturation ABG pH at Pt Temp ABG pCO2 at Pt Temp ABG pO2 at Pt Temp ABG HCO3 ABG Base Excess (Actual) VBG pH 6.94 L* VBG pCO2 51 VBG pO2 72 VBG HCO3 11 L VBG O2 Saturation 75.0 VBG Base Excess -20.4 Sodium Potassium Chloride Carbon Dioxide Anion Gap BUN Creatinine Estim Creat Clear Calc Estimated GFR POC Glucose 263 H Random Glucose Lactic Acid Lactic Acid F/U @ 2Hr Lactic Acid F/U @ 4Hr Calcium Phosphorus Magnesium Total Bilirubin AST ALT Alkaline Phosphatase Troponin I High Sens B-Natriuretic Peptide Total Protein Albumin Lipase Influenza Type A (PCR) Influenza Type B (PCR) RSV RNA Qual (PCR) SARS-CoV-2 RNA (RT-PCR) Blood Type A Positive Antibody Screen NEGATIVE 06/24/22 06/24/22 06/24/22 01:24 01:24 03:47 WBC RBC Hgb Hct MCV MCH MCHC RDW Plt Count MPV Immature Gran % (Auto) Neut % (Auto) Lymph % (Auto) [place] % (Auto) Eos % (Auto) Baso % (Auto) Lymph # (Auto) [place] # (Auto) Eos # (Auto) Baso # (Auto) Abs Immat Gran (auto) Absolute Neuts (auto) Absolute Nucleated RBC Nucleated RBC % (auto) Smear Tech's Comments PT INR APTT O2 Saturation ABG pH at Pt Temp ABG pCO2 at Pt Temp ABG pO2 at Pt Temp ABG HCO3 ABG Base Excess (Actual) VBG pH VBG pCO2 VBG pO2 VBG HCO3 VBG O2 Saturation VBG Base Excess Sodium Potassium Chloride Carbon Dioxide Anion Gap BUN Creatinine Estim Creat Clear Calc Estimated GFR POC Glucose Random Glucose Lactic Acid Lactic Acid F/U @ 2Hr 15.3 H* Lactic Acid F/U @ 4Hr 15.2 H* Calcium Phosphorus Magnesium Total Bilirubin AST ALT Alkaline Phosphatase Troponin I High Sens 46.4 H B-Natriuretic Peptide Total Protein Albumin Lipase Influenza Type A (PCR) Influenza Type B (PCR) RSV RNA Qual (PCR) SARS-CoV-2 RNA (RT-PCR) Blood Type Antibody Screen 06/24/22 06/24/22 06/24/22 03:59 05:48 06:40 WBC 20.8 H RBC 2.76 L D Hgb 7.8 L D Hct 26.0 L D MCV 94.2 MCH 28.3 MCHC 30.0 L RDW 15.7 Plt Count 232 D MPV 9.3 L Immature Gran % (Auto) 1.7 H Neut % (Auto) 92.4 H Lymph % (Auto) 2.0 L [place] % (Auto) 3.8 Eos % (Auto) 0.0 Baso % (Auto) 0.1 Lymph # (Auto) 0.4 L [place] # (Auto) 0.8 Eos # (Auto) 0.0 Baso # (Auto) 0.0 Abs Immat Gran (auto) 0.36 H Absolute Neuts (auto) 19.2 H Absolute Nucleated RBC 0.090 H Nucleated RBC % (auto) 0.4 H Smear Tech's Comments VERIFIED PT INR APTT O2 Saturation ABG pH at Pt Temp ABG pCO2 at Pt Temp ABG pO2 at Pt Temp ABG HCO3 ABG Base Excess (Actual) VBG pH 7.00 L* VBG pCO2 45 VBG pO2 74 VBG HCO3 11 L VBG O2 Saturation 80.0 VBG Base Excess -18.8 Sodium Potassium Chloride Carbon Dioxide Anion Gap BUN Creatinine Estim Creat Clear Calc Estimated GFR POC Glucose 216 H Random Glucose Lactic Acid Lactic Acid F/U @ 2Hr Lactic Acid F/U @ 4Hr Calcium Phosphorus Magnesium Total Bilirubin AST ALT Alkaline Phosphatase Troponin I High Sens B-Natriuretic Peptide Total Protein Albumin Lipase Influenza Type A (PCR) Influenza Type B (PCR) RSV RNA Qual (PCR) SARS-CoV-2 RNA (RT-PCR) Blood Type Antibody Screen 06/24/22 06/24/22 06/24/22 06:40 06:40 09:25 WBC RBC Hgb Hct MCV MCH MCHC RDW Plt Count MPV Immature Gran % (Auto) Neut % (Auto) Lymph % (Auto) [place] % (Auto) Eos % (Auto) Baso % (Auto) Lymph # (Auto) [place] # (Auto) Eos # (Auto) Baso # (Auto) Abs Immat Gran (auto) Absolute Neuts (auto) Absolute Nucleated RBC Nucleated RBC % (auto) Smear Tech's Comments PT 21.9 H INR 1.9 H D APTT O2 Saturation ABG pH at Pt Temp ABG pCO2 at Pt Temp ABG pO2 at Pt Temp ABG HCO3 ABG Base Excess (Actual) VBG pH VBG pCO2 VBG pO2 VBG HCO3 VBG O2 Saturation VBG Base Excess Sodium 136 Potassium 2.8 L Chloride 91 L Carbon Dioxide 15 L Anion Gap 33 H BUN 52 H Creatinine 4.65 H* Estim Creat Clear Calc 11.3 Estimated GFR 12 POC Glucose Random Glucose 298 H Lactic Acid 14.9 H* Lactic Acid F/U @ 2Hr Lactic Acid F/U @ 4Hr Calcium 6.3 L D Phosphorus 9.5 H Magnesium 2.3 Total Bilirubin 1.3 H AST 2586 H ALT 1299 H Alkaline Phosphatase 152 H Troponin I High Sens B-Natriuretic Peptide Total Protein 4.5 L Albumin 2.8 L Lipase Influenza Type A (PCR) Influenza Type B (PCR) RSV RNA Qual (PCR) SARS-CoV-2 RNA (RT-PCR) Blood Type Antibody Screen 06/24/22 06/24/22 06/24/22 09:28 11:55 12:14 WBC RBC Hgb Hct MCV MCH MCHC RDW Plt Count MPV Immature Gran % (Auto) Neut % (Auto) Lymph % (Auto) [place] % (Auto) Eos % (Auto) Baso % (Auto) Lymph # (Auto) [place] # (Auto) Eos # (Auto) Baso # (Auto) Abs Immat Gran (auto) Absolute Neuts (auto) Absolute Nucleated RBC Nucleated RBC % (auto) Smear Tech's Comments PT INR APTT O2 Saturation ABG pH at Pt Temp ABG pCO2 at Pt Temp ABG pO2 at Pt Temp ABG HCO3 ABG Base Excess (Actual) VBG pH 7.15 L* VBG pCO2 40 VBG pO2 57 VBG HCO3 14 L VBG O2 Saturation 74.0 VBG Base Excess -13.6 Sodium Potassium Chloride Carbon Dioxide Anion Gap BUN Creatinine Estim Creat Clear Calc Estimated GFR POC Glucose 324 H Random Glucose Lactic Acid Lactic Acid F/U @ 2Hr 14.0 H* Lactic Acid F/U @ 4Hr Calcium Phosphorus Magnesium Total Bilirubin AST ALT Alkaline Phosphatase Troponin I High Sens B-Natriuretic Peptide Total Protein Albumin Lipase Influenza Type A (PCR) Influenza Type B (PCR) RSV RNA Qual (PCR) SARS-CoV-2 RNA (RT-PCR) Blood Type Antibody Screen Discharge Plan Discharge Date/Time: 06/24/22 13:09 Anticipated Discharge Date/Time: 06/24/22 14:42 Patient Disposition: Discharge Diagnosis: Cardiogenic shock with ischemic cardiomyopathy and persistent atrial fibrillation with multi organ failure including shock liver acute renal failure and persistent encephalopathy Referrals: Physician,Unknown J [Primary Care Provider] - 1 Week Discharge Medications: Discontinued furosemide 40 mg tablet 40 mg PO DAILY Qty: 90 3RF budesonide-formoterol [Symbicort] 160-4.5 mcg/actuation HFA aerosol inhaler 2 puff PO BID Qty: 10.2 3RF metformin 500 mg tablet extended release 24 hr 500 mg PO BEDTIME 30 Days Qty: 30 1RF finasteride 5 mg tablet 5 mg PO DAILY 90 Days Qty: 90 1RF albuterol sulfate 90 mcg/actuation HFA aerosol inhaler 2 puff PO Q4-6H PRN (Reason: for dyspnea) Qty: 8.5 0RF metoprolol tartrate 50 mg tablet 50 mg PO BID Qty: 180 3RF warfarin 4 mg tablet 4 mg PO DAILY Qty: 30 2RF Protocol: Dose Management Condition: Wednesday (Week One) Dose/Route: 2 mg Instruction: 0.5 x 4 mg tablets Condition: Wednesday Dose/Route: 4 mg Instruction: 1 x 4 mg tablet Condition: Wednesday Dose/Route: 2 mg Instruction: 0.5 x 4 mg tablets Condition: Wednesday Dose/Route: 2 mg Instruction: 0.5 x 4 mg tablets Condition: Dose/Route: 2 mg Instruction: 0.5 x 4 mg tablets Condition: Wednesday Dose/Route: 2 mg Instruction: 0.5 x 4 mg tablets Condition: Wednesday Dose/Route: 2 mg Instruction: 0.5 x 4 mg tablets Condition: Wednesday (Week Two) Dose/Route: 2 mg Instruction: 0.5 x 4 mg tablets Condition: Wednesday Dose/Route: 4 mg Instruction: 1 x 4 mg tablet Condition: Wednesday Dose/Route: 2 mg Instruction: 0.5 x 4 mg tablets Condition: Wednesday Dose/Route: 2 mg Instruction: 0.5 x 4 mg tablets Condition: Dose/Route: 2 mg Instruction: 0.5 x 4 mg tablets Condition: Wednesday Dose/Route: 2 mg Instruction: 0.5 x 4 mg tablets Condition: Wednesday Dose/Route: 2 mg Instruction: 0.5 x 4 mg tablets Protocol Text: Adjustment Start Date: Wednesday05/26/22 INR Value: 2.2 INR Date: 05/26/22 Recheck Date: 06/09/22 Additional Instructions: cont prev dosing balance reds and greens call with any medication changes (DME) ROLLATOR See Rx Instructions .Route .MEDSUPPLY Qty: 1 0RF Rx Instructions: As directed allopurinol 100 mg tablet 100 mg PO BEDTIME warfarin [Jantoven] 4 mg tablet 1 tab PO MO warfarin [Jantoven] 4 mg tablet 2 mg PO SUTUWETHFRSA rosuvastatin [Crestor] 40 mg tablet 40 mg PO DAILY Qty: 90 3RF clopidogrel [Plavix] 75 mg tablet 75 mg PO DAILY amiodarone 200 mg tablet 200 mg PO DAILY Discharge Date/Time: 06/24/22 13:09
--- NOTE | 2022-06-24 18:59 | PM.SEPSIS ---
Sepsis Event Note Evaluation Sepsis screening result: No Definite Risk Current stage of sepsis: septic shock Initial hypotension due to sepsis/infection: SBP < 90 mmHg Possible source: GI tract/intra-abdominal Focused Exam Vital signs: Vital Signs Temp Pulse Resp BP Pulse Ox O2 Del Method FiO2 06/24/22 12:00 40 06/24/22 12:00 99 12 117/53 L Mechanical Ventilation 40 06/24/22 11:00 98 23 H 120/58 L 73 L Mechanical Ventilation 40 06/24/22 10:00 99.5 F 94 23 H 117/65 74 L Mechanical Ventilation 40 06/24/22 09:30 40 06/24/22 13:00 30 L 06/24/22 08:00 40 06/24/22 09:00 87 23 H 110/66 98 Mechanical Ventilation 40 06/24/22 08:00 96.3 F L 97 21 H 112/60 97 Mechanical Ventilation 40 06/24/22 07:00 102 H 19 107/62 99 Mechanical Ventilation 40 ?General: patient intubated, malnourished looking. ?HEENT:? Head is normocephalic, atraumatic, pupils? equal round non reactive to light bilaterally.?Buccal mucosa is dry, Neck is supple. ?Cardiac:?Afib rate control. Hypotensive requiring max support on pressors. slow cap refill. No edema ?Pulmonary:? Lungs diminished no wheezes, rales or rhonchi. ?Abdomen:? ?Abdomen soft, non-tender, non-distended. Normal bowel sounds. No pulsatile mass. No hepatosplenomegaly. ?Neurologic:?? patient not moving extremity to pain, off sedation. No gag, no corneal reflex. ?Skin:Patient with bruising all over body. Skin tears throughout. Mottle skin from hip to toes on BLE. Very dry skin ? Date exam was performed: 06/24/22 Time exam was performed: 19:03 Problem List (1) Cardiac arrest due to respiratory disorder: Status: Acute (2) Pneumonia: Status: Acute (3) Acute renal failure: Status: Acute (4) Acute hypokalemia: Status: Acute (5) Diarrhea: Status: Acute (6) Cardiogenic shock: Status: Acute (7) Ischemic cardiomyopathy: Status: Acute (8) Shock liver: Status: Acute (9) Smoker: Status: Acute Comment: THIS SEEMS TO BE HIS MAJOR PROBLEM, HAS BEEN A HEAVY SMOKER. SMOKING 1 AND HALF PACK FOR MORE THAN 60 YEARS. DISCUSSED ABOUT QUITTING. REALISTICALLY HE WILL NOT BE ABLE TO QUIT RIGHT AWAY. I ADVISED HIM TO USE NICOTINE PATCH 21 MG DAILY , HE HAS IT AT HOME. ADVISED HIM TO CUT DOWN TO LESS THAN 1 PACK A DAY FOR THE TIME BEING, AND KEEP ON CUTTING THE AMOUNT OF CIGARETTES. ULTIMATELY HIS GOAL SHOULD BE TO QUIT COMPLETELY. RISKS OF CONTINUED SMOKING EXPLAINED TO HIM. HE HAS ALSO PARTICIPATED IN ANNUAL LUNG SCREENING PROGRAM, BUT NO FOLLOW-UP AFTER DECEMBER 2020. ON HIS SUBSEQUENT VISITS I WOULD TRY TO CONVINCE HIM TO GET ANNUAL LOW DOSE CT SCAN. (10) COPD (chronic obstructive pulmonary disease): Status: Acute Comment: HE HAS LONGSTANDING HISTORY OF CHRONIC OBSTRUCTIVE PULMONARY DISEASE, SECONDARY TO HIS LONG-TERM SMOKING. TX: ADVISED TO CONTINUE SYMBICORT 160-4.52 PUFFS B.I.D.. PROAIR 2 PUFFS Q 4-6 HOURS P.R.N.. PULMONARY FUNCTION TEST IS SCHEDULED, AFTER THE TEST WILL DECIDE IF HE SHOULD NEED ANY EXTRA AGENTS FOR MAINTENANCE THERAPY. (11) Atrial fibrillation with RVR: Status: Acute (12) Supratherapeutic INR: Status: Acute (13) Arterial hypotension: Status: Acute (14) Chronic atrial fibrillation: Status: Acute
--- NOTE | 2022-06-24 22:27 | CONS_ITS ---
DATE OF SERVICE: 06/24/2022 REASON FOR CONSULTATION: I was asked to see patient to assist in evaluation and management of patient's oligoanuric acute kidney injury in the setting of cardiogenic shock, shock liver on pressors, on a ventilator, severe lactic acidosis. HISTORY OF PRESENT ILLNESS: In summary, the patient is a 77-year-old gentleman with a history of multiple chronic medical problems including hypertension, hyperlipidemia, diabetes, coronary artery disease, congestive heart failure, mention made of history of follicular lymphoma, history of DVT, maintained on anticoagulation, O2 dependent COPD, history of abdominal aortic aneurysm, peripheral vascular disease, who presents to the hospital after a cardiopulmonary arrest. Information was obtained from electronic medical record and states patient apparently lives at home with increasing shortness of breath, family called the paramedics. Family states that he has not been eating or drinking for the past 2 weeks. He has had a 20 pounds weight loss with some severe chronic diarrhea. As mentioned, he had a cardiac arrest on transport to the hospital. He is currently in the ICU on a ventilator on multiple pressors, making no urine. He just had Temple-Lisa catheter placed by the clinical psychiatrist shows filling pressures. Of note, he is able to oxygenate reasonably well on 40% O2. PAST MEDICAL HISTORY: As alluded to in the notes above. MEDICATIONS: It is unclear what active medications he is on. ALLERGIES: RECORDS INDICATE NO KNOWN DRUG ALLERGIES. PHYSICAL EXAMINATION: VITAL SIGNS: Systolic blood pressures have been as low as the 60s now. In the past few hours, systolic blood pressures have been 90-100 on multiple pressors. He has also gotten over 6 L of IV crystalloid. HEENT: Head is atraumatic. Mucous membranes are moist. LUNGS: Breath sounds bilaterally. CARDIAC: Regular rate. ABDOMEN: Soft. EXTREMITIES: Show mottling and livedo reticularis. Feet are cool to palpation. LABORATORY DATA: Most recently from 6 a.m. shows sodium 136, potassium 2.8, chloride 91, bicarb 15, anion gap 33, BUN 55, creatinine 4.65, calcium 6.3, phosphorus 9.5. SGOT and SGPT were 2586 and . Albumin 2.8. Lipase 35. Lactate level is 14.9 from this morning, was 15.3 yesterday on admission. Serum creatinine on admission was 5.98 and going back in the electronic medical record in March, his creatinine was 1.15. His SGOT on admission yesterday was 152, now up to 2586 as mentioned. His troponin was 46. He has had imaging studies including a CAT scan of the abdomen, which shows extensive vascular calcifications of the kidney vasculature. No hydronephrosis. IMPRESSION: 77-year-old with oligoanuric acute kidney injury in the setting of [QAMARKER] multiorgan failure. Anuric acute kidney injury. This is most consistent with severe ischemic acute tubular necrosis from his presentation of cardiogenic shock. He most likely has significant disease based on the CAT scan showing calcification of his renal vasculature and now with shock and poor perfusion, this is the culprit for his acute kidney injury. has essentially been ruled out with the imaging studies showing no hydro on the CAT scan. he is on multiple pressors and volume has a Temple-Lisa catheter, try and optimize his cardio hemodynamics and perfusion. His persistently elevated severe lactic acidosis is very concerning. He has shock liver, which is probably playing a contributing role, but clearly has tissue hypoperfusion based on clinical exam with significant livido reticularis. Question of whether he may have a superimposed sepsis along with cardiogenic shock. Ischemic bowel would certainly be a concern was not revealing this, but he may need repeat CAT scan with IV contrast to rule out ischemic bowel as well. RECOMMENDATIONS: At this time include the followin. Continue optimize hemodynamics as being done by the clinical psychiatrist. 2. Placement of a dialysis catheter and go ahead and institute dialysis today for anuric acute kidney injury and severe metabolic acidosis. 3. Ideally, if we had the CRRT, we would perform that given his hemodynamics instability, but we do not have that here at [facility], so we will do regular hemodialysis. 4. We will follow the patient closely with the team. MD EMERALD Ellison/JACK / [id number]
[2022-06-25 08:36] LABS: VBG Base Excess -18.6 mmol/L; VBG HCO3 12 mmol/L (22-26); VBG pCO2 48 mmHg; VBG pH 6.99 (7.32-7.43); VBG pO2 71 mmHg
[2022-06-25 09:10] LABS: HBS Num1 0.84 mIU/mL (0-7.99); HBc Num1 0.05 S/CO (0.00-0.79); HBsAGNum1 0.32 S/CO (0.00-0.99); Hepatitis B Core Antibody Nonreactive (Nonreactive); Hepatitis B Surface Antigen Negative (Negative); ~HepC Num1 0.04 S/CO (0.00-0.79); ~Hepatitis B Surface Antibody NONREACTIVE (Nonreactive); ~Hepatitis C Antibody Nonreactive (Nonreactive)
== END 2022-06-24 13:09 | disposition expired | DRG 871 ==
LOC: HO.ED 23:55 → HO.EDOVER 06-24 00:05 → HO.ICU 06-24 01:02
PROVIDERS: Internal Medicine Nephrology; Admitting Provider Registered Nurse Community Health; Emergency Provider Emergency Medicine Emergency Medical Services; PCP Internal Medicine; Visit Provider Internal Medicine Cardiovascular Disease
DX: A41.9 Sepsis, unspecified organism (principal); J18.9 Pneumonia, unspecified organism; J96.01 Acute respiratory failure with hypoxia; R65.21 Severe sepsis with septic shock; K72.00 Acute and subacute hepatic failure without coma; I50.32 Chronic diastolic (congestive) heart failure; I48.19 Other persistent atrial fibrillation; J44.0 Chronic obstructive pulmonary disease with (acute) lower respiratory infection; I25.10 Atherosclerotic heart disease of native coronary artery without angina pectoris; I11.0 Hypertensive heart disease with heart failure; I95.89 Other hypotension; E87.6 Hypokalemia; E86.0 Dehydration; I25.5 Ischemic cardiomyopathy; R79.1 Abnormal coagulation profile; Z20.822 Contact with and (suspected) exposure to COVID-19; Z99.81 Dependence on supplemental oxygen; Z86.718 Personal history of other venous thrombosis and embolism; Z86.74 Personal history of sudden cardiac arrest; Z95.1 Presence of aortocoronary bypass graft; Z87.891 Personal history of nicotine dependence; Z79.01 Long term (current) use of anticoagulants; Z79.02 Long term (current) use of antithrombotics/antiplatelets; Z79.84 Long term (current) use of oral hypoglycemic drugs; Z79.899 Other long term (current) drug therapy
CPT/HCPCS: 0241U; 36415; 70450; 71045; 71250; 74176; 80053; 82803; 82947; 83605; 83690; 83735; 83880; 84100; 84484; 85025; 85610; 85730; 86704; 86706; 86803; 86850; 86900; 86901; 87040; 87070; 87205; 87340; 93005; 93306; 93970; 94002; 99285; C1758; J0171; J2250; J2370; J2543; J3370; J3430; P9017